=== PATIENT | male | born 1940 | race Caucasian/White ===

== ENCOUNTER 2016-08-22 14:59 | Inpatient (IN) | payer MEDICARE, OTHER ==
[~2016-08-22] VITALS: Ht 177.8 cm; Wt 83.0 kg
[~2016-08-22 14:59] MED LIST: ATOR80TA PO; CLOP75TA2 PO; DIVA250T47 PO; ESCI10TA PO; FINA5TAB11 PO; FURO20TA PO; LORA-258 PO; MEMA21CA PO; MYRBETRIQ PO; OXCA150T PO; SPIR25TA PO
[2016-08-22] MEDS ORDERED: IV SET PRIMARY 1 EA INFUS.SET MC ONE (15:54)
[2016-08-22] MEDS ORDERED: IV SET PRIMARY PUMP SET 1 EA INFUS.SET MC ONE ×2 (15:54→19:55)
[2016-08-22 15:59] LABS: BASOPHILS # (AUTO) 0.2 /CMM (0.0-0.2); BASOPHILS % (AUTO) 2.7 % (0.0-2.0); DIFF TOTAL % 100 %; EOSINOPHILS % (AUTO) 0.1 % (0.0-6.0); HEMATOCRIT 39 % (39-51); LYMPHOCYTES # (AUTO) 0.6 /CMM (0.8-4.8); MEAN CORPUSCULAR HEMOGLOBIN 30 PG (26.0-33.0); MEAN CORPUSCULAR HGB CONC 34 g/dl (31.0-36.0); MEAN CORPUSCULAR VOLUME 89 fL (80-96); MONOCYTES # (AUTO) 0.7 /CMM (0.1-1.30); MONOCYTES % (AUTO) 10.2 % (2.0-12.0); NEUTROPHILS # (AUTO) 5.2 /CMM (1.8-8.9); PLATELET COUNT (AUTO) 195 /CMM (150-450); RED BLOOD CELL COUNT(AUTO) 4.34 MIL/uL (4.5-6.0); WHITE BLOOD COUNT (AUTO) 6.7 K/uL (4.3-11.0)
[2016-08-22] MEDS ORDERED: IV NS 0.9% 1,000 ML BAG IV ONE (16:00)
[2016-08-22] MEDS ORDERED: VANCOMYCIN 1 GM in IV D5W 250 ML IV ONE (16:00)
[2016-08-22] MEDS ORDERED: PIPERACILLIN /TAZOBACTAM 3.375 G in IV D5W 50 ML IV ONE (16:00)
[2016-08-22 16:11] LABS: CALCIUM, SERUM 8.4 mg/dL (8.5-10.1); CREATININE 1.4 mg/dL (0.6-1.3); POTASSIUM 3.6 mmol/L (3.5-5.1)
[2016-08-22 16:14] LABS: INR 1.1 (0.87-1.13); PROTHROMBIN TIME 11.6 SECS (9.5-12.7)
[2016-08-22 16:16] LABS: ALBUMIN 3.2 g/dL (3.4-5.0); BILIRUBIN,DIRECT 0.1 mg/dL (0.0-0.2); BILIRUBIN,TOTAL 0.4 mg/dL (0.2-1.0); INDIRECT BILIRUBIN 0.3 mg/dL (0.0-1.1); TOTAL PROTEIN, SERUM 6.9 g/dL (6.4-8.2)
[2016-08-22 16:18] LABS: TROPONIN I 0.021 ng/mL (0.00-0.056)
[2016-08-22] MEDS ORDERED: ACETAMINOPHEN 650 MG/SUPP.RECT RC ONE ×2 (16:30→17:35)
[2016-08-22] MEDS ORDERED: TRAZ-144 PO (16:40)
[2016-08-22] MEDS ORDERED: CEFT2VIA13 IM (16:40)
[2016-08-22] MEDS ORDERED: MIDO2.5T PO (16:40)
[2016-08-22] MEDS ORDERED: LIDOCAINE 2% JEL UROJET 10 ML MM ONE ×2 (17:50→18:00)
[2016-08-22] MEDS ORDERED: ONDANSETRON HCL/PF 4 MG/2 ML VIAL IVP PRN (18:00)
[2016-08-22] MEDS ORDERED: PIPERACILLIN /TAZOBACTAM 2.25 G in IV D5W 50 ML IV SCH (18:00)
[2016-08-22] MEDS ORDERED: MAGNESIUM HYDROXIDE 30 ML UDC PO PRN (18:00)
[2016-08-22] MEDS ORDERED: ZOLPIDEM TARTRATE 5 MG TABLET PO PRN (18:00)
[2016-08-22] MEDS ORDERED: MAG HYDROX/AL HYDROX/SIMETH 30 ML UDC PO PRN (18:00)
[2016-08-22] MEDS ORDERED: IPRATROPIUM NEB FS 0.5 MG/2.5 ML AMPUL.NEB NEB PRN (18:00)
[2016-08-22] MEDS ORDERED: ALBUTEROL FS 2.5 MG/0.5 ML VIAL.NEB NEB PRN (18:00)
[2016-08-22] MEDS ORDERED: ACETAMINOPHEN 325 MG TABLET PO PRN (18:00)
[2016-08-22] MEDS ORDERED: HYDROCODONE/APAP 5/325MG 1 EACH TABLET PO PRN (18:00)
[2016-08-22] MEDS ORDERED: Z GUARD REMEDY 2 OZ OINT TP PRN (18:00)
[2016-08-22 18:18] LABS: KETONES,URINE 15 (NEGATIVE); LEUKOCYTE ESTERASE ,URINE Negative (NEGATIVE); PH,URINE 5.5 (5.0-8.0)
[2016-08-22 18:19] LABS: ADD UA MICROSCOPIC YES
[2016-08-22] MEDS ORDERED: FEE PK DOSING 1 MIN EA MC ONE (19:36)
[2016-08-22 20:00] VITALS: BP 100/58
[2016-08-22] MEDS: IV NS 0.9% 1,000 ML IV PRN (20:02)
[2016-08-22] MEDS: ENOXAPARIN SODIUM 40 MG/0.4 ML DISP.SYRIN SQ SCH (20:04)
[2016-08-22] MEDS: TRAZODONE 50 MG TABLET PO SCH (20:05)
[2016-08-22 22:21] LABS: ADD URINE CULTURE NO; WBC,URINE 0-2 /HPF (0-3)
[2016-08-22 22:52] LABS: THYROID STIMULATING HORMONE 0.288 uIU/mL (0.358-3.74)
[2016-08-22] MEDS ORDERED: SECONDARY IV SET 1 EA INFUS.SET MC ONE (23:21)
[2016-08-22] MEDS: PIPERACILLIN /TAZOBACTAM 3.375 G in IV D5W 50 ML IV SCH (23:35)
[2016-08-23] VITALS: BP 134/72
[2016-08-23 04:00] VITALS: BP 116/60
[2016-08-23] MEDS ORDERED: SECONDARY IV SET 1 EA INFUS.SET MC ONE (04:48)
[2016-08-23] MEDS: PIPERACILLIN /TAZOBACTAM 3.375 G in IV D5W 50 ML IV SCH ×4 (05:04→23:56)
[2016-08-23] MEDS: IV NS 0.9% 1,000 ML IV PRN (05:54)
[2016-08-23] MEDS: VANCOMYCIN 1 GM in IV D5W 250 ML IV SCH ×2 (05:55→18:49)
[2016-08-23 06:28] LABS: BASOPHILS % (AUTO) 0.3 % (0.0-2.0); DIFF TOTAL % 100 %; EOSINOPHILS % (AUTO) 0.1 % (0.0-6.0); HEMATOCRIT 36 % (39-51); HEMOGLOBIN 12.1 g/dL (13.5-17.5); LYMPHOCYTES # (AUTO) 0.6 /CMM (0.8-4.8); LYMPHOCYTES % (AUTO) 10.9 % (20.0-44.0); MEAN CORPUSCULAR HEMOGLOBIN 30 PG (26.0-33.0); MEAN CORPUSCULAR HGB CONC 34 g/dl (31.0-36.0); MEAN CORPUSCULAR VOLUME 90 fL (80-96); MONOCYTES # (AUTO) 0.6 /CMM (0.1-1.30); MONOCYTES % (AUTO) 12.4 % (2.0-12.0); NEUTROPHILS # (AUTO) 3.9 /CMM (1.8-8.9); NEUTROPHILS % (AUTO) 76.3 % (43.0-81.0); PLATELET COUNT (AUTO) 169 /CMM (150-450); RED BLOOD CELL COUNT(AUTO) 4.01 MIL/uL (4.5-6.0); WHITE BLOOD COUNT (AUTO) 5.2 K/uL (4.3-11.0)
[2016-08-23 07:02] LABS: THYROID STIMULATING HORMONE 0.286 uIU/mL (0.358-3.74)
[2016-08-23 07:08] LABS: CREATININE 0.9 mg/dL (0.6-1.3); PHOSPHORUS 2.6 mg/dL (2.5-4.9); POTASSIUM 3.5 mmol/L (3.5-5.1)
[2016-08-23] MEDS: PANTOPRAZOLE 40 MG TABLET.DR PO SCH (07:30)
[2016-08-23 08:00] VITALS: BP 119/68
[2016-08-23 16:00] VITALS: BP 126/73
[2016-08-23] MEDS: ALPRAZOLAM 0.25 MG TABLET PO PRN (17:44)
[2016-08-23 20:00] VITALS: BP 121/72
[2016-08-23] MEDS: TRAZODONE 50 MG TABLET PO SCH (21:29)
[2016-08-23] MEDS: ENOXAPARIN SODIUM 40 MG/0.4 ML DISP.SYRIN SQ SCH (21:30)
[2016-08-24] MEDS: IV NS 0.9% 1,000 ML IV PRN ×2 (01:12→17:26)
[2016-08-24 04:00] VITALS: BP 135/76
[2016-08-24] MEDS: PIPERACILLIN /TAZOBACTAM 3.375 G in IV D5W 50 ML IV SCH ×4 (05:57→23:13)
[2016-08-24] MEDS: VANCOMYCIN 1 GM in IV D5W 250 ML IV SCH ×2 (06:30→21:43)
[2016-08-24 07:49] LABS: BASOPHILS % (AUTO) 0.3 % (0.0-2.0); DIFF TOTAL % 100 %; EOSINOPHILS % (AUTO) 0.6 % (0.0-6.0); HEMATOCRIT 41 % (39-51); HEMOGLOBIN 13.9 g/dL (13.5-17.5); LYMPHOCYTES # (AUTO) 0.8 /CMM (0.8-4.8); MEAN CORPUSCULAR HEMOGLOBIN 30 PG (26.0-33.0); MEAN CORPUSCULAR HGB CONC 34 g/dl (31.0-36.0); MEAN CORPUSCULAR VOLUME 89 fL (80-96); MONOCYTES # (AUTO) 0.8 /CMM (0.1-1.30); MONOCYTES % (AUTO) 16.5 % (2.0-12.0); NEUTROPHILS % (AUTO) 64.6 % (43.0-81.0); PLATELET COUNT (AUTO) 197 /CMM (150-450); RED BLOOD CELL COUNT(AUTO) 4.63 MIL/uL (4.5-6.0); WHITE BLOOD COUNT (AUTO) 4.7 K/uL (4.3-11.0)
[2016-08-24 08:00] VITALS: BP 125/75
[2016-08-24 08:04] LABS: CALCIUM, SERUM 8.4 mg/dL (8.5-10.1); CREATININE 0.9 mg/dL (0.6-1.3); PHOSPHORUS 2.6 mg/dL (2.5-4.9); POTASSIUM 3.5 mmol/L (3.5-5.1)
[2016-08-24] MEDS: PANTOPRAZOLE 40 MG TABLET.DR PO SCH (08:12)
[2016-08-24 10:59] LABS: BAND % (MANUAL) 5 % (0.0-5.0); EOSINOPHILS % (MANUAL) 1 % (0-4); LYMPHOCYTES % (MANUAL) 24 % (16-48); PLATELET ESTIMATE ADEQUATE
[2016-08-24 16:00] VITALS: BP 96/51
[2016-08-24] MEDS: TRAZODONE 50 MG TABLET PO SCH (21:37)
[2016-08-24] MEDS: ENOXAPARIN SODIUM 40 MG/0.4 ML DISP.SYRIN SQ SCH (21:42)
[2016-08-25] VITALS: BP 134/78
[2016-08-25] MEDS: PIPERACILLIN /TAZOBACTAM 3.375 G in IV D5W 50 ML IV SCH ×2 (05:27→12:29)
[2016-08-25] MEDS: VANCOMYCIN 1 GM in IV D5W 250 ML IV SCH (06:12)
[2016-08-25] MEDS: ALPRAZOLAM 0.25 MG TABLET PO PRN (06:12)
[2016-08-25 08:00] VITALS: BP 109/67
[2016-08-25] MEDS: PANTOPRAZOLE 40 MG TABLET.DR PO SCH (08:12)
== END 2016-08-25 15:32 | disposition home or self-care (01) | DRG 56 ==
LOC: ER 15:00 → TELE1 17:10 → MEDSG1 08-23 09:49
DX: I69.398 Other sequelae of cerebral infarction (principal); G93.49 Other encephalopathy; D68.59 Other primary thrombophilia; E44.0 Moderate protein-calorie malnutrition; F01.51 Vascular dementia, unspecified severity, with behavioral disturbance; I13.0 Hypertensive heart and chronic kidney disease with heart failure and stage 1 through stage 4 chronic kidney disease, or unspecified chronic kidney disease; I50.32 Chronic diastolic (congestive) heart failure; R50.9 Fever, unspecified; D63.8 Anemia in other chronic diseases classified elsewhere; E78.00 Pure hypercholesterolemia, unspecified; F32.9 Major depressive disorder, single episode, unspecified; F41.9 Anxiety disorder, unspecified; G30.9 Alzheimer's disease, unspecified; I48.91 Unspecified atrial fibrillation; N40.0 Benign prostatic hyperplasia without lower urinary tract symptoms; Z95.0 Presence of cardiac pacemaker; E78.5 Hyperlipidemia, unspecified; G62.9 Polyneuropathy, unspecified; F43.10 Post-traumatic stress disorder, unspecified; K21.9 Gastro-esophageal reflux disease without esophagitis; E02 Subclinical iodine-deficiency hypothyroidism; I25.10 Atherosclerotic heart disease of native coronary artery without angina pectoris; M19.90 Unspecified osteoarthritis, unspecified site; N18.9 Chronic kidney disease, unspecified
CPT/HCPCS: 36415; 71010-TC; 80048-TC; 80061-TC; 80076-TC; 80202-TC; 81000-TC; 82306; 83605-TC; 83735-TC; 83880; 84100-TC; 84439-TC; 84443-TC; 84484-TC; 85025-TC; 85730-TC; 87040-TC; 87081-TC; 87400; 92521; 93307-TC; 94799-TC; 97001-TC; A4606; J1650; J2543; J3370; J3490; J7030; J7060; Z7610

== ENCOUNTER 2017-05-20 15:55 | Emergency (ER) | payer MEDICARE, OTHER ==
[~2017-05-20] VITALS: Ht 180.3 cm; Wt 90.7 kg
[~2017-05-20 15:55] MED LIST changes: -ATOR80TA PO; -CLOP75TA2 PO; -DIVA250T47 PO; -ESCI10TA PO; -FINA5TAB11 PO; +FURO-145 PO; -FURO20TA PO; -LORA-258 PO; -MEMA21CA PO; +MIDO2.5T PO; -MYRBETRIQ PO; -OXCA150T PO; +TRAZ-144 PO
--- NOTE | 2017-05-20 16:05 | NUR ---
BIB RA FROM HOME- SP [facility] LAST NIGHT, NO KO. LEFT FOREHEAD ABRASION. PATIENT A/OX 1 AT BASELINE. BREATHING EVEN AND UNLABORED, NO SOB. VITALS STABLE. SAFETY AND COMFORT MEASURES IN PLACE. AWAITING MD ORDERS.
--- NOTE | 2017-05-20 17:07 | NUR ---
PATIENT TAKEN TO CT VIA STRETCHER.
--- NOTE | 2017-05-20 17:20 | NUR ---
PATIENT RETURNED FROM CT SCAN.
[2017-05-20 18:22] LABS: BASOPHILS # (AUTO) 0.1 /CMM (0.0-0.2); BASOPHILS % (AUTO) 1.2 % (0.0-2.0); EOSINOPHILS # (AUTO) 0.2 /CMM (0.0-0.7); EOSINOPHILS % (AUTO) 2.7 % (0.0-6.0); HEMATOCRIT 38 % (39-51); HEMOGLOBIN 12.9 g/dL (13.5-17.5); LYMPHOCYTES # (AUTO) 1.6 /CMM (0.8-4.8); LYMPHOCYTES % (AUTO) 25.6 % (20.0-44.0); MEAN CORPUSCULAR HEMOGLOBIN 30 PG (26.0-33.0); MEAN CORPUSCULAR HGB CONC 34 g/dl (31.0-36.0); MEAN CORPUSCULAR VOLUME 89 fL (80-96); MONOCYTES # (AUTO) 0.6 /CMM (0.1-1.30); MONOCYTES % (AUTO) 9.1 % (2.0-12.0); NEUTROPHILS # (AUTO) 3.7 /CMM (1.8-8.9); NEUTROPHILS % (AUTO) 61.4 % (43.0-81.0); PLATELET COUNT (AUTO) 181 /CMM (150-450); RED BLOOD CELL COUNT(AUTO) 4.29 MIL/uL (4.5-6.0); WHITE BLOOD COUNT (AUTO) 6.2 K/uL (4.3-11.0)
[2017-05-20 18:31] LABS: CALCIUM, SERUM 8.2 mg/dL (8.5-10.1); CARBON DIOXIDE 30 mmol/L (21-32); CHLORIDE 113 mmol/L (98-107); CREATININE 1.2 mg/dL (0.6-1.3); GLUCOSE 107 mg/dL (74-106); POTASSIUM 4.1 mmol/L (3.5-5.1); SODIUM SERUM 148 mmol/L (136-145); UREA NITROGEN, BLOOD 24 mg/dL (7-18)
[2017-05-20 18:34] LABS: INR 1.1 (0.87-1.13); PROTHROMBIN TIME 11.4 SECS (9.5-12.7)
[2017-05-20 18:40] LABS: TROPONIN I < 0.017 ng/mL (0.00-0.056)
[2017-05-20] MEDS ORDERED: IV NS 0.9% 500 ML BAG IV ONE (19:00)
--- NOTE | 2017-05-20 19:07 | NUR ---
CALLED [facility] FOR [facility] TRANSPORT TRIP#[id number]
--- NOTE | 2017-05-20 19:29 | NUR ---
ETA 1950
--- NOTE | 2017-05-20 20:20 | NUR ---
IV removed. Catheter intact and site benign. Pressure and 4x4 applied to site. No bleeding noted.
--- NOTE | 2017-05-20 20:24 | NUR ---
PATIENT IS PICKED UP BY AMBULANCE STAFF. REPORT GIVEN. VSS. PATIENT REMAINED ALERT AND RESPONSIVE.
[2017-05-20 20:25] VITALS: BP 118/70
== END 2017-05-20 20:26 | disposition home or self-care (01) ==
LOC: ER 15:58
DX: S09.90XA Unspecified injury of head, initial encounter (principal); R79.1 Abnormal coagulation profile; R51 Headache; E78.00 Pure hypercholesterolemia, unspecified; F03.90 Unspecified dementia, unspecified severity, without behavioral disturbance, psychotic disturbance, mood disturbance, and anxiety; I10 Essential (primary) hypertension; F20.9 Schizophrenia, unspecified; D68.9 Coagulation defect, unspecified; I48.91 Unspecified atrial fibrillation; K21.9 Gastro-esophageal reflux disease without esophagitis; N40.0 Benign prostatic hyperplasia without lower urinary tract symptoms; Z86.73 Personal history of transient ischemic attack (TIA), and cerebral infarction without residual deficits; Z95.0 Presence of cardiac pacemaker; Z93.0 Tracheostomy status; W18.30XA Fall on same level, unspecified, initial encounter; Y93.89 Activity, other specified; Y92.89 Other specified places as the place of occurrence of the external cause; Y99.9 Unspecified external cause status
CPT/HCPCS: 36415; 70450; 71010; 72125; 80048; 84484; 85025; 85730; 99285; A4606; J7040; Z7610

== ENCOUNTER 2017-09-02 15:17 | Inpatient (IN) | payer MEDICARE, OTHER ==
[~2017-09-02] VITALS: Ht 208.3 cm; Wt 90.7 kg
[2017-09-02 16:36] LABS: BASOPHILS % (AUTO) 0.2 % (0.0-2.0); EOSINOPHILS % (AUTO) 0.2 % (0.0-6.0); HEMATOCRIT 38 % (39-51); HEMOGLOBIN 13.1 g/dL (13.5-17.5); LYMPHOCYTES # (AUTO) 1.5 /CMM (0.8-4.8); LYMPHOCYTES % (AUTO) 11.4 % (20.0-44.0); MEAN CORPUSCULAR HEMOGLOBIN 31 PG (26.0-33.0); MEAN CORPUSCULAR HGB CONC 34 g/dl (31.0-36.0); MEAN CORPUSCULAR VOLUME 91 fL (80-96); MONOCYTES # (AUTO) 1.3 /CMM (0.1-1.30); MONOCYTES % (AUTO) 9.7 % (2.0-12.0); NEUTROPHILS # (AUTO) 10.1 /CMM (1.8-8.9); NEUTROPHILS % (AUTO) 78.5 % (43.0-81.0); PLATELET COUNT (AUTO) 171 /CMM (150-450); RDW COEFFICIENT OF VARIATION 13.3 (11.5-15.0); RED BLOOD CELL COUNT(AUTO) 4.22 MIL/uL (4.5-6.0); WHITE BLOOD COUNT (AUTO) 12.9 K/uL (4.3-11.0)
[2017-09-02 16:47] LABS: CALCIUM, SERUM 8.6 mg/dL (8.5-10.1); CARBON DIOXIDE 29 mmol/L (21-32); CHLORIDE 110 mmol/L (98-107); CREATININE 1.1 mg/dL (0.6-1.3); GLUCOSE 100 mg/dL (74-106); POTASSIUM 4.1 mmol/L (3.5-5.1); SODIUM SERUM 147 mmol/L (136-145); UREA NITROGEN, BLOOD 21 mg/dL (7-18)
[2017-09-02 16:58] LABS: INR 1.1 (0.87-1.13)
[2017-09-02 18:00] LABS: APPEARANCE,URINE SL CLOUDY (CLEAR); BILIRUBIN,URINE 1+ (NEGATIVE); BLOOD, URINE 3+ Ery/uL (NEGATIVE); COLOR,URINE AMBER (YELLOW); KETONES,URINE 1+ (NEGATIVE); LEUKOCYTE ESTERASE ,URINE 1+ (NEGATIVE); NITRITE, URINE NEGATIVE (NEGATIVE); PH,URINE 7.5 (5.0-8.0); PROTEIN,URINE 3+ mg/dl (NEGATIVE); UGLUCOSE NEGATIVE (NEGATIVE)
[2017-09-02 18:14] LABS: RBC,URINE TOO NUMEROUS TO COUN /HPF (0-2)
[2017-09-02 18:15] LABS: BACTERIA,URINE Many /HPF (None Seen); SQUAMOUS EPITHELIAL CELL,UR Rare /HPF (None Seen); WBC,URINE 21-50 /HPF (0-3)
[2017-09-02] MEDS ORDERED: LEVOFLOXACIN 750 MG /D5W 150ML 150 ML IV ONE (19:00)
[2017-09-02] MEDS ORDERED: IV NS 0.9% 1,000 ML BAG IV ONE (19:00)
[2017-09-02] MEDS ORDERED: MYRBETRIQ 50 MG PO (19:39)
[2017-09-02] MEDS ORDERED: DIVA125C5 PO ×2 (19:44)
[2017-09-02] MEDS ORDERED: PYRI60TA PO (19:55)
[2017-09-02] MEDS ORDERED: BUSP10TA3 PO (19:55)
[2017-09-02] MEDS ORDERED: FINA5TAB11 PO (19:55)
[2017-09-02] MEDS ORDERED: CLOP75TA15 PO (19:55)
[2017-09-02] MEDS ORDERED: ATOR20TA PO (19:55)
[2017-09-02] MEDS ORDERED: ESCI5TAB PO (19:55)
[2017-09-02] MEDS ORDERED: CYPR4TAB34 PO (19:55)
[2017-09-02] MEDS ORDERED: LORA0.5T PO (19:55)
[2017-09-02 20:00] VITALS: BP 153/92
[2017-09-02] MEDS ORDERED: Z GUARD REMEDY 2 OZ OINT TP PRN (22:00)
[2017-09-02] MEDS ORDERED: ONDANSETRON HCL/PF 4 MG/2 ML VIAL IVP PRN (22:00)
[2017-09-02] MEDS ORDERED: ACETAMINOPHEN 325 MG TABLET PO PRN (22:00)
[2017-09-02] MEDS ORDERED: CEFTRIAXONE 1 G VIAL ONE (22:24)
[2017-09-02] MEDS ORDERED: TRAZODONE 50 MG TABLET ONE (22:25)
[2017-09-02] MEDS ORDERED: ATORVASTATIN 10 MG TABLET ONE (22:25)
[2017-09-02] MEDS: TRAZODONE 50 MG TABLET PO SCH (22:29)
[2017-09-02] MEDS: ATORVASTATIN 10 MG TABLET PO SCH (22:29)
[2017-09-02] MEDS: CEFTRIAXONE 1 G in IV D5W 50 ML IV SCH (22:30)
[2017-09-02] MEDS: IV 1/2NS 1000 ML 1,000 ML IV PRN (22:31)
[2017-09-03 07:03] LABS: BASOPHILS % (AUTO) 0.2 % (0.0-2.0); EOSINOPHILS # (AUTO) 0.1 /CMM (0.0-0.7); EOSINOPHILS % (AUTO) 1.5 % (0.0-6.0); HEMATOCRIT 35 % (39-51); LYMPHOCYTES # (AUTO) 1.9 /CMM (0.8-4.8); LYMPHOCYTES % (AUTO) 25.1 % (20.0-44.0); MEAN CORPUSCULAR HEMOGLOBIN 31 PG (26.0-33.0); MEAN CORPUSCULAR HGB CONC 34 g/dl (31.0-36.0); MEAN CORPUSCULAR VOLUME 91 fL (80-96); MONOCYTES # (AUTO) 0.8 /CMM (0.1-1.30); MONOCYTES % (AUTO) 11.1 % (2.0-12.0); NEUTROPHILS # (AUTO) 4.6 /CMM (1.8-8.9); NEUTROPHILS % (AUTO) 62.1 % (43.0-81.0); PLATELET COUNT (AUTO) 156 /CMM (150-450); RDW COEFFICIENT OF VARIATION 12.9 (11.5-15.0); RED BLOOD CELL COUNT(AUTO) 3.87 MIL/uL (4.5-6.0); WHITE BLOOD COUNT (AUTO) 7.4 K/uL (4.3-11.0)
[2017-09-03 07:17] LABS: ALANINE AMINOTRANSFERASE 10 U/L (12-78); ALBUMIN 2.8 g/dL (3.4-5.0); ALKALINE PHOSPHATASE 41 U/L (46-116); ASPARTATE AMINOTRANSFERASE 13 U/L (15-37); BILIRUBIN,TOTAL 0.7 mg/dL (0.2-1.0); CALCIUM, SERUM 8.5 mg/dL (8.5-10.1); CARBON DIOXIDE 29 mmol/L (21-32); CHLORIDE 107 mmol/L (98-107); CREATININE 0.9 mg/dL (0.6-1.3); GLUCOSE 101 mg/dL (74-106); MAGNESIUM 1.8 mg/dL (1.8-2.4); PHOSPHORUS 2.5 mg/dL (2.5-4.9); POTASSIUM 3.8 mmol/L (3.5-5.1); SODIUM SERUM 142 mmol/L (136-145); TOTAL PROTEIN, SERUM 6.3 g/dL (6.4-8.2); UREA NITROGEN, BLOOD 12 mg/dL (7-18)
[2017-09-03 07:20] LABS: CHOLESTEROL 116 mg/dL (<200); HDL CHOLESTEROL 56 mg/dL (40-60); LDL 52 mg/dL (0-99); TRIGLYCERIDES 45 mg/dL (30-150)
[2017-09-03 08:00] VITALS: BP 126/82
[2017-09-03] MEDS: CLOPIDOGREL BISULFATE 75 MG TABLET PO SCH (08:54)
[2017-09-03] MEDS: busPIRone 5 MG TABLET PO SCH ×3 (08:54→17:15)
[2017-09-03] MEDS: FINASTERIDE (5 MG) 5 MG TABLET PO SCH (08:54)
[2017-09-03] MEDS: ESCITALOPRAM OXALATE (10 MG) 10 MG TABLET PO SCH (08:55)
[2017-09-03] MEDS ORDERED: DIVALPROEX SODIUM 125 MG CAP.SPRINK PO SCH ×2 (09:00→18:00)
[2017-09-03] MEDS: IV 1/2NS 1000 ML 1,000 ML IV PRN ×2 (10:58→21:53)
[2017-09-03] MEDS: PYRIDOSTIGMINE BROMIDE 60 MG TABLET PO SCH ×2 (10:58→17:15)
[2017-09-03 16:00] VITALS: BP 139/64
[2017-09-03] MEDS: LORAZEPAM 0.5 MG TABLET PO SCH (17:15)
[2017-09-03] MEDS: CYPROHEPTADINE HCL 4 MG TABLET PO SCH (17:15)
[2017-09-03 20:00] VITALS: BP 124/72
[2017-09-03] MEDS: TRAZODONE 50 MG TABLET PO SCH (21:04)
[2017-09-03] MEDS: CEFTRIAXONE 1 G in IV D5W 50 ML IV SCH (21:04)
[2017-09-03] MEDS: DIVALPROEX SODIUM 125 MG CAP.SPRINK PO SCH (21:04)
[2017-09-03] MEDS: ATORVASTATIN 10 MG TABLET PO SCH (21:05)
[2017-09-04] MEDS: PYRIDOSTIGMINE BROMIDE 60 MG TABLET PO SCH ×2 (07:09→17:42)
[2017-09-04 08:00] VITALS: BP 107/71
[2017-09-04] MEDS ORDERED: DIVALPROEX SODIUM 125 MG CAP.SPRINK PO SCH (09:00)
[2017-09-04] MEDS: busPIRone 5 MG TABLET PO SCH ×3 (09:29→17:43)
[2017-09-04] MEDS: FINASTERIDE (5 MG) 5 MG TABLET PO SCH (09:29)
[2017-09-04] MEDS: ESCITALOPRAM OXALATE (10 MG) 10 MG TABLET PO SCH (09:29)
[2017-09-04] MEDS: CLOPIDOGREL BISULFATE 75 MG TABLET PO SCH (09:29)
[2017-09-04] MEDS: DIVALPROEX SODIUM 125 MG CAP.SPRINK PO SCH ×3 (09:30→20:41)
[2017-09-04 10:00] VITALS: BP 107/71
[2017-09-04] MEDS: HALOPERIDOL 1 MG TABLET PO SCH ×2 (13:07→17:42)
[2017-09-04 16:00] VITALS: BP 115/68
[2017-09-04] MEDS: LORAZEPAM 0.5 MG TABLET PO SCH (17:42)
[2017-09-04] MEDS: CYPROHEPTADINE HCL 4 MG TABLET PO SCH (17:42)
[2017-09-04 20:00] VITALS: BP 145/85
[2017-09-04] MEDS: IV 1/2NS 1000 ML 1,000 ML IV PRN (20:41)
[2017-09-04] MEDS: ATORVASTATIN 10 MG TABLET PO SCH (22:00)
[2017-09-04] MEDS: CEFTRIAXONE 1 G in IV D5W 50 ML IV SCH (23:14)
[2017-09-04] MEDS: TRAZODONE 50 MG TABLET PO SCH (23:22)
[2017-09-05 08:00] VITALS: BP 115/79
[2017-09-05] MEDS: DIVALPROEX SODIUM 125 MG CAP.SPRINK PO SCH ×2 (09:18→13:48)
[2017-09-05] MEDS: busPIRone 5 MG TABLET PO SCH ×3 (09:19→16:38)
[2017-09-05] MEDS: FINASTERIDE (5 MG) 5 MG TABLET PO SCH (09:20)
[2017-09-05] MEDS: HALOPERIDOL 1 MG TABLET PO SCH ×3 (09:20→16:38)
[2017-09-05] MEDS: ESCITALOPRAM OXALATE (10 MG) 10 MG TABLET PO SCH (09:20)
[2017-09-05] MEDS: CLOPIDOGREL BISULFATE 75 MG TABLET PO SCH (09:20)
[2017-09-05] MEDS: PYRIDOSTIGMINE BROMIDE 60 MG TABLET PO SCH ×2 (12:29→16:37)
[2017-09-05] MEDS: IV 1/2NS 1000 ML 1,000 ML IV PRN (12:30)
[2017-09-05 15:58] VITALS: BP 134/73
== END 2017-09-05 16:59 | disposition home or self-care (01) | DRG 689 ==
LOC: ER 15:19 → MEDSG2 20:06 → MED 09-05 06:38
PROVIDERS: ADMIT Nurse Practitioner Acute Care; ATTEND Nurse Practitioner Acute Care
DX: N30.91 Cystitis, unspecified with hematuria (principal); R53.2 Functional quadriplegia; E87.0 Hyperosmolality and hypernatremia; D68.59 Other primary thrombophilia; Z93.0 Tracheostomy status; F20.9 Schizophrenia, unspecified; I13.0 Hypertensive heart and chronic kidney disease with heart failure and stage 1 through stage 4 chronic kidney disease, or unspecified chronic kidney disease; I48.91 Unspecified atrial fibrillation; G62.9 Polyneuropathy, unspecified; I50.9 Heart failure, unspecified; E86.0 Dehydration; Z93.1 Gastrostomy status; D63.8 Anemia in other chronic diseases classified elsewhere; E78.5 Hyperlipidemia, unspecified; F03.90 Unspecified dementia, unspecified severity, without behavioral disturbance, psychotic disturbance, mood disturbance, and anxiety; N18.9 Chronic kidney disease, unspecified; Z86.73 Personal history of transient ischemic attack (TIA), and cerebral infarction without residual deficits; I25.10 Atherosclerotic heart disease of native coronary artery without angina pectoris; Z79.899 Other long term (current) drug therapy; F43.10 Post-traumatic stress disorder, unspecified; K21.9 Gastro-esophageal reflux disease without esophagitis; K40.20 Bilateral inguinal hernia, without obstruction or gangrene, not specified as recurrent; R42 Dizziness and giddiness; H26.9 Unspecified cataract; Z95.0 Presence of cardiac pacemaker; G47.00 Insomnia, unspecified
CPT/HCPCS: 36415; 80048-TC; 80053-TC; 80061-TC; 81000-TC; 83735-TC; 84100-TC; 85025-TC; 85730-TC; 87040-TC; 87081-TC; 87086-TC; A4606; J0696; J3490; J7030; J7060; Z7610

== ENCOUNTER 2017-10-28 14:47 | Inpatient (IN) | payer MEDICARE, OTHER ==
[~2017-10-28] VITALS: Ht 177.8 cm; Wt 60.8 kg
[~2017-10-28 14:47] MED LIST changes: +ATOR20TA PO; +BUSP10TA3 PO; +CLOP75TA15 PO; +CYPR4TAB34 PO; +DIVA125C5 PO; +ESCI5TAB PO; +FINA5TAB11 PO; -FURO-145 PO; +LORA0.5T PO; -MIDO2.5T PO; +MYRBETRIQ 50 MG PO; +PYRI60TA PO; -SPIR25TA PO
--- NOTE | 2017-10-28 14:58 | NUR ---
GUSTAVO 18G PLACED. BLOOD DRAWN SENT TO LAB
--- NOTE | 2017-10-28 15:20 | NUR ---
[id number] FROM HOME: MORE ALTERED, GENERALIZED WEAKNESS x 2 DAYS. FAMILY MEMBER AT BS. SEEN BY MD FOR EVAL. SAFETY AND COMFORT MEASURES PROVIDED. WILL MONITOR.
[2017-10-28] MEDS ORDERED: ACETAMINOPHEN 650 MG/SUPP.RECT RC ONE ×2 (15:37→16:00)
[2017-10-28 15:41] LABS: BASOPHILS % (AUTO) 0.4 % (0.0-2.0); EOSINOPHILS # (AUTO) 0.1 /CMM (0.0-0.7); EOSINOPHILS % (AUTO) 0.9 % (0.0-6.0); HEMATOCRIT 41 % (39-51); HEMOGLOBIN 13.9 g/dL (13.5-17.5); LYMPHOCYTES # (AUTO) 1.3 /CMM (0.8-4.8); LYMPHOCYTES % (AUTO) 12.3 % (20.0-44.0); MEAN CORPUSCULAR HEMOGLOBIN 31 PG (26.0-33.0); MEAN CORPUSCULAR HGB CONC 34 g/dl (31.0-36.0); MEAN CORPUSCULAR VOLUME 89 fL (80-96); MONOCYTES % (AUTO) 9.8 % (2.0-12.0); NEUTROPHILS # (AUTO) 7.8 /CMM (1.8-8.9); NEUTROPHILS % (AUTO) 76.6 % (43.0-81.0); PLATELET COUNT (AUTO) 271 /CMM (150-450); RDW COEFFICIENT OF VARIATION 11.9 (11.5-15.0); RED BLOOD CELL COUNT(AUTO) 4.56 MIL/uL (4.5-6.0); WHITE BLOOD COUNT (AUTO) 10.2 K/uL (4.3-11.0)
--- NOTE | 2017-10-28 15:45 | NUR ---
MEDICATED [id number]. URINE SAMPLE OBTAINED VIA IN AND OUT CATH.
[2017-10-28 15:52] LABS: CALCIUM, SERUM 8.4 mg/dL (8.5-10.1); CARBON DIOXIDE 31 mmol/L (21-32); CHLORIDE 106 mmol/L (98-107); CREATININE 1.2 mg/dL (0.6-1.3); GLUCOSE 125 mg/dL (74-106); POTASSIUM 3.8 mmol/L (3.5-5.1); SODIUM SERUM 141 mmol/L (136-145); UREA NITROGEN, BLOOD 20 mg/dL (7-18)
[2017-10-28 15:55] LABS: INR 1.03 (0.85-1.15)
[2017-10-28 15:57] LABS: ALANINE AMINOTRANSFERASE 8 U/L (12-78); ALBUMIN 2.7 g/dL (3.4-5.0); ALKALINE PHOSPHATASE 48 U/L (46-116); ASPARTATE AMINOTRANSFERASE 12 U/L (15-37); BILIRUBIN,DIRECT 0.2 mg/dL (0.0-0.2); BILIRUBIN,TOTAL 0.5 mg/dL (0.2-1.0)
[2017-10-28 15:59] LABS: TROPONIN I < 0.017 ng/mL (0.00-0.056)
[2017-10-28] MEDS ORDERED: IV NS 0.9% 1,000 ML BAG IV ONE (16:00)
[2017-10-28] MEDS ORDERED: CEFTRIAXONE 1GM BAG (ER ONLY) 50 ML IV ONE (16:00)
[2017-10-28 16:14] LABS: APPEARANCE,URINE Clear (CLEAR); BILIRUBIN,URINE SMALL (NEGATIVE); BLOOD, URINE Small Ery/uL (NEGATIVE); KETONES,URINE Trace (NEGATIVE); LEUKOCYTE ESTERASE ,URINE Negative (NEGATIVE); NITRITE, URINE Negative (NEGATIVE); PROTEIN,URINE Trace mg/dl (NEGATIVE); UGLUCOSE Negative (NEGATIVE)
[2017-10-28 16:16] LABS: COLOR,URINE Dark Yellow (YELLOW)
[2017-10-28 16:19] LABS: BACTERIA,URINE Rare /HPF (None Seen); MUCUS,URINE Few /LPF (None Seen); SQUAMOUS EPITHELIAL CELL,UR Few /HPF (None Seen)
--- NOTE | 2017-10-28 17:01 | NUR ---
called [facility] for admission
[2017-10-28] MEDS ORDERED: CHOL10002 PO (17:03)
[2017-10-28] MEDS ORDERED: HALO2TAB PO (17:03)
--- NOTE | 2017-10-28 17:07 | NUR ---
CALLED NURSING SUP FOR BED
[2017-10-28] MEDS ORDERED: AZITHROMYCIN 500 MG in IV D5W 250 ML IV SCH (17:30)
--- NOTE | 2017-10-28 18:01 | NUR ---
REPORT GIVEN TO BERYL ORTEGA FOR TELE 308.
[2017-10-28] MEDS ORDERED: IV NS 0.9% 1,000 ML IV PRN (18:20)
[2017-10-28] MEDS ORDERED: MAG HYDROX/AL HYDROX/SIMETH 30 ML UDC PO PRN (18:30)
[2017-10-28] MEDS ORDERED: Z GUARD REMEDY 2 OZ OINT TP PRN (18:30)
[2017-10-28] MEDS ORDERED: ONDANSETRON HCL/PF 4 MG/2 ML VIAL IVP PRN (18:30)
[2017-10-28] MEDS ORDERED: ACETAMINOPHEN 325 MG TABLET PO PRN (18:30)
[2017-10-28] MEDS ORDERED: MAGNESIUM HYDROXIDE 30 ML UDC PO PRN (18:30)
[2017-10-28] MEDS ORDERED: HYDROCODONE/APAP 5/325MG 1 EACH TABLET PO PRN (18:30)
[2017-10-28] MEDS ORDERED: ZOLPIDEM TARTRATE 5 MG TABLET PO PRN (18:30)
[2017-10-28] MEDS ORDERED: hydrALAZINE HCL 25 MG TABLET PO PRN (19:00)
[2017-10-28] MEDS ORDERED: ALBUTEROL FS 2.5 MG/3 ML VIAL.NEB NEB PRN (19:00)
--- NOTE | 2017-10-28 19:30 | NUR ---
RN NOTES RECEIVED PT. SLEEPING BUT AROUSABLE, FAMILY AT BEDSIDE, NEEDS TO BE ADMITTED, V-PACING ON TELE MONITOR HR82, ADMISSION PROTOCOL RENDERED, CALL LIGHT WITHIN REACH, SIDERAILSUPX2, CONTINUE TO MONITOR
[2017-10-28 20:00] VITALS: BP 114/71
[2017-10-28] MEDS ORDERED: AZITHROMYCIN 250 MG TABLET PO SCH (20:00)
[2017-10-28] MEDS: TRAZODONE 50 MG TABLET PO SCH (23:19)
[2017-10-29] VITALS: BP 126/89
[2017-10-29] MEDS ORDERED: IV NS 0.9% 1,000 ML IV PRN (00:33)
--- NOTE | 2017-10-29 06:25 | NUR ---
RN NOTES SLEEPING BUT AROUSABLE, IV LINE PATENT NO REDNESS OR SWOLLEN, MORNING CARE RENDERED, FAMILY AT BEDSIDE, CALL LIGHT WITHIN REACH, STEVANX2, PT. NEEDS ATTENDED
[2017-10-29 06:40] LABS: BASOPHILS % (AUTO) 0.7 % (0.0-2.0); EOSINOPHILS # (AUTO) 0.2 /CMM (0.0-0.7); EOSINOPHILS % (AUTO) 3.9 % (0.0-6.0); HEMATOCRIT 36 % (39-51); HEMOGLOBIN 12.1 g/dL (13.5-17.5); LYMPHOCYTES # (AUTO) 1.3 /CMM (0.8-4.8); MEAN CORPUSCULAR HEMOGLOBIN 30 PG (26.0-33.0); MEAN CORPUSCULAR HGB CONC 34 g/dl (31.0-36.0); MEAN CORPUSCULAR VOLUME 90 fL (80-96); MONOCYTES # (AUTO) 0.5 /CMM (0.1-1.30); MONOCYTES % (AUTO) 10.2 % (2.0-12.0); NEUTROPHILS # (AUTO) 3.1 /CMM (1.8-8.9); NEUTROPHILS % (AUTO) 60.2 % (43.0-81.0); PLATELET COUNT (AUTO) 193 /CMM (150-450); RED BLOOD CELL COUNT(AUTO) 3.98 MIL/uL (4.5-6.0); WHITE BLOOD COUNT (AUTO) 5.1 K/uL (4.3-11.0)
[2017-10-29 06:45] LABS: CALCIUM, SERUM 7.9 mg/dL (8.5-10.1); CARBON DIOXIDE 28 mmol/L (21-32); CHLORIDE 111 mmol/L (98-107); CREATININE 0.8 mg/dL (0.6-1.3); GLUCOSE 101 mg/dL (74-106); MAGNESIUM 1.9 mg/dL (1.8-2.4); PHOSPHORUS 3.1 mg/dL (2.5-4.9); POTASSIUM 3.7 mmol/L (3.5-5.1); SODIUM SERUM 145 mmol/L (136-145); UREA NITROGEN, BLOOD 14 mg/dL (7-18)
[2017-10-29 06:50] LABS: CHOLESTEROL 102 mg/dL (<200); HDL CHOLESTEROL 47 mg/dL (40-60); LDL 52 mg/dL (0-99); TRIGLYCERIDES 35 mg/dL (30-150)
[2017-10-29 07:16] VITALS: BP 128/80
[2017-10-29] MEDS: Z GUARD REMEDY 2 OZ OINT TP SCH (09:00)
--- NOTE | 2017-10-29 09:00 | NUR ---
RN NOTES: HALLIE UNAVAILABLE FROM PHARMACY DURING AM ADMINISTRATION
[2017-10-29] MEDS: CLOPIDOGREL BISULFATE 75 MG TABLET PO SCH (09:07)
[2017-10-29] MEDS: FINASTERIDE (5 MG) 5 MG TABLET PO SCH (09:09)
[2017-10-29] MEDS: ESCITALOPRAM OXALATE (10 MG) 10 MG TABLET PO SCH (09:10)
[2017-10-29] MEDS: busPIRone 5 MG TABLET PO SCH ×3 (10:52→18:24)
[2017-10-29] MEDS: DIVALPROEX SODIUM 125 MG CAP.SPRINK PO SCH ×3 (10:52→18:24)
[2017-10-29] MEDS ORDERED: VANCOMYCIN 1 GM in IV NS 0.9% 250 ML IV SCH (11:00)
--- NOTE | 2017-10-29 11:00 | NUR ---
RN NOTES: DR HEREDIA NOTIFIED THAT PATIENT IS POSITIVE FOR GRAM POSITIVE COCCI IN [place]ERS AT 9:40. PATIENT NOW ON VANCOMYCIN PER MD ORDERS
[2017-10-29] MEDS: IV D5/ 0.9% NACL 1,000 ML IV PRN (11:03)
[2017-10-29] MEDS ORDERED: FEE PK DOSING 1 MIN EA MC ONE (11:51)
[2017-10-29] MEDS ORDERED: VANCOMYCIN 1 GM in IV D5W 250 ML IV ONE (12:00)
--- NOTE | 2017-10-29 13:08 | NUR ---
RN NOTES: VANCOMYCIN DELIVERED FROM PHARMACY NOW
--- NOTE | 2017-10-29 14:58 | NUR ---
RN NOTES: PATIENT AGREED TO TAKE DEPAKOTE AND BUSPAR NOW. REFUSING EARLIER
[2017-10-29] MEDS: CEFTRIAXONE 1 G in IV D5W 50 ML IV SCH (16:12)
[2017-10-29 16:13] VITALS: BP 107/67
[2017-10-29] MEDS: CYPROHEPTADINE HCL 4 MG TABLET PO SCH (18:23)
[2017-10-29] MEDS: LACTOBACILLUS RHAMNOSUS GG 1 EACH CAP.SPRINK PO SCH (18:24)
[2017-10-29] MEDS: ATORVASTATIN 10 MG TABLET PO SCH (18:25)
[2017-10-29] MEDS ORDERED: AZITHROMYCIN 250 MG TABLET PO SCH ×2 (19:00)
--- NOTE | 2017-10-29 19:30 | NUR ---
MS RN OPENING NOTES RECEIVED PT IN BES, AWAKE, ON ROOM AIR, RESPIRATIONS EVEN, UNLABORED, NO APPARENT DISTRESS NOTED. NO S/SX OF PAIN OR DISCOMFORT NOTED. FAMILY AT BEDSIDE. IV SITE GUSTAVO INTACT, PATENT. CALL LIGHT WITHIN REACH, BED LOCKED IN LOWEST POSITION. KEPT CLEAN AND COMFORTABLE. ATTENDED ALL NEEDS. WILL CONTINUE TO MONITOR ACCORDINGLY.
--- NOTE | 2017-10-29 19:30 | NUR ---
RN NOTES: PATIENT RESTING IN BED. NONLABORED BREATHING NOTED ON ROOM AIR. PATIENT AOX1, CONFUSED, NORTHERN IRISH SPEAKING. FAMILY AT BEDSIDE TRANSLATING. IV LINE ON LEFT ARM GAUGE 18 PATENT AND INTACT. NO FACIAL GRIMACING NOTED. DURING SHIFT, PATIENT STABLE. NO SEIZURES NOTED. PATIENT AFEBRILE. NO NAUSEA AND NO VOMITING NOTED. NEURO CHECKS DONE Q 2 HOURS, REINFORCEMENT NEEDED WHEN INSTRUCTED TO FOLLOW DIRECTIONS WHEN ASSESSING WITH PENLIGHT. PERRLA. NO NEW ONSET OF WEAKNESS. KEPT CLEAN AND DRY. TURNED AND REPOSITIONED EVERY 2 HOURS. ENDORSED TO NEXT SHIFT
[2017-10-29 20:00] VITALS: BP 109/47
[2017-10-29] MEDS: TRAZODONE 50 MG TABLET PO SCH (21:38)
[2017-10-29 22:00] VITALS: BP 110/60
[2017-10-29] MEDS: VANCOMYCIN 0.75 GM in IV D5W 250 ML IV SCH (23:28)
--- NOTE | 2017-10-30 06:28 | NUR ---
MS RN CLOSING NOTES PT IN BED, RESTING COMFORTABLY, ON ROOM AIR, RESPIRATIONS EVEN, UNLABORED, NO APPARENT DISTRESS NOTED. IV SITE GUSTAVO INTACT, PATENT. NO S/SX OF PAIN OR DISCOMFORT NOTED. NEURO CHECKS DONE Q 2H, NO CHANGE IN LOC NOTED. CALL LIGHT WITHIN REACH. FAMILY AT BEDSIDE. BED LOCKED IN LOWEST POSITION. KEPT CLEAN AND COMFORTABLE, ATTENDED ALL NEEDS. WILL CONTINUE TO MONITOR ACCORDINGLY.
[2017-10-30 07:09] LABS: BASOPHILS % (AUTO) 0.4 % (0.0-2.0); EOSINOPHILS # (AUTO) 0.3 /CMM (0.0-0.7); EOSINOPHILS % (AUTO) 4.2 % (0.0-6.0); HEMATOCRIT 38 % (39-51); HEMOGLOBIN 12.9 g/dL (13.5-17.5); LYMPHOCYTES # (AUTO) 1.1 /CMM (0.8-4.8); LYMPHOCYTES % (AUTO) 17.5 % (20.0-44.0); MEAN CORPUSCULAR HEMOGLOBIN 31 PG (26.0-33.0); MEAN CORPUSCULAR HGB CONC 34 g/dl (31.0-36.0); MEAN CORPUSCULAR VOLUME 90 fL (80-96); MONOCYTES # (AUTO) 0.5 /CMM (0.1-1.30); MONOCYTES % (AUTO) 8.6 % (2.0-12.0); NEUTROPHILS # (AUTO) 4.3 /CMM (1.8-8.9); NEUTROPHILS % (AUTO) 69.3 % (43.0-81.0); PLATELET COUNT (AUTO) 225 /CMM (150-450); RDW COEFFICIENT OF VARIATION 12.8 (11.5-15.0); RED BLOOD CELL COUNT(AUTO) 4.23 MIL/uL (4.5-6.0); WHITE BLOOD COUNT (AUTO) 6.1 K/uL (4.3-11.0)
[2017-10-30 07:24] LABS: CALCIUM, SERUM 8.1 mg/dL (8.5-10.1); CARBON DIOXIDE 32 mmol/L (21-32); CHLORIDE 109 mmol/L (98-107); CREATININE 0.9 mg/dL (0.6-1.3); GLUCOSE 102 mg/dL (74-106); MAGNESIUM 1.9 mg/dL (1.8-2.4); POTASSIUM 3.8 mmol/L (3.5-5.1); SODIUM SERUM 146 mmol/L (136-145); UREA NITROGEN, BLOOD 9 mg/dL (7-18)
--- NOTE | 2017-10-30 07:30 | NUR ---
MS/RN OPENING NOTE PATIENT ALERT AND ORIENTED X1. HAITIAN SPEAKING. REDIRECTION AND REORIENTATION PROVIDED. DENIES SOB. RESPIRATION REGULAR AND UNLABORED. DENIES PAIN. CAREGIVER BY THE BEDSIDE. BED LOW AND LOCKED. BED ALARM ON. SIDE RAILS UP X3. CALL LIGHT WITHIN REACH. WILL CONTINUE TO MONITOR.
[2017-10-30 08:00] VITALS: BP 119/78
[2017-10-30] MEDS: ESCITALOPRAM OXALATE (10 MG) 10 MG TABLET PO SCH (08:28)
[2017-10-30] MEDS: CLOPIDOGREL BISULFATE 75 MG TABLET PO SCH (08:28)
[2017-10-30] MEDS: LACTOBACILLUS RHAMNOSUS GG 1 EACH CAP.SPRINK PO SCH ×2 (08:28→16:35)
[2017-10-30] MEDS: DIVALPROEX SODIUM 125 MG CAP.SPRINK PO SCH ×3 (08:28→16:35)
[2017-10-30] MEDS: FINASTERIDE (5 MG) 5 MG TABLET PO SCH (08:29)
[2017-10-30] MEDS: busPIRone 5 MG TABLET PO SCH ×3 (08:29→16:35)
--- NOTE | 2017-10-30 08:55 | NUR ---
MS/RN NOTE DUE Z GUARD IS AVAILABLE AT THIS TIME. FOLLOW UP CALL IS MADE TO THE PHARM TO DELIVER. WILL CONTINUE TO FOLLOW UP.
[2017-10-30] MEDS: IV D5/ 0.9% NACL 1,000 ML IV PRN (12:00)
[2017-10-30] MEDS: VANCOMYCIN 0.75 GM in IV D5W 250 ML IV SCH (12:01)
[2017-10-30] MEDS: Z GUARD REMEDY 2 OZ OINT TP SCH (13:42)
[2017-10-30] MEDS: CEFTRIAXONE 1 G in IV D5W 50 ML IV SCH (15:44)
--- NOTE | 2017-10-30 16:00 | NUR ---
MS/RN NOTE DR HEREDIA MADE AWARE OF ELEVATED BUN RESULT. NEW ORDER OBTAINED. Addendum: 10/30/17 at 1648 by CAM IRBY RN WRONG PATIENT CHARTING. PATIENT TOÑO COOPER`S BUN IS NOT ELEVATED
[2017-10-30 16:03] VITALS: BP 121/79
[2017-10-30] MEDS: ATORVASTATIN 10 MG TABLET PO SCH (17:26)
[2017-10-30] MEDS: CYPROHEPTADINE HCL 4 MG TABLET PO SCH (17:26)
--- NOTE | 2017-10-30 18:31 | NUR ---
MS/RN CLOSING NOTE PATIENT IN BED AWAKE. ALERT AND ORIENTED X1. REDIRECTION AND REORIENTATION PROVIDED NEEDED. GUSTAVO G 22 PATENT AND IV INFUSING WITH NO S/S INFILTRATION. GOOD AND GENTLE SKIN CARE RENDERED. KEPT CLEAN, DRY AND COMFORTABLE. VERBAL CUES PROVIDED TO KEEP SAFETY AWARENESS HIGH. BED LOW AND LOCKED. SIDE RAILS UP X3. CALL LIGHT WITHIN REACH. WILL ENDORSE TO STRAIGHTENER GUN PARTS.
--- NOTE | 2017-10-30 19:15 | NUR ---
MS RN NOTES: RECEIVED PT LAYING IN BED WITH FAMILY MEMBER AT BEDSIDE. PT ON ROOM AIR. PT AWAKE AND HAS EYES OPEN. PT A/OX1 AND IS IRANIAN SPEAKING ONLY. PT HAS IV GUSTAVO #22G AND IS BEING INFUSED WITH D5NS AT 75M/HR. CALL LIGHT WITHIN PT'S REACH. BED KEPT IN LOW, LOCKED POSITION, AND SIDE RAILS X 2UP. WILL CONTINUE TO MONITOR PT.
[2017-10-30 20:00] VITALS: BP 118/69
[2017-10-30] MEDS: TRAZODONE 50 MG TABLET PO SCH (21:00)
[2017-10-31] MEDS: IV D5/ 0.9% NACL 1,000 ML IV PRN ×2 (03:28→16:45)
[2017-10-31 06:27] LABS: BASOPHILS % (AUTO) 0.5 % (0.0-2.0); EOSINOPHILS # (AUTO) 0.2 /CMM (0.0-0.7); EOSINOPHILS % (AUTO) 3.1 % (0.0-6.0); HEMATOCRIT 35 % (39-51); HEMOGLOBIN 12.1 g/dL (13.5-17.5); LYMPHOCYTES # (AUTO) 1.2 /CMM (0.8-4.8); LYMPHOCYTES % (AUTO) 22.7 % (20.0-44.0); MEAN CORPUSCULAR HEMOGLOBIN 31 PG (26.0-33.0); MEAN CORPUSCULAR HGB CONC 35 g/dl (31.0-36.0); MEAN CORPUSCULAR VOLUME 89 fL (80-96); MONOCYTES # (AUTO) 0.5 /CMM (0.1-1.30); MONOCYTES % (AUTO) 9.1 % (2.0-12.0); NEUTROPHILS # (AUTO) 3.5 /CMM (1.8-8.9); NEUTROPHILS % (AUTO) 64.6 % (43.0-81.0); PLATELET COUNT (AUTO) 233 /CMM (150-450); RDW COEFFICIENT OF VARIATION 12.3 (11.5-15.0); RED BLOOD CELL COUNT(AUTO) 3.91 MIL/uL (4.5-6.0); WHITE BLOOD COUNT (AUTO) 5.4 K/uL (4.3-11.0)
[2017-10-31 06:44] LABS: CALCIUM, SERUM 8.1 mg/dL (8.5-10.1); CARBON DIOXIDE 27 mmol/L (21-32); CHLORIDE 110 mmol/L (98-107); CREATININE 0.8 mg/dL (0.6-1.3); GLUCOSE 119 mg/dL (74-106); MAGNESIUM 1.9 mg/dL (1.8-2.4); PHOSPHORUS 3.8 mg/dL (2.5-4.9); POTASSIUM 3.7 mmol/L (3.5-5.1); SODIUM SERUM 146 mmol/L (136-145); UREA NITROGEN, BLOOD 13 mg/dL (7-18)
--- NOTE | 2017-10-31 07:35 | NUR ---
MS RN CLOSING NOTES: ALL NEEDS WERE ATTENDED AND ANTICIPATED FOR. CAREGIVER/COUSIN AT BED SIDE. PT ON ROOM AIR AND TOLERATING WELL. PT RESTING COMFORTABLY. IV REMAINS IN TACT AND IS BEING INFUSED WITH D5NS 75ML/HR. CALL LIGHT WITHIN PT'S REACH. BED KEPT IN LOW, LOCKED POSITION, AND SIDE RAILS X 2UP. ENDORSED TO AM NURSE FOR DODIE.
--- NOTE | 2017-10-31 07:37 | NUR ---
MS/RN OPENING NOTE PATIENT IN BED IN STABLE CONDITION. A/O X 1, SOUTH SUDANESE SPEAKING, WITH EPISODES OF CONFUSION AND FORGETFULNESS. NO SIGNS OF ACUTE DISTRESS. NO COMPLAIN OF PAIN OR DISCOMFORT. ALL NEEDS ATTENDED TO. CALL LIGHT WITHIN REACH. WILL CONTINUE TO MONITOR TO ENSURE SAFETY.
[2017-10-31 08:00] VITALS: BP 103/55
[2017-10-31] MEDS: DIVALPROEX SODIUM 125 MG CAP.SPRINK PO SCH ×3 (08:26→16:29)
[2017-10-31] MEDS: busPIRone 5 MG TABLET PO SCH ×3 (08:26→16:29)
[2017-10-31] MEDS: FINASTERIDE (5 MG) 5 MG TABLET PO SCH (08:26)
[2017-10-31] MEDS: ESCITALOPRAM OXALATE (10 MG) 10 MG TABLET PO SCH (08:27)
[2017-10-31] MEDS: Z GUARD REMEDY 2 OZ OINT TP SCH (08:27)
[2017-10-31] MEDS: LACTOBACILLUS RHAMNOSUS GG 1 EACH CAP.SPRINK PO SCH ×2 (08:27→16:29)
[2017-10-31] MEDS: CLOPIDOGREL BISULFATE 75 MG TABLET PO SCH (08:27)
[2017-10-31] MEDS: CEFTRIAXONE 1 G in IV D5W 50 ML IV SCH (15:34)
[2017-10-31 16:00] VITALS: BP 110/65
[2017-10-31] MEDS: ATORVASTATIN 10 MG TABLET PO SCH (16:29)
[2017-10-31] MEDS: CYPROHEPTADINE HCL 4 MG TABLET PO SCH (16:30)
--- NOTE | 2017-10-31 18:05 | NUR ---
MS/RN REFUSING IV ACCESS PATIENT LEFT UPPER ARM IV SITE NOTED WITH REDNESS, SWOLLEN. ATTEMPTED TO GET NEW IV LINE, PATIENT BECAME AGGRESSIVE AND TRYING TO HIT STAFF. AT THIS TIME PATIENT LEFT ALONE WITH FAMILY CAREGIVER AT BEDSIDE. WILL TRY AGAIN. MD AWARE.
--- NOTE | 2017-10-31 18:24 | NUR ---
MS/RN CLOSING NOTE PATIENT IN BED IN STABLE CONDITION. A/O X 1, IRAQI SPEAKING, WITH EPISODES OF CONFUSION AND FORGETFULNESS. NO SIGNS OF ACUTE DISTRESS. NO COMPLAIN OF PAIN OR DISCOMFORT. ALL NEEDS ATTENDED TO. CALL LIGHT WITHIN REACH. WILL ENDORSE TO NEXT SHIFT FOR CONTINUITY OF CARE.
--- NOTE | 2017-10-31 19:23 | NUR ---
MS RN OPENING NOTES: RECEIVED PT IN BED WITH CAREGIVER AT BEDSIDE. PT ON ROOM AIR. PT AWAKE AT THIS TIME BUT IS A/OX1. PT ONLY BURUNDIAN SPEAKING AND UNDERSTANDING ONLY. ATTEMPTED TO START IV ON PT BUT PT IS AGITATED AND REFUSING IV START AT THIS MOMENT. CALL LIGHT WITHIN PT'S REACH. BED KEPT IN LOW, LOCKED POSITION, AND SIDE RAILS X 2UP. WILL CONTINUE TO MONITOR PT.
[2017-10-31 20:00] VITALS: BP 120/62
[2017-10-31] MEDS: TRAZODONE 50 MG TABLET PO SCH (21:00)
--- NOTE | 2017-10-31 21:06 | NUR ---
MS RN NOTES: PT REFUSING FOR IV START.
--- NOTE | 2017-11-01 01:00 | NUR ---
MS RN NOTES: ATTEMPTED TO START IV ON PT. PT AGITATED AND HIT CAREGIVER IN THE HEAD WITH HIS ARM. WILL TRY AGAIN AT ANOTHER TIME.
[2017-11-01 06:33] LABS: BASOPHILS % (AUTO) 0.5 % (0.0-2.0); EOSINOPHILS # (AUTO) 0.2 /CMM (0.0-0.7); EOSINOPHILS % (AUTO) 4.1 % (0.0-6.0); HEMATOCRIT 36 % (39-51); HEMOGLOBIN 12.5 g/dL (13.5-17.5); LYMPHOCYTES # (AUTO) 1.2 /CMM (0.8-4.8); LYMPHOCYTES % (AUTO) 24.6 % (20.0-44.0); MEAN CORPUSCULAR HEMOGLOBIN 31 PG (26.0-33.0); MEAN CORPUSCULAR HGB CONC 35 g/dl (31.0-36.0); MEAN CORPUSCULAR VOLUME 88 fL (80-96); MONOCYTES # (AUTO) 0.4 /CMM (0.1-1.30); MONOCYTES % (AUTO) 8.1 % (2.0-12.0); NEUTROPHILS # (AUTO) 3.1 /CMM (1.8-8.9); NEUTROPHILS % (AUTO) 62.7 % (43.0-81.0); PLATELET COUNT (AUTO) 221 /CMM (150-450); RDW COEFFICIENT OF VARIATION 12.5 (11.5-15.0); WHITE BLOOD COUNT (AUTO) 4.9 K/uL (4.3-11.0)
--- NOTE | 2017-11-01 06:42 | NUR ---
MS RN CLOSING NOTES: ALL NEEDS WERE ATTENDED AND ANTICIPATED FOR. PT ON ROOM AIR AND TOLERATING WELL. PT KEPT CLEAN, DRY, AND COMFORTABLE. CAREGIVER AT BEDSIDE. PT HAS NEW IV STARTED ON L HAND 22G AND IS BEING INFUSED WITH [id number]/HR. CALL LIGHT WITHIN PT'S REACH. BED KEPT IN LOW, LOCKED POSITION, AND SIDE RAILS X 2UP. WILL ENDORSE TO AM NURSE FOR DODIE.
[2017-11-01 07:11] LABS: CALCIUM, SERUM 8.4 mg/dL (8.5-10.1); CARBON DIOXIDE 28 mmol/L (21-32); CHLORIDE 107 mmol/L (98-107); CREATININE 0.8 mg/dL (0.6-1.3); GLUCOSE 96 mg/dL (74-106); MAGNESIUM 1.9 mg/dL (1.8-2.4); PHOSPHORUS 3.1 mg/dL (2.5-4.9); POTASSIUM 3.6 mmol/L (3.5-5.1); SODIUM SERUM 144 mmol/L (136-145); UREA NITROGEN, BLOOD 11 mg/dL (7-18)
--- NOTE | 2017-11-01 07:28 | NUR ---
MS/RN OPENING NOTE PATIENT IN BED IN STABLE CONDITION. A/O X 1, SCOTTISH SPEAKING WITH EPISODES OF CONFUSION. NO SIGNS OF ACUTE DISTRESS. NO COMPLAIN OF PAIN OR DISCOMFORT. FAMILY CAREGIVER AT BEDSIDE. ALL NEEDS ATTENDED TO. CALL LIGHT WITHIN REACH. WILL CONTINUE TO MONITOR TO ENSURE SAFETY.
[2017-11-01 08:00] VITALS: BP 150/70
[2017-11-01] MEDS: LACTOBACILLUS RHAMNOSUS GG 1 EACH CAP.SPRINK PO SCH (08:32)
[2017-11-01] MEDS: ESCITALOPRAM OXALATE (10 MG) 10 MG TABLET PO SCH (08:32)
[2017-11-01] MEDS: CLOPIDOGREL BISULFATE 75 MG TABLET PO SCH (08:32)
[2017-11-01] MEDS: DIVALPROEX SODIUM 125 MG CAP.SPRINK PO SCH ×2 (08:32→12:18)
[2017-11-01] MEDS: busPIRone 5 MG TABLET PO SCH ×2 (08:32→12:18)
[2017-11-01] MEDS: Z GUARD REMEDY 2 OZ OINT TP SCH (08:32)
[2017-11-01] MEDS: FINASTERIDE (5 MG) 5 MG TABLET PO SCH (08:32)
[2017-11-01] MEDS ORDERED: LACT1CAP72 PO (15:24)
[2017-11-01] MEDS ORDERED: LEVO500T75 PO (15:24)
--- NOTE | 2017-11-01 16:53 | NUR ---
MS/IP LITIGATION PARALEGAL PATIENT DISCHARGE HOME IN STABLE CONDITION. A/OX 1, LEBANESE SPEAKING. NO SIGNS OF ACUTE DISTRESS. NO COMPLAIN OF PAIN OR DISCOMFORT. FAMILY CAREGIVER AT BEDSIDE, DISCHARGE INSTRUCTIONS AND TEACHINGS PROVIDED TO CAREGIVER, VERBALIZED UNDERSTANDING. PATIENT REFUSED SKIN ASSESSMENT PICTURES. OFFERED X 3, WITH RISKS, BENEFITS EXPLAINED, STILL CONTINUE TO REFUSE. ALL NEEDS ATTENDED TO. NAME BAND AND IV LINE REMOVED. LEFT VIA GURNEY ACCOMPANIED BY 2 MIRROR MACHINE FEEDER. CAREGIVER/FAMILY AT HOME MADE AWARE REGARDING PATIENT'S DISCHARGE.
== END 2017-11-01 16:50 | disposition home health service (06) | DRG 177 ==
LOC: ER 14:49 → TELE 17:37 → MED 10-29 09:27
PROVIDERS: ADMIT Internal Medicine; ATTEND Internal Medicine
DX: J15.6 Pneumonia due to other Gram-negative bacteria (principal); G93.41 Metabolic encephalopathy; R78.81 Bacteremia; Z93.0 Tracheostomy status; I13.0 Hypertensive heart and chronic kidney disease with heart failure and stage 1 through stage 4 chronic kidney disease, or unspecified chronic kidney disease; I48.0 Paroxysmal atrial fibrillation; I50.9 Heart failure, unspecified; R13.10 Dysphagia, unspecified; E44.1 Mild protein-calorie malnutrition; D63.8 Anemia in other chronic diseases classified elsewhere; F03.90 Unspecified dementia, unspecified severity, without behavioral disturbance, psychotic disturbance, mood disturbance, and anxiety; F09 Unspecified mental disorder due to known physiological condition; E78.5 Hyperlipidemia, unspecified; I25.10 Atherosclerotic heart disease of native coronary artery without angina pectoris; F32.9 Major depressive disorder, single episode, unspecified; Z79.899 Other long term (current) drug therapy; N18.9 Chronic kidney disease, unspecified; Z86.73 Personal history of transient ischemic attack (TIA), and cerebral infarction without residual deficits; Z93.1 Gastrostomy status; K21.9 Gastro-esophageal reflux disease without esophagitis; K59.00 Constipation, unspecified; F20.9 Schizophrenia, unspecified; I70.0 Atherosclerosis of aorta; N40.0 Benign prostatic hyperplasia without lower urinary tract symptoms
CPT/HCPCS: 36415; 70450-TC; 71045-TC; 80048-TC; 80061-TC; 80076-TC; 80164-TC; 80202-TC; 81000-TC; 82962-TC; 83605-TC; 83735-TC; 84100-TC; 84484-TC; 85025-TC; 85730-TC; 87040-TC; 87081-TC; 87086-TC; 87400; 93307-TC; A4606; J0456; J0696; J3370; J7030; J7042; J7050; J7060; Z7610

== ENCOUNTER 2017-11-10 18:26 | Inpatient (IN) | payer MEDICARE, OTHER ==
[~2017-11-10] VITALS: Ht 180.3 cm; Wt 73.9 kg
[~2017-11-10 18:26] MED LIST changes: +CHOL10002 PO; -CYPR4TAB34 PO; +CYPR4TAB44 PO; +HALO2TAB PO; +LACT1CAP72 PO; +LEVO500T75 PO; -LORA0.5T PO; -PYRI60TA PO; -TRAZ-144 PO; +TRAZ-182 PO
--- NOTE | 2017-11-10 18:30 | NUR ---
PT JAVED FROM HOME TO ER BED 15. PER REPORT, FEVER X TODAY. HX OF DEMENTIA. GOWNED AND PLACED ON MONITOR. HYPOTENSIVE INTERNATIONAL MARKETING SPECIALIST. AFEBRILE. INTERNATIONAL MARKETING SPECIALIST. AWAITING MD CHASE.
--- NOTE | 2017-11-10 18:42 | NUR ---
DR WAGNER AT BEDSIDE FOR EVAL.
[2017-11-10 19:00] LABS: BASOPHILS % (AUTO) 0.4 % (0.0-2.0); EOSINOPHILS % (AUTO) 1.2 % (0.0-6.0); HEMATOCRIT 35 % (39-51); HEMOGLOBIN 12.4 g/dL (13.5-17.5); LYMPHOCYTES # (AUTO) 1.6 /CMM (0.8-4.8); LYMPHOCYTES % (AUTO) 18.4 % (20.0-44.0); MEAN CORPUSCULAR HGB CONC 35 g/dl (31.0-36.0); MEAN CORPUSCULAR VOLUME 88 fL (80-96); MONOCYTES # (AUTO) 0.9 /CMM (0.1-1.30); MONOCYTES % (AUTO) 10.2 % (2.0-12.0); NEUTROPHILS # (AUTO) 5.9 /CMM (1.8-8.9); NEUTROPHILS % (AUTO) 69.8 % (43.0-81.0); PLATELET COUNT (AUTO) 244 /CMM (150-450); RED BLOOD CELL COUNT(AUTO) 4.02 MIL/uL (4.5-6.0); WHITE BLOOD COUNT (AUTO) 8.5 K/uL (4.3-11.0)
--- NOTE | 2017-11-10 19:12 | NUR ---
RADIOLOGY AT BEDSIDE FOR CHEST XRAY.
[2017-11-10 19:13] LABS: CALCIUM, SERUM 8.5 mg/dL (8.5-10.1); CARBON DIOXIDE 29 mmol/L (21-32); CHLORIDE 106 mmol/L (98-107); CREATININE 1.1 mg/dL (0.6-1.3); GLUCOSE 115 mg/dL (74-106); POTASSIUM 3.6 mmol/L (3.5-5.1); SODIUM SERUM 142 mmol/L (136-145); UREA NITROGEN, BLOOD 18 mg/dL (7-18)
[2017-11-10 19:17] LABS: INR 1.03 (0.85-1.15)
[2017-11-10 19:19] LABS: ALANINE AMINOTRANSFERASE 10 U/L (12-78); ALBUMIN 2.6 g/dL (3.4-5.0); ALKALINE PHOSPHATASE 49 U/L (46-116); ASPARTATE AMINOTRANSFERASE 13 U/L (15-37); BILIRUBIN,DIRECT 0.2 mg/dL (0.0-0.2); BILIRUBIN,TOTAL 0.5 mg/dL (0.2-1.0); TOTAL PROTEIN, SERUM 6.6 g/dL (6.4-8.2)
[2017-11-10 19:22] LABS: TROPONIN I < 0.017 ng/mL (0.00-0.056)
[2017-11-10 19:46] LABS: APPEARANCE,URINE Slightly Cloudy (CLEAR); BILIRUBIN,URINE SMALL (NEGATIVE); BLOOD, URINE Negative Ery/uL (NEGATIVE); COLOR,URINE Dark (YELLOW); KETONES,URINE Negative (NEGATIVE); LEUKOCYTE ESTERASE ,URINE Negative (NEGATIVE); NITRITE, URINE Negative (NEGATIVE); PH,URINE 5.5 (5.0-8.0); PROTEIN,URINE Trace mg/dl (NEGATIVE); UGLUCOSE Negative (NEGATIVE); UROBILINOGEN,URINE 0.2 EU/dL (0.2)
[2017-11-10] MEDS ORDERED: IV NS 0.9% 1,000 ML BAG IV ONE (20:00)
[2017-11-10 20:08] LABS: BACTERIA,URINE Few /HPF (None Seen); CALCIUM OXALATE CRYSTALS,UR Few /HPF (None Seen); RBC,URINE 0-2 /HPF (0-2); SQUAMOUS EPITHELIAL CELL,UR Few /HPF (None Seen); WBC,URINE 0-2 /HPF (0-3)
--- NOTE | 2017-11-10 20:44 | NUR ---
REPORT GIVEN TO NICK. PT AWAITING TRANSFER TO FLOOR.
[2017-11-10] MEDS ORDERED: MAG HYDROX/AL HYDROX/SIMETH 30 ML UDC PO PRN (21:30)
[2017-11-10] MEDS ORDERED: ACETAMINOPHEN 325 MG TABLET PO PRN (21:30)
[2017-11-10] MEDS ORDERED: MAGNESIUM HYDROXIDE 30 ML UDC PO PRN (21:30)
[2017-11-10] MEDS ORDERED: ONDANSETRON HCL/PF 4 MG/2 ML VIAL IVP PRN (21:30)
[2017-11-10] MEDS ORDERED: Z GUARD REMEDY 2 OZ OINT TP PRN (21:30)
--- NOTE | 2017-11-10 21:45 | NUR ---
CABLE LAYER NOTES PT ARRIVED TO THE UNIT VIA GURNEY AT 2145. PT ACCOMPANIED BY FAMILY. PER PT FAMILY, PT HAD BEEN HYPOTENSIVE AND "RUNNING A FEVER" FOR X2 DAYS. PT WAS DC FROM [facility] ON THURSDAY AND HAS SINCE NOT NOT BEEN EATING WELL PER FAMILY. PT IS TELE MONITORED V PACING AT A RATE OF 70. PT HAS A LEFT CHEST WALL PACEMAKER. PT HAS A LEFT HAND #18 IV, INTACT AND PATENT. PT IS NONVERBAL. 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 ALL PT BELONGINGS ACCOUNTED FOR AND DOCUMENTED. PT HAS A RASH ON LEFT ANKLE DOCUMENTED AND PICTURE IN CHART. PT ORIENTED TO USE OF CALL LIGHT. NO COMPLAINTS OF SOB, DISTRESS OR PAIN AT THIS TIME. SAFETY PRECAUTIONS IN PLACE BED IN LOWEST LOCKED POSITION, X2 SIDERAILS UP CALL LIGHT WITHIN REACH. WILL CONTINUE TO MONITOR.
[2017-11-10] MEDS: IV NS 0.9% 1,000 ML IV PRN (21:50)
[2017-11-10] MEDS: ENOXAPARIN SODIUM 40 MG/0.4 ML DISP.SYRIN SQ SCH (22:37)
[2017-11-10] MEDS: TRAZODONE 50 MG TABLET PO SCH (22:38)
[2017-11-10] MEDS: ATORVASTATIN 10 MG TABLET PO SCH (22:38)
[2017-11-11 04:00] VITALS: BP 120/67
--- NOTE | 2017-11-11 06:34 | NUR ---
RN CLOSING NOTES PT RESTING IN BED, CAREGIVER AT BEDSIDE. PT IS NONVERBAL. NO APPARENT S/S OF PAIN, DISTRESS OR SOB OVERNIGHT. PT IS TELE MONITORED V PACING AT A RATE OF 70. PT HAS A LEFT CHEST WALL PACEMAKER. PT HAS A LEFT HAND #18 IV RUNNING NS @75ML/HR. SAFETY PRECAUTIONS IN PLACE BED IN LOWEST LOCKED POSITION, X2 SIDERAILS UP CALL LIGHT WITHIN REACH. WILL ENDORSE TO DAY SHIFT FOR CONTINUITY OF CARE.
[2017-11-11 06:57] LABS: BASOPHILS # (AUTO) 0.1 /CMM (0.0-0.2); BASOPHILS % (AUTO) 0.8 % (0.0-2.0); EOSINOPHILS % (AUTO) 3.1 % (0.0-6.0); HEMATOCRIT 35 % (39-51); HEMOGLOBIN 12.1 g/dL (13.5-17.5); LYMPHOCYTES # (AUTO) 1.7 /CMM (0.8-4.8); LYMPHOCYTES % (AUTO) 25.6 % (20.0-44.0); MEAN CORPUSCULAR HGB CONC 34 g/dl (31.0-36.0); MEAN CORPUSCULAR VOLUME 89 fL (80-96); MONOCYTES # (AUTO) 0.6 /CMM (0.1-1.30); MONOCYTES % (AUTO) 9.4 % (2.0-12.0); NEUTROPHILS % (AUTO) 61.1 % (43.0-81.0); PLATELET COUNT (AUTO) 177 /CMM (150-450); RDW COEFFICIENT OF VARIATION 12.7 (11.5-15.0); RED BLOOD CELL COUNT(AUTO) 3.93 MIL/uL (4.5-6.0); WHITE BLOOD COUNT (AUTO) 6.6 K/uL (4.3-11.0)
[2017-11-11 07:14] LABS: ALANINE AMINOTRANSFERASE 18 U/L (12-78); ALBUMIN 2.5 g/dL (3.4-5.0); ALKALINE PHOSPHATASE 43 U/L (46-116); ASPARTATE AMINOTRANSFERASE 13 U/L (15-37); BILIRUBIN,TOTAL 0.8 mg/dL (0.2-1.0); CALCIUM, SERUM 8.2 mg/dL (8.5-10.1); CARBON DIOXIDE 29 mmol/L (21-32); CHLORIDE 109 mmol/L (98-107); CREATININE 0.8 mg/dL (0.6-1.3); GLUCOSE 105 mg/dL (74-106); MAGNESIUM 1.8 mg/dL (1.8-2.4); PHOSPHORUS 3.1 mg/dL (2.5-4.9); POTASSIUM 3.6 mmol/L (3.5-5.1); SODIUM SERUM 143 mmol/L (136-145); TOTAL PROTEIN, SERUM 6.3 g/dL (6.4-8.2); UREA NITROGEN, BLOOD 12 mg/dL (7-18)
[2017-11-11 07:21] LABS: HDL CHOLESTEROL 47 mg/dL (40-60); LDL 55 mg/dL (0-99); THYROID STIMULATING HORMONE 0.802 uIU/mL (0.358-3.74); TRIGLYCERIDES 48 mg/dL (30-150)
[2017-11-11 07:32] LABS: CHOLESTEROL 107 mg/dL (<200)
--- NOTE | 2017-11-11 07:50 | NUR ---
GLUE JOINTER FEEDER INITIAL NOTES. RECEIVED PATIENT IN BED, RESPIRATIONS EVEN AND UNLABORED, ALERT X1 AND EASILY AROUSABLE, ON OUTSIDE UPHOLSTERER V PACING 73, LEFT HAND 18 GAUGE IV SITE INTACT AND PATENT,NO REDNESS, NO INFILTRATION NOTED, IVF PROPERLY, FAMILY MEMBER AT BEDSIDE, NO FACIAL GRIMACING NOTED AT THIS TIME, SAFETY MEASURES IN PLACE, CALL LIGHT KEPT WITHIN REACH.
[2017-11-11 08:00] VITALS: BP 121/78
--- NOTE | 2017-11-11 08:40 | NUR ---
RN NOTES CALLED AND SPOKE TO PHARMACY [facility], REGARDING DEPAKOTE SPRINKLES ORDER, PER FAUSTO OKAY TO ADMINISTER 0900 125MG DOSE
[2017-11-11] MEDS: busPIRone 5 MG TABLET PO SCH ×3 (08:42→16:36)
[2017-11-11] MEDS: LACTOBACILLUS RHAMNOSUS GG 1 EACH CAP.SPRINK PO SCH ×2 (08:44→16:36)
[2017-11-11] MEDS: CLOPIDOGREL BISULFATE 75 MG TABLET PO SCH (08:44)
[2017-11-11] MEDS: ESCITALOPRAM OXALATE (10 MG) 10 MG TABLET PO SCH (08:45)
[2017-11-11] MEDS: FINASTERIDE (5 MG) 5 MG TABLET PO SCH (08:45)
[2017-11-11] MEDS: LEVOFLOXACIN (500MG) 500 MG TABLET PO SCH (08:45)
[2017-11-11] MEDS: HALOPERIDOL 1 MG TABLET PO SCH ×3 (08:45→16:36)
[2017-11-11] MEDS ORDERED: DIVALPROEX SODIUM 125 MG CAP.SPRINK PO SCH ×3 (09:00→18:00)
--- NOTE | 2017-11-11 12:49 | NUR ---
RN NOTES CLARIFICATION OF ORDER FOR DEPAKOTE , SPOKE TO FAMILY REGARDS DEPAKOTE PER FAMILY PATIENT NO LONGER TAKES DEPAKOTE AT HOME, MD MADE AWARE NEW ORDER TO DISCONTINUE.
[2017-11-11] MEDS: IV NS 0.9% 1,000 ML IV PRN (13:11)
[2017-11-11 16:00] VITALS: BP 105/58
[2017-11-11] MEDS: CHOLECALCIFEROL 1,000 UNIT TABLET (VIT D3) PO SCH (17:19)
[2017-11-11] MEDS: CYPROHEPTADINE HCL 4 MG TABLET PO SCH (17:20)
--- NOTE | 2017-11-11 18:48 | NUR ---
MS ORTEGA CLOSING NOTES.. PATIENT IN BED, RESPIRATIONS EVEN AND UNLABORED, ALERT X1 AND EASILY AROUSABLE, LEFT HAND 18 GAUGE IV SITE INTACT AND PATENT,NO REDNESS, NO INFILTRATION NOTED, IVF PROPERLY RUNNING , FAMILY MEMBER AT BEDSIDE, NO FACIAL GRIMACING NOTED AT THIS TIME, REMAINS COMFORTABLE.CONTACT ISOLATION FOR MRSA NARES, ISOLATION PRECAUTIONS IN PLACE.SAFETY MEASURES IN PLACE, CALL LIGHT KEPT WITHIN REACH. Addendum: 11/11/17 at 1931 by BRITTNEY KEANE RN FAMILY MEMBER AT BEDSIDE MADE AWARE WITH CARTRIDGE ASSEMBLER OF CONTACT PRECAUTIONS AND EDUCATION PROVIDED, NOTED NON COMPLAINT AT THIS TIME WILL CONTINUE TO EDUCATE.
[2017-11-11 20:00] VITALS: BP 100/70
[2017-11-11] MEDS: MUPIROCIN OINT 2% 22 GM TUBE SCH (21:28)
[2017-11-11] MEDS: TRAZODONE 50 MG TABLET PO SCH (21:29)
[2017-11-11] MEDS: ENOXAPARIN SODIUM 40 MG/0.4 ML DISP.SYRIN SQ SCH (21:30)
[2017-11-11] MEDS: ATORVASTATIN 10 MG TABLET PO SCH (21:30)
[2017-11-12] MEDS: IV NS 0.9% 1,000 ML IV PRN (03:02)
--- NOTE | 2017-11-12 06:52 | NUR ---
MS RN NOTES AWAKE & RESPONSIVE. NOT IN ANY DISTRESS. NO SOB NOTED. DENIES ANY PAIN OR DISCOMFORT AT THIS TIME. WITH IVF INFUSING WELL. MONITORED ACCORDINGLY. AM CARE DONE. CALL LIGHT WITHIN REACH. BED IN LOWEST POSITION. SR UP X 3 FOR SAFETY WITH BED ALARM ON. WILL ENDORSE TO NEXT SHIFT.
--- NOTE | 2017-11-12 07:15 | NUR ---
REPORT RECEIVED AT THE BEDSIDE. PATIENT IS RESTING COMFORTABLY IN BED. NO SOB OR DISTRESS NOTED AT THIS TIME. PATIENT DOES NOT APPEAR TO BE IN PAIN, NO FACIAL GRIMACE NOTED. BED IN A LOW POSITION, CALL LIGHT WITHIN PATIENT REACH, FAMILY IS AT THE BEDSIDE. WILL MONITOR.
[2017-11-12 07:30] LABS: BASOPHILS % (AUTO) 0.5 % (0.0-2.0); EOSINOPHILS % (AUTO) 3.6 % (0.0-6.0); HEMATOCRIT 34 % (39-51); HEMOGLOBIN 11.8 g/dL (13.5-17.5); LYMPHOCYTES % (AUTO) 18.8 % (20.0-44.0); MEAN CORPUSCULAR HGB CONC 34 g/dl (31.0-36.0); MEAN CORPUSCULAR VOLUME 89 fL (80-96); MONOCYTES # (AUTO) 0.4 /CMM (0.1-1.30); MONOCYTES % (AUTO) 7.8 % (2.0-12.0); NEUTROPHILS # (AUTO) 3.7 /CMM (1.8-8.9); NEUTROPHILS % (AUTO) 69.3 % (43.0-81.0); PLATELET COUNT (AUTO) 205 /CMM (150-450); RDW COEFFICIENT OF VARIATION 12.5 (11.5-15.0); RED BLOOD CELL COUNT(AUTO) 3.88 MIL/uL (4.5-6.0); WHITE BLOOD COUNT (AUTO) 5.4 K/uL (4.3-11.0)
[2017-11-12 07:39] LABS: CALCIUM, SERUM 8.2 mg/dL (8.5-10.1); CARBON DIOXIDE 30 mmol/L (21-32); CHLORIDE 108 mmol/L (98-107); CREATININE 0.8 mg/dL (0.6-1.3); GLUCOSE 99 mg/dL (74-106); MAGNESIUM 1.9 mg/dL (1.8-2.4); PHOSPHORUS 2.9 mg/dL (2.5-4.9); POTASSIUM 3.8 mmol/L (3.5-5.1); SODIUM SERUM 143 mmol/L (136-145); UREA NITROGEN, BLOOD 9 mg/dL (7-18)
[2017-11-12 08:00] VITALS: BP 122/70
[2017-11-12] MEDS: ESCITALOPRAM OXALATE (10 MG) 10 MG TABLET PO SCH (08:31)
[2017-11-12] MEDS: LACTOBACILLUS RHAMNOSUS GG 1 EACH CAP.SPRINK PO SCH ×2 (08:31→17:11)
[2017-11-12] MEDS: LEVOFLOXACIN (500MG) 500 MG TABLET PO SCH (08:31)
[2017-11-12] MEDS: busPIRone 5 MG TABLET PO SCH ×3 (08:32→17:11)
[2017-11-12] MEDS: MUPIROCIN OINT 2% 22 GM TUBE SCH ×2 (08:32→21:26)
[2017-11-12] MEDS: HALOPERIDOL 1 MG TABLET PO SCH ×3 (08:32→17:11)
[2017-11-12] MEDS: FINASTERIDE (5 MG) 5 MG TABLET PO SCH (08:32)
[2017-11-12] MEDS: CLOPIDOGREL BISULFATE 75 MG TABLET PO SCH (08:32)
[2017-11-12 16:28] VITALS: BP 126/71
[2017-11-12] MEDS: CHOLECALCIFEROL 1,000 UNIT TABLET (VIT D3) PO SCH (17:11)
[2017-11-12] MEDS: CYPROHEPTADINE HCL 4 MG TABLET PO SCH (17:11)
--- NOTE | 2017-11-12 18:11 | NUR ---
NO SIGNIFICANT CHANGES IN PATIENT CONDITION THROUGHOUT THE SHIFT. NO SOB OR DISTRESS NOTED AT THIS TIME. PATIENT DENIES PAIN. BED IN A LOW POSITION, CAREGIVER IS AT THE BEDSIDE. WILL ENDORSE FOR DODIE.
[2017-11-12 20:00] VITALS: BP 111/61
[2017-11-12] MEDS: ENOXAPARIN SODIUM 40 MG/0.4 ML DISP.SYRIN SQ SCH (21:25)
[2017-11-12] MEDS: ATORVASTATIN 10 MG TABLET PO SCH (21:26)
[2017-11-12] MEDS: TRAZODONE 50 MG TABLET PO SCH (21:26)
[2017-11-13 07:08] LABS: BASOPHILS % (AUTO) 0.5 % (0.0-2.0); HEMATOCRIT 37 % (39-51); HEMOGLOBIN 12.6 g/dL (13.5-17.5); LYMPHOCYTES # (AUTO) 1.1 /CMM (0.8-4.8); LYMPHOCYTES % (AUTO) 20.9 % (20.0-44.0); MEAN CORPUSCULAR HGB CONC 35 g/dl (31.0-36.0); MEAN CORPUSCULAR VOLUME 89 fL (80-96); MONOCYTES # (AUTO) 0.3 /CMM (0.1-1.30); MONOCYTES % (AUTO) 5.5 % (2.0-12.0); NEUTROPHILS # (AUTO) 3.8 /CMM (1.8-8.9); NEUTROPHILS % (AUTO) 72.1 % (43.0-81.0); PLATELET COUNT (AUTO) 240 /CMM (150-450); RDW COEFFICIENT OF VARIATION 12.7 (11.5-15.0); RED BLOOD CELL COUNT(AUTO) 4.12 MIL/uL (4.5-6.0); WHITE BLOOD COUNT (AUTO) 5.3 K/uL (4.3-11.0)
[2017-11-13 07:27] LABS: CALCIUM, SERUM 8.4 mg/dL (8.5-10.1); CARBON DIOXIDE 29 mmol/L (21-32); CHLORIDE 107 mmol/L (98-107); CREATININE 0.9 mg/dL (0.6-1.3); GLUCOSE 104 mg/dL (74-106); PHOSPHORUS 3.6 mg/dL (2.5-4.9); POTASSIUM 3.9 mmol/L (3.5-5.1); SODIUM SERUM 143 mmol/L (136-145); UREA NITROGEN, BLOOD 13 mg/dL (7-18)
[2017-11-13 07:56] VITALS: BP 118/77
--- NOTE | 2017-11-13 08:10 | NUR ---
MS ORTEGA INITIAL NOTES. RECEIVED PATIENT IN BED, RESPIRATIONS EVEN AND UNLABORED, ALERT X1 AND EASILY AROUSABLE, LEFT HAND 18 GAUGE IV SITE INTACT AND PATENT,NO REDNESS, NO INFILTRATION NOTED, IVF PROPERLY, FAMILY MEMBER AT BEDSIDE, NO FACIAL GRIMACING NOTED AT THIS TIME, SAFETY MEASURES IN PLACE, CALL LIGHT KEPT WITHIN REACH. Addendum: 11/13/17 at 1035 by BRITTNEY KEANE RN ON CONTACT ISOLATION FOR MRSA NARES. PRECAUTIONS IN PLACE.
[2017-11-13] MEDS: MUPIROCIN OINT 2% 22 GM TUBE SCH (09:06)
[2017-11-13] MEDS: busPIRone 5 MG TABLET PO SCH (09:06)
[2017-11-13] MEDS: LACTOBACILLUS RHAMNOSUS GG 1 EACH CAP.SPRINK PO SCH (09:06)
[2017-11-13] MEDS: FINASTERIDE (5 MG) 5 MG TABLET PO SCH (09:07)
[2017-11-13] MEDS: HALOPERIDOL 1 MG TABLET PO SCH (09:07)
[2017-11-13] MEDS: ESCITALOPRAM OXALATE (10 MG) 10 MG TABLET PO SCH (09:07)
[2017-11-13] MEDS: CLOPIDOGREL BISULFATE 75 MG TABLET PO SCH (09:07)
[2017-11-13] MEDS: LEVOFLOXACIN (500MG) 500 MG TABLET PO SCH (09:07)
--- NOTE | 2017-11-13 12:30 | NUR ---
DISCHARGED PT HOME WITH [facility] FOLLOW UP .WITH STABLE V/S.WITH CG VIA AMBULANCE.IV H/L REMOVED TO LT HAND WITHOUT BLEEDING OR SWELLING NOTED ON THE SITE.PT TOLERATED WELL.DISCHARGE INSTRUCTIONS GIVEN TO THE PT.NO S/S OF PAIN OR DISTRESS.
== END 2017-11-13 12:29 | disposition home health service (06) | DRG 864 ==
LOC: ER 18:27 → TELE 20:18 → MED 11-11 09:14
PROVIDERS: ADMIT Nurse Practitioner Acute Care; ATTEND Nurse Practitioner Acute Care
DX: R50.9 Fever, unspecified (principal); G93.41 Metabolic encephalopathy; Z93.0 Tracheostomy status; I48.0 Paroxysmal atrial fibrillation; I69.351 Hemiplegia and hemiparesis following cerebral infarction affecting right dominant side; I50.32 Chronic diastolic (congestive) heart failure; E86.0 Dehydration; I11.0 Hypertensive heart disease with heart failure; F20.9 Schizophrenia, unspecified; Z93.1 Gastrostomy status; I13.0 Hypertensive heart and chronic kidney disease with heart failure and stage 1 through stage 4 chronic kidney disease, or unspecified chronic kidney disease; E78.5 Hyperlipidemia, unspecified; F03.90 Unspecified dementia, unspecified severity, without behavioral disturbance, psychotic disturbance, mood disturbance, and anxiety; F09 Unspecified mental disorder due to known physiological condition; I25.10 Atherosclerotic heart disease of native coronary artery without angina pectoris; N18.9 Chronic kidney disease, unspecified; N40.0 Benign prostatic hyperplasia without lower urinary tract symptoms; Z79.899 Other long term (current) drug therapy; K21.9 Gastro-esophageal reflux disease without esophagitis
CPT/HCPCS: 36415; 71045-TC; 80048-TC; 80053-TC; 80061-TC; 80076-TC; 81000-TC; 83605-TC; 83735-TC; 84100-TC; 84443-TC; 84484-TC; 85025-TC; 85730-TC; 87040-TC; 87081-TC; 87086-TC; A4606; J1650; J7030; Z7610

== ENCOUNTER 2018-09-24 16:31 | Inpatient (IN) | payer MEDICARE, OTHER ==
[~2018-09-24] VITALS: Ht 177.8 cm; Wt 76.2 kg
[~2018-09-24 16:31] MED LIST changes: -LEVO500T75 PO
[2018-09-24 16:57] LABS: BASOPHILS % (AUTO) 0.3 % (0.0-2.0); EOSINOPHILS % (AUTO) 0.1 % (0.0-6.0); HEMATOCRIT 42 % (39-51); HEMOGLOBIN 14.2 g/dL (13.5-17.5); LYMPHOCYTES % (AUTO) 8.7 % (20.0-44.0); MEAN CORPUSCULAR HGB CONC 34 g/dl (31.0-36.0); MEAN CORPUSCULAR VOLUME 92 fL (80-96); MONOCYTES # (AUTO) 0.9 /CMM (0.1-1.30); MONOCYTES % (AUTO) 7.8 % (2.0-12.0); NEUTROPHILS % (AUTO) 83.1 % (43.0-81.0); PLATELET COUNT (AUTO) 159 /CMM (150-450); RED BLOOD CELL COUNT(AUTO) 4.53 MIL/uL (4.5-6.0); WHITE BLOOD COUNT (AUTO) 12.1 K/uL (4.3-11.0)
[2018-09-24] MEDS ORDERED: IV NS 0.9% 500 ML BAG IV ONE (17:00)
[2018-09-24 17:11] LABS: APPEARANCE,URINE Cloudy (CLEAR); BILIRUBIN,URINE SMALL (NEGATIVE); BLOOD, URINE Moderate Ery/uL (NEGATIVE); COLOR,URINE Yellow (YELLOW); KETONES,URINE Trace (NEGATIVE); LEUKOCYTE ESTERASE ,URINE Small (NEGATIVE); NITRITE, URINE Positive (NEGATIVE); PH,URINE 5.5 (5.0-8.0); PROTEIN,URINE 30 mg/dl (NEGATIVE); UGLUCOSE Negative (NEGATIVE); UROBILINOGEN,URINE 0.2 EU/dL (0.2)
--- NOTE | 2018-09-24 17:11 | NUR ---
patient presented to the ER [id number], for gen weakness and low PO intake x 2 days. Unable to perform stroke assessment MD made aware. connected to the monitor, and pulse ox. kept comfrotable. no facial grimace noted. will continue to monitor accordingly.
--- NOTE | 2018-09-24 17:13 | NUR ---
urine collected and sent to lab.
[2018-09-24] MEDS ORDERED: ACETAMINOPHEN 160 MG/5 ML ONE ×2 (17:20→17:28)
[2018-09-24 17:22] LABS: CALCIUM, SERUM 8.6 mg/dL (8.5-10.1); CARBON DIOXIDE 31 mmol/L (21-32); CHLORIDE 110 mmol/L (98-107); CREATININE 1.3 mg/dL (0.6-1.3); GLUCOSE 135 mg/dL (74-106); POTASSIUM 3.9 mmol/L (3.5-5.1); SODIUM SERUM 146 mmol/L (136-145); UREA NITROGEN, BLOOD 28 mg/dL (7-18)
[2018-09-24] MEDS ORDERED: RAME8TAB15 PO (17:23)
[2018-09-24] MEDS ORDERED: FLUD0.1T PO (17:23)
[2018-09-24 17:27] LABS: BACTERIA,URINE 1+ /HPF (None Seen); SQUAMOUS EPITHELIAL CELL,UR Few /HPF (None Seen)
[2018-09-24] MEDS ORDERED: CEFTRIAXONE 1GM BAG (ER ONLY) 1 GM/50 ML PIGGYBACK IV ONE (17:30)
[2018-09-24] MEDS ORDERED: ACETAMINOPHEN 160 MG/5 ML PO ONE (17:30)
[2018-09-24 17:34] LABS: ALANINE AMINOTRANSFERASE 13 U/L (12-78); ALBUMIN 3.2 g/dL (3.4-5.0); ALKALINE PHOSPHATASE 70 U/L (46-116); ASPARTATE AMINOTRANSFERASE 11 U/L (15-37); BILIRUBIN,DIRECT 0.2 mg/dL (0.0-0.2); BILIRUBIN,TOTAL 0.9 mg/dL (0.2-1.0)
[2018-09-24] MEDS ORDERED: CEFTRIAXONE 1GM BAG (ER ONLY) 50 ML IV ONE (17:34)
[2018-09-24 19:05] LABS: SERUM AMMONIA 12 umol/L (11-32)
[2018-09-24 19:08] LABS: THYROID STIMULATING HORMONE 0.292 uIU/mL (0.358-3.74)
--- NOTE | 2018-09-24 19:24 | NUR ---
endorsed to Temo ORTEGA for yareli.
[2018-09-24] MEDS ORDERED: Z GUARD REMEDY 2 OZ OINT TP PRN (20:00)
[2018-09-24] MEDS ORDERED: ACETAMINOPHEN 325 MG TABLET PO PRN (20:00)
[2018-09-24] MEDS ORDERED: ONDANSETRON HCL/PF 4 MG/2 ML VIAL IVP PRN (20:00)
[2018-09-24] MEDS ORDERED: MAGNESIUM HYDROXIDE 30 ML UDC PO PRN (20:00)
[2018-09-24] MEDS ORDERED: MAG HYDROX/AL HYDROX/SIMETH 30 ML UDC PO PRN (20:00)
[2018-09-24] MEDS ORDERED: MORPHINE SULFATE INJ 2 MG/ML DISP.SYRIN IV PRN (20:00)
[2018-09-24] MEDS ORDERED: HYDROCODONE/APAP 5/325MG 1 EACH TABLET PO PRN (20:00)
--- NOTE | 2018-09-24 21:14 | NUR ---
REPORT GIVEN TO PETER ORTEGA.
[2018-09-24 21:20] VITALS: BP 132/82
--- NOTE | 2018-09-24 21:30 | NUR ---
RN ADMITTING NOTES RECEIVED REPORT FROM LEAD LOADERJORDAN WILEY. Pt ARRIVED TO THE FLOOR VIA GURNEY. Pt WAS ONLY ACCOMPANIED BY HIS COUSIN, WHO IS UNCERTAIN OF HIS FULL PAST MEDICAL HX AND CURRENT HOME MEDS. Pt IS A/OX0, UNABLE TO ANSWER QUESTIONS AND COMMUNICATE NEEDS; Pt GRUNTS AND WITHDRAWALS FROM STIMULI AND FROM REPOSITIONING, CAN FOLLOW ONLY SIMPLE COMMANDS IN MAURITIAN. NO S/S OF ACUTE DISTRESS OR SOB NOTED. ON TELE MONITOR. PER ER REPORT Pt HAS PACEMAKER. IV ACCESS ON RAC #18G. SAFETY MEASURES IN PLACE. BED LOW, LOCKED, HOB ELEVATED, SIDE RAILS UP, & CALL LIGHT WITHIN REACH. BED ALARM ON. FAMILY IS STAYING THE NIGHT AT BEDSIDE.
[2018-09-24] MEDS ORDERED: Medication Not On Formulary EA (Ramelteon (Rozerem) 8 MG) PO SCH (22:00)
[2018-09-24] MEDS: CYPROHEPTADINE HCL 4 MG TABLET PO SCH (22:00)
--- NOTE | 2018-09-24 22:00 | NUR ---
RN NOTES PERIACTIN 4MG TAB IS NOT AVAILABLE IN EITHER PYXIS ON THE FLOOR. SPOKE WITH NURSE SUP TO VERIFY IF PERIACTIN IS AVAILABLE IN THE NIGHT LOCKER, NURSE SUP SAID THEY DO NOT CARRY PERIACTIN IN THE NIGHT LOCKER. SO WAS UNABLE TO ADMINISTER THE MED.
[2018-09-24] MEDS: IV 1/2NS 1000 ML 1,000 ML IV PRN (22:44)
[2018-09-24] MEDS: TRAZODONE 50 MG TABLET PO SCH (22:58)
[2018-09-25] VITALS (7 sets, daily range): BP systolic 100–145; BP diastolic 56–80
--- NOTE | 2018-09-25 01:25 | NUR ---
RN NOTES ADMINISTERED TYLENOL 650MG DUE TO SLIGHT ELEVATED TEMP OF 100.3F WILL CONTINUE TO MONITOR Pt's TEMP.
--- NOTE | 2018-09-25 04:00 | NUR ---
RN NOTES COOLING MEASURES PROVIDED TO Pt. RECHECKED TEMP. CURRENT TEMP 98.0F
[2018-09-25 05:59] LABS: BASOPHILS % (AUTO) 0.1 % (0.0-2.0); HEMATOCRIT 43 % (39-51); HEMOGLOBIN 14.6 g/dL (13.5-17.5); LYMPHOCYTES # (AUTO) 0.8 /CMM (0.8-4.8); MEAN CORPUSCULAR HGB CONC 34 g/dl (31.0-36.0); MEAN CORPUSCULAR VOLUME 91 fL (80-96); MONOCYTES # (AUTO) 0.9 /CMM (0.1-1.30); MONOCYTES % (AUTO) 6.5 % (2.0-12.0); NEUTROPHILS # (AUTO) 12.2 /CMM (1.8-8.9); NEUTROPHILS % (AUTO) 87.4 % (43.0-81.0); PLATELET COUNT (AUTO) 150 /CMM (150-450); RED BLOOD CELL COUNT(AUTO) 4.77 MIL/uL (4.5-6.0)
[2018-09-25 06:10] LABS: ALANINE AMINOTRANSFERASE 12 U/L (12-78); ALKALINE PHOSPHATASE 59 U/L (46-116); ASPARTATE AMINOTRANSFERASE 12 U/L (15-37); BILIRUBIN,TOTAL 1.2 mg/dL (0.2-1.0); CALCIUM, SERUM 8.3 mg/dL (8.5-10.1); CARBON DIOXIDE 29 mmol/L (21-32); CHLORIDE 108 mmol/L (98-107); GLUCOSE 129 mg/dL (74-106); MAGNESIUM 1.8 mg/dL (1.8-2.4); PHOSPHORUS 3.2 mg/dL (2.5-4.9); POTASSIUM 3.1 mmol/L (3.5-5.1); SODIUM SERUM 145 mmol/L (136-145); TOTAL PROTEIN, SERUM 6.6 g/dL (6.4-8.2); UREA NITROGEN, BLOOD 20 mg/dL (7-18)
[2018-09-25 06:15] LABS: CHOLESTEROL 115 mg/dL (<200); HDL CHOLESTEROL 65 mg/dL (40-60); LDL 45 mg/dL (0-99); TRIGLYCERIDES 38 mg/dL (30-150)
--- NOTE | 2018-09-25 06:40 | NUR ---
RN CLOSING NOTES NO SIGNIFICANT CHANGES IN Pt's CONDITION. Pt's VS REMAINS STABLE PER BASELINE. Pt IS RESTING IN BED. NO S/S OF ACUTE DISTRESS OR SOB NOTED DURING THE NIGHT. ALL NEEDS MET AND ATTENDED TO. SAFETY MEASURES IN PLACE. BED LOW, LOCKED, HOB ELEVATED, SIDE RAILS UP, CALL LIGHT WITHIN REACH, AND BED ALARM ON. TELE READING V-PACING 87. WILL ENDORSE TO DAYSHIFT RN FOR Pt's DODIE.
--- NOTE | 2018-09-25 07:30 | NUR ---
BRICK CARRIER OPENING NOTES RECEIVED PATIENT IN STABLE CONDITION. IN NO APPARENT DISTRESS. BEDSIDE RAILS ARE UPX2. BED IS LOCKED AND LOWERED. CALL LIGHT IS WITHIN REACH. IV LINE IS INTACT AND PATENT. WILL CONTINUE TO MONITOR PATIENT.
[2018-09-25] MEDS: CLOPIDOGREL BISULFATE 75 MG TABLET PO SCH (08:50)
[2018-09-25] MEDS: FLUDROCORTISONE 0.1 MG TABLET PO SCH (08:51)
[2018-09-25] MEDS: PANTOPRAZOLE 40 MG VIAL IV SCH (08:51)
[2018-09-25] MEDS: CHOLECALCIFEROL 1,000 UNIT TABLET (VIT D3) PO SCH (08:51)
[2018-09-25] MEDS: FINASTERIDE (5 MG) 5 MG TABLET PO SCH (08:51)
[2018-09-25] MEDS ORDERED: POTASSIUM CHLORIDE 20 MEQ TAB.PRT.SR PO SCH (09:00)
[2018-09-25] MEDS: ATORVASTATIN 10 MG TABLET PO SCH ×2 (09:11→17:02)
[2018-09-25] MEDS: ESCITALOPRAM OXALATE (10 MG) 10 MG TABLET PO SCH (09:12)
[2018-09-25] MEDS: POTASSIUM CHLORIDE 20 MEQ POWDER PACKET PO SCH ×2 (09:36→09:39)
[2018-09-25] MEDS ORDERED: HYDROMORPHONE INJ 0.5 MG/0.5 ML SYRINGE IV PRN (12:30)
--- NOTE | 2018-09-25 18:25 | NUR ---
POWER HAMMER OPERATOR CLOSING NOTES PATIENT RESTING IN STABLE CONDITION. IN NO APPARENT DISTRESS. BEDSIDE RAILS ARE UPX2. BED IS LOCKED AND LOWERED. CALL LIGHT IS WITHIN REACH. IV LINE IS INTACT AND PATENT. WILL ENDORSE CARE TO [facility] NURSE FOR DODIE.
--- NOTE | 2018-09-25 19:10 | NUR ---
MS RN OPENING NOTES Received patient alert on bed, unable to verbalize needs. With O2 inhalation via NC, saturating well, no SOB/respiratory distress noted. Patient noted confused and restless on bed. Siderails x3 up, with family at bedside. Kept bed low and locked, bed alarm on. Call light at bedside. Will continue to monitor accordingly.
[2018-09-25] MEDS: IV 1/2NS 1000 ML 1,000 ML IV PRN (19:21)
[2018-09-25] MEDS: CEFTRIAXONE 1 G in IV D5W 50 ML IV SCH (20:04)
[2018-09-25] MEDS: TRAZODONE 50 MG TABLET PO SCH (21:21)
[2018-09-25] MEDS: CYPROHEPTADINE HCL 4 MG TABLET PO SCH (21:23)
--- NOTE | 2018-09-25 21:33 | NUR ---
MS RN NOTES Patient moved to 308-1 due to bathroom issues in the present room. Assisted with SITE ENGINEER, moved the patient to the new room comfortably. IV site noted infiltrated, swollen no redness/tenderness noted. Removed old IV site. Unable to apply warm compress, patient uneasy on bed, constantly moving his arms and legs. Due meds given, will continue to monitor accordingly.
[2018-09-26 06:15] LABS: BASOPHILS % (AUTO) 0.3 % (0.0-2.0); EOSINOPHILS % (AUTO) 0.9 % (0.0-6.0); HEMATOCRIT 42 % (39-51); HEMOGLOBIN 14.1 g/dL (13.5-17.5); LYMPHOCYTES # (AUTO) 1.1 /CMM (0.8-4.8); LYMPHOCYTES % (AUTO) 14.8 % (20.0-44.0); MEAN CORPUSCULAR HGB CONC 33 g/dl (31.0-36.0); MEAN CORPUSCULAR VOLUME 92 fL (80-96); MONOCYTES # (AUTO) 0.7 /CMM (0.1-1.30); MONOCYTES % (AUTO) 10.4 % (2.0-12.0); NEUTROPHILS # (AUTO) 5.3 /CMM (1.8-8.9); NEUTROPHILS % (AUTO) 73.6 % (43.0-81.0); PLATELET COUNT (AUTO) 160 /CMM (150-450); RED BLOOD CELL COUNT(AUTO) 4.58 MIL/uL (4.5-6.0); WHITE BLOOD COUNT (AUTO) 7.2 K/uL (4.3-11.0)
--- NOTE | 2018-09-26 06:32 | NUR ---
MS RN CLOSING NOTES Patient intermittently asleep on bed with patent peripheral IV line with NS infusing well as ordered. On O2 inhalation via NC @ 2LPM, saturating well. No SOB/respiratory distress noted. With patent FC indwelling well with 500ml tea colored urine output noted. All nursing needs attended. Kept clean, dry and comfortable. Cousin Binh remained at bedside throughout the shift. Kept bed low, locked, alarm on, siderails up. Call light at bedside. Endorsed to the next shift.
[2018-09-26 06:40] LABS: CALCIUM, SERUM 8.6 mg/dL (8.5-10.1); CARBON DIOXIDE 31 mmol/L (21-32); CHLORIDE 110 mmol/L (98-107); CREATININE 1.1 mg/dL (0.6-1.3); GLUCOSE 109 mg/dL (74-106); PHOSPHORUS 3.1 mg/dL (2.5-4.9); POTASSIUM 4.1 mmol/L (3.5-5.1); SODIUM SERUM 147 mmol/L (136-145); UREA NITROGEN, BLOOD 14 mg/dL (7-18)
--- NOTE | 2018-09-26 07:40 | NUR ---
MS RN OPENING NOTES RECEIVED PATIENT IN STABLE CONDITION. IN NO APPARENT DISTRESS. BEDSIDE RAILS ARE UPX2. BED IS LOCKED AND LOWERED. CALL LIGHT IS WITHIN REACH. IV LINE IS INTACT AND PATENT. WILL CONTINUE TO MONITOR PATIENT.
[2018-09-26 08:00] VITALS: BP 140/76
[2018-09-26] MEDS: PANTOPRAZOLE 40 MG VIAL IV SCH (09:04)
[2018-09-26] MEDS: ESCITALOPRAM OXALATE (10 MG) 10 MG TABLET PO SCH (09:04)
[2018-09-26] MEDS: CHOLECALCIFEROL 1,000 UNIT TABLET (VIT D3) PO SCH (09:04)
[2018-09-26] MEDS: CLOPIDOGREL BISULFATE 75 MG TABLET PO SCH (09:04)
[2018-09-26] MEDS: FINASTERIDE (5 MG) 5 MG TABLET PO SCH (09:04)
[2018-09-26] MEDS: FLUDROCORTISONE 0.1 MG TABLET PO SCH (09:07)
[2018-09-26] MEDS: IV 1/2NS 1000 ML 1,000 ML IV PRN (11:12)
[2018-09-26 16:00] VITALS: BP 130/68
[2018-09-26] MEDS: ATORVASTATIN 10 MG TABLET PO SCH (17:16)
--- NOTE | 2018-09-26 18:17 | NUR ---
MS RN CLOSING NOTES PATIENT IS IN STABLE CONDITION. IN NO APPARENT DISTRESS. BEDSIDE RAILS ARE UPX2. BED IS LOCKED AND LOWERED. CALL LIGHT IS WITHIN REACH. IV LINE IS INTACT AND PATENT. ALL NEEDS WERE MET. WILL ENDORSE CARE TO TRAFFIC SIGNAL MECHANIC NURSE FOR DODIE.
[2018-09-26 20:00] VITALS: BP 124/70
--- NOTE | 2018-09-26 20:00 | NUR ---
MS/RN OPENING NOTES RECEIVED PATIENT IN BED, RESPIRATIONS EVEN AND UNLABORED, ON OXYGEN VIA NC AT 2L, CAN OPEN EYES AND MOVE BODY, SKIN WARM TO TOUCH. HOB ELEVATED, ABLE TO SWALLOW PILL WITH APPLE SAUCE, MONITORING FOR ANY CHANGES.RECEIVED ENDORSEMENT FROM AM RN FOR DODIE WILL MONITOR.
[2018-09-26 20:05] VITALS: BP 124/70
[2018-09-26] MEDS: CEFTRIAXONE 1 G in IV D5W 50 ML IV SCH (21:19)
[2018-09-26] MEDS: TRAZODONE 50 MG TABLET PO SCH (22:37)
[2018-09-26] MEDS: CYPROHEPTADINE HCL 4 MG TABLET PO SCH (22:37)
--- NOTE | 2018-09-27 06:25 | NUR ---
308-2 MS/RN NOTES PATIENT ABLE TO SLEEP INTERMITENTLY, RESPIRATIONS EVEN AND UNLABORED, SKIN WARM TO TOUCH, IV ANTIBIOTIC ADMIONISTERED, MONITORED FOR ANY CHANGES, REOSITIONED AND TURNED, TO MONITOR FOR ANY CHNAGES, CALL LIGHTS WITHIN REACH, BED LOCKED.
[2018-09-27 08:00] VITALS: BP 108/47
--- NOTE | 2018-09-27 08:00 | NUR ---
m/s maintenance specialist: initial assessment received pt in bed awake, alert to self only with confusion and disorientation. unable to comprehend. private caregiver at bedside. reality orientation provided prn. instructed to call for assistance. will monitor.
[2018-09-27 08:27] LABS: BASOPHILS % (AUTO) 0.3 % (0.0-2.0); EOSINOPHILS % (AUTO) 1.8 % (0.0-6.0); HEMATOCRIT 44 % (39-51); HEMOGLOBIN 14.9 g/dL (13.5-17.5); LYMPHOCYTES # (AUTO) 1.3 /CMM (0.8-4.8); LYMPHOCYTES % (AUTO) 18.4 % (20.0-44.0); MEAN CORPUSCULAR HGB CONC 34 g/dl (31.0-36.0); MEAN CORPUSCULAR VOLUME 91 fL (80-96); MONOCYTES # (AUTO) 0.9 /CMM (0.1-1.30); MONOCYTES % (AUTO) 12.2 % (2.0-12.0); NEUTROPHILS # (AUTO) 4.7 /CMM (1.8-8.9); NEUTROPHILS % (AUTO) 67.3 % (43.0-81.0); PLATELET COUNT (AUTO) 172 /CMM (150-450); RED BLOOD CELL COUNT(AUTO) 4.86 MIL/uL (4.5-6.0)
[2018-09-27 08:33] LABS: CALCIUM, SERUM 8.7 mg/dL (8.5-10.1); CARBON DIOXIDE 30 mmol/L (21-32); CHLORIDE 105 mmol/L (98-107); CREATININE 0.9 mg/dL (0.6-1.3); GLUCOSE 96 mg/dL (74-106); POTASSIUM 3.7 mmol/L (3.5-5.1); SODIUM SERUM 143 mmol/L (136-145); UREA NITROGEN, BLOOD 10 mg/dL (7-18)
[2018-09-27] MEDS: CLOPIDOGREL BISULFATE 75 MG TABLET PO SCH (08:43)
[2018-09-27] MEDS: ESCITALOPRAM OXALATE (10 MG) 10 MG TABLET PO SCH (08:43)
[2018-09-27] MEDS: FINASTERIDE (5 MG) 5 MG TABLET PO SCH (08:43)
[2018-09-27] MEDS: CHOLECALCIFEROL 1,000 UNIT TABLET (VIT D3) PO SCH (08:43)
[2018-09-27] MEDS: FLUDROCORTISONE 0.1 MG TABLET PO SCH (08:44)
[2018-09-27] MEDS: PANTOPRAZOLE 40 MG VIAL IV SCH (09:14)
[2018-09-27] MEDS ORDERED: SULF1TAB48 PO (14:13)
--- NOTE | 2018-09-27 14:20 | NUR ---
m/s linux developer: md visit seen and examined by dr. pereyra with order to d'c home. order acknowledged. pt has home health. pt to f/u with home health. friend at bedside and made aware and called pt's daughter. spoke to her over the phone with belarusian staff translating. pt will continue po antibiotic for 4 more days.
--- NOTE | 2018-09-27 14:35 | NUR ---
m/s cooker mechanic: notes prescription called in to [facility] [phone], spoke to herminia. daughter made aware and wants pt to go at 6pm. private caregiver will be at home then as stated. carrillo (case management) made aware.
--- NOTE | 2018-09-27 15:00 | NUR ---
m/s coffee grower: notes all d'c papers given to friend to take home. pt unable to sign all discharged papers due to cognitive impairment. all discharged instructions given to friend/caregiver with burkinan staff translating and verbalized understanding.
--- NOTE | 2018-09-27 15:20 | NUR ---
m/s wood heel flap rubber: notes dupont removed rohit. well with 600ml of clear yellow urine. pt for pharmacy picking tech before 6pm.
[2018-09-27 16:00] VITALS: BP 108/70
[2018-09-27] MEDS: ATORVASTATIN 10 MG TABLET PO SCH (17:26)
--- NOTE | 2018-09-27 17:45 | NUR ---
m/s supervisor stave cutting: notes pt voided at this time. incontinent care rendered. kept clean and dry. good pericare rendered. h/l removed with tip intact. awaiting for ambulance.
--- NOTE | 2018-09-27 18:15 | NUR ---
m/s soil technician: notes f/u made to [facility], spoke to lisa and informed that they are 15 more minutes delayed. friend/caregiver made aware.
--- NOTE | 2018-09-27 18:45 | NUR ---
m/s hyperbaric technician: notes f/u made to nanda (dispatcher) and informed me that the crew are stuck in traffic, but should be there soon. pt up in chair at this time. caregiver made aware.
--- NOTE | 2018-09-27 19:05 | NUR ---
m/s commercial retoucher: notes ambulance here and report given to one of the crew. pt stable for discharged.
--- NOTE | 2018-09-27 19:19 | NUR ---
m/s channeler insole: discharged discharged home in stable condition via ambulance accompanied by 2 crew.
== END 2018-09-27 19:20 | disposition home health service (06) | DRG 872 ==
LOC: ER 16:32 → TELE 21:07 → MED 09-25 08:47
PROVIDERS: ADMIT Nurse Practitioner Acute Care
DX: A41.9 Sepsis, unspecified organism (principal); E44.1 Mild protein-calorie malnutrition; N39.0 Urinary tract infection, site not specified; I69.351 Hemiplegia and hemiparesis following cerebral infarction affecting right dominant side; E86.0 Dehydration; F09 Unspecified mental disorder due to known physiological condition; Z79.899 Other long term (current) drug therapy; Z79.02 Long term (current) use of antithrombotics/antiplatelets; K21.9 Gastro-esophageal reflux disease without esophagitis; I25.10 Atherosclerotic heart disease of native coronary artery without angina pectoris; R42 Dizziness and giddiness; Z93.0 Tracheostomy status; Z93.1 Gastrostomy status; R13.10 Dysphagia, unspecified; E78.5 Hyperlipidemia, unspecified; I48.91 Unspecified atrial fibrillation; N40.0 Benign prostatic hyperplasia without lower urinary tract symptoms; F02.80 Dementia in other diseases classified elsewhere, unspecified severity, without behavioral disturbance, psychotic disturbance, mood disturbance, and anxiety; G30.9 Alzheimer's disease, unspecified; F20.9 Schizophrenia, unspecified; B96.1 Klebsiella pneumoniae [K. pneumoniae] as the cause of diseases classified elsewhere; I50.9 Heart failure, unspecified; F43.10 Post-traumatic stress disorder, unspecified; J32.9 Chronic sinusitis, unspecified
CPT/HCPCS: 36415; 70450-TC; 71045-TC; 80048-TC; 80053-TC; 80061-TC; 80076-TC; 81000-TC; 82140-TC; 83605-TC; 83735-TC; 84100-TC; 84443-TC; 84484-TC; 85025-TC; 85730-TC; 87040-TC; 87081-TC; 87086-TC; 87186-TC; 92611-TC; 97110-TC; 97116-TC; 97530-TC; C9113; G0378; J0696; J3490; J7030; J7040; J7060

== ENCOUNTER 2019-04-03 20:55 | Inpatient (IN) | payer MEDICARE, OTHER ==
[~2019-04-03] VITALS: Ht 177.8 cm; Wt 70.8 kg
[~2019-04-03 20:55] MED LIST changes: -BUSP10TA3 PO; -DIVA125C5 PO; +FLUD0.1T PO; -HALO2TAB PO; -LACT1CAP72 PO; +RAME8TAB15 PO; +SULF1TAB48 PO
--- NOTE | 2019-04-03 21:10 | NUR ---
BIB EMS FROM HOME C/O FEVER X1 WEEK. ON ATB ROCEPHIN 1G IVPB X3 DAYS, DOXYCYCLINE 100MG PO X1 TODAY FOR CHRONIC UTI. PT HAS HX OF DEMENTIA, DOES NOT UNDERSTAND NORWEGIAN. NO ACUTE DISTRESS NOTED. SKIN INTACT. PT HAS ENLARGED TESTICLES. PER [id number], HAS HX OF BPH. MARTINIQUAIS-SPEAKING CAREGIVER ALSO AT BEDSIDE. ON MONITOR AND READY FOR EVAL.
[2019-04-03] MEDS ORDERED: IV NS 0.9% 1,000 ML BAG IV ONE (21:30)
[2019-04-03] MEDS ORDERED: ACETAMINOPHEN 650 MG/SUPP.RECT RC ONE ×2 (21:30→21:36)
--- NOTE | 2019-04-03 21:34 | NUR ---
[facility]: [phone]
--- NOTE | 2019-04-03 21:34 | NUR ---
[id number], ARIELA, GOING HOME. STATES CAN CALL HER ANY TIME. PHONE NUMBER IN PT DATA.
[2019-04-03 21:38] LABS: BASOPHILS % (AUTO) 0.3 % (0.0-2.0); EOSINOPHILS % (AUTO) 1.2 % (0.0-6.0); HEMATOCRIT 37 % (39-51); HEMOGLOBIN 12.2 g/dL (13.5-17.5); LYMPHOCYTES # (AUTO) 1.2 /CMM (0.8-4.8); LYMPHOCYTES % (AUTO) 10.4 % (20.0-44.0); MEAN CORPUSCULAR HGB CONC 33 g/dl (31.0-36.0); MEAN CORPUSCULAR VOLUME 91 fL (80-96); MONOCYTES # (AUTO) 0.8 /CMM (0.1-1.30); MONOCYTES % (AUTO) 6.9 % (2.0-12.0); NEUTROPHILS # (AUTO) 9.1 /CMM (1.8-8.9); NEUTROPHILS % (AUTO) 81.2 % (43.0-81.0); PLATELET COUNT (AUTO) 199 /CMM (150-450); RED BLOOD CELL COUNT(AUTO) 4.01 MIL/uL (4.5-6.0); WHITE BLOOD COUNT (AUTO) 11.2 K/uL (4.3-11.0)
[2019-04-03 21:45] LABS: CALCIUM, SERUM 8.5 mg/dL (8.5-10.1); CARBON DIOXIDE 29 mmol/L (21-32); CHLORIDE 110 mmol/L (98-107); CREATININE 1.3 mg/dL (0.6-1.3); GLUCOSE 130 mg/dL (74-106); POTASSIUM 4.2 mmol/L (3.5-5.1); SODIUM SERUM 144 mmol/L (136-145); UREA NITROGEN, BLOOD 27 mg/dL (7-18)
[2019-04-03 21:51] LABS: ALANINE AMINOTRANSFERASE 15 U/L (12-78); ALBUMIN 2.9 g/dL (3.4-5.0); ALKALINE PHOSPHATASE 95 U/L (46-116); ASPARTATE AMINOTRANSFERASE 19 U/L (15-37); BILIRUBIN,DIRECT 0.1 mg/dL (0.0-0.2); BILIRUBIN,TOTAL 0.3 mg/dL (0.2-1.0); TOTAL PROTEIN, SERUM 6.3 g/dL (6.4-8.2)
--- NOTE | 2019-04-03 22:25 | NUR ---
[facility] PAGED
[2019-04-03] MEDS ORDERED: CEFEPIME 2 GM in IV NS 0.9% 50 ML IV SCH (22:30)
[2019-04-03] MEDS ORDERED: CEFEPIME 1 GM VIAL ONE (22:36)
--- NOTE | 2019-04-03 22:56 | NUR ---
URINE COLLECTED AND SENT TO LAB
[2019-04-03] MEDS ORDERED: MAG HYDROX/AL HYDROX/SIMETH 30 ML UDC PO PRN (23:00)
[2019-04-03] MEDS ORDERED: MORPHINE SULFATE INJ 2 MG/ML DISP.SYRIN IV PRN (23:00)
[2019-04-03] MEDS ORDERED: HYDROCODONE/APAP 5/325MG 1 EACH TABLET PO PRN (23:00)
[2019-04-03] MEDS ORDERED: ONDANSETRON HCL/PF 4 MG/2 ML VIAL IVP PRN (23:00)
[2019-04-03] MEDS ORDERED: MAGNESIUM HYDROXIDE 30 ML UDC PO PRN (23:00)
[2019-04-03] MEDS ORDERED: ACETAMINOPHEN 325 MG TABLET PO PRN (23:00)
[2019-04-03 23:01] LABS: APPEARANCE,URINE Clear (CLEAR); BILIRUBIN,URINE Negative (NEGATIVE); BLOOD, URINE Small Ery/uL (NEGATIVE); COLOR,URINE Yellow (YELLOW); KETONES,URINE Trace (NEGATIVE); LEUKOCYTE ESTERASE ,URINE Negative (NEGATIVE); NITRITE, URINE Negative (NEGATIVE); PROTEIN,URINE Negative (NEGATIVE); UGLUCOSE Negative (NEGATIVE); UROBILINOGEN,URINE 0.2 EU/dL (0.2)
--- NOTE | 2019-04-03 23:19 | NUR ---
BED ASSIGNMENT TELE 114-2
--- NOTE | 2019-04-03 23:25 | NUR ---
REPORT GIVEN TO JORDAN COBURN FOR 114-2 TELE.
--- NOTE | 2019-04-03 23:52 | NUR ---
PT TRANSFERRED PER [facility]
[2019-04-04] VITALS: BP 118/68
--- NOTE | 2019-04-04 | NUR ---
MS RN NOTE ADMITTED 78 YEARS OLD MALE PT FROM ER WITH THE DX OF SEPSIS SECONDARY TO UTI/FEVER. PT IS NON VERBAL CONFUSED. SITTER AT BED SIDE. NO DISTRESS OR DISCOMFORT NOTED. NO S/S OF PAIN NOTED. PRIVATE ADVERTISING ACCOUNT MANAGER GAVE SOME HX ON THE PT. SKIN INTACT, ONLY SCROTUM IS ENLARGED. LFA #20 G SL INTACT AND PATENT. SIDE RAILS UP X 2 AND CALL LIGHT WITHIN REACH. VSS CONTINUE TO MONITOR HIM.
[2019-04-04 00:10] LABS: BACTERIA,URINE Few /HPF (None Seen); RBC,URINE 0-2 /HPF (0-2); SQUAMOUS EPITHELIAL CELL,UR Few /HPF (None Seen); WBC,URINE 0-2 /HPF (0-3)
[2019-04-04 00:11] LABS: URIC ACID CRYSTALS,URINE Moderate /HPF (None Seen)
[2019-04-04] MEDS: IV NS 0.9% 1,000 ML IV PRN ×2 (00:54→14:57)
[2019-04-04 04:00] VITALS: BP 107/57
--- NOTE | 2019-04-04 06:25 | NUR ---
MS RN NOTE PT IN BED ASLEEP, AROSUABLE. NO DISTRESS OR DISCOMFORT NOTED.
--- NOTE | 2019-04-04 06:27 | NUR ---
MS RN NOTE PT IN BED ASLEEP, AROUSABLE. PRIVATE HADOOP ENGINEER AT BED SIDE. IVF NS INFUSING AT 75 ML/HR, NO S/S OF INFILTRATION NOTED. INCONTINENCE CARE GIVEN. SIDE RAILS UP X 2 AND CALL LIGHT WITHIN REACH. WILL ENDORSE TO DAY SHIFT NURSE FOR CONTINUE TO CARE.
[2019-04-04 08:00] VITALS: BP 117/72
[2019-04-04 09:36] LABS: BASOPHILS % (AUTO) 0.4 % (0.0-2.0); EOSINOPHILS % (AUTO) 2.6 % (0.0-6.0); HEMATOCRIT 36 % (39-51); HEMOGLOBIN 12.4 g/dL (13.5-17.5); LYMPHOCYTES # (AUTO) 1.1 /CMM (0.8-4.8); MEAN CORPUSCULAR HGB CONC 34 g/dl (31.0-36.0); MEAN CORPUSCULAR VOLUME 90 fL (80-96); MONOCYTES # (AUTO) 0.4 /CMM (0.1-1.30); MONOCYTES % (AUTO) 6.4 % (2.0-12.0); NEUTROPHILS # (AUTO) 4.8 /CMM (1.8-8.9); NEUTROPHILS % (AUTO) 73.6 % (43.0-81.0); PLATELET COUNT (AUTO) 178 /CMM (150-450); RED BLOOD CELL COUNT(AUTO) 4.05 MIL/uL (4.5-6.0); WHITE BLOOD COUNT (AUTO) 6.5 K/uL (4.3-11.0)
[2019-04-04 09:46] LABS: CALCIUM, SERUM 7.8 mg/dL (8.5-10.1); CARBON DIOXIDE 25 mmol/L (21-32); CHLORIDE 108 mmol/L (98-107); CREATININE 0.9 mg/dL (0.6-1.3); GLUCOSE 151 mg/dL (74-106); MAGNESIUM 1.8 mg/dL (1.8-2.4); PHOSPHORUS 1.9 mg/dL (2.5-4.9); POTASSIUM 3.4 mmol/L (3.5-5.1); SODIUM SERUM 143 mmol/L (136-145); UREA NITROGEN, BLOOD 19 mg/dL (7-18)
--- NOTE | 2019-04-04 09:48 | NUR ---
RN note Spoke with family over phone regarding medication Periactin/cyprohepdine 4 mg. pt does not currently take this med. will d/c and notify .
[2019-04-04 09:49] LABS: CHOLESTEROL 98 mg/dL (<200); HDL CHOLESTEROL 46 mg/dL (40-60); LDL 46 mg/dL (0-99); TRIGLYCERIDES 31 mg/dL (30-150)
[2019-04-04] MEDS: LACTOBACILLUS RHAMNOSUS GG 1 EACH CAP.SPRINK PO SCH ×2 (09:50→17:00)
[2019-04-04] MEDS: FINASTERIDE (5 MG) 5 MG TABLET PO SCH (09:52)
[2019-04-04] MEDS: FLUDROCORTISONE 0.1 MG TABLET PO SCH (09:52)
[2019-04-04] MEDS: FAMOTIDINE (20 MG) 20 MG TABLET PO SCH (09:52)
[2019-04-04] MEDS: CLOPIDOGREL BISULFATE 75 MG TABLET PO SCH (09:52)
[2019-04-04] MEDS: ESCITALOPRAM OXALATE (10 MG) 10 MG TABLET PO SCH (09:52)
[2019-04-04] MEDS: CHOLECALCIFEROL 1,000 UNIT TABLET (VIT D3) PO SCH (09:52)
[2019-04-04] MEDS: CEFEPIME 2 GM in IV D5W 100 ML IV SCH ×2 (10:08→23:43)
[2019-04-04] MEDS ORDERED: K PHOS NEUTRAL 250 MG TABLET PO ONE (12:00)
--- NOTE | 2019-04-04 13:30 | NUR ---
rn note lab workup for UA urine culture from 03/17/13 report from [facility] requested and received, placed in the chart. STEFANIA mandle.
[2019-04-04] MEDS ORDERED: LORAZEPAM INJ 2 MG/ML VIAL IVP PRN (14:00)
[2019-04-04] MEDS ORDERED: LUBI8CAP PO (14:05)
[2019-04-04] MEDS ORDERED: SERT25TA PO (14:07)
[2019-04-04] MEDS ORDERED: MIRT15TA PO (14:10)
[2019-04-04] MEDS ORDERED: BISA10SU11 RC (14:13)
--- NOTE | 2019-04-04 14:15 | NUR ---
rn note pt really agitated, attempts to remove lines and climb out of bed, caregiver at bedside. christie paged and got orders for ativan, which was given with no effect. per Caregiver, pt is agitated when constipated, so got an order from chase gore for fleet enema. and dwain soft wrist restraints. will carry out orders and monitor pt. closely.
[2019-04-04] MEDS ORDERED: NA PHOS,M-B/NA PHOS,DI-BA 1 EA ENEMA RC PRN (14:30)
[2019-04-04 14:45] LABS: APPEARANCE,URINE CLEAR (CLEAR); BILIRUBIN,URINE NEGATIVE (NEGATIVE); BLOOD, URINE TRACE-INTA Ery/uL (NEGATIVE); COLOR,URINE YELLOW (YELLOW); KETONES,URINE NEGATIVE (NEGATIVE); LEUKOCYTE ESTERASE ,URINE NEGATIVE (NEGATIVE); NITRITE, URINE NEGATIVE (NEGATIVE); PROTEIN,URINE NEGATIVE (NEGATIVE); UGLUCOSE NEGATIVE (NEGATIVE); UROBILINOGEN,URINE 0.2 EU/dL (0.2)
[2019-04-04 14:58] LABS: RBC,URINE 0-2 /HPF (0-2); WBC,URINE 0-2 /HPF (0-3)
[2019-04-04 15:00] LABS: CREATININE, URINE 23.7 MG/DL (30.0-125.0)
[2019-04-04 15:01] LABS: BACTERIA,URINE Rare /HPF (None Seen); SQUAMOUS EPITHELIAL CELL,UR Few /HPF (None Seen)
[2019-04-04 15:12] LABS: EOSINOPHIL,URINE None Seen
--- NOTE | 2019-04-04 15:30 | NUR ---
rn note home Meds updated in medication reconciliation and ANALYST PROGRAMMER Gordo reminded to review them.
[2019-04-04 16:00] VITALS: BP 144/84
[2019-04-04 20:00] VITALS: BP 102/68
[2019-04-04] MEDS: TRAZODONE 50 MG TABLET PO SCH (21:17)
[2019-04-04] MEDS: TEMAZEPAM 7.5 MG CAPSULE PO PRN (21:18)
[2019-04-04] MEDS: ATORVASTATIN 10 MG TABLET PO SCH (21:18)
[2019-04-04] MEDS ORDERED: CYPROHEPTADINE HCL 4 MG TABLET PO SCH (22:00)
[2019-04-05 04:00] VITALS: BP 121/74
[2019-04-05] MEDS: IV NS 0.9% 1,000 ML IV PRN (05:46)
--- NOTE | 2019-04-05 06:48 | NUR ---
RN NOTES, PATIENT IN BED, SLEEPING AT THIS TIME, BUT EASILY AROUSES TO VERBAL AND TACTILE STIMULI, BREATHING EVEN AND UNLABORED ON ROOM AIR , NO SOB/ACUTE DISTRESS NOTED AT THIS TIME, NO SIGNIFICANT CHANCE IN CONDITION DURING THE NIGHT, WITH BILATERAL SOFT RESTRAINS, OFTEN CIRCULATION CHEKS DONE, NO ABNORMALITY OR CIRCULATION COMPROMISED NOTED, FAMILY MEMBER AT BEDSIDE, IV FLUIDS INFUSING WELL AND PATIENT TOLERATED WELL, CALL LIGHT W/I REACH, BED LOCKED AND IN LOW POSITION, WILL ENDORSE CONTINUITY OF CARE TO ONCOMING NURSE.
--- NOTE | 2019-04-05 07:30 | NUR ---
MS RN AM NOTES: PATIENT IN BED, SLEEPING AT THIS TIME, BUT EASILY AROUSES TO VERBAL AND TACTILE STIMULI, CAREGIVER AT BEDSIDE, BREATHING EVEN AND UNLABORED ON ROOM AIR , NO SOB/ACUTE DISTRESS NOTED AT THIS TIME, NO SIGNS OF PAIN, WITH BILATERAL SOFT WRIST RESTRAINTS, RELEASED AND CHECKED CIRCULATION, THEN EVERY 2 HOURS. LEFT AC G 18 FLUSHES WELL, SITE CLEAR. CALL LIGHT W/I REACH, BED LOCKED AND IN LOW POSITION, POC DISCUSSED WITH CAREGIVER, VERBALIZED UNDERSTANDING. WILL CONTINUE TO MONITOR
[2019-04-05 07:43] LABS: CREATINE KINASE, TOTAL 173 U/L (39-308)
[2019-04-05 07:47] LABS: BASOPHILS % (AUTO) 0.6 % (0.0-2.0); EOSINOPHILS % (AUTO) 2.2 % (0.0-6.0); HEMATOCRIT 39 % (39-51); HEMOGLOBIN 13.5 g/dL (13.5-17.5); LYMPHOCYTES % (AUTO) 14.9 % (20.0-44.0); MEAN CORPUSCULAR HGB CONC 35 g/dl (31.0-36.0); MEAN CORPUSCULAR VOLUME 89 fL (80-96); MONOCYTES # (AUTO) 0.5 /CMM (0.1-1.30); MONOCYTES % (AUTO) 7.4 % (2.0-12.0); NEUTROPHILS # (AUTO) 4.9 /CMM (1.8-8.9); NEUTROPHILS % (AUTO) 74.9 % (43.0-81.0); PLATELET COUNT (AUTO) 209 /CMM (150-450); WHITE BLOOD COUNT (AUTO) 6.6 K/uL (4.3-11.0)
[2019-04-05 07:57] LABS: ALANINE AMINOTRANSFERASE 16 U/L (12-78); ALBUMIN 2.9 g/dL (3.4-5.0); ALKALINE PHOSPHATASE 50 U/L (46-116); ASPARTATE AMINOTRANSFERASE 18 U/L (15-37); BILIRUBIN,TOTAL 0.8 mg/dL (0.2-1.0); CALCIUM, SERUM 8.1 mg/dL (8.5-10.1); CARBON DIOXIDE 29 mmol/L (21-32); CHLORIDE 107 mmol/L (98-107); CREATININE 0.8 mg/dL (0.6-1.3); GLUCOSE 96 mg/dL (74-106); POTASSIUM 3.8 mmol/L (3.5-5.1); SODIUM SERUM 144 mmol/L (136-145); TOTAL PROTEIN, SERUM 6.4 g/dL (6.4-8.2); UREA NITROGEN, BLOOD 12 mg/dL (7-18)
[2019-04-05 08:00] VITALS: BP 130/71
[2019-04-05] MEDS: FLUDROCORTISONE 0.1 MG TABLET PO SCH (09:09)
[2019-04-05] MEDS: ESCITALOPRAM OXALATE (10 MG) 10 MG TABLET PO SCH (09:09)
[2019-04-05] MEDS: CLOPIDOGREL BISULFATE 75 MG TABLET PO SCH (09:09)
[2019-04-05] MEDS: LACTOBACILLUS RHAMNOSUS GG 1 EACH CAP.SPRINK PO SCH ×2 (09:10→17:01)
[2019-04-05] MEDS: FAMOTIDINE (20 MG) 20 MG TABLET PO SCH (09:10)
[2019-04-05] MEDS: FINASTERIDE (5 MG) 5 MG TABLET PO SCH (09:10)
[2019-04-05] MEDS: CHOLECALCIFEROL 1,000 UNIT TABLET (VIT D3) PO SCH (09:10)
[2019-04-05] MEDS: CEFEPIME 2 GM in IV D5W 100 ML IV SCH ×2 (12:48→22:02)
[2019-04-05 16:00] VITALS: BP 130/84
--- NOTE | 2019-04-05 19:30 | NUR ---
MS RN CLOSING NOTES: PATIENT IN BED, SLEEPING AT THIS TIME, BUT EASILY AROUSES TO VERBAL AND TACTILE STIMULI, CAREGIVER AT BEDSIDE, BREATHING EVEN AND UNLABORED ON ROOM AIR , NO SOB/ACUTE DISTRESS NOTED AT THIS TIME, NO SIGNS OF PAIN, WITH BILATERAL SOFT WRIST RESTRAINTS, RELEASED AND CHECKED CIRCULATION, THEN EVERY 2 HOURS. LEFT AC G 18 FLUSHES WELL, SITE CLEAR. CALL LIGHT W/I REACH, BED LOCKED AND IN LOW POSITION, ALL NEEDS ATTENDED AND MET. ENDORSED TO NEXT SHIFT FOR DODIE.
--- NOTE | 2019-04-05 19:40 | NUR ---
RN NOTES, PATIENT IN BED, ASLEEP AT THIS TIME, BREATHING EVEN AND UNLABORED ON ROOM AIR, NO SOB/ACUTE DISTRESS NOTED AT THIS TIME, NO EPISODES OF AGITATION NOTED AT THIS TIME, IV ACCESS IN RIGHT HAND AND RIGHT FORE ARM PATENT AND INTACT, NO S/S OF INFILTRATION OR ABNORMALITY NOTED, IV FLUIDS INFUSING WELL AND PATIENT TOLERATED WELL, WITH BILATERAL SOFT RESTRAINS, OFTEN CIRCULATION CHEKS DONE, NO ABNORMALITY OR CIRCULATION COMPROMISED NOTED, FAMILY MEMBER AT BEDSIDE, CALL LIGHT W/I REACH, BED LOCKED AND IN LOW POSITION, WILL CONTINUE TO MONITOR CLOSELY.
[2019-04-05 20:00] VITALS: BP 116/77
[2019-04-05] MEDS: TRAZODONE 50 MG TABLET PO SCH (21:31)
[2019-04-05] MEDS: TEMAZEPAM 7.5 MG CAPSULE PO PRN (21:31)
[2019-04-05] MEDS: ATORVASTATIN 10 MG TABLET PO SCH (21:32)
[2019-04-06] MEDS: IV NS 0.9% 1,000 ML IV PRN (00:59)
[2019-04-06 04:00] VITALS: BP 124/82
--- NOTE | 2019-04-06 06:34 | NUR ---
RN NOTES, PATIENT IN BED, SLEEPING AT THIS TIME, BUT EASILY AROUSES TO VERBAL AND TACTILE STIMULI, BREATHING EVEN AND UNLABORED ON ROOM AIR, NO SOB/ACUTE DISTRESS NOTED AT THIS TIME, PATIENT REMAINS STABLE DURING THE NIGHT, WITH STABLE VITAL SIGNS, IV ACCESS IN RIGHT HAND AND RIGHT FORE ARM PATENT AND INTACT, IV FLUIDS INFUSING WELL AND PATIENT TOLERATED WELL, NO S/S OF INFILTRATION OR ABNORMALITY NOTED, WITH BILATERAL SOFT RESTRAINS, OFTEN CIRCULATION CHECKS DONE, NO ABNORMALITY OR CIRCULATION COMPROMISED NOTED, FAMILY MEMBER AT BEDSIDE, CALL LIGHT W/I REACH, BED LOCKED AND IN LOW POSITION, WILL ENDORSE CONTINUITY OF CARE TO ONCOMING NURSE.
--- NOTE | 2019-04-06 07:42 | NUR ---
MS RN OPENING NOTES, PATIENT RECEIVED IN BED, SLEEPING. NO SOB OR ACUTE DISTRESS NOTED. BREATHING EVEN AND UNLABORED ON ROOM AIR, NO CHANGES IN PATIENT CONDITION REPORTED OVERNIGHT. R HAND IV ACCESS PATENT AND INTACT, IV FLUIDS INFUSING WELL. NO S/S OF INFILTRATION OR ABNORMALITY NOTED, PATIENT HAS BILATERAL SOFT RESTRAINS, CIRCULATION CHECKS ORDERED. SAFETY MEASURES IN PLACE, CALL LIGHT WITHIN REACH, BED LOCKED AND IN LOW POSITION, WILL CONTINUE TO MONITOR.
[2019-04-06 08:00] VITALS: BP 132/79
[2019-04-06] MEDS: CLOPIDOGREL BISULFATE 75 MG TABLET PO SCH (09:02)
[2019-04-06] MEDS: FAMOTIDINE (20 MG) 20 MG TABLET PO SCH (09:02)
[2019-04-06] MEDS: FLUDROCORTISONE 0.1 MG TABLET PO SCH (09:02)
[2019-04-06] MEDS: CHOLECALCIFEROL 1,000 UNIT TABLET (VIT D3) PO SCH (09:03)
[2019-04-06] MEDS: LACTOBACILLUS RHAMNOSUS GG 1 EACH CAP.SPRINK PO SCH ×2 (09:03→18:25)
[2019-04-06] MEDS: FINASTERIDE (5 MG) 5 MG TABLET PO SCH (09:03)
[2019-04-06] MEDS: ESCITALOPRAM OXALATE (10 MG) 10 MG TABLET PO SCH (09:03)
[2019-04-06] MEDS: CEFEPIME 2 GM in IV D5W 100 ML IV SCH (11:11)
[2019-04-06 13:07] LABS: PTH, INTACT 36 pg/mL (15-65)
[2019-04-06 16:00] VITALS: BP 135/69
--- NOTE | 2019-04-06 18:28 | NUR ---
MS BUSINESS DEVELOPMENT ANALYST NOTE PATIENT DISCHARGED AT 1740 PER MD VIA EMT GURNEY TRANSPORT. PATIENT A/O X 1, NON-VERBAL. NO SOB OR ACUTE DISTRESS NOTED. V/S WNL. CAREGIVER AT SIDE DURING DISCHARGE. ALL DISCHARGE PAPAERWORK GIVEN TO EMT'S AND CAREGIVER. [facility] FAX'D D/C PAPERWORK ALSO. ALL IV LINES REMOVED. NO MONITOR ON PATIENT. PATIENT CLEAN AND DRY UPON D/C. FAMILY NOTIFIED. DISCHARGE COMPLETED W/O INCIDENT.
[2019-04-07 06:07] LABS: *SPE A/G RATIO 1.1 (0.7-1.7); *SPE ALBUMIN 3.1 g/dL (2.9-4.4); *SPE ALPHA-1-GLOBULIN 0.3 g/dL (0.0-0.4); *SPE ALPHA-2-GLOBULIN 0.6 g/dL (0.4-1.0); *SPE BETA GLOBULIN 0.9 g/dL (0.7-1.3); *SPE GLOBULIN, TOTAL 2.8 g/dL (2.2-3.9); *SPE M-SPIKE Not Observed g/dL (Not Observed); *SPEGAMMA GLOBULIN 1.1 g/dL (0.4-1.8)
== END 2019-04-06 18:39 | disposition home health service (06) | DRG 871 ==
LOC: ER 20:59 → TELE1 23:20 → MEDSG1 23:49
PROVIDERS: ADMIT Nurse Practitioner Acute Care; ATTEND Internal Medicine
DX: A41.9 Sepsis, unspecified organism (principal); G93.41 Metabolic encephalopathy; R53.2 Functional quadriplegia; N17.0 Acute kidney failure with tubular necrosis; I13.0 Hypertensive heart and chronic kidney disease with heart failure and stage 1 through stage 4 chronic kidney disease, or unspecified chronic kidney disease; N39.0 Urinary tract infection, site not specified; I69.351 Hemiplegia and hemiparesis following cerebral infarction affecting right dominant side; E44.0 Moderate protein-calorie malnutrition; E27.40 Unspecified adrenocortical insufficiency; E86.0 Dehydration; E88.09 Other disorders of plasma-protein metabolism, not elsewhere classified; K21.9 Gastro-esophageal reflux disease without esophagitis; I50.9 Heart failure, unspecified; D63.8 Anemia in other chronic diseases classified elsewhere; Z87.440 Personal history of urinary (tract) infections; N18.2 Chronic kidney disease, stage 2 (mild); I25.10 Atherosclerotic heart disease of native coronary artery without angina pectoris; G47.00 Insomnia, unspecified; M62.50 Muscle wasting and atrophy, not elsewhere classified, unspecified site; Z95.0 Presence of cardiac pacemaker; I48.91 Unspecified atrial fibrillation; F01.50 Vascular dementia, unspecified severity, without behavioral disturbance, psychotic disturbance, mood disturbance, and anxiety; F20.9 Schizophrenia, unspecified; G62.9 Polyneuropathy, unspecified; N40.1 Benign prostatic hyperplasia with lower urinary tract symptoms; Z79.02 Long term (current) use of antithrombotics/antiplatelets
CPT/HCPCS: 36415; 71045-TC; 80048-TC; 80053-TC; 80061-TC; 80076-TC; 81000-TC; 82550-TC; 82570-TC; 83605-TC; 83735-TC; 83970; 84100-TC; 84155; 84155-TC; 84165; 84300-TC; 84484-TC; 85025-TC; 85730-TC; 87040-TC; 87081-TC; 87086-TC; 92526; 92611-TC; A4216; A4349; G0378; J0692; J2060; J7030; J7060

== ENCOUNTER 2019-08-12 08:49 | Inpatient (IN) | payer MEDICARE, OTHER ==
[2019-08-12] VITALS (42 sets, daily range): BP systolic 65–139; BP diastolic 46–94
[~2019-08-12] VITALS: Ht 177.8 cm; Wt 75.3 kg
[~2019-08-12 08:49] MED LIST changes: +BISA10SU11 RC; -CYPR4TAB44 PO; +LUBI8CAP PO; +MIRT15TA PO; +SERT25TA PO
--- NOTE | 2019-08-12 08:49 | NUR ---
JAVED FROM [facility] FOR SOB AND LOW O2 SAT OF 805. EMS PLACED PATIENT ON CPAP WITH 93% O2 SAT AFTERWARDS PER EMS REPORT. TO ER BED 8, HOOKED TO LEAD SECURITY OFFICER, PATIENT NOTED TACHYCARDIC, ON HOSP GOWN, RT AT BEDSIDE AND CONNECTED PATIENT TO CPAP W SETTINGS: IPAP 20, EPAP 8, RATE 16, O2 100%. PATIENT SATURATING AT 94%. DR PETTY AT BEDSIDE.
[2019-08-12] MEDS ORDERED: LORAZEPAM INJ 2 MG/ML VIAL ONE (08:59)
--- NOTE | 2019-08-12 09:10 | NUR ---
RT NOTE PT PLACED ON BIPAP PER MD ORDER. SETTINGS FOLLOW ST 05/04 RATE 16 100%. ALARMS SET PER PROTOCOL AND AUDIBLE. VENT PLUGGED IN TO RED OUTLET. AMBU BAG AT BED SIDE. BIPAP PLUGGED IN TO RED OUTLET. Addendum: 08/12/19 at 0912 by DEV PETTY RT Amended: Links added.
[2019-08-12 09:18] LABS: BASOPHILS # (AUTO) 0.2 /CMM (0.0-0.2); BASOPHILS % (AUTO) 1.7 % (0.0-2.0); EOSINOPHILS % (AUTO) 3.7 % (0.0-6.0); HEMATOCRIT 54 % (39-51); HEMOGLOBIN 17.5 g/dL (13.5-17.5); LYMPHOCYTES # (AUTO) 0.8 /CMM (0.8-4.8); MEAN CORPUSCULAR HGB CONC 33 g/dl (31.0-36.0); MEAN CORPUSCULAR VOLUME 94 fL (80-96); MONOCYTES # (AUTO) 0.1 /CMM (0.1-1.30); MONOCYTES % (AUTO) 0.7 % (2.0-12.0); NEUTROPHILS % (AUTO) 86.9 % (43.0-81.0); PLATELET COUNT (AUTO) 266 /CMM (150-450); RED BLOOD CELL COUNT(AUTO) 5.73 MIL/uL (4.5-6.0); WHITE BLOOD COUNT (AUTO) 11.5 K/uL (4.3-11.0)
--- NOTE | 2019-08-12 09:20 | NUR ---
URINE SAMPLE COLLECTED VUIA STRAIGHT CATHETER, SAMPLE SENT TO LAB
[2019-08-12] MEDS ORDERED: ACETAMINOPHEN 650 MG/SUPP.RECT RC ONE ×2 (09:23→09:30)
[2019-08-12 09:28] LABS: CALCIUM, SERUM 7.9 mg/dL (8.5-10.1); CARBON DIOXIDE 25 mmol/L (21-32); CHLORIDE 108 mmol/L (98-107); CREATININE 1.4 mg/dL (0.6-1.3); GLUCOSE 214 mg/dL (74-106); POTASSIUM 4.3 mmol/L (3.5-5.1); SODIUM SERUM 144 mmol/L (136-145); UREA NITROGEN, BLOOD 32 mg/dL (7-18)
[2019-08-12] MEDS ORDERED: VANCOMYCIN 1 GM in IV D5W 250 ML IV ONE (09:30)
[2019-08-12] MEDS ORDERED: PIPERACILLIN /TAZOBACTAM 3.375 G in IV D5W 50 ML IV ONE (09:30)
[2019-08-12 09:38] LABS: APPEARANCE,URINE Cloudy (CLEAR); BILIRUBIN,URINE SMALL (NEGATIVE); BLOOD, URINE Moderate Ery/uL (NEGATIVE); COLOR,URINE Yellow (YELLOW); KETONES,URINE Negative (NEGATIVE); LEUKOCYTE ESTERASE ,URINE Negative (NEGATIVE); NITRITE, URINE Negative (NEGATIVE); PH,URINE 5.5 (5.0-8.0); PROTEIN,URINE 100 mg/dl (NEGATIVE); UGLUCOSE Negative (NEGATIVE); UROBILINOGEN,URINE 0.2 EU/dL (0.2)
--- NOTE | 2019-08-12 09:38 | NUR ---
GOT ICU BED 257
[2019-08-12 09:40] LABS: ALANINE AMINOTRANSFERASE 19 U/L (12-78); ALBUMIN 3.3 g/dL (3.4-5.0); ALKALINE PHOSPHATASE 63 U/L (46-116); ASPARTATE AMINOTRANSFERASE 20 U/L (15-37); B-TYPE NATRIURETIC PEPTIDE 277 PG/ML (0-125); BILIRUBIN,DIRECT 0.2 mg/dL (0.0-0.2); BILIRUBIN,TOTAL 1.1 mg/dL (0.2-1.0); TOTAL PROTEIN, SERUM 6.9 g/dL (6.4-8.2)
--- NOTE | 2019-08-12 09:48 | NUR ---
CALLED [facility] ITS Ciara MINA
[2019-08-12 09:50] LABS: BACTERIA,URINE Few /HPF (None Seen); RBC,URINE 21-50 /HPF (0-2); WBC,URINE 0-2 /HPF (0-3)
[2019-08-12 09:57] LABS: BAND % (MANUAL) 5 % (0.0-5.0); LYMPHOCYTES % (MANUAL) 20 % (16-48); MONOCYTES % (MANUAL) 1 % (0-11.0); NEUTROPHILS % (MANUAL) 74 (42-76)
[2019-08-12] MEDS ORDERED: LORAZEPAM INJ 2 MG/ML VIAL IV ONE (10:00)
[2019-08-12] MEDS ORDERED: IV NS 0.9% 1,000 ML BAG IV ONE (10:00)
[2019-08-12 10:12] LABS: ABG BASE EXCESS -4.3 mmol/L; ABG OXYGEN SATURATION 98.8 % (92.0-98.5); ABG PCO2 43.6 mmHg (35.0-45.0); ABG PH 7.317 (7.350-7.450); ABG PO2 318.6 mmHg (75.0-100.0); AaDO2 350.8 mmHg; COHb 0.6 % (0.5-1.5); MetHb 0.6 % (0.0-1.5); O2Hb 97.6 % (94.0-97.0); SITE, ABG Right Radial; VENT MODE, BG ST 20/8 100%
--- NOTE | 2019-08-12 10:26 | NUR ---
REPORT GIVEN TO DESIREE OF ICU
[2019-08-12] MEDS ORDERED: MAGN400O6 PO (10:57)
[2019-08-12] MEDS ORDERED: BISA10SU61 RC (10:57)
[2019-08-12] MEDS ORDERED: DONE5TAB7 PO (10:57)
[2019-08-12] MEDS ORDERED: CRAN425C6 PO (10:57)
[2019-08-12] MEDS ORDERED: D-MA1POW MC (10:57)
[2019-08-12] MEDS ORDERED: ACET325T53 PO (10:57)
[2019-08-12] MEDS ORDERED: TRAZ-182 PO ×2 (10:57)
[2019-08-12] MEDS ORDERED: POLY17PO4 PO (10:57)
[2019-08-12] MEDS ORDERED: CYAN-51 PO (10:57)
[2019-08-12] MEDS ORDERED: CRAN3875 PO (10:57)
[2019-08-12] MEDS ORDERED: NA P133E RC (10:57)
[2019-08-12] MEDS ORDERED: MAGNESIUM HYDROXIDE 30 ML UDC PO PRN ×2 (11:00→13:30)
[2019-08-12] MEDS ORDERED: ACETAMINOPHEN 325 MG TABLET PO PRN ×2 (11:00→13:30)
[2019-08-12] MEDS ORDERED: DEXTROSE 50%-WATER 50 ML DISP.SYRIN IV PRN (11:00)
[2019-08-12] MEDS ORDERED: Z GUARD REMEDY 2 OZ OINT TP PRN (11:00)
[2019-08-12] MEDS ORDERED: NOREPINEPHRINE 8 MG in IV D5W 500 ML IV PRN (11:00)
[2019-08-12] MEDS ORDERED: MAG HYDROX/AL HYDROX/SIMETH 30 ML UDC PO PRN (11:00)
[2019-08-12] MEDS ORDERED: ONDANSETRON HCL/PF 4 MG/2 ML VIAL IVP PRN ×2 (11:00)
[2019-08-12] MEDS ORDERED: FEE PK DOSING 1 MIN EA MC ONE (11:17)
[2019-08-12] MEDS: IPRATROPIUM NEB FS 0.5 MG/2.5 ML AMPUL.NEB NEB SCH ×3 (11:30→19:19)
[2019-08-12] MEDS: ALBUTEROL FS 2.5 MG/0.5 ML VIAL.NEB NEB SCH ×3 (11:30→19:19)
[2019-08-12] MEDS: IV NS 0.9% 1,000 ML IV PRN (11:52)
[2019-08-12] MEDS: ENOXAPARIN SODIUM 40 MG/0.4 ML DISP.SYRIN SQ SCH (11:53)
[2019-08-12] MEDS ORDERED: PIPERACILLIN /TAZOBACTAM 3.375 G in IV D5W 50 ML IV SCH (12:00)
[2019-08-12] MEDS: BLOOD SUGAR DIAGNOSTIC 1 EACH STRIP IN SCH ×2 (12:03→17:36)
[2019-08-12] MEDS: INSULIN REGULAR, HUMAN 100 UNIT/ML 3 ML VIAL SQ PRN ×2 (12:05→17:38)
--- NOTE | 2019-08-12 12:35 | NUR ---
RN INITIAL NOTES 1100 RECEIVED PT FROM ER, GCS 3. ON NON-REBREATHER AT 15LPM. HOB ELEVATED. NO SIGNS OF PAIN NOTED. PLACED COMFORTABLY IN BED. CONNECTED TO MONITOR. BODY ASSESSMENT DONE. PICTURE TAKEN AND PLACED IN THE CHART. PATEL CATH INSERTED. LULY MINA NP AWARE OF ADMISSION. AWAITING FOR ADMISSION ORDERS. WILL MONITOR 1230 SEEN AND EXAMINED BY DR JAY. PT STILL ON NON-REBREATHER. GCS REMAINS 3. PT GIVEN ATIVAN IMG IVP IN ER. ORDERED ABG. RESULT RELAYED TO MD AND ORDERED INTUBATION. CALLED KIM (SON) AND UPDATED ON PT'S CONDITION.
[2019-08-12 12:40] LABS: ABG BASE EXCESS -5.4 mmol/L; ABG OXYGEN SATURATION 95.3 % (92.0-98.5); ABG PCO2 67.3 mmHg (35.0-45.0); ABG PO2 96.5 mmHg (75.0-100.0); AaDO2 439.7 mmHg; COHb 0.4 % (0.5-1.5); MetHb 0.7 % (0.0-1.5); O2Hb 94.3 % (94.0-97.0); SITE, ABG Right Radial
[2019-08-12] MEDS ORDERED: BISACODYL SUPP (10 MG) 10 MG/SUPP.RECT SUPP.RECT RC PRN (13:30)
[2019-08-12] MEDS ORDERED: TRAZODONE 50 MG TABLET PO PRN (13:30)
[2019-08-12] MEDS: CYANOCOBALAMIN 500 MCG TABLET PO SCH (13:39)
[2019-08-12 14:04] LABS: ABG BASE EXCESS -4.7 mmol/L; ABG OXYGEN SATURATION 97.7 % (92.0-98.5); ABG PCO2 44.1 mmHg (35.0-45.0); ABG PH 7.307 (7.350-7.450); ABG PO2 135.8 mmHg (75.0-100.0); AaDO2 243.5 mmHg; COHb 0.6 % (0.5-1.5); MetHb 0.5 % (0.0-1.5); O2Hb 96.6 % (94.0-97.0); SITE, ABG Right Radial
[2019-08-12] MEDS: NOREPINEPHRINE 8 MG in IV D5W 500 ML IV PRN (14:24)
[2019-08-12] MEDS: PROPOFOL 100 ML IV PRN (16:19)
[2019-08-12] MEDS: PIPERACILLIN /TAZOBACTAM 3.375 G in IV D5W 100 ML IV SCH (16:22)
[2019-08-12] MEDS: methylPREDNISolone SOD SUCC 125 MG/2ML VIAL IV SCH (16:22)
[2019-08-12] MEDS ORDERED: D MANNOSE 1 GM MC SCH (17:00)
[2019-08-12] MEDS: ATORVASTATIN 10 MG TABLET PO SCH (17:08)
--- NOTE | 2019-08-12 18:37 | NUR ---
RN CLOSING NOTES PT REMAINS INTUBATED, ON VENT. NO RESPIRATORY DISTRESS. NO SIGNS OF PAIN NOTED. HOB ELEVATED. RIJ TLC IN PLACE. PT SEDATED, DIPRIVAN AT 10MCG/KG/MIN. ON LEVO AT 6MCG/MIN. IVF INFUSING. FC IN PLACE. KEPT CLEAN AND DRY. REPOSITIONED Q2. BLE ELEVATED. WILL ENDORSE FOR CONTINUITY OF CARE
--- NOTE | 2019-08-12 19:30 | NUR ---
CASE MANAGERS NOTE PT SEDATED AND INTUBATED. ON MECH VENT AND TOLERATING SETTINGS WELL. HOB ELEVATED AND ON ASPIRATION PRECAUTIONS. TELE- V-PACING 100%. RIJ TLC CLEAN, DRY WITH DIPRIVAN @10MCG/MIN, LEVO @ 6MCG, AND NS @ 50 ML/HR INFUSING. BILATERAL SOFT WRIST RESTRAINTS IN PLACE WITH PALPABLE PULSES, NO DISCOLORATION AND GOOD CIRCULATION NOTED. WILL CONTINUE TO MONITOR.
--- NOTE | 2019-08-12 20:24 | NUR ---
PT RECEIVED INTUBATED 7.5 ETT SECURED AT 24CM AT THE LIP. NO RESP DISTRESS. PT TOLERATING VENT SETTINGS. BS CL/BILAT. SX'D FOR SML AMT OF THIN WHITE SECRETIONS. VENT ALARMS SET AND AUDIBLE. AMBU BAG AT BEDSIDE. CONTINUE [facility] VENT SUPPORT. Addendum: 08/12/19 at 2025 by ALBERTO CHUNG RT Amended: Links added.
[2019-08-12] MEDS ORDERED: TRAZODONE 50 MG TABLET PO SCH (22:00)
[2019-08-13] VITALS (90 sets, daily range): BP systolic 77–143; BP diastolic 48–99
[2019-08-13] MEDS: IPRATROPIUM NEB FS 0.5 MG/2.5 ML AMPUL.NEB NEB SCH ×7 (00:02→23:25)
[2019-08-13] MEDS: ALBUTEROL FS 2.5 MG/0.5 ML VIAL.NEB NEB SCH ×7 (00:02→23:25)
[2019-08-13] MEDS: BLOOD SUGAR DIAGNOSTIC 1 EACH STRIP IN SCH ×5 (00:18→23:33)
[2019-08-13] MEDS: PIPERACILLIN /TAZOBACTAM 3.375 G in IV D5W 100 ML IV SCH ×3 (00:18→16:39)
[2019-08-13] MEDS ORDERED: VANCOMYCIN 1 GM in IV D5W 250 ML IV SCH (04:00)
[2019-08-13] MEDS: PROPOFOL 100 ML IV PRN ×4 (04:11→19:05)
[2019-08-13 04:26] LABS: BASOPHILS % (AUTO) 0.1 % (0.0-2.0); HEMATOCRIT 43 % (39-51); HEMOGLOBIN 14.4 g/dL (13.5-17.5); LYMPHOCYTES # (AUTO) 0.9 /CMM (0.8-4.8); LYMPHOCYTES % (AUTO) 4.7 % (20.0-44.0); MEAN CORPUSCULAR HGB CONC 33 g/dl (31.0-36.0); MEAN CORPUSCULAR VOLUME 91 fL (80-96); MONOCYTES % (AUTO) 5.2 % (2.0-12.0); NEUTROPHILS # (AUTO) 17.5 /CMM (1.8-8.9); PLATELET COUNT (AUTO) 210 /CMM (150-450); RED BLOOD CELL COUNT(AUTO) 4.76 MIL/uL (4.5-6.0); WHITE BLOOD COUNT (AUTO) 19.5 K/uL (4.3-11.0)
[2019-08-13 04:32] LABS: CALCIUM, SERUM 8.1 mg/dL (8.5-10.1); CARBON DIOXIDE 25 mmol/L (21-32); CHLORIDE 110 mmol/L (98-107); CREATININE 1.4 mg/dL (0.6-1.3); GLUCOSE 174 mg/dL (74-106); MAGNESIUM 1.7 mg/dL (1.8-2.4); PHOSPHORUS 2.9 mg/dL (2.5-4.9); POTASSIUM 3.8 mmol/L (3.5-5.1); SODIUM SERUM 144 mmol/L (136-145); UREA NITROGEN, BLOOD 35 mg/dL (7-18)
[2019-08-13 04:51] LABS: CHOLESTEROL 105 mg/dL (<200); HDL CHOLESTEROL 67 mg/dL (40-60); LDL 34 mg/dL (0-99); THYROID STIMULATING HORMONE 0.723 uIU/mL (0.358-3.74); TRIGLYCERIDES 29 mg/dL (30-150)
--- NOTE | 2019-08-13 06:53 | NUR ---
HOSPITAL DIRECTOR NOTE PT REMAINED STABLE DURING SHIFT. NO ACUTE DISTRESS NOTED. REMAINS INTUBATED AND SEDATED WITH SETTINGS WELL TOLERATED. SUCTIONED NEEDED. REPOSITIONED Q2H. RIGHT IJ CLEAN AND PATENT WITH LEVO, DIPRIVAN AND IV FLUIDS INFUSING. BILATERAL SOFT WRIST RESTRAINTS IN PLACE. ALL NEEDS ATTENDED TO PROMPTLY. WILL ENDORSE TO NEXT SHIFT FOR CONTINUITY OF CARE.
[2019-08-13] MEDS: POLYETHYLENE GLYCOL 3350 17 GM POWD.PACK PO SCH (08:06)
[2019-08-13] MEDS: ENOXAPARIN SODIUM 40 MG/0.4 ML DISP.SYRIN SQ SCH (08:07)
[2019-08-13] MEDS: PANTOPRAZOLE 40 MG VIAL IV SCH (08:09)
[2019-08-13] MEDS: DONEPEZIL 5 MG TABLET PO SCH (08:10)
[2019-08-13] MEDS: CHOLECALCIFEROL 1,000 UNIT TABLET (VIT D3) PO SCH (08:10)
[2019-08-13] MEDS: FINASTERIDE (5 MG) 5 MG TABLET PO SCH (08:10)
[2019-08-13] MEDS: methylPREDNISolone SOD SUCC 125 MG/2ML VIAL IV SCH ×2 (08:10→17:17)
[2019-08-13] MEDS: CLOPIDOGREL BISULFATE 75 MG TABLET PO SCH (08:10)
[2019-08-13] MEDS: SERTRALINE HCL 25 MG TABLET PO SCH (08:10)
[2019-08-13] MEDS: CYANOCOBALAMIN 500 MCG TABLET PO SCH (08:10)
[2019-08-13 08:22] LABS: ABG BASE EXCESS -0.4 mmol/L; ABG OXYGEN SATURATION 96.4 % (92.0-98.5); ABG PCO2 40.3 mmHg (35.0-45.0); ABG PH 7.399 (7.350-7.450); AaDO2 148.9 mmHg; COHb 0.6 % (0.5-1.5); MetHb 0.4 % (0.0-1.5); O2Hb 95.4 % (94.0-97.0); SITE, ABG Left Radial; VT, ABG 500 mL
[2019-08-13] MEDS ORDERED: Medication Not On Formulary EA (Cranberry Extract (Cranberry) 425 MG) PO SCH (09:00)
[2019-08-13] MEDS: NOREPINEPHRINE 8 MG in IV D5W 500 ML IV PRN (09:34)
[2019-08-13] MEDS: Magnesium 1GM/D5W 100ML PREMIX 100 ML IV SCH ×2 (11:15→12:37)
[2019-08-13] MEDS: IV NS 0.9% 1,000 ML IV PRN ×2 (11:28→20:50)
--- NOTE | 2019-08-13 14:47 | NUR ---
RN NOTE 0715: Received patient sedated. With ETT to vent, tolerated settings well. No respiraotry distress noted at this time. With Hutchinson cath intac,t noted with isaiah colored urine with sediments. With RIJ TLC intact, on Levo @ 2, will titrate as ordered, on Diprivan @ 30, IVF infusing as ordered. INTERVENTIONIST restraints on for safety. Per previous shift still noted with hand movements at times. 0800: Turned down Diprivan (see IV spreadsheet) noted with agitation as evidenced by trying to reach ETT and frequent movements of legs, does not follow commands. Titrated to be calm or sedated. 0830: S/E by Dr. Smith, off Levo at this time, will monitor BP. 0900: Placed OGT as ordered for meds, noted with gurgling sound upon auscultation. 1100: S/E by Dr. Damon, aware for the ABG, no new order at this time. Will evaluate again in am. 1400: No any significant changes noted at this time. On 4mcg of Levo and 3mcg of Diprivan. Kept clean, warm and dry. Needs attended.
[2019-08-13] MEDS: VANCOMYCIN 0.75 GM in IV D5W 250 ML IV SCH (16:39)
--- NOTE | 2019-08-13 16:50 | NUR ---
RT NOTES; Pt. 78 Y old male rec. @ 0700 am orally intubated ETT # 7.5 @ 24 cm lip line secured, on ventilator with noted settings, alarms are set and functional, equal chest rise noted. bilaterally rales b/s and sux'd for moderate amount of thick yellow secretions. no distress t/o day shift. no vent changes post abg results per Dr. Damon. tolerated well with current vent settings, HHN TX's given inline Q4 and no adverse reaction noted. Ambu bag remain at the bedside. HME changed. continue to monitor and report will pass to pm shift. Addendum: 08/13/19 at 1655 by NHI PADILLA RT Amended: Links added.
[2019-08-13] MEDS: ATORVASTATIN 10 MG TABLET PO SCH (17:17)
--- NOTE | 2019-08-13 18:18 | NUR ---
RN NOTE No any significant changes. On Dip 35, Levo 4. SBP >100. Kept clean, warm and dry. Needs attended. TEAM LEAD restraints on. Remained sedated.
--- NOTE | 2019-08-13 19:36 | NUR ---
ENVIRONMENTAL RESEARCH SCIENTIST. INITIAL ASSESSMENT. RECEIVED THE PT REST ON THE BED. ORALLY INTUBATED. SEDATED WITH DIPRIVAN. ETT 7.5,LIP 24CM,AC 14,TV 500,FIO2 40%. SAT 98%. NO ACUTE DISTRESS NOTED. CELL CLEANER SHOWING V PACING. HOB ELEVATED. OGT INTACT. PT IS NPO. ADITYA; SOFT WRIST RESTRAINT CHECKED AND RELEASED. NO INJURY OR REDNESS NOTED. IV RT IJ TRIPLE LUMEN. . IVF NS 125 ML/H,LEVOPHED 4MCG/MIN,DIPRIVAN 35MCG/KG/MIN, HOB ELEVATED. FC PATENT URINE DRAINING. WILL CONTINUE TO MONITOR VITALS.
[2019-08-13] MEDS ORDERED: Potassium Phosphate meq 11 MEQ in IV D5W 100 ML IV SCH ×4 (22:30)
[2019-08-13] MEDS ORDERED: POTASSIUM PHOSPHATE MM 7.5 MMOL in IV D5W 100 ML IV SCH (23:00)
--- NOTE | 2019-08-13 23:54 | NUR ---
PT RECEIVED INTUBATED 7.5 ETT SECURED AT 24CM AT THE LIP. NO RESP DISTRESS. PT TOLERATING VENT SETTINGS. BS CL/BILAT. SX'D FOR SML AMT OF THIN WHITE SECRETIONS. VENT ALARMS SET AND AUDIBLE. AMBU BAG AT BEDSIDE. CONTINUE [facility] VENT SUPPORT. Addendum: 08/13/19 at 3444 by ALBERTO CHUNG RT Amended: Links added.
[2019-08-14] VITALS (80 sets, daily range): BP systolic 83–144; BP diastolic 46–80
[2019-08-14] MEDS: PIPERACILLIN /TAZOBACTAM 3.375 G in IV D5W 100 ML IV SCH ×4 (00:10→23:52)
[2019-08-14] MEDS: IV NS 0.9% 1,000 ML IV PRN ×3 (00:42→18:10)
[2019-08-14] MEDS: PROPOFOL 100 ML IV PRN ×4 (01:33→18:10)
[2019-08-14 03:11] LABS: CALCIUM, SERUM 7.9 mg/dL (8.5-10.1); MAGNESIUM 2.3 mg/dL (1.8-2.4); POTASSIUM 3.8 mmol/L (3.5-5.1)
--- NOTE | 2019-08-14 03:33 | NUR ---
PRODUCT MARKETING CONSULTANT, AM CARE, ORAL CARE, BED BATH GIVEN. LINEN CHANGED. REMAINING SANE VENT SETTING TOLERATED WELL.SAT 98%. NO ACUTE DISTRESS NOTED. MUSIC RESEARCHER SHOWING NSR. IB RT IJ TLC. DIPRIVAN 30MCG/KG/MIN,LEVOPHED 3MCG/MIN.IVF NS 125ML/H. FC PATENT URINE DRAINING. ADITYA SOFT WRIST RESTRAINT CHECKED AND RELEASED. NO INJURY OR REDNESS NOTED.HOB ELEVATED. WILL CONTINUE TO MONITOR VITALS
[2019-08-14] MEDS: IPRATROPIUM NEB FS 0.5 MG/2.5 ML AMPUL.NEB NEB SCH ×6 (03:42→23:25)
[2019-08-14] MEDS: ALBUTEROL FS 2.5 MG/0.5 ML VIAL.NEB NEB SCH ×6 (03:42→23:25)
[2019-08-14] MEDS: VANCOMYCIN 0.75 GM in IV D5W 250 ML IV SCH (04:25)
[2019-08-14] MEDS: BLOOD SUGAR DIAGNOSTIC 1 EACH STRIP IN SCH ×4 (06:28→23:57)
[2019-08-14] MEDS: FINASTERIDE (5 MG) 5 MG TABLET PO SCH (08:19)
[2019-08-14] MEDS: ENOXAPARIN SODIUM 40 MG/0.4 ML DISP.SYRIN SQ SCH (08:19)
[2019-08-14] MEDS: CLOPIDOGREL BISULFATE 75 MG TABLET PO SCH (08:19)
[2019-08-14] MEDS: CHOLECALCIFEROL 1,000 UNIT TABLET (VIT D3) PO SCH (08:19)
[2019-08-14] MEDS: DONEPEZIL 5 MG TABLET PO SCH (08:19)
[2019-08-14] MEDS: SERTRALINE HCL 25 MG TABLET PO SCH (08:19)
[2019-08-14] MEDS: CYANOCOBALAMIN 500 MCG TABLET PO SCH (08:20)
[2019-08-14] MEDS: POLYETHYLENE GLYCOL 3350 17 GM POWD.PACK PO SCH (08:20)
[2019-08-14] MEDS: PANTOPRAZOLE 40 MG VIAL IV SCH (08:20)
[2019-08-14] MEDS: methylPREDNISolone SOD SUCC 125 MG/2ML VIAL IV SCH (08:20)
[2019-08-14 08:56] LABS: BASOPHILS % (AUTO) 0.1 % (0.0-2.0); HEMATOCRIT 37 % (39-51); HEMOGLOBIN 12.4 g/dL (13.5-17.5); LYMPHOCYTES # (AUTO) 0.4 /CMM (0.8-4.8); LYMPHOCYTES % (AUTO) 2.3 % (20.0-44.0); MEAN CORPUSCULAR HGB CONC 33 g/dl (31.0-36.0); MEAN CORPUSCULAR VOLUME 91 fL (80-96); MONOCYTES # (AUTO) 0.6 /CMM (0.1-1.30); MONOCYTES % (AUTO) 3.9 % (2.0-12.0); NEUTROPHILS % (AUTO) 93.7 % (43.0-81.0); PLATELET COUNT (AUTO) 201 /CMM (150-450); RED BLOOD CELL COUNT(AUTO) 4.09 MIL/uL (4.5-6.0)
[2019-08-14 09:37] LABS: ABG BASE EXCESS -1.9 mmol/L; ABG OXYGEN SATURATION 96.1 % (92.0-98.5); ABG PCO2 37.9 mmHg (35.0-45.0); ABG PH 7.394 (7.350-7.450); ABG PO2 85.9 mmHg (75.0-100.0); AaDO2 155.7 mmHg; COHb 0.8 % (0.5-1.5); MetHb 0.1 % (0.0-1.5); O2Hb 95.2 % (94.0-97.0); SITE, ABG Right Radial
[2019-08-14] MEDS: HYDROCORTISONE SOD SUCCINATE 100 MG/2 ML VIAL IV SCH ×3 (09:51→17:08)
--- NOTE | 2019-08-14 10:19 | NUR ---
RN NOTE 0715: Received patient sedated. With ETT to vent, tolerated well. No respiratory distress noted at this time. With OGT intact, clamped. With RIJ TLC intact. ON Diprivan @ 30, NS 125 and Levo 3, will titrate as ordered. With RESEARCH AND DEVELOPMENT SCIENTIST restraints for safety. With Hutchinson cath intact, noted with pale yellow urine drained to BSD. 0830: S/E by Dr. Smith, with new order for Hydrocortisone, patient still on and off pressors. 0845: S/E by Dr. Priest, with good UOP, no new orders at this time. 0940: S/E by Dr. Damon, on minimal dose of Diprivan at 10, patient is awake, agitated as evidenced by moving all extremities but does not follow commands. Per MD, will continue vent for now and back on sedation, he will evaluate again tomorrow. 1010: No any significant changes noted at this time. Will continue to monitor.
[2019-08-14] MEDS: INSULIN REGULAR, HUMAN 100 UNIT/ML 3 ML VIAL SQ PRN ×3 (12:30→23:59)
[2019-08-14] MEDS: GLUCERNA 1.2 1,000 ML BOTTLE NG PRN (12:31)
[2019-08-14] MEDS: VANCOMYCIN 1 GM in IV D5W 250 ML IV SCH (14:05)
[2019-08-14] MEDS: NOREPINEPHRINE 8 MG in IV D5W 500 ML IV PRN (14:41)
[2019-08-14] MEDS: ATORVASTATIN 10 MG TABLET PO SCH (17:08)
--- NOTE | 2019-08-14 17:17 | NUR ---
RN NOTE 1545: Made MD aware for the latest BMP, Phos 1.1, obtained order for KPhos 2 tabs x1. Also ordered to DC insulin drip, changed to moderate accucheck q4, given 20u Lantus x1 and 5u aspart ac.PAtient aware for the POC. 1714: No any significant changes noted. Eating dinner, tolerated diet. Addendum: 08/14/19 at 1719 by YOLANDA SILVA RN note for different patient --------- disregard. AG
--- NOTE | 2019-08-14 17:19 | NUR ---
RN NOTE Visited by son Mahin, updated re: patient's condition and plan of care, to do SIMV trial tomorrow, verbalized understanding. All questions and concerns were answered. No any significant changes noted at this time. On Dip 35, Levo 2, NS 125. Started on GT feeding, Glucerna 40. S/E by cosmetic surgeon, will continue 40ml/hr for now, noted with 10 mL residuals. Kept HOB elevated. No any significant changes noted at this time.
--- NOTE | 2019-08-14 19:25 | NUR ---
RN NOTES RECEIVED PT ORALLY INTUBATED WITH ETT 7.5 AND 24 CM AT LIPLINE W/ AC MODE TV 500 FIO2 40% NO PEEP ON VENT. SEDATED WITH DIPRIVAN. COMPLETE V- PACING ON TELE MONITOR. TOLERATED WELL NO ACUTE RESPIRATORY DISTRESS. IV SITE ON RIJ TLC WITH DIPRIVAN @ 35 MCG/KG/MIN AND LEVO @ 2 MCG/MIN AND NS @ 125 ML/HR INTACT AND PATENT. DRIP WILL TITRATE PROTOCOL ORDER. PATIENT HAS OGT CLAMPED ONLY FOR MEDS. PATENCY CHECKED WITH 10 CC RESIDUAL . BILATERAL WRIST RESTRAINT KEPT IN PLACED FOR SAFETY, CIRCULATION CHECKED AND NO DISCOLORATION NOTED. KEPT PT CLEAN AND DRY. OFFLOADED EXT WITH PILLOWS. TURNED AND REPOSITIONED FOR SKIN MNGT. WILL CONTINUE TO MONITOR.
[2019-08-15] VITALS (50 sets, daily range): BP systolic 84–158; BP diastolic 51–99
[2019-08-15] MEDS: PROPOFOL 100 ML IV PRN ×2 (00:26→06:41)
[2019-08-15] MEDS: VANCOMYCIN 1 GM in IV D5W 250 ML IV SCH ×2 (01:53→14:11)
[2019-08-15] MEDS: IV NS 0.9% 1,000 ML IV PRN (03:00)
[2019-08-15] MEDS: IPRATROPIUM NEB FS 0.5 MG/2.5 ML AMPUL.NEB NEB SCH ×6 (03:12→23:33)
[2019-08-15] MEDS: ALBUTEROL FS 2.5 MG/0.5 ML VIAL.NEB NEB SCH ×6 (03:13→23:33)
[2019-08-15 05:11] LABS: BASOPHILS % (AUTO) 0.1 % (0.0-2.0); HEMATOCRIT 34 % (39-51); HEMOGLOBIN 11.4 g/dL (13.5-17.5); LYMPHOCYTES # (AUTO) 0.4 /CMM (0.8-4.8); LYMPHOCYTES % (AUTO) 3.6 % (20.0-44.0); MEAN CORPUSCULAR HGB CONC 34 g/dl (31.0-36.0); MEAN CORPUSCULAR VOLUME 92 fL (80-96); MONOCYTES # (AUTO) 0.8 /CMM (0.1-1.30); MONOCYTES % (AUTO) 6.5 % (2.0-12.0); NEUTROPHILS # (AUTO) 10.7 /CMM (1.8-8.9); NEUTROPHILS % (AUTO) 89.8 % (43.0-81.0); PLATELET COUNT (AUTO) 159 /CMM (150-450); RED BLOOD CELL COUNT(AUTO) 3.72 MIL/uL (4.5-6.0); WHITE BLOOD COUNT (AUTO) 11.9 K/uL (4.3-11.0)
[2019-08-15 05:17] LABS: CALCIUM, SERUM 8.1 mg/dL (8.5-10.1); CREATININE 0.9 mg/dL (0.6-1.3); POTASSIUM 3.7 mmol/L (3.5-5.1)
[2019-08-15] MEDS: BLOOD SUGAR DIAGNOSTIC 1 EACH STRIP IN SCH ×4 (06:55→23:37)
--- NOTE | 2019-08-15 07:00 | NUR ---
RN NOTES RECEIVED PT ORALLY INTUBATED WITH ETT 7.5 AND 24 CM AT LIP LINE W/ AC MODE TV 500 FIO2 40% NO PEEP ON VENT. SEDATED WITH DIPRIVAN AT 25 MCG/KG/MIN, V- PACING ON TELE MONITOR HR IN 80'S , O2 SAT WNL, IV SITE ON RIJ TLC CLEAN, DRY AND INTACT WITH LEVO @ 2 MCG/MIN AND NS @ 125 ML/HR RUNNING , DRIP WILL TITRATE PROTOCOL ORDER. GLUCERNA AT 40CC /HR RUNNING VIA OG TUBE, NO RESIDUAL NOTED, BILATERAL WRIST RESTRAINT KEPT IN PLACED FOR SAFETY, CIRCULATION CHECKED AND NO DISCOLORATION NOTED. KEPT PT CLEAN AND DRY. OFFLOADED EXT WITH PILLOWS. SR UP x3, BED LOCKED AND IN LOWEST POSITION, TURNED AND REPOSITIONED FOR SKIN MANAGEMENT, WILL CONTINUE TO MONITOR.
--- NOTE | 2019-08-15 07:00 | NUR ---
RN NOTES NO CHANGE OF CONDITION THROUGHOUT THE SHIFT CONTINUE WITH SEDATION ON PROPOFOL @ 25 MCG/KG.MIN, NO MORE PRESSORS SINCE 9:45 PM. ETT AND VENT SETTING TOLERATED WELL. IV SITE INTACT AND PATENT. OGTF TOLERATED WELL WITHOUT RESIDUAL. PATIETN WILL BE WEAN OFF TODAY TO SIMV MODE. KEPT PT CLEAN AND DRY. ALL DUE MEDICINE GIVEN ORDERED. ENDORSED CONTINUITY OF CARE TO AM NURSE.
[2019-08-15] MEDS: CHOLECALCIFEROL 1,000 UNIT TABLET (VIT D3) PO SCH (08:22)
[2019-08-15] MEDS: CYANOCOBALAMIN 500 MCG TABLET PO SCH (08:22)
[2019-08-15] MEDS: SERTRALINE HCL 25 MG TABLET PO SCH (08:22)
[2019-08-15] MEDS: HYDROCORTISONE SOD SUCCINATE 100 MG/2 ML VIAL IV SCH ×3 (08:22→16:34)
[2019-08-15] MEDS: PIPERACILLIN /TAZOBACTAM 3.375 G in IV D5W 100 ML IV SCH ×3 (08:22→23:37)
[2019-08-15] MEDS: FINASTERIDE (5 MG) 5 MG TABLET PO SCH (08:23)
[2019-08-15] MEDS: CLOPIDOGREL BISULFATE 75 MG TABLET PO SCH (08:23)
[2019-08-15] MEDS: DONEPEZIL 5 MG TABLET PO SCH (08:23)
[2019-08-15] MEDS: POLYETHYLENE GLYCOL 3350 17 GM POWD.PACK PO SCH (08:23)
[2019-08-15] MEDS: ENOXAPARIN SODIUM 40 MG/0.4 ML DISP.SYRIN SQ SCH (08:24)
[2019-08-15] MEDS: PANTOPRAZOLE 40 MG/PACK PACK NG SCH (09:04)
[2019-08-15 09:06] LABS: ABG BASE EXCESS 1.6 mmol/L; ABG PCO2 39.9 mmHg (35.0-45.0); ABG PH 7.431 (7.350-7.450); ABG PO2 84.8 mmHg (75.0-100.0); AaDO2 154.5 mmHg; COHb 0.5 % (0.5-1.5); MetHb 0.3 % (0.0-1.5); O2Hb 95.2 % (94.0-97.0); SITE, ABG Right Radial
--- NOTE | 2019-08-15 10:00 | NUR ---
RN NOTES DR TURCIOS NOTIFED REGARDING ABG RESULTS . PT STILL INTUBATED, VSS STABLE, CONTINUE TO MONITOR.
[2019-08-15] MEDS: INSULIN REGULAR, HUMAN 100 UNIT/ML 3 ML VIAL SQ PRN (12:39)
--- NOTE | 2019-08-15 14:00 | NUR ---
RN NOTES DR TURCIOS NOTIFED REGARDING ABG RESULTS, PT ON CPAP MODE, VSS STABLE, PT STILL INTUBATED AND OFF SEDATION .CONTINUE TO MONITOR .
[2019-08-15 14:12] LABS: ABG BASE EXCESS 2.5 mmol/L; ABG OXYGEN SATURATION 96.5 % (92.0-98.5); ABG PCO2 40.6 mmHg (35.0-45.0); ABG PH 7.438 (7.350-7.450); ABG PO2 91.3 mmHg (75.0-100.0); AaDO2 147.2 mmHg; COHb 0.7 % (0.5-1.5); MetHb 0.7 % (0.0-1.5); O2Hb 95.1 % (94.0-97.0); PEEP,BG 5 cm H2O; SITE, ABG Left Radial; VENT MODE, BG CPAP PS 15
[2019-08-15] MEDS ORDERED: DC PROPOFOL WHEN EXTUBATED XX PRN (14:30)
--- NOTE | 2019-08-15 14:30 | NUR ---
RN NOTES PT EXTUBATED PER DR TURCIOS ORDER , VSS STABLE, CONTINUE TO MONITOR.
--- NOTE | 2019-08-15 14:32 | NUR ---
RT PER DR ALEKSANDRA AGUILA PATIENT WAS EXTUBATED AND PLACED ON SUPPLEMENTAL O2. PATIENT TOLERATING FOR NOW. WILL CONT TO MONITOR. PATIENT REQUIRING FREQUENT ORAL SUCTION. Addendum: 08/15/19 at 1450 by ANEL CROOKS RT Amended: Links added.
--- NOTE | 2019-08-15 15:43 | NUR ---
RN NOTES NGT INSERTED PER MD ORDER . NGT PLACEMENT VERIFIED BY TWO RNS.
--- NOTE | 2019-08-15 16:00 | NUR ---
RN NOTES T=100 AXILLARY , DR HORNER NOTIFED, CONTINUE TO MONITOR .
--- NOTE | 2019-08-15 16:20 | NUR ---
RN NOTES PT IS CONGESTED, NT AND ORAL SUCTIONING DONE FREQUENTLY . O2 SAT DROPS TO 80'S , DR LAKE AND DR HORNER NOTIFED, PT PLACED ON BIPAP PER MD ORDER . CONTINUE TO MONITOR.
--- NOTE | 2019-08-15 18:25 | NUR ---
RN NOTES PT REMANS ON BIPAP, TOLERATING THE SETTING WELL, STILL RESTLESS AND MOVING AROUND IN BED, VSS STABLE, SR UPx3, CALL LIGHT WITHIN EASY REACH, BED LOCKED AND IN LOWEST POSITION, WILL ENDORSE TO GREY STOCK RECORDER NURSE FOR CONTINUITY OF CARE.
--- NOTE | 2019-08-15 19:35 | NUR ---
RN NOTES RECEIVED PATIENT WITH BIPAP MASK . SATURATION 98%. PATIENT IS AWAKE BUT NOT RESPONDING TO QUESTION. NO PRESSORS NO SEDATION NOTED. COMPLETE V-PACING ON TELE MONITOR. NO ACUTE RESPIRATORY DISTRESS. IV SITE ON RIJ TLC WITH TKO. FLUSHED WELL. OGTF WITH GLUCERNA 1.2 @ 40 ML/HR INTACT AND PATENT. WITH PATEL CATH DRAINED WITH YELLOW COLOR URINE. KEPT PATIENT CLEAN AND DRY. WILL MONITOREDL CLOSELY.
--- NOTE | 2019-08-15 19:56 | NUR ---
RECEIVED PT ON BIPAP ON MEDIUM MASK, WITH NO MEPELIX. MASK CHANGED TO LARGE DO TO LEAK. NOTICED REDNESS AROUND THE NOSE. NOTIFIED JAMES ORTEGA. PLACED MEPILEX AROUND THE NOSE. RN AWARE. CONTINUE BIPAP AND MONITOR PT. Addendum: 08/15/19 at 195 by ALBERTO CHUNG RT Amended: Links added.
[2019-08-16] VITALS (43 sets, daily range): BP systolic 90–153; BP diastolic 54–88
[2019-08-16] MEDS: VANCOMYCIN 1 GM in IV D5W 250 ML IV SCH ×2 (01:48→13:05)
[2019-08-16] MEDS: IPRATROPIUM NEB FS 0.5 MG/2.5 ML AMPUL.NEB NEB SCH ×6 (03:30→23:29)
[2019-08-16] MEDS: ALBUTEROL FS 2.5 MG/0.5 ML VIAL.NEB NEB SCH ×6 (03:30→23:29)
[2019-08-16 04:11] LABS: BASOPHILS % (AUTO) 0.1 % (0.0-2.0); HEMATOCRIT 37 % (39-51); HEMOGLOBIN 12.2 g/dL (13.5-17.5); LYMPHOCYTES # (AUTO) 0.6 /CMM (0.8-4.8); MEAN CORPUSCULAR HGB CONC 33 g/dl (31.0-36.0); MEAN CORPUSCULAR VOLUME 91 fL (80-96); MONOCYTES # (AUTO) 0.9 /CMM (0.1-1.30); MONOCYTES % (AUTO) 7.5 % (2.0-12.0); NEUTROPHILS # (AUTO) 10.5 /CMM (1.8-8.9); NEUTROPHILS % (AUTO) 87.4 % (43.0-81.0); PLATELET COUNT (AUTO) 162 /CMM (150-450); RED BLOOD CELL COUNT(AUTO) 4.04 MIL/uL (4.5-6.0)
[2019-08-16 04:26] LABS: CALCIUM, SERUM 8.3 mg/dL (8.5-10.1); CREATININE 0.8 mg/dL (0.6-1.3); POTASSIUM 2.9 mmol/L (3.5-5.1)
[2019-08-16] MEDS: GLUCERNA 1.2 1,000 ML BOTTLE NG PRN (06:18)
[2019-08-16] MEDS: BLOOD SUGAR DIAGNOSTIC 1 EACH STRIP IN SCH ×3 (06:19→17:20)
--- NOTE | 2019-08-16 07:00 | NUR ---
RN NOTES RECEIVED PATIENT ON BED ,ON BIPAP , O2 SAT WNL, PATIENT IS AWAKE BUT NOT RESPONDING TO QUESTIONS , V-PACING ON TELE MONITOR HR IN 70'S , NO ACUTE RESPIRATORY DISTRESS. IV SITE ON RIJ TLC WITH TKO. FLUSHED WELL. NG TF RUNNING WITH GLUCERNA 1.2 @ 40 ML/HR INTACT AND PATENT. WITH PATEL CATH DRAINED WITH YELLOW COLOR URINE. KEPT PATIENT CLEAN AND DRY. SR UP x3, CALL LIGHT WITHIN EASY REACH, CONTINUE TO MONITOR CLOSELY.
--- NOTE | 2019-08-16 07:12 | NUR ---
RN NOTES PATIENT REMAINED STABLE TOLERATED BIPAP THROUGHOUT THE SHIFT. RESTLESSNESS NOTED OGTF TOLERATED WELL. ASPIRATION PRECAUTION OBSERVED. AFEBRILE. VSS. INCONTINENT CARE RENDERED BMX4 WITH SOFT SMALL AND MEDIUM AMT. NO SIGNIFICANT CHANGES. KEPT PT CLEAN AND DRY. ENDORSED CONTINUITY OF CARE TOO AM NURSE.
[2019-08-16] MEDS ORDERED: POTASSIUM CHLORIDE 20 MEQ TAB.PRT.SR PO ONE (08:00)
[2019-08-16] MEDS: POTASSIUM CL. PREMIX PERIPHER. 50 ML IV SCH ×4 (08:12→11:37)
[2019-08-16] MEDS: PIPERACILLIN /TAZOBACTAM 3.375 G in IV D5W 100 ML IV SCH ×2 (08:14→16:00)
[2019-08-16] MEDS: PANTOPRAZOLE 40 MG/PACK PACK NG SCH (08:15)
[2019-08-16] MEDS: DONEPEZIL 5 MG TABLET PO SCH (08:15)
[2019-08-16] MEDS: CLOPIDOGREL BISULFATE 75 MG TABLET PO SCH (08:15)
[2019-08-16] MEDS: CHOLECALCIFEROL 1,000 UNIT TABLET (VIT D3) PO SCH (08:16)
[2019-08-16] MEDS: FINASTERIDE (5 MG) 5 MG TABLET PO SCH (08:16)
[2019-08-16] MEDS: SERTRALINE HCL 25 MG TABLET PO SCH (08:16)
[2019-08-16] MEDS: CYANOCOBALAMIN 500 MCG TABLET PO SCH (08:16)
[2019-08-16] MEDS: HYDROCORTISONE SOD SUCCINATE 100 MG/2 ML VIAL IV SCH ×3 (08:16→16:05)
[2019-08-16] MEDS: ENOXAPARIN SODIUM 40 MG/0.4 ML DISP.SYRIN SQ SCH (08:17)
[2019-08-16] MEDS: POLYETHYLENE GLYCOL 3350 17 GM POWD.PACK PO SCH (08:19)
[2019-08-16] MEDS ORDERED: POTASSIUM CHLORIDE 20 MEQ POWDER PACKET GT ONE (08:30)
[2019-08-16 08:33] LABS: ABG BASE EXCESS 6.3 mmol/L; ABG OXYGEN SATURATION 95.1 % (92.0-98.5); ABG PCO2 44.8 mmHg (35.0-45.0); ABG PH 7.458 (7.350-7.450); ABG PO2 77.7 mmHg (75.0-100.0); COHb 0.5 % (0.5-1.5); MetHb 0.3 % (0.0-1.5); O2Hb 94.3 % (94.0-97.0); SITE, ABG Left Radial; VENT MODE, BG NASAL CANNULA
--- NOTE | 2019-08-16 11:00 | NUR ---
RN NOTES DR LAKE NOTIFIED REGARDING ABG RESULTS , ORDER RECEIVED TO PLACE PT ON 60% VENTI MASK, O2 SAT WNL, CONTINUE TO MONITOR
[2019-08-16 11:05] LABS: ABG BASE EXCESS 3.2 mmol/L; ABG OXYGEN SATURATION 96.4 % (92.0-98.5); ABG PCO2 47.5 mmHg (35.0-45.0); ABG PH 7.399 (7.350-7.450); AaDO2 460.8 mmHg; COHb 0.4 % (0.5-1.5); MetHb 0.2 % (0.0-1.5); O2Hb 95.8 % (94.0-97.0); SITE, ABG Right Radial; VENT MODE, BG NRB MASK 15L
[2019-08-16] MEDS: INSULIN REGULAR, HUMAN 100 UNIT/ML 3 ML VIAL SQ PRN ×2 (11:56→17:20)
--- NOTE | 2019-08-16 18:25 | NUR ---
RN NOTES PT REMAINS ON 50% VENTI MASK , VSS STABLE, TF AT 40CC/HR RUNNING VIA NGT TUBE, SR UP x3, CALL LIGHT WITHIN EASY REACH, NO DISTRESS NOTED, WILL ENDORSE TO PROGRAM ADMIN NURSE FOR CONTINUITY OF CARE
--- NOTE | 2019-08-16 19:30 | NUR ---
GRAIN TRIMMER NOTE RECEIVED WITH OPEN EYES BUT NO TRACKING NOTED. NOTED RESTLESSNESS AND NONVERBAL. ON VENTURI MASK 50% AND SATURATING MID 90'S. TELE- V-PACING. HOB ELEVATED. NGT IN PLACE AND NO RESIDUALS NOTED. BILATERAL SOFT WRISTS RESTRAINTS IN PLACE WITH PALPABLE RADIAL PULSES AND NO DISCOLORATION NOTED. PATEL CATHETER IN PLACE AND DRAINING BY GRAVITY. BED ALARM ENABLED. WILL MONITOR.
[2019-08-17] VITALS (36 sets, daily range): BP systolic 114–153; BP diastolic 55–111
[2019-08-17] MEDS: PIPERACILLIN /TAZOBACTAM 3.375 G in IV D5W 100 ML IV SCH ×4 (00:33→23:32)
[2019-08-17] MEDS: BLOOD SUGAR DIAGNOSTIC 1 EACH STRIP IN SCH ×5 (00:33→23:26)
[2019-08-17] MEDS: VANCOMYCIN 1 GM in IV D5W 250 ML IV SCH ×2 (02:21→13:49)
[2019-08-17] MEDS: IPRATROPIUM NEB FS 0.5 MG/2.5 ML AMPUL.NEB NEB SCH ×6 (03:45→23:18)
[2019-08-17] MEDS: ALBUTEROL FS 2.5 MG/0.5 ML VIAL.NEB NEB SCH ×6 (03:45→23:18)
[2019-08-17 03:54] LABS: BASOPHILS % (AUTO) 0.1 % (0.0-2.0); HEMATOCRIT 38 % (39-51); HEMOGLOBIN 12.8 g/dL (13.5-17.5); LYMPHOCYTES # (AUTO) 0.7 /CMM (0.8-4.8); LYMPHOCYTES % (AUTO) 6.3 % (20.0-44.0); MEAN CORPUSCULAR HGB CONC 34 g/dl (31.0-36.0); MEAN CORPUSCULAR VOLUME 91 fL (80-96); MONOCYTES % (AUTO) 8.9 % (2.0-12.0); NEUTROPHILS # (AUTO) 9.5 /CMM (1.8-8.9); NEUTROPHILS % (AUTO) 84.7 % (43.0-81.0); PLATELET COUNT (AUTO) 172 /CMM (150-450); RED BLOOD CELL COUNT(AUTO) 4.19 MIL/uL (4.5-6.0); WHITE BLOOD COUNT (AUTO) 11.2 K/uL (4.3-11.0)
[2019-08-17 03:58] LABS: CALCIUM, SERUM 8.6 mg/dL (8.5-10.1); CREATININE 0.8 mg/dL (0.6-1.3); POTASSIUM 3.4 mmol/L (3.5-5.1)
[2019-08-17] MEDS: GLUCERNA 1.2 1,000 ML BOTTLE NG PRN (05:28)
--- NOTE | 2019-08-17 06:52 | NUR ---
EDUCATIONAL THERAPIST NOTE PT REMAINED STABLE DURING SHIFT. NO DISTRESS NOTED. ON VENTURI MASK 50% AND TOLERATING WELL. SUCTIONED NEEDED. ON ASPIRATION PRECAUTIONS. REPOSITIONED Q2H. GT FEEDING WELL TOLERATED AND NO RESIDUALS NOTED. BILATERAL SOFT WRIST RESTRAINTS IN PLACE AND NO INJURY NOTED. WILL ENDORSE TO NEXT SHIFT FOR CONTINUITY OF CARE.
--- NOTE | 2019-08-17 07:00 | NUR ---
RN NOTE RECEIVED PT ON BED WITH OPEN EYES BUT NO TRACKING NOTED. RESTLESSNESS AND NONVERBAL. ON VENTURI MASK 50%, O2 SAT WNL, ON TELE- V-PACING. HOB ELEVATED. NGT IN PLACE WITH GLUCERNA AT 40CC/HR RUNNING, NO RESIDUALS NOTED. BILATERAL SOFT WRISTS RESTRAINTS IN PLACE FOR PT SAFETY, WITH PALPABLE RADIAL PULSES AND NO DISCOLORATION NOTED. PATEL CATHETER IN PLACE AND DRAINING BY GRAVITY. R IJ TLC SITE CLEAN, DRY AND INTACT, BED ALARM ON , SR UP x3, CALL LIGHT WITHIN EASY REACH, WILL CONTINUE TO MONITOR.
[2019-08-17] MEDS: CYANOCOBALAMIN 500 MCG TABLET PO SCH (08:13)
[2019-08-17] MEDS: HYDROCORTISONE SOD SUCCINATE 100 MG/2 ML VIAL IV SCH ×3 (08:13→16:10)
[2019-08-17] MEDS: SERTRALINE HCL 25 MG TABLET PO SCH (08:13)
[2019-08-17] MEDS: CLOPIDOGREL BISULFATE 75 MG TABLET PO SCH (08:13)
[2019-08-17] MEDS: PANTOPRAZOLE 40 MG/PACK PACK NG SCH (08:13)
[2019-08-17] MEDS: CHOLECALCIFEROL 1,000 UNIT TABLET (VIT D3) PO SCH (08:13)
[2019-08-17] MEDS: DONEPEZIL 5 MG TABLET PO SCH (08:14)
[2019-08-17] MEDS: FINASTERIDE (5 MG) 5 MG TABLET PO SCH (08:14)
[2019-08-17] MEDS: POTASSIUM CL. PREMIX PERIPHER. 50 ML IV SCH ×4 (08:15→11:39)
[2019-08-17] MEDS: ENOXAPARIN SODIUM 40 MG/0.4 ML DISP.SYRIN SQ SCH (08:15)
[2019-08-17 09:12] LABS: ABG BASE EXCESS 10.8 mmol/L; ABG OXYGEN SATURATION 95.1 % (92.0-98.5); ABG PCO2 46.8 mmHg (35.0-45.0); ABG PH 7.498 (7.350-7.450); ABG PO2 75.2 mmHg (75.0-100.0); AaDO2 228.7 mmHg; COHb 0.4 % (0.5-1.5); MetHb 0.6 % (0.0-1.5); O2Hb 94.1 % (94.0-97.0); SITE, ABG Right Radial; VENT MODE, BG 15L 50% VENTI MASK
[2019-08-17] MEDS: INSULIN REGULAR, HUMAN 100 UNIT/ML 3 ML VIAL SQ PRN ×2 (11:45→17:14)
--- NOTE | 2019-08-17 12:00 | NUR ---
RN NOTES ORAL CARE DONE, VSS STABLE, CONTINUE TO MONITOR .
--- NOTE | 2019-08-17 18:00 | NUR ---
RN NOTES PT REMAINS ON VENT MASK AT 50%, O2 SAT WNL, VSS STABLE, TOLERATING TF WELL, NO RESIDUAL NOTED, PT HAD ON JORGE FORM STOOL ON THIS SHIFT, SR UP X3, CALL LIGHT WITHIN EASY REACH, BED LOCKED AND IN LOWEST POSITION, WILL ENDORSE TO DISABILITY LIAISON OFFICER NURSE FOR CONTINUITY OF CARE .
--- NOTE | 2019-08-17 19:30 | NUR ---
PRINCIPAL CLOUD ARCHITECT: RECEIVED PT ALERT TO SELF, ON VENTURI MASK AT 15L(50% FI02) 2T 02 SAT 92% AND ABOVE. V-PACED ON RESTAURANT MANAGER. AFEBRILE. BP WNL. RT. NGT IN PLACE AND RUNNING GLUCERNA 1.2 AT 40ML/HR WT NO RESIDUAL. RT. IJ TLC IN PLACE WT GOOD BLOOD RETURN TKO WT NO S/S OF COMPLICATIONS. BILAT. SOFT WRIST RESTRAINTS IN PLACE FOR RESTLESSNESS M/B KICKING AND TRYING TO REMOVE LINES/TUBINGS. SKIN AND CIRCULATION WNL DURING RELEASE OF RESTRAINTS AND PASSIVE ROM EXERCISES. F/C PATENT AND INTACT DRAINING SANTO COLORED URINE VIA GRAVITY. DVT PUMPS IN PLACE. HOB AT 45 DEGREES. BED IN LOWEST POSITION AND LOCKED. SIDE RAILS UP X3. WILL CONTINUE TO MONITOR.
[2019-08-18] VITALS (28 sets, daily range): BP systolic 96–159; BP diastolic 52–97
[2019-08-18] MEDS: GLUCERNA 1.2 1,000 ML BOTTLE NG PRN (02:26)
[2019-08-18] MEDS: IPRATROPIUM NEB FS 0.5 MG/2.5 ML AMPUL.NEB NEB SCH ×6 (03:00→23:48)
[2019-08-18] MEDS: ALBUTEROL FS 2.5 MG/0.5 ML VIAL.NEB NEB SCH ×6 (03:00→23:48)
[2019-08-18 04:38] LABS: BASOPHILS % (AUTO) 0.1 % (0.0-2.0); HEMATOCRIT 42 % (39-51); HEMOGLOBIN 14.1 g/dL (13.5-17.5); LYMPHOCYTES % (AUTO) 8.9 % (20.0-44.0); MEAN CORPUSCULAR HGB CONC 33 g/dl (31.0-36.0); MEAN CORPUSCULAR VOLUME 91 fL (80-96); MONOCYTES # (AUTO) 1.2 /CMM (0.1-1.30); MONOCYTES % (AUTO) 11.3 % (2.0-12.0); NEUTROPHILS # (AUTO) 8.8 /CMM (1.8-8.9); NEUTROPHILS % (AUTO) 79.7 % (43.0-81.0); PLATELET COUNT (AUTO) 193 /CMM (150-450); RED BLOOD CELL COUNT(AUTO) 4.63 MIL/uL (4.5-6.0)
[2019-08-18 04:53] LABS: CALCIUM, SERUM 8.7 mg/dL (8.5-10.1); CREATININE 0.9 mg/dL (0.6-1.3)
[2019-08-18] MEDS: BLOOD SUGAR DIAGNOSTIC 1 EACH STRIP IN SCH ×4 (05:17→23:52)
--- NOTE | 2019-08-18 06:25 | NUR ---
DENTURE CONTOUR WIRE SPECIALIST: NO SIGNIFICANT DODIE DURING THE SHIFT. REMAINED ON 50% VENTURI MASK; NOTED WT MODERATE AMT. OF ORAL SANTILLAN THICK SECRETIONS AND NEEDED FREQUENT SUCTIONING TO KEEP 02 SAT. ABOVE 90%. ALSO NOTED WT DESATURATION WHEN PT IS IN DEEP SLEEP. HOB AT 45 DEGREES. TURNED AND REPOSITIONED Q2H. ALL NEEDS MET. SAFETY PRECAUTION NOTED AT ALL TIMES.
--- NOTE | 2019-08-18 07:30 | NUR ---
CUPOLA OPERATOR INSULATION INITIAL NOTE RECEIVED PATIENT ASLEEP, AROUSABLE. NO S/S OF PAIN OR DISCOMFORT. NO RESPIRATORY DISTRESS NOTED AT THIS TIME. ON VENTURI MASK FIO2 50%, 15LPM O2. SKIN WARM AND DRY TO TOUCH . ON TELE MONITOR VPACING. RIGHT NARE NGT PATENT, INTACT, IN PLACE, NO RESIDUAL NOTED. F/C PATENT, DRAINING BY GRAVITY. WITH BILATERAL WRIST RESTRAINTS IN PLACE, CIRCULATION CHECKED. HOB ELEVATED. SIDE RAILS UP AND LOCKED. BED KEPT AT LOWEST POSITION. WILL CONTINUE TO MONITOR.
--- NOTE | 2019-08-18 08:12 | NUR ---
RT Pt tried on 6L nasal cannula and was unable to tolerate, pt desaturated to 89%. Pt placed back on venturi mask 50%. Addendum: 08/18/19 at 0930 by ARMAND ELENA RT Amended: Links added.
--- NOTE | 2019-08-18 08:39 | NUR ---
HOPS FARMWORKER NOTE SEEN AND EXAMINED BY DR. HORNER WITH VERBAL ORDERS TO CHANGE HYDROCORTISONE SUCCINATE TO 50MG BID. NOTED. WILL CONTINUE TO MONITOR.
[2019-08-18] MEDS: CYANOCOBALAMIN 500 MCG TABLET PO SCH (08:50)
[2019-08-18] MEDS: SERTRALINE HCL 25 MG TABLET PO SCH (08:50)
[2019-08-18] MEDS: PIPERACILLIN /TAZOBACTAM 3.375 G in IV D5W 100 ML IV SCH ×2 (08:50→16:12)
[2019-08-18] MEDS: FINASTERIDE (5 MG) 5 MG TABLET PO SCH (08:50)
[2019-08-18] MEDS: PANTOPRAZOLE 40 MG/PACK PACK NG SCH (08:50)
[2019-08-18] MEDS: DONEPEZIL 5 MG TABLET PO SCH (08:50)
[2019-08-18] MEDS: CLOPIDOGREL BISULFATE 75 MG TABLET PO SCH (08:50)
[2019-08-18] MEDS: POTASSIUM CL. PREMIX PERIPHER. 50 ML IV SCH ×5 (08:51→14:34)
[2019-08-18] MEDS: ENOXAPARIN SODIUM 40 MG/0.4 ML DISP.SYRIN SQ SCH (08:51)
[2019-08-18] MEDS: CHOLECALCIFEROL 1,000 UNIT TABLET (VIT D3) PO SCH (09:17)
[2019-08-18] MEDS: HYDROCORTISONE SOD SUCCINATE 100 MG/2 ML VIAL IV SCH ×2 (09:51→16:12)
[2019-08-18] MEDS ORDERED: FUROSEMIDE 20 MG/2 ML VIAL IV ONE (11:00)
[2019-08-18 11:05] LABS: ABG BASE EXCESS 10.9 mmol/L; ABG OXYGEN SATURATION 94.6 % (92.0-98.5); ABG PCO2 44.6 mmHg (35.0-45.0); ABG PH 7.515 (7.350-7.450); ABG PO2 72.2 mmHg (75.0-100.0); AaDO2 161.7 mmHg; COHb 0.5 % (0.5-1.5); MetHb 0.3 % (0.0-1.5); O2Hb 93.8 % (94.0-97.0); SITE, ABG Right Radial; VENT MODE, BG VENTURI MASK 40%
[2019-08-18] MEDS: INSULIN REGULAR, HUMAN 100 UNIT/ML 3 ML VIAL SQ PRN ×2 (18:53→23:53)
--- NOTE | 2019-08-18 19:33 | NUR ---
BICYCLE REPAIR TECHNICIAN CLOSING NOTE NO DISTRESS NOTED, TOLERATING VENTURI MASK AT 40%, 12LPMO. KEPT CLEAN AND DRY. TURNED AND REPOSITIONED Q2 AND PRN. TOLERATING GTF. RNGT PATENT AND INTACT. HOB ELEVATED. BILATERAL WRIST RESTRAINTS IN PLACE, CIRCULATION CHECKED. SIDE RAILS UP AND LOCKED. BED KEPT AT LOWEST POSITION. CONTINUITY OF CARE ENDORSED TO PM NURSE.
--- NOTE | 2019-08-18 20:00 | NUR ---
Received open eyes spontaneously non verbal non interactive in no acute distress.With O2 venturi mask at 40%.SPO2 95%.V-paced per monitor.VSS.With ongoing NGT feeding.NGT placement verified and patent.No residual noted.Maintained HOB Elevated.FC to gravity. Turned and repositioned to comfort offloading pressure points.Continue monitoring.
[2019-08-19] VITALS (37 sets, daily range): BP systolic 88–156; BP diastolic 44–95
--- NOTE | 2019-08-19 | NUR ---
Patient restless.VS remain stable.No respiratory distress noted.Bed bath rendered for comfort. Turned and repositioned.Continue monitoring.
[2019-08-19] MEDS: ALBUTEROL FS 2.5 MG/0.5 ML VIAL.NEB NEB SCH ×6 (03:37→23:45)
[2019-08-19] MEDS: IPRATROPIUM NEB FS 0.5 MG/2.5 ML AMPUL.NEB NEB SCH ×6 (03:37→23:45)
[2019-08-19 04:25] LABS: BASOPHILS % (AUTO) 0.2 % (0.0-2.0); EOSINOPHILS % (AUTO) 0.1 % (0.0-6.0); HEMATOCRIT 43 % (39-51); HEMOGLOBIN 14.3 g/dL (13.5-17.5); LYMPHOCYTES # (AUTO) 1.3 /CMM (0.8-4.8); LYMPHOCYTES % (AUTO) 12.6 % (20.0-44.0); MEAN CORPUSCULAR HGB CONC 33 g/dl (31.0-36.0); MEAN CORPUSCULAR VOLUME 91 fL (80-96); MONOCYTES # (AUTO) 1.4 /CMM (0.1-1.30); MONOCYTES % (AUTO) 13.8 % (2.0-12.0); NEUTROPHILS # (AUTO) 7.3 /CMM (1.8-8.9); NEUTROPHILS % (AUTO) 73.3 % (43.0-81.0); PLATELET COUNT (AUTO) 234 /CMM (150-450); RED BLOOD CELL COUNT(AUTO) 4.73 MIL/uL (4.5-6.0)
[2019-08-19 04:38] LABS: MAGNESIUM 2.1 mg/dL (1.8-2.4); PHOSPHORUS 3.4 mg/dL (2.5-4.9)
[2019-08-19 05:00] LABS: POTASSIUM 2.8 mmol/L (3.5-5.1)
[2019-08-19] MEDS: BLOOD SUGAR DIAGNOSTIC 1 EACH STRIP IN SCH ×4 (05:11→23:33)
[2019-08-19] MEDS ORDERED: POTASSIUM CHLORIDE 20 MEQ POWDER PACKET GT ONE (05:30)
[2019-08-19] MEDS: GLUCERNA 1.2 1,000 ML BOTTLE NG PRN (07:12)
[2019-08-19] MEDS ORDERED: POTASSIUM CHLORIDE 20 MEQ POWDER PACKET NG SCH (07:30)
[2019-08-19] MEDS ORDERED: POTASSIUM CHLORIDE 20 MEQ TAB.PRT.SR PO ONE (07:30)
[2019-08-19] MEDS ORDERED: POTASSIUM CL. PREMIX PERIPHER. 50 ML IV SCH ×2 (08:00→13:00)
[2019-08-19] MEDS: POTASSIUM CL. PREMIX PERIPHER. 50 ML IV SCH ×8 (08:09→17:55)
[2019-08-19] MEDS: CHOLECALCIFEROL 1,000 UNIT TABLET (VIT D3) PO SCH (08:22)
[2019-08-19] MEDS: PANTOPRAZOLE 40 MG/PACK PACK NG SCH (08:22)
[2019-08-19] MEDS: FINASTERIDE (5 MG) 5 MG TABLET PO SCH (08:22)
[2019-08-19] MEDS: CYANOCOBALAMIN 500 MCG TABLET PO SCH (08:22)
[2019-08-19] MEDS: DONEPEZIL 5 MG TABLET PO SCH (08:22)
[2019-08-19] MEDS: CLOPIDOGREL BISULFATE 75 MG TABLET PO SCH (08:22)
[2019-08-19] MEDS: SERTRALINE HCL 25 MG TABLET PO SCH (08:22)
[2019-08-19] MEDS: HYDROCORTISONE SOD SUCCINATE 100 MG/2 ML VIAL IV SCH ×2 (08:22→17:03)
[2019-08-19] MEDS: ENOXAPARIN SODIUM 40 MG/0.4 ML DISP.SYRIN SQ SCH (08:23)
[2019-08-19] MEDS: PIPERACILLIN /TAZOBACTAM 3.375 G in IV D5W 100 ML IV SCH ×5 (08:28→23:30)
[2019-08-19 08:29] LABS: ABG BASE EXCESS 14.4 mmol/L; ABG OXYGEN SATURATION 93.8 % (92.0-98.5); ABG PCO2 50.3 mmHg (35.0-45.0); ABG PH 7.514 (7.350-7.450); ABG PO2 68.8 mmHg (75.0-100.0); AaDO2 158.6 mmHg; COHb 0.6 % (0.5-1.5); MetHb 0.3 % (0.0-1.5); SITE, ABG Right Radial
--- NOTE | 2019-08-19 10:13 | NUR ---
RN NOTE 0715: Received patient awake, opens eyes but does not follow commands. On Venturi mask at 40%. Right NGT intact, feeding tolerated. Kept HOB elevated. Noted with restlessness as evidenced by frequent movements. PENS AND PENCILS DIPPER restraints on for safety. Hutchinson cath intact, noted with clear yellow urine drained to BSD. 0830: S/E by Dr. Amaya, clarified KCl order, given 60mEq /NGT, with other orders to give 60mEq via NGT per Dr. Dominique and Dr. Amaya placed 50mEq KCl IVPB plus 40mEq /NGT. Per MD, just give 3more bags of KCl (30 mEq) then repeat K level after giving. 0900: S/E by Dr. Priest, with order to give 250mL water flush q4 from 300 q6. 0940: S/E by Dr. Humphrey, aware for the ABG and correcting K. Cleaned patient, noted with x1 loose BM, will monitor. 1010: No any significant changes noted at this time. Will continue to monitor.
[2019-08-19] MEDS: INSULIN REGULAR, HUMAN 100 UNIT/ML 3 ML VIAL SQ PRN ×2 (13:10→23:31)
--- NOTE | 2019-08-19 13:34 | NUR ---
RN NOTE Made MD aware for the repeat K level 2.9m with order to give 50 more mEq KCl IVPB.
--- NOTE | 2019-08-19 18:13 | NUR ---
RN NOTE No any significant changes noted. Still on Venturi mask @ 40%, sat 91-94. Kept HOB elevated. GT feeding tolerated. Hutchinson cath noted with isaiah colored urine, 600mL. BSR restraints on for restless and and for safety. KCl 5 bags given for repeat K level of 2.9. Noted with 2 large amount of BM.
--- NOTE | 2019-08-19 20:00 | NUR ---
Received patient awake non verbal non interactive.Bilateral soft wrist restraints in place for safety. Afebrile.V-paced per monitor.Normotensive.Still on same venturi mask at 40%.No respiratory distress noted.With ongoing NGT feeding.Placement verified.No residual noted.Maintained HOB elevated. Patient turned and repositioned to comfort.Continue monitoring.
[2019-08-20] VITALS (30 sets, daily range): BP systolic 99–174; BP diastolic 62–99
--- NOTE | 2019-08-20 00:57 | NUR ---
Patient resting in no acute distress.Desat to 85%-88% RT Jimbo notified.Secretions suctioned but still sat on 88%. RT increased O2 to 50%.SPO2 up to 92%.-95%.
--- NOTE | 2019-08-20 04:00 | NUR ---
Patient awake bed bath rendered.Complete linens changed.VS remains stable.Tolerating tube feeding. Free water flush given Q 4 hrs.Turned and repositioned.Continue monitoring.
[2019-08-20] MEDS: ALBUTEROL FS 2.5 MG/0.5 ML VIAL.NEB NEB SCH ×6 (04:19→22:37)
[2019-08-20] MEDS: IPRATROPIUM NEB FS 0.5 MG/2.5 ML AMPUL.NEB NEB SCH ×6 (04:19→22:37)
[2019-08-20 04:51] LABS: BASOPHILS % (AUTO) 0.1 % (0.0-2.0); EOSINOPHILS % (AUTO) 0.2 % (0.0-6.0); HEMATOCRIT 42 % (39-51); HEMOGLOBIN 13.8 g/dL (13.5-17.5); LYMPHOCYTES # (AUTO) 1.1 /CMM (0.8-4.8); LYMPHOCYTES % (AUTO) 8.4 % (20.0-44.0); MEAN CORPUSCULAR HGB CONC 33 g/dl (31.0-36.0); MEAN CORPUSCULAR VOLUME 91 fL (80-96); MONOCYTES # (AUTO) 1.3 /CMM (0.1-1.30); MONOCYTES % (AUTO) 10.3 % (2.0-12.0); NEUTROPHILS # (AUTO) 10.3 /CMM (1.8-8.9); PLATELET COUNT (AUTO) 232 /CMM (150-450); RED BLOOD CELL COUNT(AUTO) 4.59 MIL/uL (4.5-6.0); WHITE BLOOD COUNT (AUTO) 12.8 K/uL (4.3-11.0)
--- NOTE | 2019-08-20 05:00 | NUR ---
Patient congested.Suctioned moderate amount thick yellow secretions.FIO2 down to 40% venturi mask by RTJimbo.Patient saturation goes up and down 87%-92% Continue monitoring.
[2019-08-20 05:30] LABS: CALCIUM, SERUM 8.8 mg/dL (8.5-10.1); CREATININE 0.9 mg/dL (0.6-1.3); MAGNESIUM 2.2 mg/dL (1.8-2.4); PHOSPHORUS 2.9 mg/dL (2.5-4.9); POTASSIUM 3.4 mmol/L (3.5-5.1)
[2019-08-20] MEDS: BLOOD SUGAR DIAGNOSTIC 1 EACH STRIP IN SCH ×4 (05:36→23:32)
[2019-08-20] MEDS ORDERED: POTASSIUM CHLORIDE 20 MEQ POWDER PACKET NG SCH (07:00)
--- NOTE | 2019-08-20 07:30 | NUR ---
ICU/RN PT IS ON VENTURI MASK AT 40% FIO2,SAT O2-85-88%.SOB.PLACED ON 50%,SAT O2 INCREASED TO 92-93%.V/S STABLE,AFEBRILE.NO PAIN REPORTED AT THIS TIME.PT IS OPEN EYES NOT FOLLOW COMMANDS.HAS DEMENTIA.BILATERAL WRIST RESTRAINS ON.RIGHT NG TUBE INFUSING WITH GLUCERNA AT 40 ML/HR.RIGHT IJ TLC.F/C IN PLACED DRAINING WITH YELLOW URINE. REDNESS ON CORINA AREA AND LOWER BACK NOTED. AM CARE PROVIDED. REPOSITION FOR COMFORT.
[2019-08-20] MEDS: PIPERACILLIN /TAZOBACTAM 3.375 G in IV D5W 100 ML IV SCH ×3 (07:56→23:32)
--- NOTE | 2019-08-20 08:20 | NUR ---
ICU/RN DR HORNER SEEN THE PT .ABG DONE ,LABS REVIEW.NEW ORDERS RECEIVED.PT IS NOT STABLE TO BE TRANSFER TO [facility] ORDERED BY DR TOURE. CONTINUE MONITORING.
[2019-08-20] MEDS: POTASSIUM CL. PREMIX PERIPHER. 50 ML IV SCH ×5 (08:25→14:01)
[2019-08-20] MEDS: HYDROCORTISONE SOD SUCCINATE 100 MG/2 ML VIAL IV SCH ×2 (08:25→17:23)
[2019-08-20] MEDS: CLOPIDOGREL BISULFATE 75 MG TABLET PO SCH (08:26)
[2019-08-20] MEDS: ENOXAPARIN SODIUM 40 MG/0.4 ML DISP.SYRIN SQ SCH (08:26)
[2019-08-20] MEDS: SERTRALINE HCL 25 MG TABLET PO SCH (08:26)
[2019-08-20] MEDS: PANTOPRAZOLE 40 MG/PACK PACK NG SCH (08:26)
[2019-08-20] MEDS: CYANOCOBALAMIN 500 MCG TABLET PO SCH (08:26)
[2019-08-20] MEDS: DONEPEZIL 5 MG TABLET PO SCH (08:26)
[2019-08-20] MEDS: CHOLECALCIFEROL 1,000 UNIT TABLET (VIT D3) PO SCH (08:26)
[2019-08-20] MEDS: GLUCERNA 1.2 1,000 ML BOTTLE NG PRN (08:59)
[2019-08-20 09:17] LABS: ABG BASE EXCESS 10.1 mmol/L; ABG OXYGEN SATURATION 90.1 % (92.0-98.5); ABG PCO2 41.3 mmHg (35.0-45.0); ABG PH 7.531 (7.350-7.450); ABG PO2 54.9 mmHg (75.0-100.0); AaDO2 255.1 mmHg; MetHb 0.4 % (0.0-1.5); O2Hb 88.8 % (94.0-97.0); SITE, ABG Left Radial
[2019-08-20] MEDS: FINASTERIDE (5 MG) 5 MG TABLET PO SCH (09:29)
[2019-08-20] MEDS: INSULIN REGULAR, HUMAN 100 UNIT/ML 3 ML VIAL SQ PRN ×2 (14:09→23:36)
--- NOTE | 2019-08-20 17:45 | NUR ---
ICU/RN PM CARE PROVIDED.DUE MEDS ARE GIVEN ORDERED.V/S STABLE,AFEBRILE.SUCTION PROVIDED.REPOSITION FOR COMFORT.CONTINUE MONITORING.
--- NOTE | 2019-08-20 20:00 | NUR ---
Received patient awake but non verbal and non interactive.Patient on venturi mask 50%.Patient desat to 74%.RT,Movie at bedside suctioning secretions and Respiratory treatment given.VSS. Tele 100% V-paced HR 96-105.Normotensive.NGT feeding in progress.Placement verified and patent.No residual noted.FC to gravity.Turned and repositioned.Continue monitoring.Safety measures maintained.
[2019-08-21] VITALS (23 sets, daily range): BP systolic 103–144; BP diastolic 47–93
[2019-08-21] MEDS: ALBUTEROL FS 2.5 MG/0.5 ML VIAL.NEB NEB SCH ×6 (03:46→23:49)
[2019-08-21] MEDS: IPRATROPIUM NEB FS 0.5 MG/2.5 ML AMPUL.NEB NEB SCH ×6 (03:46→23:49)
[2019-08-21 04:57] LABS: BASOPHILS % (AUTO) 0.1 % (0.0-2.0); EOSINOPHILS % (AUTO) 0.1 % (0.0-6.0); HEMATOCRIT 41 % (39-51); HEMOGLOBIN 13.6 g/dL (13.5-17.5); LYMPHOCYTES # (AUTO) 1.2 /CMM (0.8-4.8); LYMPHOCYTES % (AUTO) 9.4 % (20.0-44.0); MEAN CORPUSCULAR HGB CONC 33 g/dl (31.0-36.0); MEAN CORPUSCULAR VOLUME 91 fL (80-96); MONOCYTES # (AUTO) 0.9 /CMM (0.1-1.30); MONOCYTES % (AUTO) 6.9 % (2.0-12.0); NEUTROPHILS % (AUTO) 83.5 % (43.0-81.0); PLATELET COUNT (AUTO) 228 /CMM (150-450); RED BLOOD CELL COUNT(AUTO) 4.48 MIL/uL (4.5-6.0); WHITE BLOOD COUNT (AUTO) 13.2 K/uL (4.3-11.0)
[2019-08-21 05:06] LABS: CALCIUM, SERUM 8.9 mg/dL (8.5-10.1); MAGNESIUM 2.3 mg/dL (1.8-2.4); PHOSPHORUS 3.3 mg/dL (2.5-4.9); POTASSIUM 3.6 mmol/L (3.5-5.1)
[2019-08-21] MEDS: BLOOD SUGAR DIAGNOSTIC 1 EACH STRIP IN SCH ×3 (05:40→17:05)
--- NOTE | 2019-08-21 06:00 | NUR ---
Patient resting.AM care done.V-paced.VS remains stable.Venturi mask maintained at 50%, Still desat to 88% on and off.NGT feeding well tolerated.BM x 1.Kept clean and dry.Turned and repositioned Q 2 hrs offloading pressure points.No acute distress noted.All needs anticipated and met.
--- NOTE | 2019-08-21 07:30 | NUR ---
ICU/RN AM SHIFT INITIAL NOTES RECEIVED PT ASLEEP IN BED, PT OPEN EYES SPONTANEOUSLY, APHASIC, NO ACUTE CHANGE OF CONDITION OR RESPIRATORY DISTRESS NOTED. PT RESTLESS MOVES AROUND THE BED FREQUENTLY, NEEDS FREQUENT REPOSITIONING. ON VENTURI MASK WITH 15L O2, 50%. LUNG SOUNDS DIMINISHED, RESPIRATIONS EVEN & UNLABORED. SATURATING @ 97%, ON TELE WITH V-PACING, HR 98. CENTRAL LINE (IJ) ON TKO, PATENT WITH NO S/S OF INFECTION. NGT (RIGHT NARE) INTACT, INTACT AND PATENT, POSITIONING POSITIVE (VERIFIED BY BOWEL SOUNDS) FEEDING ON GOING @ 40CC/HR, NO GASTRIC RESIDUAL NOTED. PATEL CATHETER INTACT WITH YELLOW URINE OUTPUT. BILATERAL SOFT WRIST RESTRAINTS IN PLACED, RELEASED TO CHECK FOR CIRCULATION AND COMFORT THE PLACE BACK. PT IS COMFORTABLE, SCHEDULED AM MEDS TO BE GIVEN. CL WITHIN REACHED AND SAFETY MAINTAINED. ON GOING MONITORING.
[2019-08-21] MEDS: PIPERACILLIN /TAZOBACTAM 3.375 G in IV D5W 100 ML IV SCH ×2 (08:36→16:37)
[2019-08-21] MEDS: SERTRALINE HCL 25 MG TABLET PO SCH (08:38)
[2019-08-21] MEDS: ENOXAPARIN SODIUM 40 MG/0.4 ML DISP.SYRIN SQ SCH (08:38)
[2019-08-21] MEDS: HYDROCORTISONE SOD SUCCINATE 100 MG/2 ML VIAL IV SCH ×2 (08:38→17:05)
[2019-08-21] MEDS: CHOLECALCIFEROL 1,000 UNIT TABLET (VIT D3) PO SCH (08:38)
[2019-08-21] MEDS: FINASTERIDE (5 MG) 5 MG TABLET PO SCH (08:38)
[2019-08-21] MEDS: DONEPEZIL 5 MG TABLET PO SCH (08:38)
[2019-08-21] MEDS: CLOPIDOGREL BISULFATE 75 MG TABLET PO SCH (08:38)
[2019-08-21] MEDS: PANTOPRAZOLE 40 MG/PACK PACK NG SCH (08:38)
[2019-08-21] MEDS: CYANOCOBALAMIN 500 MCG TABLET PO SCH (08:41)
--- NOTE | 2019-08-21 08:45 | NUR ---
ICU/RN ROUNDS - DR. HORNER UPDATED PT'S CONDITION. PT SEEN & EXAMINED BY DR. HORNER, NO NEW ORDER RECEIVED. MONITORING CONTINUED.
--- NOTE | 2019-08-21 09:30 | NUR ---
ICU/RN ROUNDS - DR. LAKE UPDATED PT'S CONDITION. PT SEEN & EXAMINED BY DR. LAKE, NO NEW ORDER RECEIVED. MONITORING CONTINUED.
[2019-08-21] MEDS: INSULIN REGULAR, HUMAN 100 UNIT/ML 3 ML VIAL SQ PRN (12:32)
[2019-08-21] MEDS: GLUCERNA 1.2 1,000 ML BOTTLE NG PRN (17:09)
--- NOTE | 2019-08-21 17:30 | NUR ---
ICU/RN AFTERNOON ROUNDS PM CARE PROVIDED. NO ACUTE CHANGE OF CONDITION. MONITORING CONTINUED.
--- NOTE | 2019-08-21 19:20 | NUR ---
ICU/RN AM SHIFT END NOTES ALL NEEDS MET, NO ACUTE CHANGE OF CONDITION NOTED DURING THE SHIFT. PT ENDORSED TO PM NURSE TO CONTINUE CARE. CL WITHIN REACHED AND SAFETY MAINTAINED.
--- NOTE | 2019-08-21 19:37 | NUR ---
GROUP FITNESS INSTRUCTOR NOTE RECEIVED PT IN BED AWAKE, NON VERBAL, MOVING HIM LEGS IN BED. ON O2 6L VIA N/C O 2 SAT 97%. KEPT HOB ELEVATED. ON TELE MONITOR V PACING HR 81, RT NARE NGT INTACT AND PATENT INFUSING GLUCERNA @ 40 ML/HR, 0 ML RESIDUAL NOTED. NO DISTRESS OR DISCOMFORT NOTED. NO S/S OF PAIN NOTED. BILATERAL SOFT WRIST RESTRAINTS ON. SKIN AROUND RESTRAINTS WNL. F/C INTACT AND PATENT DRAINING YELLOWISH COLOR URINE. RT I JUGULAR TRIPLE LUMEN CATH INTACT AND PATENT INFUSING ZOSYN AT 25 ML/HR, NO S/S OF INFILTRATION NOTED. REPOSITION HIM FOR SKIN MANAGEMENT, SIDE RAILS UP X 2 AND CALL LIGHT WITHIN REACH. VSS. CONTINUE TO MONITOR HIM.
[2019-08-22] VITALS (14 sets, daily range): BP systolic 105–134; BP diastolic 62–80
[2019-08-22] MEDS: BLOOD SUGAR DIAGNOSTIC 1 EACH STRIP IN SCH ×5 (00:15→23:57)
[2019-08-22] MEDS: PIPERACILLIN /TAZOBACTAM 3.375 G in IV D5W 100 ML IV SCH ×3 (00:16→16:16)
[2019-08-22] MEDS: INSULIN REGULAR, HUMAN 100 UNIT/ML 3 ML VIAL SQ PRN (00:17)
[2019-08-22] MEDS: ALBUTEROL FS 2.5 MG/0.5 ML VIAL.NEB NEB SCH ×5 (04:04→20:05)
[2019-08-22] MEDS: IPRATROPIUM NEB FS 0.5 MG/2.5 ML AMPUL.NEB NEB SCH ×5 (04:04→20:05)
[2019-08-22 04:24] LABS: EOSINOPHILS % (AUTO) 0.2 % (0.0-6.0); HEMATOCRIT 39 % (39-51); HEMOGLOBIN 12.9 g/dL (13.5-17.5); LYMPHOCYTES # (AUTO) 1.1 /CMM (0.8-4.8); LYMPHOCYTES % (AUTO) 8.3 % (20.0-44.0); MEAN CORPUSCULAR HGB CONC 33 g/dl (31.0-36.0); MEAN CORPUSCULAR VOLUME 91 fL (80-96); MONOCYTES # (AUTO) 0.9 /CMM (0.1-1.30); NEUTROPHILS # (AUTO) 11.2 /CMM (1.8-8.9); NEUTROPHILS % (AUTO) 84.5 % (43.0-81.0); PLATELET COUNT (AUTO) 257 /CMM (150-450); RED BLOOD CELL COUNT(AUTO) 4.32 MIL/uL (4.5-6.0); WHITE BLOOD COUNT (AUTO) 13.3 K/uL (4.3-11.0)
[2019-08-22 04:32] LABS: CALCIUM, SERUM 8.7 mg/dL (8.5-10.1); MAGNESIUM 2.3 mg/dL (1.8-2.4); PHOSPHORUS 3.2 mg/dL (2.5-4.9); POTASSIUM 3.3 mmol/L (3.5-5.1)
--- NOTE | 2019-08-22 06:58 | NUR ---
AIRCRAFT LOAD CONTROLLER NOTE NO CHANGE IN CONDITION. SUCTIONED HIM FREQUENTLY, THICK YELLOW SECRETIONS NOTED, SMALL AMOUNT. KEPT HIM DRY AND CLEAN. ON TELE MONITOR V PACING HR 87. F/C INTACT AND PATENT DRAINING YELLOWISH COLOR URINE. NGT TUBE INTACT AND PATENT INFUSING GLUCERNA AT 40 ML/HR, 0 ML RESIDUAL NOTED. KEPT HIM DRY AND CLEAN. ALL NEEDS ATTENDED. ENDORSE TO DAY SHIFT NURSE FOR CONTINUE TO CARE.
[2019-08-22] MEDS: FINASTERIDE (5 MG) 5 MG TABLET PO SCH (08:09)
[2019-08-22] MEDS: DONEPEZIL 5 MG TABLET PO SCH (08:09)
[2019-08-22] MEDS: CYANOCOBALAMIN 500 MCG TABLET PO SCH (08:09)
[2019-08-22] MEDS: SERTRALINE HCL 25 MG TABLET PO SCH (08:10)
[2019-08-22] MEDS: CHOLECALCIFEROL 1,000 UNIT TABLET (VIT D3) PO SCH (08:10)
[2019-08-22] MEDS: CLOPIDOGREL BISULFATE 75 MG TABLET PO SCH (08:10)
[2019-08-22] MEDS: PANTOPRAZOLE 40 MG/PACK PACK NG SCH (08:10)
[2019-08-22] MEDS: HYDROCORTISONE SOD SUCCINATE 100 MG/2 ML VIAL IV SCH (08:10)
[2019-08-22] MEDS: ENOXAPARIN SODIUM 40 MG/0.4 ML DISP.SYRIN SQ SCH (08:11)
[2019-08-22] MEDS: POTASSIUM CL. PREMIX PERIPHER. 50 ML IV SCH ×4 (08:19→13:14)
[2019-08-22 08:26] LABS: ABG BASE EXCESS 7.8 mmol/L; ABG OXYGEN SATURATION 95.1 % (92.0-98.5); ABG PCO2 50.5 mmHg (35.0-45.0); ABG PH 7.438 (7.350-7.450); ABG PO2 85.1 mmHg (75.0-100.0); COHb 0.5 % (0.5-1.5); MetHb 0.9 % (0.0-1.5); O2Hb 93.8 % (94.0-97.0); SITE, ABG Right Radial; VENT MODE, BG NASAL CANNULA
[2019-08-22] MEDS ORDERED: POTASSIUM CHLORIDE 20 MEQ POWDER PACKET GT SCH (09:00)
--- NOTE | 2019-08-22 09:15 | NUR ---
ICU/RN: S/B Dr Prieto. New orders noted and carried out.
--- NOTE | 2019-08-22 09:30 | NUR ---
ICU/RN: S/B Dr Damon; ABG reviewed with .
--- NOTE | 2019-08-22 10:20 | NUR ---
ICU/RN: Pt transferred to [facility] as ordered by Dr Prieto. Pt in no distress, breathing even and unlabored. IV meds infusing thorugh R IJ well. FC to gravity. AM care rendered, BM x1 noted. Tolerated well. Bedside report given to Genie RN for DODIE. Pt's daughter, Oly notified of pt transfer. Room number and contact information provided.
--- NOTE | 2019-08-22 11:45 | NUR ---
RN [facility] NOTES Received bedside report from MARKET SURVEY REPRESENTATIVE . Pt in bed , awake and resting comfortably in bed. In no acute distress noted. With on going K replacement on R IJ. No signs of infiltration noted. Nasogastric tube intact and patent. Hutchinson catheter intact, patent and draining yellow color urine via gravity. Will continue to monitor .
[2019-08-22] MEDS ORDERED: GLUCERNA 1.2 1,000 ML BOTTLE NG PRN (14:00)
--- NOTE | 2019-08-22 19:00 | NUR ---
RN OPENING NOTES: PATIENT IN BED, ASLEEP, BUT EASILY AROUSABLE WITH EYES OPEN. NO RESPIRATORY DISTRESS. ON O2 AT 5LPM VIA NC, TOLERATING WELL. NO S/S OF PAIN. NO FACIAL GRIMACING. (R) IJ INTACT, PATENT, AND FLUSHING WELL. ON NGT FEEDING AT 50 MLS/HR, GOAL 65 ML. PATEL INTACT, PATENT, AND DRAINING CLEAR YELLOW URINE. ON BILATERAL SOFT WRIST RESTRAINTS. SAFETY PRECAUTIONS IMPLEMENTED. BED LOCKED, ALARM ON, AND IN LOWEST POSITION. HOB ELEVATED. CALL LIGHT PLACED WITHIN REACH. WILL CONT. TO MONITOR.
--- NOTE | 2019-08-22 19:28 | NUR ---
RN [facility] CLOSING NOTES Pt in bed asleep. No acute distress noted during the am shift. Hutchinson intact, patent and draining well. RIJ intact. No sign of infiltration. Kept patient clean and dry. Bed in lowest position, locked. Call light within reach. All needs met. Endorsed to PM shift.
[2019-08-23] VITALS: BP 134/69
[2019-08-23] MEDS: PIPERACILLIN /TAZOBACTAM 3.375 G in IV D5W 100 ML IV SCH (00:04)
[2019-08-23] MEDS: ALBUTEROL FS 2.5 MG/0.5 ML VIAL.NEB NEB SCH ×7 (00:10→22:39)
[2019-08-23] MEDS: IPRATROPIUM NEB FS 0.5 MG/2.5 ML AMPUL.NEB NEB SCH ×7 (00:10→22:39)
[2019-08-23 06:00] VITALS: BP 122/74
[2019-08-23 06:20] LABS: BASOPHILS % (AUTO) 0.1 % (0.0-2.0); EOSINOPHILS % (AUTO) 1.1 % (0.0-6.0); HEMATOCRIT 40 % (39-51); HEMOGLOBIN 13.4 g/dL (13.5-17.5); LYMPHOCYTES # (AUTO) 1.1 /CMM (0.8-4.8); LYMPHOCYTES % (AUTO) 8.4 % (20.0-44.0); MEAN CORPUSCULAR HGB CONC 33 g/dl (31.0-36.0); MEAN CORPUSCULAR VOLUME 91 fL (80-96); MONOCYTES # (AUTO) 0.9 /CMM (0.1-1.30); MONOCYTES % (AUTO) 6.7 % (2.0-12.0); NEUTROPHILS # (AUTO) 10.9 /CMM (1.8-8.9); NEUTROPHILS % (AUTO) 83.7 % (43.0-81.0); PLATELET COUNT (AUTO) 253 /CMM (150-450); RED BLOOD CELL COUNT(AUTO) 4.45 MIL/uL (4.5-6.0); WHITE BLOOD COUNT (AUTO) 13.1 K/uL (4.3-11.0)
[2019-08-23 06:28] LABS: CALCIUM, SERUM 9.1 mg/dL (8.5-10.1); MAGNESIUM 2.3 mg/dL (1.8-2.4); PHOSPHORUS 3.1 mg/dL (2.5-4.9); POTASSIUM 3.8 mmol/L (3.5-5.1)
--- NOTE | 2019-08-23 07:00 | NUR ---
RN OPENING NOTES: PATIENT IN BED, ASLEEP, BUT EASILY AROUSABLE WITH EYES OPEN. NO RESPIRATORY DISTRESS. NO S/S OF PAIN. NO FACIAL GRIMACING. (R) IJ INTACT, PATENT, AND FLUSHING WELL. ON NGT FEEDING, GOAL OF 65 ML/HR MET, TOLERATING WELL WITH NO RESIDUAL. PATEL INTACT, PATENT, AND DRAINING CLEAR YELLOW URINE. ON BILATERAL SOFT WRIST RESTRAINTS. SAFETY PRECAUTIONS IMPLEMENTED. BED LOCKED, ALARM ON, AND IN LOWEST POSITION. HOB ELEVATED. CALL LIGHT PLACED WITHIN REACH. ENDORSED TO AM SHIFT NURSE FOR CONTINUITY OF CARE. Addendum: 08/23/19 at 0749 by RICH HARRIS RN ERROR
[2019-08-23] MEDS: BLOOD SUGAR DIAGNOSTIC 1 EACH STRIP IN SCH ×4 (07:14→23:44)
[2019-08-23 08:00] VITALS: BP_SYST 132; BP_SYST 163; BP_DIAS 107; BP_DIAS 66
--- NOTE | 2019-08-23 08:00 | NUR ---
RN NOTE: Received patient in bed, confused, and garbled at the bedside. HOB elevated. (R) nare NGT noted intact and patent and placement was verified and was receiving tube feeding of Glucerna 1.2 @65ml/hr with no gastric residual noted. (R) IJ with triple lumen noted intact and patent with saline TKO infusing. Hutchinson catheter in placed with yellow urine draining to gravity. Patient was noted with liquid brown stool. Patient kept kicking and trying to remove the SCD on his (B) LE. (B) soft wrist restraints in placed to prevent the patient from removing the NGT on his (R) nare. Bed alarmed and locked at all times. Needs anticipated. Bedbath was provided to the patient and he kept releasing loose liquid brown stool. Flexiseal was initiated. Dr. Prieto made aware and will start monitoring for the C. Diff protocol. agreed.
[2019-08-23] MEDS ORDERED: HYDROCORTISONE SOD SUCCINATE 100 MG/2 ML VIAL IV SCH (09:00)
[2019-08-23] MEDS: DONEPEZIL 5 MG TABLET PO SCH (09:59)
[2019-08-23] MEDS: CHOLECALCIFEROL 1,000 UNIT TABLET (VIT D3) PO SCH (09:59)
[2019-08-23] MEDS: PANTOPRAZOLE 40 MG/PACK PACK NG SCH (09:59)
[2019-08-23] MEDS: CLOPIDOGREL BISULFATE 75 MG TABLET PO SCH (09:59)
[2019-08-23] MEDS: SERTRALINE HCL 25 MG TABLET PO SCH (09:59)
[2019-08-23] MEDS: CYANOCOBALAMIN 500 MCG TABLET PO SCH (09:59)
[2019-08-23] MEDS: ENOXAPARIN SODIUM 40 MG/0.4 ML DISP.SYRIN SQ SCH (10:01)
[2019-08-23] MEDS: FINASTERIDE (5 MG) 5 MG TABLET PO SCH (10:01)
[2019-08-23 10:12] LABS: ABG BASE EXCESS 7.2 mmol/L; ABG OXYGEN SATURATION 95.6 % (92.0-98.5); ABG PCO2 42.1 mmHg (35.0-45.0); ABG PH 7.489 (7.350-7.450); ABG PO2 82.1 mmHg (75.0-100.0); AaDO2 154.7 mmHg; COHb 0.9 % (0.5-1.5); MetHb 0.6 % (0.0-1.5); O2Hb 94.2 % (94.0-97.0); SITE, ABG Left Radial; VENT MODE, BG Nasal Cannula
[2019-08-23 12:00] VITALS: BP 161/87
[2019-08-23] MEDS: INSULIN REGULAR, HUMAN 100 UNIT/ML 3 ML VIAL SQ PRN (12:40)
[2019-08-23] MEDS ORDERED: CLONIDINE HCL 0.1 MG TABLET PO PRN (13:30)
--- NOTE | 2019-08-23 13:50 | NUR ---
RN NOTE: Patient was evaluated by the speech therapist for safe swallow evaluation and per [facility] the patient passed the swallow eval. She recommended to start Pureed cardiac diet with thickened liquid. Dr. Prieto aware and he agreed with the recommendation.
[2019-08-23 16:00] VITALS: BP 120/67
--- NOTE | 2019-08-23 16:00 | NUR ---
RN NOTE: Patient's (R) nare was removed per Dr. Prieto's order. Patient tolerated it well. Intact catheter tip of the NGT was noted upon removal.
--- NOTE | 2019-08-23 19:45 | NUR ---
RN NOTE: Bedside report was given to JORDAN Shankar for continuity of care. Patient remained on dupont catheter and flexiseal with loose brown stool. Emphasized to JORDAN Shankar that he needed to send the stool for C. Diff to laboratory with the filled up form. On contact isolation for C. Diff.
[2019-08-23 20:00] VITALS: BP 131/85
[2019-08-24] VITALS: BP 115/73
[2019-08-24] MEDS: IPRATROPIUM NEB FS 0.5 MG/2.5 ML AMPUL.NEB NEB SCH ×6 (00:30→19:51)
[2019-08-24] MEDS: ALBUTEROL FS 2.5 MG/0.5 ML VIAL.NEB NEB SCH ×6 (00:30→19:51)
[2019-08-24 04:00] VITALS: BP 112/74
[2019-08-24] MEDS: BLOOD SUGAR DIAGNOSTIC 1 EACH STRIP IN SCH ×3 (05:51→18:26)
[2019-08-24 05:52] LABS: CALCIUM, SERUM 8.9 mg/dL (8.5-10.1); MAGNESIUM 2.3 mg/dL (1.8-2.4); PHOSPHORUS 2.7 mg/dL (2.5-4.9); POTASSIUM 3.7 mmol/L (3.5-5.1)
[2019-08-24 06:15] LABS: BASOPHILS % (AUTO) 0.2 % (0.0-2.0); EOSINOPHILS % (AUTO) 0.2 % (0.0-6.0); HEMATOCRIT 43 % (39-51); HEMOGLOBIN 13.9 g/dL (13.5-17.5); LYMPHOCYTES # (AUTO) 1.1 /CMM (0.8-4.8); LYMPHOCYTES % (AUTO) 7.9 % (20.0-44.0); MEAN CORPUSCULAR HGB CONC 33 g/dl (31.0-36.0); MEAN CORPUSCULAR VOLUME 91 fL (80-96); MONOCYTES # (AUTO) 1.1 /CMM (0.1-1.30); MONOCYTES % (AUTO) 8.2 % (2.0-12.0); NEUTROPHILS # (AUTO) 11.7 /CMM (1.8-8.9); NEUTROPHILS % (AUTO) 83.5 % (43.0-81.0); PLATELET COUNT (AUTO) 298 /CMM (150-450); RED BLOOD CELL COUNT(AUTO) 4.68 MIL/uL (4.5-6.0)
--- NOTE | 2019-08-24 07:22 | NUR ---
RN CLOSING NOTE PT IN BED. NON VERBAL. RESPIRATIONS UNLABORED. ON 5L OF HUMIDIFIED O2 VIA NC AND TOLERATING WELL. NO INDICATIONS OF PAIN OR DISCOMFORT. PT CURRENTLY ON RESTRAINTS DUE TO ATTEMPTS AT PULLING TUBES AND LINES. NO COMPLICATIONS NOTED. PATEL CATHETER PATENT AND IN PLACE DRAINING CLEAR YELLOW URINE. WITH FLEXISEAL DRAINING WATERY LIGHT BROWN STOOL. BED ALARM ON. SAFETY MEASURES IN PLACE. CALL LIGHT WITHIN REACH. ENDORSED TO JORDAN CORDOVA FOR CONTINUATION OF CARE.
[2019-08-24 08:00] VITALS: BP_SYST 125; BP_SYST 126; BP_DIAS 64; BP_DIAS 69
--- NOTE | 2019-08-24 08:18 | NUR ---
METAL GRINDER NOTES RECEIVED PATIENT IN BED AWAKE, A/OX1 ON RETRAINS DUE TO REMOVING THE IV AND TUBES. PATIENT ON PUREED DIET. PATEL PATENT AND ON FELXISEAL.. PATIENT ON 5L NASAL CANNULA /HUMIDIFIER. CALL LIGHT WITHIN REACH. BED LOCKED AT THE LOWEST POSITION.
[2019-08-24] MEDS: CLOPIDOGREL BISULFATE 75 MG TABLET PO SCH (08:50)
[2019-08-24] MEDS: DONEPEZIL 5 MG TABLET PO SCH (08:50)
[2019-08-24] MEDS: PANTOPRAZOLE 40 MG/PACK PACK NG SCH (08:50)
[2019-08-24] MEDS: FINASTERIDE (5 MG) 5 MG TABLET PO SCH (08:51)
[2019-08-24] MEDS: CYANOCOBALAMIN 500 MCG TABLET PO SCH (08:53)
[2019-08-24] MEDS: SERTRALINE HCL 25 MG TABLET PO SCH (08:53)
[2019-08-24] MEDS: CHOLECALCIFEROL 1,000 UNIT TABLET (VIT D3) PO SCH (08:53)
[2019-08-24] MEDS: ENOXAPARIN SODIUM 40 MG/0.4 ML DISP.SYRIN SQ SCH (09:05)
[2019-08-24 12:00] VITALS: BP_SYST 109; BP_SYST 129; BP_DIAS 62
--- NOTE | 2019-08-24 12:32 | NUR ---
BLOOD GLUCOSE LEVEL 114MG/DL NO INSULIN GIVEN
[2019-08-24 16:00] VITALS: BP 138/85
--- NOTE | 2019-08-24 18:13 | NUR ---
BLOOD GLUCOSE LEVEL 118 MG/DL NO INSULIN GIVEN.
--- NOTE | 2019-08-24 19:10 | NUR ---
CHANGED OF SHIFT REPORT Patient in bed, non verbal, eyes open. Appears restless, sliding himself to the foot of the bed. Bilateral soft wrist restraint in place, safety precaution maintained. V-pacing in the Tele monitor. Oxygen 5LPM via NC, tolerating well. Fall precaution maintained.
--- NOTE | 2019-08-24 19:15 | NUR ---
ARTIFICIAL FLOWERS DYER NOTES PATIENT A/OX1, MULTIPLE TIME ATTEMPT TO REPOSITION HIM. ON 6 L O2 NASAL CANNULA. ALL NEEDS ATTENDED, MEDS GIVEN. RN ATTEMPTED TO FEED THE PATIENT, BUT PATIENT WAS SLEEPY AND NOT ABLE TO SWALLOW FOOD. ABLE TO GIVE HIM SOME ORAL LIQUIDS WITH THICKENER. CALORIC LOG WAS ORDERED FOR PATIENT FOR LUNCH AND DINNER AND PATIENT WAS NOT ABLE TO CONSUME FOOD. CALL LIGHT WITHIN REACH BED AT THE LOWEST POSITION LOCKED. ENDORSED TO REGISTERED NURSE PRACTITIONER NURSE FOR DODIE.
[2019-08-24 20:39] VITALS: BP 122/85
[2019-08-25] MEDS: BLOOD SUGAR DIAGNOSTIC 1 EACH STRIP IN SCH ×4 (00:06→17:47)
[2019-08-25] MEDS: INSULIN REGULAR, HUMAN 100 UNIT/ML 3 ML VIAL SQ PRN ×4 (00:07→17:48)
[2019-08-25 00:09] VITALS: BP 122/74
[2019-08-25] MEDS: ALBUTEROL FS 2.5 MG/0.5 ML VIAL.NEB NEB SCH ×6 (03:27→23:42)
[2019-08-25] MEDS: IPRATROPIUM NEB FS 0.5 MG/2.5 ML AMPUL.NEB NEB SCH ×6 (03:27→23:42)
[2019-08-25 04:42] VITALS: BP 120/80
[2019-08-25 06:20] LABS: BASOPHILS # (AUTO) 0.1 /CMM (0.0-0.2); BASOPHILS % (AUTO) 0.6 % (0.0-2.0); EOSINOPHILS % (AUTO) 0.2 % (0.0-6.0); HEMATOCRIT 45 % (39-51); HEMOGLOBIN 14.8 g/dL (13.5-17.5); LYMPHOCYTES # (AUTO) 1.2 /CMM (0.8-4.8); LYMPHOCYTES % (AUTO) 8.1 % (20.0-44.0); MEAN CORPUSCULAR HGB CONC 33 g/dl (31.0-36.0); MEAN CORPUSCULAR VOLUME 92 fL (80-96); MONOCYTES % (AUTO) 6.9 % (2.0-12.0); NEUTROPHILS # (AUTO) 12.2 /CMM (1.8-8.9); NEUTROPHILS % (AUTO) 84.2 % (43.0-81.0); PLATELET COUNT (AUTO) 308 /CMM (150-450); RED BLOOD CELL COUNT(AUTO) 4.92 MIL/uL (4.5-6.0); WHITE BLOOD COUNT (AUTO) 14.5 K/uL (4.3-11.0)
--- NOTE | 2019-08-25 06:20 | NUR ---
END OF SHIFT REPORT Patient in bed, non verbal, eyes open. V-Pacing in the Tele monitor. No acute events overnight, afebrile. Remains on supplemental Oxygen 5LPM via NC, tolerating well. Bilateral soft wrist restraint in place, releases and reapplied every 2 hours, circulation intact, no skin injury. Fall/skin precaution maintained.
[2019-08-25 06:57] LABS: CALCIUM, SERUM 9.1 mg/dL (8.5-10.1); MAGNESIUM 2.4 mg/dL (1.8-2.4); PHOSPHORUS 2.7 mg/dL (2.5-4.9); POTASSIUM 4.1 mmol/L (3.5-5.1)
--- NOTE | 2019-08-25 07:10 | NUR ---
THERAPY COORDINATOR NOTES PATIENT IN BED EYES OPEN. NO ACUTE DISTRESS NOTED. ON O2 @ 5LPM VIA NASAL CANNULA. BILATERAL SOFT RESTRAINT IN PLACE CHECKED WITH GOOD CIRCULATION. SAFETY MEASURE IN PLACE. CALL LIGHT WITHIN REACH. WILL CONTINUE TO MONITOR ACCORDINGLY.
[2019-08-25 08:00] VITALS: BP 115/64
[2019-08-25] MEDS: CHOLECALCIFEROL 1,000 UNIT TABLET (VIT D3) PO SCH (08:23)
[2019-08-25] MEDS: DONEPEZIL 5 MG TABLET PO SCH (08:23)
[2019-08-25] MEDS: PANTOPRAZOLE 40 MG/PACK PACK NG SCH (08:23)
[2019-08-25] MEDS: SERTRALINE HCL 25 MG TABLET PO SCH (08:23)
[2019-08-25] MEDS: CYANOCOBALAMIN 500 MCG TABLET PO SCH (08:23)
[2019-08-25] MEDS: FINASTERIDE (5 MG) 5 MG TABLET PO SCH (08:23)
[2019-08-25] MEDS: CLOPIDOGREL BISULFATE 75 MG TABLET PO SCH (08:24)
[2019-08-25] MEDS: ENOXAPARIN SODIUM 40 MG/0.4 ML DISP.SYRIN SQ SCH (08:25)
--- NOTE | 2019-08-25 11:03 | NUR ---
DIRECTOR OF BILLING NOTES SEEN AND EVALUATED BY DR KEDAR HORNER WITH NEW ORDERS MADE, NOTED AND CARRIED OUT.
[2019-08-25] MEDS: IV D5W 1,000 ML IV PRN ×2 (11:43→22:23)
[2019-08-25 12:00] VITALS: BP 105/80
[2019-08-25 16:00] VITALS: BP 128/73
--- NOTE | 2019-08-25 18:43 | NUR ---
IMPORT AND EXPORT CLERK NOTES PATIENT IN BED EYES CLOSED, EASY TO AROUSE. NO ACUTE DISTRESS NOTED. ON O2 @ 5LPM VIA NASAL CANNULA. BILATERAL SOFT RESTRAINT IN PLACE CHECKED WITH GOOD CIRCULATION. NEEDS ATTENDED AND ANTICIPATED. SAFETY MEASURE IN PLACE. CALL LIGHT WITHIN REACH. WILL ENDORSE TO NIGHT NURSE FOR CONTINUITY OF CARE.
--- NOTE | 2019-08-25 19:05 | NUR ---
MS RN NOTES RECEIVED PT IN BED WITH EYES CLOSED AND EASY TO AROUSE. RESPIRATIONS EVEN AND UNLABORED WITH NO S/S OF ACUTE DISTRESS OR SOB NOTED. PT ON O2 @ 5LPM VIA NASAL CANNULA TOLERATING WELL. PT WITH BILATERAL SOFT RESTRAINT IN PLACE CHECKED WITH GOOD CIRCULATION. PT WITH RIJ PICC LINE INFUSING D5 @100CC/HR. SAFETY MEASURE IN PLACE WITH BE DIN LOWEST LOCKED POSITION WITH SIDE RAILS UP X2. CALL LIGHT WITHIN REACH. WILL CONTINUE TO MONITOR.
[2019-08-25 20:00] VITALS: BP 118/71
[2019-08-26] MEDS: BLOOD SUGAR DIAGNOSTIC 1 EACH STRIP IN SCH ×5 (01:01→23:56)
[2019-08-26] MEDS: INSULIN REGULAR, HUMAN 100 UNIT/ML 3 ML VIAL SQ PRN ×5 (01:02→23:57)
[2019-08-26] MEDS: IPRATROPIUM NEB FS 0.5 MG/2.5 ML AMPUL.NEB NEB SCH ×6 (03:48→22:56)
[2019-08-26] MEDS: ALBUTEROL FS 2.5 MG/0.5 ML VIAL.NEB NEB SCH ×6 (03:48→22:56)
[2019-08-26 04:00] VITALS: BP 118/65
[2019-08-26 06:20] LABS: BASOPHILS % (AUTO) 0.1 % (0.0-2.0); EOSINOPHILS % (AUTO) 0.2 % (0.0-6.0); HEMATOCRIT 40 % (39-51); HEMOGLOBIN 13.2 g/dL (13.5-17.5); LYMPHOCYTES % (AUTO) 5.2 % (20.0-44.0); MEAN CORPUSCULAR HGB CONC 33 g/dl (31.0-36.0); MEAN CORPUSCULAR VOLUME 91 fL (80-96); MONOCYTES # (AUTO) 1.3 /CMM (0.1-1.30); NEUTROPHILS % (AUTO) 87.5 % (43.0-81.0); PLATELET COUNT (AUTO) 294 /CMM (150-450); RED BLOOD CELL COUNT(AUTO) 4.38 MIL/uL (4.5-6.0); WHITE BLOOD COUNT (AUTO) 18.2 K/uL (4.3-11.0)
[2019-08-26 06:32] LABS: CALCIUM, SERUM 8.4 mg/dL (8.5-10.1); PHOSPHORUS 2.1 mg/dL (2.5-4.9); POTASSIUM 3.2 mmol/L (3.5-5.1)
--- NOTE | 2019-08-26 07:02 | NUR ---
MS RN NOTES PT IN BED WITH EYES CLOSED AND EASY TO AROUSE. RESPIRATIONS EVEN AND UNLABORED WITH NO S/S OF ACUTE DISTRESS OR SOB NOTED THROUGHOUT SHIFT. PT ON O2 @ 5LPM VIA NASAL CANNULA TOLERATING WELL. PT WITH BILATERAL SOFT RESTRAINT IN PLACE CHECKED WITH GOOD CIRCULATION. PT WITH RIJ PICC LINE INFUSING D5 @100CC/HR. PT KEPT CLEAN, DRY AND COMFORTABLE. PT TURNED Q2 HOURS THROUGHOUT SHIFT. SAFETY MEASURE IN PLACE WITH BE DIN LOWEST LOCKED POSITION WITH SIDE RAILS UP X2. CALL LIGHT WITHIN REACH. WILL ENDORSE TO ONCOMING NURSE FOR DODIE.
[2019-08-26] MEDS: ENOXAPARIN SODIUM 40 MG/0.4 ML DISP.SYRIN SQ SCH (08:49)
[2019-08-26] MEDS: DONEPEZIL 5 MG TABLET PO SCH (08:49)
[2019-08-26] MEDS: CHOLECALCIFEROL 1,000 UNIT TABLET (VIT D3) PO SCH (08:49)
[2019-08-26] MEDS: PANTOPRAZOLE 40 MG/PACK PACK NG SCH (08:49)
[2019-08-26] MEDS: SERTRALINE HCL 25 MG TABLET PO SCH (08:50)
[2019-08-26] MEDS: FINASTERIDE (5 MG) 5 MG TABLET PO SCH (08:50)
[2019-08-26] MEDS: CYANOCOBALAMIN 500 MCG TABLET PO SCH (08:50)
[2019-08-26] MEDS: CLOPIDOGREL BISULFATE 75 MG TABLET PO SCH (08:50)
[2019-08-26] MEDS ORDERED: POTASSIUM PHOSPHATE MM 15 MMOL in IV D5W 250 ML IV SCH (11:00)
[2019-08-26] MEDS ORDERED: POTASSIUM CHLORIDE 20 MEQ POWDER PACKET PO SCH (11:15)
[2019-08-26] MEDS: GLUCERNA SHAKE 237 ML CAN PO SCH ×2 (12:00→16:48)
--- NOTE | 2019-08-26 13:06 | NUR ---
asleep since the begiining of shift, arousable, opened eyes, unable to utter one word. Unable to feed breakfast nor lunch. IVF still running at 100cc/hr. awaiting KPO4, and KLor powder to replace, pharmacy already made aware. Mouth care done secondary.
--- NOTE | 2019-08-26 14:34 | NUR ---
1400. wide awake, opened eyes, when heard the voices , opened mouth, when asked whether he wants some nutrient. About 100cc of GlUCERNA given, and KLOR powdered given ( K+ 3.2,/p04 8.4, getting replaced with KPO4 now. Plan to have PEG inserted, family agreed, per 's notes
--- NOTE | 2019-08-26 17:43 | NUR ---
secondary to being asleep all shift long, woke up very briefly, then back to sleep. NO significant amount of intake noted. Patient is not combative, did not even attempt to pull out any medical center manager. Restraints off during this shift.
--- NOTE | 2019-08-26 18:33 | NUR ---
SOME MUCOUS , YELLOW COLORED BM ON THE DIAPER, NOT SIGNIFICANT. SEEN BY MANAGER CAR, NETTE, RECTAL TUBE DISCONTINUED RIGHT NOW.
--- NOTE | 2019-08-26 19:10 | NUR ---
MS RN NOTES RECEIVED PT LYING IN BED RESTING. PT. IS EASILY AROUSABLE TO NAME AND TOUCH. BREATHING EVEN AND UNLABORED ON 5LPM O2 VIA NC TOLERATING WELL. NO SOB, RESPIRATORY DISTRESS OR COMPLAINTS OF PAIN NOTED AT THIS TIME. PT WITH BILATERAL SOFT WRIST RESTRAINTS IN PLACE, PRESENT AND INTACT. CIRCULATION CHECK DONE. PT WITH RIGHT IJ PICC LINE PRESENT, PATENT AND INTACT ADMINISTERING TO PT. D5W @100ML/HR. PT. WITH PATEL CATHETER PRESENT, PATENT AND INTACT. ASPIRATION AND SAFETY PRECAUTIONS IMPLEMENTED AND IN PLACE. BED LOCKED AND IN LOWEST POSITION, SIDE RAILS UP X3, BED ALARM ON, CALL LIGHT WITHIN REACH, WILL CONTINUE TO MONITOR.
[2019-08-26 20:00] VITALS: BP 143/84
[2019-08-27] MEDS: ALBUTEROL FS 2.5 MG/0.5 ML VIAL.NEB NEB SCH ×6 (03:34→23:06)
[2019-08-27] MEDS: IPRATROPIUM NEB FS 0.5 MG/2.5 ML AMPUL.NEB NEB SCH ×6 (03:34→23:06)
[2019-08-27 04:00] VITALS: BP 97/42
[2019-08-27] MEDS: IV D5W 1,000 ML IV PRN (05:47)
[2019-08-27] MEDS: BLOOD SUGAR DIAGNOSTIC 1 EACH STRIP IN SCH ×3 (06:04→17:39)
--- NOTE | 2019-08-27 06:09 | NUR ---
MS RN NOTES PT IS LYING IN BED RESTING. BREATHING EVEN AND UNLABORED ON 5LPM O2 VIA NC TOLERATING WELL. NO SOB, RESPIRATORY DISTRESS OR COMPLAINTS OF PAIN NOTED AT THIS TIME AND THROUGHOUT SHIFT. PT WITH BILATERAL SOFT WRIST RESTRAINTS IN PLACE, PRESENT AND INTACT. CIRCULATION CHECK DONE. PT WITH RIGHT IJ PICC LINE PRESENT, PATENT AND INTACT ADMINISTERING TO PT. D5W @100ML/HR. PT. WITH PATEL CATHETER PRESENT, PATENT AND INTACT DRAINING SANTO COLORED URINE WITH SEDIMENT. ALL PT. NEEDS MET. PT. OFFLOADED, TURNED AND REPOSITIONED Q2H AND NEEDED. ASPIRATION AND SAFETY PRECAUTIONS IMPLEMENTED AND IN PLACE. BED LOCKED AND IN LOWEST POSITION, SIDE RAILS UP X3, BED ALARM ON, CALL LIGHT WITHIN REACH, WILL ENDORSE TO DAYSHIFT NURSE FOR CONTINUITY OF CARE.
[2019-08-27 07:00] LABS: CALCIUM, SERUM 8.5 mg/dL (8.5-10.1); CREATININE 0.9 mg/dL (0.6-1.3); POTASSIUM 3.5 mmol/L (3.5-5.1)
[2019-08-27 07:09] LABS: BASOPHILS % (AUTO) 0.2 % (0.0-2.0); EOSINOPHILS % (AUTO) 0.3 % (0.0-6.0); HEMATOCRIT 39 % (39-51); LYMPHOCYTES # (AUTO) 0.9 /CMM (0.8-4.8); LYMPHOCYTES % (AUTO) 6.5 % (20.0-44.0); MEAN CORPUSCULAR HGB CONC 33 g/dl (31.0-36.0); MEAN CORPUSCULAR VOLUME 91 fL (80-96); MONOCYTES % (AUTO) 7.2 % (2.0-12.0); NEUTROPHILS # (AUTO) 11.8 /CMM (1.8-8.9); NEUTROPHILS % (AUTO) 85.8 % (43.0-81.0); PLATELET COUNT (AUTO) 266 /CMM (150-450); RED BLOOD CELL COUNT(AUTO) 4.31 MIL/uL (4.5-6.0); WHITE BLOOD COUNT (AUTO) 13.7 K/uL (4.3-11.0)
--- NOTE | 2019-08-27 07:38 | NUR ---
RN OPENING NOTES RECEIVED PATIENT SLEEPING IN BED COMFORTABLY, SHOWS NO S/SX OF RESP DISTRESS OR SOB AT THIS TIME. HE IS AOX1, NON-VERBAL, AND ON BEDREST. HE IS ON 5L OF OXYGEN VIA NC, TOLERATING WELL. HE HAS BILATERAL SOFT WRIST RESTRAINTS, WILL REMOVE AND ASSESS PER PROTOCOL. PATEL CATH IS PATENT AND INTACT, DRAINING URINE BY GRAVITY. HE IS ON CARDIAC PUREED DIET. IV SITE ON TNJ PICC IS PATENT AND INTACT, INFUSING D5W AT 100 ML/HR. CHEST RISES AND FALLS EVENLY. SAFETY MEASURES HAVE BEEN IMPLEMENTED, CALL LIGHT IS WITHIN REACH, BED IS IN LOWEST AND LOCKED POSITION, SIDE RAILS UP X2, WILL CONTINUE TO MONITOR FOR ANY CHANGES.
[2019-08-27 08:00] VITALS: BP 98/45
[2019-08-27] MEDS: GLUCERNA SHAKE 237 ML CAN PO SCH ×3 (08:00→17:00)
[2019-08-27] MEDS: CHOLECALCIFEROL 1,000 UNIT TABLET (VIT D3) PO SCH (09:00)
[2019-08-27] MEDS: PANTOPRAZOLE 40 MG/PACK PACK NG SCH (09:00)
[2019-08-27] MEDS: FINASTERIDE (5 MG) 5 MG TABLET PO SCH (09:00)
[2019-08-27] MEDS: SERTRALINE HCL 25 MG TABLET PO SCH (09:00)
[2019-08-27] MEDS: CYANOCOBALAMIN 500 MCG TABLET PO SCH (09:00)
[2019-08-27] MEDS: CLOPIDOGREL BISULFATE 75 MG TABLET PO SCH (09:00)
[2019-08-27] MEDS: DONEPEZIL 5 MG TABLET PO SCH (09:00)
[2019-08-27] MEDS: POTASSIUM CHLORIDE 20 MEQ TAB.PRT.SR PO SCH ×3 (09:00→10:00)
[2019-08-27] MEDS: ENOXAPARIN SODIUM 40 MG/0.4 ML DISP.SYRIN SQ SCH (09:05)
--- NOTE | 2019-08-27 09:58 | NUR ---
RN NOTES UNABLE TO ADMIN 0900 MEDICATIONS BECAUSE PT IS ALTERED AND IS ON ASPIRATION PRECAUTIONS. TRIED MULTIPLE ATTEMPTS TO BUT PT IS NOT ALERT, MD MADE AWARE. WILL CONTINUE TO MONITOR FOR ANY CHANGES.
[2019-08-27] MEDS: POTASSIUM CL. PREMIX PERIPHER. 50 ML IV SCH ×2 (10:54→12:22)
[2019-08-27 12:00] VITALS: BP 110/85
[2019-08-27 16:00] VITALS: BP 112/87
--- NOTE | 2019-08-27 18:15 | NUR ---
RN NOTES PEG PLACEMENT OPERATION HAS BEEN CANCELLED. PT O2 SATURATION DROPPED TO THE 70'S PRIOR TO OP. PT HAD AUDIBLE SECRETIONS WHEN BREATHNG. RT WAS CALLED AND PT HAD A DEEP SUCTION AND WAS PLACED ON FACE MASK. DR. HORNER WAS NOTIFIED, RECEIVED ORDERS FOR ABG AND CHEST XRAY. OXYGEN SAT IS NOW FLUCTUATING BETWEEN THE HIGH 80'S LOW 90'S. PT FAMILY MADE AWARE OF THE CURRENT EVENTS. WILL CONTINUE TO MONITOR FOR ANY CHANGES.
[2019-08-27 18:33] LABS: ABG BASE EXCESS 5.5 mmol/L; ABG OXYGEN SATURATION 92.8 % (92.0-98.5); ABG PCO2 35.4 mmHg (35.0-45.0); ABG PH 7.521 (7.350-7.450); ABG PO2 59.8 mmHg (75.0-100.0); AaDO2 184.7 mmHg; COHb 0.6 % (0.5-1.5); MetHb 0.4 % (0.0-1.5); O2Hb 91.9 % (94.0-97.0); SITE, ABG Right Radial; VENT MODE, BG NC 5L
--- NOTE | 2019-08-27 19:40 | NUR ---
RN CLOSING NOTES PATIENT IS RESTING IN BED COMFORTABLY. PT PEG PLACEMENT OP WAS CANCELED BECAUSE OXYGEN SAT WAS DROPPING. FAMILY HAS BEEN MADE AWARE. PT NEEDS HAVE BEEN MET. SAFETY MEASURES HAVE BEEN IMPLEMENTED, CALL LIGHT IS WITHIN REACH, BED IS IN LOWEST AND LOCKED POSITION, SIDE RIALS UP X2, PT HAS BEEN ENDORSED TO NIGHTSHIFT RN FOR CONTINUITY OF CARE.
[2019-08-27 20:00] VITALS: BP 111/54
--- NOTE | 2019-08-27 20:22 | NUR ---
MS RN OPENING NOTE RECEIVED PATIENT NON-VERBAL SHOWING NO SIGNS OF ANY DISTRESS. PATIENT IS ON 5L OF O2 SATURATING AT 92% WITH CONTINUOS MONITORING. PATIENT HAS A LCW PACEMAKER. HAS A RIGHT IJ PICC LINE PATENT. FC CATHETER ATTACHED WITH NO SIGN OF OBSTRUCTION. PATIENT HAS ON RESTRAINTS, PULSE PALPABLE. ALL SAFETY PRECAUTIONS APPLIED WILL CONTINUE TO MONITOR PATIENT FOR DODIE.
[2019-08-27] MEDS: ACETAMINOPHEN 650 MG/SUPP.RECT RC PRN (21:07)
[2019-08-28] MEDS: BLOOD SUGAR DIAGNOSTIC 1 EACH STRIP IN SCH ×5 (00:48→23:29)
[2019-08-28] MEDS: ALBUTEROL FS 2.5 MG/0.5 ML VIAL.NEB NEB SCH ×6 (03:21→23:14)
[2019-08-28] MEDS: IPRATROPIUM NEB FS 0.5 MG/2.5 ML AMPUL.NEB NEB SCH ×6 (03:21→23:14)
[2019-08-28 04:00] VITALS: BP 90/57
--- NOTE | 2019-08-28 07:30 | NUR ---
MS RN NOTE PATIENT IN BED WITH 6L OF O2 SATURATING AT 96%. NO SIGN OF ANY DISTRESS. ALL SAFETY PRECAUTIONS APPLIED. ENDORSED PATIENT TO MORNING SHIFT NURSE FOR DODIE.
[2019-08-28 08:00] VITALS: BP 109/62
--- NOTE | 2019-08-28 08:00 | NUR ---
RN NOTES RECEIVED PATIENT IN THE BED CONFUSED, GARBLED WHEN TAKING, UNABLE TO VERBALIZE. PATIENT ON O2-5.0 L NC NOT ACUTE RESPIRATORY DISTRESS, V/S STABLE. SEEN PATIENT BY SMOKING TOBACCO PACKER HAND Dr ARCEO. ADMINISTERED SCHEDULED MEDICATION BY CRUSHED, AND MIXED WITH APPLE SAUCE. KEEP HOB ELEVATED FOR ASPIRATION PRECAUTION. PATIENT ON ARM RESTRAIN BECAUSE REMOVING PATEL, AND IV, CHECKED CIRCULATION. F/C DRAINING LIGHT YELLOW OUTPUT. PATIENT CONGESTED UPPER CHEST, GET DEEP SUCTIONING BY RT, AND ALSO GETTING BREATHING TREATMENT. CALL LIGHT WITHIN TO REACH. PATIENT ON DVT PUMP. PICC LINE INTACT ON RIGHT EJ VEIN INTACT.ASSIST TURN AND REPOSTION Q 2 HR. SAFETY PRECAUTION MAINTAINED ALL THE TIME. BED ALARM ON, ALSO SIDE RAILS X3. CONTINUED MONITORING.
[2019-08-28] MEDS: GLUCERNA SHAKE 237 ML CAN PO SCH ×3 (08:26→16:46)
[2019-08-28] MEDS: CLOPIDOGREL BISULFATE 75 MG TABLET PO SCH (08:30)
[2019-08-28] MEDS: CHOLECALCIFEROL 1,000 UNIT TABLET (VIT D3) PO SCH (08:30)
[2019-08-28] MEDS: FINASTERIDE (5 MG) 5 MG TABLET PO SCH (08:30)
[2019-08-28] MEDS: CYANOCOBALAMIN 500 MCG TABLET PO SCH (08:31)
[2019-08-28] MEDS: SERTRALINE HCL 25 MG TABLET PO SCH (08:31)
[2019-08-28] MEDS: DONEPEZIL 5 MG TABLET PO SCH (08:31)
[2019-08-28] MEDS: PANTOPRAZOLE 40 MG/PACK PACK NG SCH (08:31)
[2019-08-28] MEDS: ENOXAPARIN SODIUM 40 MG/0.4 ML DISP.SYRIN SQ SCH (08:32)
[2019-08-28 09:11] LABS: BASOPHILS # (AUTO) 0.1 /CMM (0.0-0.2); BASOPHILS % (AUTO) 0.5 % (0.0-2.0); EOSINOPHILS % (AUTO) 0.1 % (0.0-6.0); HEMATOCRIT 42 % (39-51); HEMOGLOBIN 13.9 g/dL (13.5-17.5); LYMPHOCYTES # (AUTO) 0.7 /CMM (0.8-4.8); LYMPHOCYTES % (AUTO) 5.1 % (20.0-44.0); MEAN CORPUSCULAR HGB CONC 33 g/dl (31.0-36.0); MEAN CORPUSCULAR VOLUME 91 fL (80-96); MONOCYTES # (AUTO) 0.9 /CMM (0.1-1.30); MONOCYTES % (AUTO) 6.6 % (2.0-12.0); NEUTROPHILS # (AUTO) 12.1 /CMM (1.8-8.9); NEUTROPHILS % (AUTO) 87.7 % (43.0-81.0); PLATELET COUNT (AUTO) 287 /CMM (150-450); RED BLOOD CELL COUNT(AUTO) 4.59 MIL/uL (4.5-6.0); WHITE BLOOD COUNT (AUTO) 13.7 K/uL (4.3-11.0)
[2019-08-28 09:25] LABS: CALCIUM, SERUM 9.4 mg/dL (8.5-10.1); CREATININE 1.1 mg/dL (0.6-1.3); POTASSIUM 4.1 mmol/L (3.5-5.1)
[2019-08-28 09:30] LABS: ALBUMIN 2.5 g/dL (3.4-5.0); BILIRUBIN,TOTAL 1.2 mg/dL (0.2-1.0); MAGNESIUM 2.2 mg/dL (1.8-2.4); PHOSPHORUS 2.4 mg/dL (2.5-4.9); TOTAL PROTEIN, SERUM 7.6 g/dL (6.4-8.2)
--- NOTE | 2019-08-28 11:00 | NUR ---
rn notes seen patient via hospitalist Dr Prieto, and cable placer Dr Damon. Per Dr. Damon get verbal order put NG tube, and start feeding 2 days, and administered medication via NG tube. order taken and carried out..
[2019-08-28] MEDS ORDERED: K PHOS NEUTRAL 250 MG TABLET PO ONE (11:30)
--- NOTE | 2019-08-28 11:58 | NUR ---
RN NOTES NG INSERTED #18, AND ORDERED CHEST X-RAY FOR PLACEMENT. HOB ELEVATED FOR ASPIRATION PRECAUTION. CHECKED CIRCULATION BOTH ARMS, ASSIST TURN AND REPOSTION Q 2 HR. F/C DARNING LIGHT YELLOW OUTPUT.
[2019-08-28 12:00] VITALS: BP 115/67
--- NOTE | 2019-08-28 13:00 | NUR ---
RN NOTES PER HOSPITALIST Dr HORNER KEEP PATIENT NPO FOR GT PLACEMENT. OR AND GI MD HUANG AWARE OF GT PLACEMENT.
[2019-08-28] MEDS: ACETYLCYSTEINE 10% SOLN 400 MG/4 ML VIAL NEB SCH ×2 (15:18→23:14)
[2019-08-28] MEDS: DIGOXIN INJ 0.5 MG/2 ML AMPUL IV SCH ×3 (15:22→23:19)
[2019-08-28 16:00] VITALS: BP 118/73
--- NOTE | 2019-08-28 17:00 | NUR ---
RN NOTES BS-103 MG/DL, PATENT NPO, NG TUBE INTACT. KEEP HOB ELEVATED FOR ASPIRATION PRECAUTION. PATIENT MAY GO GT PLACEMENT. ASSIST TURN AND REPOSTION Q 2 HR. CALL LIGHT WITHIN TO REACH.
--- NOTE | 2019-08-28 18:24 | NUR ---
RN NOTES PATIENT STABLE NO ACUTE RESPIRATORY DISTRESS, F/C DRAINING LIGHT YELLOW OUTPUT, V/S STABLE, NG TUBE INTACT. SIDE RAILS X3 UP, ALSO BED ALARM ON. ENDORSED ONCOMING NURSE FOLLOW PLAN OF CARE.
[2019-08-28 20:00] VITALS: BP 112/68
[2019-08-28 21:31] VITALS: BP 112/68
[2019-08-29] MEDS: IPRATROPIUM NEB FS 0.5 MG/2.5 ML AMPUL.NEB NEB SCH ×5 (03:47→20:13)
[2019-08-29] MEDS: ALBUTEROL FS 2.5 MG/0.5 ML VIAL.NEB NEB SCH ×5 (03:47→20:13)
[2019-08-29 04:00] VITALS: BP 139/68
[2019-08-29 06:18] LABS: BASOPHILS % (AUTO) 0.3 % (0.0-2.0); HEMATOCRIT 44 % (39-51); HEMOGLOBIN 14.5 g/dL (13.5-17.5); LYMPHOCYTES # (AUTO) 0.5 /CMM (0.8-4.8); LYMPHOCYTES % (AUTO) 3.4 % (20.0-44.0); MEAN CORPUSCULAR HGB CONC 33 g/dl (31.0-36.0); MEAN CORPUSCULAR VOLUME 91 fL (80-96); MONOCYTES # (AUTO) 0.9 /CMM (0.1-1.30); MONOCYTES % (AUTO) 6.8 % (2.0-12.0); NEUTROPHILS # (AUTO) 12.4 /CMM (1.8-8.9); NEUTROPHILS % (AUTO) 89.5 % (43.0-81.0); PLATELET COUNT (AUTO) 305 /CMM (150-450); RED BLOOD CELL COUNT(AUTO) 4.76 MIL/uL (4.5-6.0); WHITE BLOOD COUNT (AUTO) 13.8 K/uL (4.3-11.0)
[2019-08-29 06:25] VITALS: BP_SYST 124; BP_SYST 139; BP_DIAS 62; BP_DIAS 68
[2019-08-29 06:41] LABS: CALCIUM, SERUM 8.9 mg/dL (8.5-10.1); CREATININE 1.3 mg/dL (0.6-1.3); PHOSPHORUS 3.2 mg/dL (2.5-4.9); POTASSIUM 4.1 mmol/L (3.5-5.1)
[2019-08-29] MEDS: BLOOD SUGAR DIAGNOSTIC 1 EACH STRIP IN SCH ×4 (06:43→23:24)
[2019-08-29] MEDS: ACETYLCYSTEINE 10% SOLN 400 MG/4 ML VIAL NEB SCH ×2 (07:00→15:34)
[2019-08-29 08:00] VITALS: BP 127/58
--- NOTE | 2019-08-29 08:00 | NUR ---
m/s postdoctoral research fellow: notes noted with temp of 101.2 (a). pt still with congestion, suctioned prn. ask gem setter to check temp rectally.
--- NOTE | 2019-08-29 08:30 | NUR ---
m/s director plans: notes re check temp 103.3 (r). dr. mcgee notified and made aware. tylenol supp given at 0838. cooling measures provided. will continue to monitor.
[2019-08-29] MEDS: ACETAMINOPHEN 650 MG/SUPP.RECT RC PRN (08:38)
[2019-08-29] MEDS: ENOXAPARIN SODIUM 40 MG/0.4 ML DISP.SYRIN SQ SCH (08:39)
[2019-08-29] MEDS ORDERED: GLUCERNA SHAKE 237 ML CAN NG SCH (08:47)
[2019-08-29] MEDS ORDERED: PHARMACY TO CHANGE PO MEDS TO GT/NG XX PRN (09:00)
[2019-08-29] MEDS ORDERED: MAG HYDROX/AL HYDROX/SIMETH 30 ML UDC NG PRN (09:00)
[2019-08-29] MEDS ORDERED: CLONIDINE HCL 0.1 MG TABLET NG PRN (09:00)
[2019-08-29] MEDS ORDERED: MAGNESIUM HYDROXIDE 30 ML UDC NG PRN (09:00)
[2019-08-29] MEDS: FINASTERIDE (5 MG) 5 MG TABLET NG SCH (09:22)
[2019-08-29] MEDS: PANTOPRAZOLE 40 MG/PACK PACK NG SCH (09:22)
[2019-08-29] MEDS: SERTRALINE HCL 25 MG TABLET NG SCH (09:23)
[2019-08-29] MEDS: DONEPEZIL 5 MG TABLET NG SCH (09:23)
[2019-08-29] MEDS: CLOPIDOGREL BISULFATE 75 MG TABLET NG SCH (09:23)
[2019-08-29] MEDS: CYANOCOBALAMIN 500 MCG TABLET NG SCH (09:23)
[2019-08-29] MEDS: CHOLECALCIFEROL 1,000 UNIT TABLET (VIT D3) NG SCH (09:23)
--- NOTE | 2019-08-29 10:00 | NUR ---
m/s mushroom spawn maker: md visit seen and examined by dr. mcgee with verbal order, pt may start ngt feeding per dietitian recommendation. order read back and carried out. kept pt npo. all po meds change to ngt per pharmacy. hob elevated. suctioned prn due to congestion. will continue to monitor.
--- NOTE | 2019-08-29 10:45 | NUR ---
m/s high school english teacher: cardio f/u seen by dr. shipman.
--- NOTE | 2019-08-29 10:46 | NUR ---
m/s barber or beauty shop manager: notes dietitian here and recommended jevity 1.2 at 20ml/hr and the goal at 70ml/hr. order carried out and acknowledged.
[2019-08-29] MEDS ORDERED: JEVITY 1.2 CAL 1,000 ML BOTTLE GT PRN (11:00)
[2019-08-29 12:00] VITALS: BP 136/57
[2019-08-29] MEDS: INSULIN REGULAR, HUMAN 100 UNIT/ML 3 ML VIAL SQ PRN ×2 (12:14→23:26)
--- NOTE | 2019-08-29 12:15 | NUR ---
m/s combination man: nephro f/u seen by dr. arrington.
--- NOTE | 2019-08-29 13:43 | NUR ---
m/s boat builder and repairer: notes jevity 1.2 ngt feeding started at 20ml/hr. hob elevated. will continue to monitor.
--- NOTE | 2019-08-29 15:25 | NUR ---
m/s cage clerk: notes noted pt desating, repositioned and suctioned prn. cn ordered cxr. ngt feeding held. will continue to monitor.
[2019-08-29 16:00] VITALS: BP 114/56
--- NOTE | 2019-08-29 16:25 | NUR ---
m/s roller die cutting machine operator: notes chest x-ray resulted. advance ngt by 3cm per radiologist. cn aware.
--- NOTE | 2019-08-29 16:30 | NUR ---
m/s hydrologic modeler: pulmo f/u seen and examined by dr. damico. suctioned q 2 hrs and prn due to congestion. continue pulmonary toilet per dispatch clerk.
--- NOTE | 2019-08-29 17:30 | NUR ---
m/s network desktop support specialist: notes pt resting comfortable, satting at 94% on 5l/min via n/c. hob elevated. ngt feeding re started. will continue to monitor.
[2019-08-29] MEDS: SCOPOLAMINE HBR 1 EA PATCH.TD72 TD SCH (18:03)
--- NOTE | 2019-08-29 19:29 | NUR ---
m/s delivery tech: notes report given to paloma (rn) for continuity of care.
--- NOTE | 2019-08-29 19:30 | NUR ---
RN OPENING NOTES RECEIVED PATIENT IN BED ASLEEP. BREATHING EVEN AND UNLABORED. ON 5LPM MASK. NOTED PATIENT VERY CONGESTED. NO S/S OF PAIN OR DISCOMFORT. ON TUBE FEEDING VIA NGT- INFUSING AND TOLERATING WELL WITH VERY LITTLE TO NO RESIDUAL NOTED. PATIENT WITH PATEL CATHETER- INTACT AND DRAINING. ALL OTHER NEEDS ATTENDED TO. SAFETY MEASURES IN PLACE. CALL LIGHT WITHIN REACH. WILL CONTINUE TO MONITOR. Addendum: 08/30/19 at 0659 by GIOVANNA SALINAS RN PATIENT WITH BILATERAL WRIST RESTRAINTS FOR PREVENTION OF PULLING LINES. NO SKIN ISSUES NOTED.
[2019-08-29 20:00] VITALS: BP 102/53
[2019-08-30] MEDS: IPRATROPIUM NEB FS 0.5 MG/2.5 ML AMPUL.NEB NEB SCH ×7 (00:10→23:59)
[2019-08-30] MEDS: ALBUTEROL FS 2.5 MG/0.5 ML VIAL.NEB NEB SCH ×6 (00:11→20:16)
[2019-08-30] MEDS: ACETYLCYSTEINE 10% SOLN 400 MG/4 ML VIAL NEB SCH ×3 (00:11→15:40)
[2019-08-30 04:00] VITALS: BP_SYST 59; BP_SYST 96; BP_DIAS 59; BP_DIAS 93
[2019-08-30] MEDS: BLOOD SUGAR DIAGNOSTIC 1 EACH STRIP IN SCH ×4 (06:12→23:52)
[2019-08-30] MEDS: INSULIN REGULAR, HUMAN 100 UNIT/ML 3 ML VIAL SQ PRN ×2 (06:16→13:39)
--- NOTE | 2019-08-30 06:55 | NUR ---
RN CLOSING NOTES NO ACUTE CHANGES THROUGHOUT SHIFT. BREATHING EVEN AND UNLABORED. ON 5LPM MASK. SUCTIONED MULTIPLE TIMES DUE TO CONGESTION. NO S/S OF PAIN OR DISCOMFORT. ON TUBE FEEDING VIA NGT- INFUSING AND TOLERATING WELL WITH VERY LITTLE TO NO RESIDUAL NOTED. INCREASED TUBE FEEDING TO 30ML/HR. PATEL CATHETER- INTACT AND DRAINING. REPOSITIONED Q2H. PATIENT REMAINS ON RESTRAINTS TO PREVENT PULLING LINES - NO SKIN ISSUES/BREAKDOWN NOTED. HOB ELEVATED THROUGHOUT SHIFT. REMAINS ON ASPIRATION PRECAUTIONS. ALL OTHER NEEDS ATTENDED TO. SAFETY MEASURES IN PLACE. CALL LIGHT WITHIN REACH. WILL ENDORSE TO ONCOMING NURSE FOR DODIE.
[2019-08-30 07:52] LABS: BASOPHILS % (AUTO) 0.2 % (0.0-2.0); HEMATOCRIT 41 % (39-51); HEMOGLOBIN 13.4 g/dL (13.5-17.5); LYMPHOCYTES # (AUTO) 0.4 /CMM (0.8-4.8); LYMPHOCYTES % (AUTO) 2.4 % (20.0-44.0); MEAN CORPUSCULAR HGB CONC 33 g/dl (31.0-36.0); MEAN CORPUSCULAR VOLUME 92 fL (80-96); MONOCYTES # (AUTO) 0.8 /CMM (0.1-1.30); MONOCYTES % (AUTO) 4.4 % (2.0-12.0); PLATELET COUNT (AUTO) 212 /CMM (150-450); RED BLOOD CELL COUNT(AUTO) 4.41 MIL/uL (4.5-6.0); WHITE BLOOD COUNT (AUTO) 18.2 K/uL (4.3-11.0)
[2019-08-30 08:00] VITALS: BP 88/54
[2019-08-30 08:04] LABS: ALANINE AMINOTRANSFERASE 19 U/L (12-78); ALBUMIN 2.2 g/dL (3.4-5.0); ALKALINE PHOSPHATASE 68 U/L (46-116); ASPARTATE AMINOTRANSFERASE 16 U/L (15-37); BILIRUBIN,TOTAL 0.7 mg/dL (0.2-1.0); CALCIUM, SERUM 9.2 mg/dL (8.5-10.1); CARBON DIOXIDE 35 mmol/L (21-32); CHLORIDE 112 mmol/L (98-107); CREATININE 1.5 mg/dL (0.6-1.3); GLUCOSE 141 mg/dL (74-106); MAGNESIUM 2.3 mg/dL (1.8-2.4); POTASSIUM 4.1 mmol/L (3.5-5.1); SODIUM SERUM 150 mmol/L (136-145); TOTAL PROTEIN, SERUM 7.5 g/dL (6.4-8.2); UREA NITROGEN, BLOOD 28 mg/dL (7-18)
[2019-08-30] MEDS: SERTRALINE HCL 25 MG TABLET NG SCH (10:01)
[2019-08-30] MEDS: PANTOPRAZOLE 40 MG/PACK PACK NG SCH (10:01)
[2019-08-30] MEDS: CLOPIDOGREL BISULFATE 75 MG TABLET NG SCH (10:01)
[2019-08-30] MEDS: DONEPEZIL 5 MG TABLET NG SCH (10:01)
[2019-08-30] MEDS: CHOLECALCIFEROL 1,000 UNIT TABLET (VIT D3) NG SCH (10:01)
[2019-08-30] MEDS: FINASTERIDE (5 MG) 5 MG TABLET NG SCH (10:01)
[2019-08-30] MEDS: CYANOCOBALAMIN 500 MCG TABLET NG SCH (10:01)
[2019-08-30] MEDS: ENOXAPARIN SODIUM 40 MG/0.4 ML DISP.SYRIN SQ SCH (10:03)
[2019-08-30 12:00] VITALS: BP 90/62
[2019-08-30 20:00] VITALS: BP 106/49
[2019-08-30] MEDS ORDERED: PIPERACILLIN /TAZOBACTAM 3.375 G in IV D5W 50 ML IV SCH (21:00)
[2019-08-30] MEDS: PIPERACILLIN /TAZOBACTAM 3.375 G in IV D5W 100 ML IV SCH (22:03)
--- NOTE | 2019-08-30 22:10 | NUR ---
2210 RESTRAINTS RENEWAL ORDER OBTAINED FROM STEFANIA CHOWDHURY.
--- NOTE | 2019-08-31 00:01 | NUR ---
Pt tolerating TF well, residual less than 10cc, TF increased to 70cc/hr, to meet feeding goal. Will continue to monitor.
[2019-08-31] MEDS: INSULIN REGULAR, HUMAN 100 UNIT/ML 3 ML VIAL SQ PRN ×3 (01:06→11:30)
[2019-08-31] MEDS: ACETAMINOPHEN 650 MG/20.3 ML UDC NG PRN (01:10)
--- NOTE | 2019-08-31 01:10 | NUR ---
Tylenol 650mg, given vis NGT, for Temp of 100.2. Will continue to monitor.
--- NOTE | 2019-08-31 02:15 | NUR ---
Temp rechecked, down 98.6 Pt. is stbal, repositioned in bed, for comfort. No distress noted.
[2019-08-31] MEDS: ALBUTEROL FS 2.5 MG/0.5 ML VIAL.NEB NEB SCH ×7 (03:50→23:26)
[2019-08-31] MEDS: IPRATROPIUM NEB FS 0.5 MG/2.5 ML AMPUL.NEB NEB SCH ×6 (03:50→23:26)
[2019-08-31 04:00] VITALS: BP 94/63
[2019-08-31] MEDS: PIPERACILLIN /TAZOBACTAM 3.375 G in IV D5W 100 ML IV SCH ×3 (05:13→21:11)
[2019-08-31] MEDS: BLOOD SUGAR DIAGNOSTIC 1 EACH STRIP IN SCH ×3 (05:56→17:15)
[2019-08-31 06:46] LABS: ALANINE AMINOTRANSFERASE 21 U/L (12-78); ALBUMIN 1.9 g/dL (3.4-5.0); ALKALINE PHOSPHATASE 78 U/L (46-116); ASPARTATE AMINOTRANSFERASE 20 U/L (15-37); BILIRUBIN,TOTAL 0.6 mg/dL (0.2-1.0); CALCIUM, SERUM 8.8 mg/dL (8.5-10.1); CARBON DIOXIDE 32 mmol/L (21-32); CHLORIDE 111 mmol/L (98-107); CREATININE 2.3 mg/dL (0.6-1.3); GLUCOSE 245 mg/dL (74-106); MAGNESIUM 2.6 mg/dL (1.8-2.4); PHOSPHORUS 4.6 mg/dL (2.5-4.9); POTASSIUM 4.1 mmol/L (3.5-5.1); SODIUM SERUM 151 mmol/L (136-145); TOTAL PROTEIN, SERUM 7.2 g/dL (6.4-8.2); UREA NITROGEN, BLOOD 57 mg/dL (7-18)
[2019-08-31 06:54] LABS: BASOPHILS % (AUTO) 0.2 % (0.0-2.0); HEMATOCRIT 40 % (39-51); HEMOGLOBIN 13.4 g/dL (13.5-17.5); LYMPHOCYTES # (AUTO) 0.4 /CMM (0.8-4.8); LYMPHOCYTES % (AUTO) 2.4 % (20.0-44.0); MEAN CORPUSCULAR HGB CONC 33 g/dl (31.0-36.0); MEAN CORPUSCULAR VOLUME 93 fL (80-96); MONOCYTES # (AUTO) 0.8 /CMM (0.1-1.30); MONOCYTES % (AUTO) 5.5 % (2.0-12.0); NEUTROPHILS # (AUTO) 13.7 /CMM (1.8-8.9); NEUTROPHILS % (AUTO) 91.9 % (43.0-81.0); PLATELET COUNT (AUTO) 139 /CMM (150-450); RED BLOOD CELL COUNT(AUTO) 4.33 MIL/uL (4.5-6.0)
[2019-08-31] MEDS: ACETYLCYSTEINE 10% SOLN 400 MG/4 ML VIAL NEB SCH ×4 (07:27→23:26)
[2019-08-31 08:00] VITALS: BP 87/53
[2019-08-31] MEDS: FINASTERIDE (5 MG) 5 MG TABLET NG SCH (09:15)
[2019-08-31] MEDS: SERTRALINE HCL 25 MG TABLET NG SCH (09:15)
[2019-08-31] MEDS: DONEPEZIL 5 MG TABLET NG SCH (09:15)
[2019-08-31] MEDS: PANTOPRAZOLE 40 MG/PACK PACK NG SCH (09:16)
[2019-08-31] MEDS: CLOPIDOGREL BISULFATE 75 MG TABLET NG SCH (09:16)
[2019-08-31] MEDS: CYANOCOBALAMIN 500 MCG TABLET NG SCH (09:16)
[2019-08-31] MEDS: CHOLECALCIFEROL 1,000 UNIT TABLET (VIT D3) NG SCH (09:16)
[2019-08-31] MEDS: ENOXAPARIN SODIUM 40 MG/0.4 ML DISP.SYRIN SQ SCH (09:17)
--- NOTE | 2019-08-31 12:41 | NUR ---
patient has power of real estate attorney the person is Rangel Ramesh , contacted by phone and he will bring a copy of the POA .
[2019-08-31] MEDS ORDERED: IV NS 0.9% 500 ML IV ONE (13:00)
[2019-08-31 16:00] VITALS: BP 71/43
[2019-08-31 17:00] VITALS: BP 90/48
[2019-08-31] MEDS ORDERED: FEE PK DOSING 1 MIN EA MC ONE (18:37)
--- NOTE | 2019-08-31 20:30 | NUR ---
MS RN NOTES PT DESATS @ 89% @ 6LPM VIA NC. TITRATED O2 WITH 15LPM NRB. O2 SAT 92-94% VIA NRB. NOTIFIED BRAEDEN CHOWDHURY LOGISTICS TECHNICIAN FOR [facility]. MADE AWARE RE PT'S CONDITION. WITH NEW ORDERS TO DO STAT ABG. ORDERS NOTED AND CARRIED OUT. WILL CONTINUE TO MONITOR.
[2019-08-31] MEDS: VANCOMYCIN 0.75 GM in IV D5W 250 ML IV SCH (20:46)
[2019-08-31 20:57] LABS: ABG BASE EXCESS 4.9 mmol/L; ABG OXYGEN SATURATION 94.1 % (92.0-98.5); ABG PCO2 42.9 mmHg (35.0-45.0); ABG PH 7.453 (7.350-7.450); ABG PO2 67.9 mmHg (75.0-100.0); AaDO2 602.2 mmHg; COHb 0.1 % (0.5-1.5); MetHb 0.4 % (0.0-1.5); O2Hb 93.6 % (94.0-97.0); SITE, ABG Right Radial
[2019-09-01] VITALS (104 sets, daily range): BP systolic 60–114; BP diastolic 30–78
[2019-09-01] MEDS ORDERED: IV NS 0.9% 500 ML BAG IV ONE (00:40)
--- NOTE | 2019-09-01 00:40 | NUR ---
MS RN NOTES PT DESATURATING @ 70% 15LPM NRB. BP 89/48, HR 42, T97, RR24. NOTIFIED BRAEDEN [place]ENTON NATURAL GAS SHOTHOLE DRILLER MONITOR WORKER FOR [facility]. WITH NEW ORDERS TO TRANSFER TO ICU, STAT ABG, STAT CXR, 500 ML NS BOLUS. ORDERS NOTED AND CARRIED OUT. WILL CONTINUE TO MONITOR.
--- NOTE | 2019-09-01 00:50 | NUR ---
MS RN NOTES NOTIFIED BRAEDEN CHOWDHURY OUT AND OUT CIGAR MAKER HAND RE ABG RESULT WITH NEW ORDERS TO INTUBATE PT. ORDERS NOTED AND CARRIED OUT.
--- NOTE | 2019-09-01 01:00 | NUR ---
MS RN NOTES PT TRANSFERRED TO ICU ROOM 257. REPORT GIVEN TO PIA ORTEGA FOR CONTINUITY OF CARE. WILL CONTINUE TO MONITOR.
--- NOTE | 2019-09-01 01:00 | NUR ---
0100 TRANSFERRED PATIENT TO ICU ON ACLS PROTOCOL ACCOMPANIED BY SCENERY BUILDERFPGA ENGINEER NURSE AND RTS.
[2019-09-01 01:10] LABS: ABG BASE EXCESS -1.1 mmol/L; ABG OXYGEN SATURATION 94.5 % (92.0-98.5); ABG PCO2 74.5 mmHg (35.0-45.0); ABG PH 7.206 (7.350-7.450); ABG PO2 86.3 mmHg (75.0-100.0); AaDO2 552.2 mmHg; COHb 0.4 % (0.5-1.5); MetHb 0.7 % (0.0-1.5); O2Hb 93.5 % (94.0-97.0); SITE, ABG Right Radial
--- NOTE | 2019-09-01 01:10 | NUR ---
RT NOTE: PT WAS SUCCESSFULLY INTUBATED WITH ETT 7.5 SECURED @ 23 CM LIPLINE. EQUAL BILATERAL BS NOTED. CO2 DETECTOR COLOR CHANGED CONFIRMED. SUCTIONED YELLOW THICK SECRETIONS. AMBU BAG @ BEDSIDE. VENT PLUGGED INTO RED OUTLET, VENT ALARMS ON AND AUDIBLE. WILL CONTINUE TO MONITOR CLOSELY. Addendum: 09/01/19 at 0219 by KEATON SANTOS RT Amended: Links added.
[2019-09-01] MEDS: BLOOD SUGAR DIAGNOSTIC 1 EACH STRIP IN SCH ×4 (01:11→17:49)
--- NOTE | 2019-09-01 01:15 | NUR ---
MS RN NOTES MIRIEM DAUGHTER NOTIFIED RE PT'S TRANSFER TO ICU ROOM 257
--- NOTE | 2019-09-01 01:15 | NUR ---
ELEVATOR TENDER RCD PT FROM MED SURG 1 FOR RESP DIST; PT INTUBATED BY DR LEDEZMA; 7.5 @ 23 AC 16 450 100%; NO SEDATION NEEDED AT THIS TIME; BL SOFT WRIST RESTRAINTS IN PLACE. SBP 80s. CALL PLACED TO Sherrie CHOWDHURY IT SECURITY PROJECT MANAGER FOR FURTHER ORDERS.
--- NOTE | 2019-09-01 01:30 | NUR ---
VACUUM CLEANER REPAIRER REPEAT CALL PLACED TO Sherrie CHOWDHURY PT BP REMAINS LOW.
[2019-09-01] MEDS ORDERED: IV NS 0.9% 1,000 ML IV PRN (02:00)
[2019-09-01] MEDS ORDERED: NOREPINEPHRINE 8 MG in IV D5W 500 ML IV PRN (02:00)
--- NOTE | 2019-09-01 02:00 | NUR ---
MACHINE SPECIALIST RCD ORDERS FOR 1 L NS BOLUS FOR LOW BP AND START PRESSOR IF BOLUS NOT EFFECTIVE. CONTINUE TO MONITOR.
[2019-09-01] MEDS ORDERED: NOREPINEPHRINE 4 MG/4 ML AMPUL IV ONE (02:01)
--- NOTE | 2019-09-01 02:06 | NUR ---
INFORMATION SYSTEMS SECURITY MANAGER LEVOPHED STARTED PER PROTOCOL. CONTINUE TO TITRATE NEEDED.
[2019-09-01 02:09] LABS: ABG BASE EXCESS 2.5 mmol/L; ABG OXYGEN SATURATION 97.4 % (92.0-98.5); ABG PCO2 57.1 mmHg (35.0-45.0); ABG PH 7.333 (7.350-7.450); ABG PO2 115.7 mmHg (75.0-100.0); AaDO2 540.2 mmHg; COHb 0.1 % (0.5-1.5); MetHb 0.7 % (0.0-1.5); O2Hb 96.6 % (94.0-97.0); SITE, ABG Left Radial; VT, ABG 450 mL
[2019-09-01] MEDS: ALBUTEROL FS 2.5 MG/0.5 ML VIAL.NEB NEB SCH ×6 (03:45→23:23)
[2019-09-01] MEDS: IPRATROPIUM NEB FS 0.5 MG/2.5 ML AMPUL.NEB NEB SCH ×6 (03:46→23:23)
[2019-09-01] MEDS: PIPERACILLIN /TAZOBACTAM 3.375 G in IV D5W 100 ML IV SCH ×3 (04:15→21:35)
[2019-09-01] MEDS: IV NS 0.9% 250 ML IV PRN (04:15)
[2019-09-01] MEDS: IV NS 0.9% 1,000 ML IV PRN ×3 (04:46→18:06)
[2019-09-01 05:10] LABS: BASOPHILS # (AUTO) 0.1 /CMM (0.0-0.2); BASOPHILS % (AUTO) 0.3 % (0.0-2.0); EOSINOPHILS % (AUTO) 0.1 % (0.0-6.0); HEMATOCRIT 38 % (39-51); HEMOGLOBIN 12.3 g/dL (13.5-17.5); LYMPHOCYTES # (AUTO) 0.3 /CMM (0.8-4.8); LYMPHOCYTES % (AUTO) 1.6 % (20.0-44.0); MEAN CORPUSCULAR HGB CONC 32 g/dl (31.0-36.0); MEAN CORPUSCULAR VOLUME 94 fL (80-96); MONOCYTES # (AUTO) 1.1 /CMM (0.1-1.30); MONOCYTES % (AUTO) 5.6 % (2.0-12.0); NEUTROPHILS # (AUTO) 18.5 /CMM (1.8-8.9); NEUTROPHILS % (AUTO) 92.4 % (43.0-81.0); PLATELET COUNT (AUTO) 115 /CMM (150-450); RED BLOOD CELL COUNT(AUTO) 4.07 MIL/uL (4.5-6.0)
[2019-09-01 05:23] LABS: ALANINE AMINOTRANSFERASE 18 U/L (12-78); ALKALINE PHOSPHATASE 68 U/L (46-116); ASPARTATE AMINOTRANSFERASE 25 U/L (15-37); BILIRUBIN,TOTAL 0.4 mg/dL (0.2-1.0); CALCIUM, SERUM 7.8 mg/dL (8.5-10.1); CARBON DIOXIDE 31 mmol/L (21-32); CHLORIDE 115 mmol/L (98-107); CREATININE 2.8 mg/dL (0.6-1.3); GLUCOSE 244 mg/dL (74-106); MAGNESIUM 2.5 mg/dL (1.8-2.4); POTASSIUM 4.6 mmol/L (3.5-5.1); SODIUM SERUM 153 mmol/L (136-145); TOTAL PROTEIN, SERUM 6.3 g/dL (6.4-8.2); UREA NITROGEN, BLOOD 77 mg/dL (7-18)
[2019-09-01 05:54] LABS: ALBUMIN 1.4 g/dL (3.4-5.0)
[2019-09-01] MEDS: INSULIN REGULAR, HUMAN 100 UNIT/ML 3 ML VIAL SQ PRN ×3 (06:46→17:50)
--- NOTE | 2019-09-01 07:10 | NUR ---
WOOL PULLER NOTES RECEIVED PATIENT OPENS EYES , NOT IN ACUTE DISTRESS , ETT 7.01/[address] , VENT SETTINGS ORDERED WITH SPO2 OF 100% , V PACING 70 ON BEDSIDE MONITOR , R NARE NGT IN PLACE CLAMPED , FC DRAINING VIA GRAVITY , R IJ TLC WITH LEVOPHED @ 16MCG/MIN , NS @ 70ML/HR INFUSING WELL , BILATERAL SOFT WRIST RESTRAINS IN PLACE ,ALL NEEDS ATTENDED , BED ON LOW AND LOCKED POSITION , SIDE RAILS X2 CALL LIGHT WITHIN REACH , WILL CONTINUE TO MONITOR
[2019-09-01] MEDS: ACETYLCYSTEINE 10% SOLN 400 MG/4 ML VIAL NEB SCH ×3 (07:35→23:23)
--- NOTE | 2019-09-01 07:50 | NUR ---
RT PATIENT REC'D ORALLY INTUBATED ON MECH VENT. ALARMS CHECKED + AUDIBLE. CARMELLAU BAG AT HOB Addendum: 09/01/19 at 1316 by ANEL CROOKS RT Amended: Links added.
[2019-09-01] MEDS: CLOPIDOGREL BISULFATE 75 MG TABLET NG SCH (08:36)
[2019-09-01] MEDS: PANTOPRAZOLE 40 MG/PACK PACK NG SCH (08:36)
[2019-09-01] MEDS: FINASTERIDE (5 MG) 5 MG TABLET NG SCH (08:36)
[2019-09-01] MEDS: SERTRALINE HCL 25 MG TABLET NG SCH (08:36)
[2019-09-01] MEDS: CHOLECALCIFEROL 1,000 UNIT TABLET (VIT D3) NG SCH (08:37)
[2019-09-01] MEDS: ENOXAPARIN SODIUM 40 MG/0.4 ML DISP.SYRIN SQ SCH (08:37)
[2019-09-01] MEDS: CYANOCOBALAMIN 500 MCG TABLET NG SCH (08:37)
[2019-09-01] MEDS: DONEPEZIL 5 MG TABLET NG SCH (08:37)
--- NOTE | 2019-09-01 08:48 | NUR ---
SPANISH INSTRUCTOR NOTES GT PLACEMENT CHECKED VERIFIED WITH ANOTHER NURSE , GURGLING SOUND HEARD AT STOMACH REGION , GT FEEDING RESTARTED , Addendum: 09/01/19 at 1848 by TOÑO TORRES RN ADVANCE GT 1CM PER XRAY RECOMMENDATION ,
[2019-09-01] MEDS ORDERED: SUCCINYLCHOLINE CHLORIDE 20 MG/ML VIAL IV ONE (09:02)
[2019-09-01] MEDS: PROPOFOL 100 ML IV PRN ×2 (10:11→18:07)
--- NOTE | 2019-09-01 10:11 | NUR ---
CAPSULE MAKER NOTES DIPRIVAN STARTED @ 5MCG/KG/MIN , PT NOTED WITH MILD AGITATION , OPENS EYES , DOESNT FOLLOW COMMANDS , RR OF 30-35CPM , WILL CONTINUE TO MONITOR
[2019-09-01] MEDS: NOREPINEPHRINE 16 MG in IV D5W 500 ML IV PRN ×2 (10:32→21:55)
--- NOTE | 2019-09-01 13:27 | NUR ---
PSYCH SPECIALIST NOTES PICC LINE NURSE AT BEDSIDE, PT STABLE ,ON DPRIVAN @ 20MCG/KG/MIN , ON LEVOPHED @ 20MCG/MIN , WILL CONTINUE TO MONITOR
--- NOTE | 2019-09-01 14:10 | NUR ---
MILLWRIGHT INSTRUCTOR NOTES TRIPLE LUMEN PICC LINE PLACED AT RIGHT BRACHIAL 5 CROATIAN , 39CM LENGTH , PER PICC LINE NURSE , LINE OK TO USE .INFUSION OF LEVOPHED @ 22MCG/MIN , DIPRIVAN @ 20MCG/MIN , NS @ 125ML/HR INFUSING WELL @ RIGHT BRACHIAL PICC LINE TLC .
[2019-09-01] MEDS: SCOPOLAMINE HBR 1 EA PATCH.TD72 TD SCH (17:04)
--- NOTE | 2019-09-01 17:53 | NUR ---
WEB CONTENT COORDINATOR NOTES CATHETER TIP CULTURE LABELED AND SENT TO LAB , LEFT NECK NO SIGNS OF BLEEDING NOTED , PRESSURE APPLIED , WILL CONTINUE TO MONITOR
[2019-09-01] MEDS: JEVITY 1.2 CAL 1,000 ML BOTTLE GT PRN (18:06)
--- NOTE | 2019-09-01 19:06 | NUR ---
GIRLS SWIMMING COACH NOTES PATIENT STABLE SEDATED , NOT IN ACUTE DISTRESS , ETT 7.01/[address] , VENT SETTINGS ORDERED WITH SPO2 OF 100% , V PACING 70 ON BEDSIDE MONITOR , R NARE NGT IN PLACE WITH JEVITY @ 70ML/HR INFUSING WELL , FC DRAINING VIA GRAVITY , R BRACHIAL PICC LINE WITH LEVOPHED @ 22MCG/MIN , NS @ 125ML/HR , DIPRIVAN @ 20MCG/KG/MIN INFUSING WELL , BILATERAL SOFT WRIST RESTRAINS IN PLACE ,ALL NEEDS ATTENDED , BED ON LOW AND LOCKED POSITION , SIDE RAILS X2 CALL LIGHT WITHIN REACH , REPORT GIVEN TO PIA FOR CONTINUITY OF CARE
[2019-09-01] MEDS: VANCOMYCIN 0.75 GM in IV D5W 250 ML IV SCH (20:00)
[2019-09-02] VITALS (90 sets, daily range): BP systolic 63–125; BP diastolic 37–73
--- NOTE | 2019-09-02 | NUR ---
SOFTWARE ENGINEER BACKEND PT PLACED ON KCI MATTRESS; COMPLETE BED BATH AND ORAL CARE RENDERED. PT TOLERATED WELL. CONTINUE TO MONITOR.
[2019-09-02] MEDS: BLOOD SUGAR DIAGNOSTIC 1 EACH STRIP IN SCH ×4 (00:26→17:38)
[2019-09-02] MEDS: INSULIN REGULAR, HUMAN 100 UNIT/ML 3 ML VIAL SQ PRN ×4 (00:28→17:39)
[2019-09-02] MEDS: PROPOFOL 100 ML IV PRN ×3 (00:35→16:20)
[2019-09-02] MEDS: IPRATROPIUM NEB FS 0.5 MG/2.5 ML AMPUL.NEB NEB SCH ×5 (03:12→19:47)
[2019-09-02] MEDS: ALBUTEROL FS 2.5 MG/0.5 ML VIAL.NEB NEB SCH ×5 (03:12→19:47)
[2019-09-02] MEDS: IV NS 0.9% 1,000 ML IV PRN (03:59)
[2019-09-02] MEDS: PIPERACILLIN /TAZOBACTAM 3.375 G in IV D5W 100 ML IV SCH ×3 (04:00→21:00)
[2019-09-02 05:00] LABS: BASOPHILS # (AUTO) 0.1 /CMM (0.0-0.2); BASOPHILS % (AUTO) 0.4 % (0.0-2.0); EOSINOPHILS % (AUTO) 0.1 % (0.0-6.0); HEMATOCRIT 34 % (39-51); HEMOGLOBIN 11.3 g/dL (13.5-17.5); LYMPHOCYTES # (AUTO) 0.8 /CMM (0.8-4.8); LYMPHOCYTES % (AUTO) 4.5 % (20.0-44.0); MEAN CORPUSCULAR HGB CONC 33 g/dl (31.0-36.0); MEAN CORPUSCULAR VOLUME 93 fL (80-96); MONOCYTES # (AUTO) 1.1 /CMM (0.1-1.30); MONOCYTES % (AUTO) 6.4 % (2.0-12.0); NEUTROPHILS # (AUTO) 15.8 /CMM (1.8-8.9); NEUTROPHILS % (AUTO) 88.6 % (43.0-81.0); PLATELET COUNT (AUTO) 95 /CMM (150-450); RED BLOOD CELL COUNT(AUTO) 3.69 MIL/uL (4.5-6.0); WHITE BLOOD COUNT (AUTO) 17.8 K/uL (4.3-11.0)
[2019-09-02 05:15] LABS: ALANINE AMINOTRANSFERASE 22 U/L (12-78); ALKALINE PHOSPHATASE 93 U/L (46-116); ASPARTATE AMINOTRANSFERASE 32 U/L (15-37); BILIRUBIN,TOTAL 0.3 mg/dL (0.2-1.0); CALCIUM, SERUM 7.6 mg/dL (8.5-10.1); CARBON DIOXIDE 30 mmol/L (21-32); CHLORIDE 117 mmol/L (98-107); CREATININE 2.5 mg/dL (0.6-1.3); GLUCOSE 222 mg/dL (74-106); MAGNESIUM 2.4 mg/dL (1.8-2.4); PHOSPHORUS 2.9 mg/dL (2.5-4.9); POTASSIUM 3.8 mmol/L (3.5-5.1); SODIUM SERUM 152 mmol/L (136-145); TOTAL PROTEIN, SERUM 5.7 g/dL (6.4-8.2); UREA NITROGEN, BLOOD 72 mg/dL (7-18)
[2019-09-02 05:28] LABS: ALBUMIN 1.2 g/dL (3.4-5.0)
--- NOTE | 2019-09-02 05:57 | NUR ---
HOSPITAL COORDINATOR ALBUMIN 1.2 RELAYED TO Sherrie CHOWDHURY NO NEW ORDERS RECEIVED.
[2019-09-02] MEDS: ACETYLCYSTEINE 10% SOLN 400 MG/4 ML VIAL NEB SCH ×2 (07:53→15:20)
[2019-09-02] MEDS: NOREPINEPHRINE 16 MG in IV D5W 500 ML IV PRN ×2 (08:31→19:59)
[2019-09-02 08:56] LABS: ABG BASE EXCESS 1.6 mmol/L; ABG PCO2 44.6 mmHg (35.0-45.0); ABG PH 7.397 (7.350-7.450); ABG PO2 128.4 mmHg (75.0-100.0); AaDO2 177.9 mmHg; COHb 0.4 % (0.5-1.5); MetHb 0.4 % (0.0-1.5); O2Hb 97.2 % (94.0-97.0); SITE, ABG Right Radial; VT, ABG 450 mL
[2019-09-02] MEDS: DONEPEZIL 5 MG TABLET NG SCH (09:10)
[2019-09-02] MEDS: CYANOCOBALAMIN 500 MCG TABLET NG SCH (09:10)
[2019-09-02] MEDS: CLOPIDOGREL BISULFATE 75 MG TABLET NG SCH (09:10)
[2019-09-02] MEDS: PANTOPRAZOLE 40 MG/PACK PACK NG SCH (09:10)
[2019-09-02] MEDS: CHOLECALCIFEROL 1,000 UNIT TABLET (VIT D3) NG SCH (09:10)
[2019-09-02] MEDS: FINASTERIDE (5 MG) 5 MG TABLET NG SCH (09:10)
[2019-09-02] MEDS: SERTRALINE HCL 25 MG TABLET NG SCH (09:10)
[2019-09-02] MEDS: ENOXAPARIN SODIUM 40 MG/0.4 ML DISP.SYRIN SQ SCH (09:15)
[2019-09-02] MEDS: JEVITY 1.2 CAL 1,000 ML BOTTLE GT PRN (13:20)
--- NOTE | 2019-09-02 18:50 | NUR ---
RN NOTE: PATIENT REMAINS ON VENT TRAC, ETT INTACT. NO BREATHING DISTRESS NOTED. NO S/S OF PAIN & DISCOMFORT NOTED. CONTINUE WITH DIPRIVAN GTT & LEVO GTT ORDERED. MAINTAINED MAP >65 DURING SHIFT. REMAINS AFEBRILE. CONTINUE WITH RESTRAINTS. SAFETY MEASURES OBSERVED. ABDOMEN SOFT TO TOUCH. NGT TUBE FEEDINGS TOLERATING WELL. ASPIRATION PRECAUTIONS OBSERVED. NO RESIDUAL NOTED. H2O FLUSH Q6H. BM X 1 DURING SHIFT. F/C INTACT, DRAINING WELL WITH GRAVITY. CONTINUE WITH PLAN OF CARE.
[2019-09-02] MEDS: VANCOMYCIN 0.75 GM in IV D5W 250 ML IV SCH (19:59)
[2019-09-03] VITALS (96 sets, daily range): BP systolic 66–121; BP diastolic 41–83
[2019-09-03] MEDS: IPRATROPIUM NEB FS 0.5 MG/2.5 ML AMPUL.NEB NEB SCH ×7 (00:26→23:38)
[2019-09-03] MEDS: ALBUTEROL FS 2.5 MG/0.5 ML VIAL.NEB NEB SCH ×7 (00:26→23:38)
[2019-09-03] MEDS: ACETYLCYSTEINE 10% SOLN 400 MG/4 ML VIAL NEB SCH ×4 (00:26→23:38)
[2019-09-03] MEDS: BLOOD SUGAR DIAGNOSTIC 1 EACH STRIP IN SCH ×4 (00:43→17:48)
[2019-09-03] MEDS: INSULIN REGULAR, HUMAN 100 UNIT/ML 3 ML VIAL SQ PRN ×4 (00:45→18:00)
[2019-09-03] MEDS: PROPOFOL 100 ML IV PRN ×4 (01:59→21:55)
[2019-09-03] MEDS: IV NS 0.9% 250 ML IV PRN (01:59)
[2019-09-03] MEDS: PIPERACILLIN /TAZOBACTAM 3.375 G in IV D5W 100 ML IV SCH ×3 (05:01→20:00)
[2019-09-03 05:17] LABS: CALCIUM, SERUM 8.4 mg/dL (8.5-10.1); CREATININE 1.1 mg/dL (0.6-1.3)
[2019-09-03 05:33] LABS: POTASSIUM 2.8 mmol/L (3.5-5.1)
--- NOTE | 2019-09-03 05:45 | NUR ---
HADOOP ANALYST POTASSIUM 2.8 RELAYED TO Sherrie CHOWDHURY W/ORDERS RECEIVED. CONTINUE TO MONITOR.
[2019-09-03] MEDS ORDERED: POTASSIUM CHLORIDE 20 MEQ POWDER PACKET GT ONE (06:00)
--- NOTE | 2019-09-03 07:15 | NUR ---
GREASER OPERATOR NOTES RECEIVED PATIENT SEDATED RESPONSIVE TO PAIN STIMULI , NOT IN ACUTE DISTRESS , ETT 7.01/[address] , VENT SETTINGS ORDERED WITH SPO2 OF 100% , V PACING 73 ON BEDSIDE MONITOR , R NARE NGT IN PLACE WITH JEVITY @ 70ML/HR INFUSING WELL WITH NO RESIDUALS NOTED , FC DRAINING VIA GRAVITY , RIGHT BRACHIAL TLC PICC LINE WITH LEVOPHED @ 18MCG/MIN , DIPRIVAN @30MCG/KG/MIN , NS @ TKO INFUSING WELL , ,ALL NEEDS ATTENDED , BED ON LOW AND LOCKED POSITION , SIDE RAILS X2 CALL LIGHT WITHIN REACH , WILL CONTINUE TO MONITOR
[2019-09-03] MEDS: POTASSIUM CHLORIDE 20 MEQ POWDER PACKET PO SCH ×4 (07:56→11:42)
--- NOTE | 2019-09-03 08:25 | NUR ---
GOLF CART REPAIRER NOTES SEDATION HELD , PT ON SEDATION VACATION , VENT SETTINGS ORDERED , BILATERAL SOFT WRIST RESTRAINS IN PLACE , WILL CONTINUE TO MONITOR .
[2019-09-03] MEDS: CYANOCOBALAMIN 500 MCG TABLET NG SCH (08:39)
[2019-09-03] MEDS: SERTRALINE HCL 25 MG TABLET NG SCH (08:39)
[2019-09-03] MEDS: CHOLECALCIFEROL 1,000 UNIT TABLET (VIT D3) NG SCH (08:39)
[2019-09-03] MEDS: PANTOPRAZOLE 40 MG/PACK PACK NG SCH (08:39)
[2019-09-03] MEDS: FINASTERIDE (5 MG) 5 MG TABLET NG SCH (08:39)
[2019-09-03] MEDS: CLOPIDOGREL BISULFATE 75 MG TABLET NG SCH (08:39)
[2019-09-03] MEDS: DONEPEZIL 5 MG TABLET NG SCH (08:39)
[2019-09-03] MEDS: ENOXAPARIN SODIUM 40 MG/0.4 ML DISP.SYRIN SQ SCH (08:40)
[2019-09-03] MEDS: NOREPINEPHRINE 16 MG in IV D5W 500 ML IV PRN ×2 (09:01→18:01)
--- NOTE | 2019-09-03 09:18 | NUR ---
EARTH SCIENCE TEACHER NOTES SEEN AND EVALUATED BY DR JAY , DISCUSSED LABS , CURRENT VENT SETTINGS, VSS AFEBRILE , ON LEVOPHED @ 18MCG/MIN , OPENS EYES , DOESN'T FOLLOW COMMANDS , AGITATED OFF SEDATION , PER MD CONTINUE LEVOPHED DRIP TO KEEP MAP ABOVE 55MMHG
--- NOTE | 2019-09-03 10:00 | NUR ---
RED CROSS EXECUTIVE DIRECTOR NOTES SEDATION RESUMED , PT NOTED WITH MODERATE AGITATION , TACHYPNEIC RR OF 30-35 , HR 110BPM , OPENS EYES , NON VERBAL , DOESN'T FOLLOW COMMANDS , TRACTS WILL CONTINUE TO MONITOR
[2019-09-03] MEDS: JEVITY 1.2 CAL 1,000 ML BOTTLE GT PRN ×2 (10:24→21:55)
--- NOTE | 2019-09-03 16:19 | NUR ---
RT NOTE PT RECEIVED INTUBATED WITH 7.5 ET TUBE @ 23 CM. AMBU BAG @ BEDSIDE. TX GIVEN, NO ADVERSE REACTIONS NOTED. SX DONE, ET TUBE SECURED AND PATENT ON MID LIP LINE. MINIMAL SECRETIONS NOTED. NO RESP DISTRESS NOTED AT THIS TIME. WILL MONITOR. Addendum: 09/03/19 at 1621 by TONY WORLEY RT Amended: Links added.
[2019-09-03] MEDS: VANCOMYCIN 1 GM in IV D5W 250ml IV SCH (17:47)
--- NOTE | 2019-09-03 18:50 | NUR ---
BEEF CATTLE FARM MANAGER NOTES PATIENT STABLE AT THIS TIME , SEDATED RESPONSIVE TO PAIN STIMULI , NOT IN ACUTE DISTRESS , ETT 7.01/[address] , VENT SETTINGS ORDERED WITH SPO2 OF 100% , V PACING 80 ON BEDSIDE MONITOR , R NARE NGT IN PLACE WITH JEVITY @ 60ML/HR INFUSING WELL WITH NO RESIDUALS NOTED , FC DRAINING VIA GRAVITY , RIGHT BRACHIAL TLC PICC LINE WITH LEVOPHED @ 8MCG/MIN , DIPRIVAN @30MCG/KG/MIN , NS @ TKO INFUSING WELL , ,ALL NEEDS ATTENDED , BED ON LOW AND LOCKED POSITION , SIDE RAILS X2 CALL LIGHT WITHIN REACH , REPORT GIVEN TO PIA FOR CONTINUITY OF CARE
[2019-09-03] MEDS ORDERED: VANCOMYCIN 1 GM in IV D5W 250ml IV SCH (20:00)
--- NOTE | 2019-09-03 22:30 | NUR ---
MONUMENT STONECUTTER NOTED PT W/INCREASED HEART RATE AND DIAPHORETIC; TEMP 100.7. INITIATED COOLING MEASURES. ADMINISTERED TYLENOL. CONTINUE TO MONITOR.
[2019-09-03] MEDS: ACETAMINOPHEN 650 MG/20.3 ML UDC NG PRN (22:41)
[2019-09-04] VITALS (83 sets, daily range): BP systolic 69–120; BP diastolic 41–66
[2019-09-04] MEDS: BLOOD SUGAR DIAGNOSTIC 1 EACH STRIP IN SCH ×4 (00:29→18:46)
[2019-09-04] MEDS: INSULIN REGULAR, HUMAN 100 UNIT/ML 3 ML VIAL SQ PRN ×2 (00:30→13:09)
[2019-09-04] MEDS: ALBUTEROL FS 2.5 MG/0.5 ML VIAL.NEB NEB SCH ×6 (03:27→23:47)
[2019-09-04] MEDS: IPRATROPIUM NEB FS 0.5 MG/2.5 ML AMPUL.NEB NEB SCH ×6 (03:27→23:47)
[2019-09-04] MEDS: PIPERACILLIN /TAZOBACTAM 3.375 G in IV D5W 100 ML IV SCH ×3 (05:00→20:04)
[2019-09-04 05:46] LABS: CALCIUM, SERUM 8.1 mg/dL (8.5-10.1); CARBON DIOXIDE 33 mmol/L (21-32); CHLORIDE 120 mmol/L (98-107); CREATININE 1.8 mg/dL (0.6-1.3); GLUCOSE 95 mg/dL (74-106); POTASSIUM 4.8 mmol/L (3.5-5.1); UREA NITROGEN, BLOOD 40 mg/dL (7-18)
[2019-09-04] MEDS: PROPOFOL 100 ML IV PRN ×2 (05:57→18:31)
[2019-09-04 06:00] LABS: SODIUM SERUM 159 mmol/L (136-145)
--- NOTE | 2019-09-04 06:54 | NUR ---
PROGRAM PRODUCTION SPECIALIST TITRATED LEVOPHED ABLE TO MAINTAIN MAP >55; LEVOPHED AT 8 MCG/MIN.
--- NOTE | 2019-09-04 07:30 | NUR ---
Received patient intubated and sedated, tolerating ventilator well calm relaxed responsive to tactile stimuli. oral care given with turning and positioning done. Levophed 18mcg/hrgoal to keep MAP >55.
[2019-09-04] MEDS: ACETYLCYSTEINE 10% SOLN 400 MG/4 ML VIAL NEB SCH ×3 (08:04→23:47)
[2019-09-04] MEDS: FINASTERIDE (5 MG) 5 MG TABLET NG SCH (10:03)
[2019-09-04] MEDS: CHOLECALCIFEROL 1,000 UNIT TABLET (VIT D3) NG SCH (10:03)
[2019-09-04] MEDS: SERTRALINE HCL 25 MG TABLET NG SCH (10:03)
[2019-09-04] MEDS: CLOPIDOGREL BISULFATE 75 MG TABLET NG SCH (10:03)
[2019-09-04] MEDS: DONEPEZIL 5 MG TABLET NG SCH (10:03)
[2019-09-04] MEDS: PANTOPRAZOLE 40 MG/PACK PACK NG SCH (10:03)
[2019-09-04 10:05] LABS: MAGNESIUM 2.3 mg/dL (1.8-2.4); PHOSPHORUS 3.4 mg/dL (2.5-4.9)
[2019-09-04 10:06] LABS: BASOPHILS % (AUTO) 0.2 % (0.0-2.0); EOSINOPHILS % (AUTO) 2.1 % (0.0-6.0); HEMATOCRIT 34 % (39-51); HEMOGLOBIN 10.9 g/dL (13.5-17.5); LYMPHOCYTES # (AUTO) 0.6 /CMM (0.8-4.8); MEAN CORPUSCULAR HGB CONC 32 g/dl (31.0-36.0); MEAN CORPUSCULAR VOLUME 93 fL (80-96); MONOCYTES # (AUTO) 0.7 /CMM (0.1-1.30); MONOCYTES % (AUTO) 5.2 % (2.0-12.0); NEUTROPHILS % (AUTO) 87.5 % (43.0-81.0); PLATELET COUNT (AUTO) 88 /CMM (150-450); RED BLOOD CELL COUNT(AUTO) 3.65 MIL/uL (4.5-6.0); WHITE BLOOD COUNT (AUTO) 12.5 K/uL (4.3-11.0)
[2019-09-04] MEDS: CYANOCOBALAMIN 500 MCG TABLET NG SCH (10:12)
[2019-09-04 10:17] LABS: ABG BASE EXCESS 4.9 mmol/L; ABG OXYGEN SATURATION 98.4 % (92.0-98.5); ABG PCO2 45.9 mmHg (35.0-45.0); ABG PH 7.431 (7.350-7.450); ABG PO2 167.7 mmHg (75.0-100.0); AaDO2 64.7 mmHg; COHb 0.3 % (0.5-1.5); MetHb 0.3 % (0.0-1.5); O2Hb 97.8 % (94.0-97.0); PEEP,BG 5 cm H2O; SITE, ABG Right Radial; VT, ABG 450 mL
[2019-09-04 10:59] LABS: BAND % (MANUAL) 13 % (0.0-5.0); EOSINOPHILS % (MANUAL) 2 % (0-4); LYMPHOCYTES % (MANUAL) 10 % (16-48); MONOCYTES % (MANUAL) 7 % (0-11.0); NEUTROPHILS % (MANUAL) 68 (42-76)
[2019-09-04] MEDS: VANCOMYCIN 1 GM in IV D5W 250ml IV SCH (12:30)
[2019-09-04] MEDS: ENOXAPARIN SODIUM 40 MG/0.4 ML DISP.SYRIN SQ SCH (12:32)
[2019-09-04] MEDS: SCOPOLAMINE HBR 1 EA PATCH.TD72 TD SCH (18:50)
[2019-09-04] MEDS: IV D5W 1,000 ML IV PRN (20:07)
[2019-09-04] MEDS: NOREPINEPHRINE 16 MG in IV D5W 500 ML IV PRN (21:28)
[2019-09-05] VITALS (98 sets, daily range): BP systolic 66–132; BP diastolic 40–95
[2019-09-05] MEDS: BLOOD SUGAR DIAGNOSTIC 1 EACH STRIP IN SCH ×5 (00:53→23:24)
[2019-09-05] MEDS: INSULIN REGULAR, HUMAN 100 UNIT/ML 3 ML VIAL SQ PRN ×5 (01:42→23:25)
[2019-09-05] MEDS: JEVITY 1.2 CAL 1,000 ML BOTTLE GT PRN ×2 (02:18→12:05)
[2019-09-05] MEDS: ALBUTEROL FS 2.5 MG/0.5 ML VIAL.NEB NEB SCH ×6 (03:50→23:27)
[2019-09-05] MEDS: IPRATROPIUM NEB FS 0.5 MG/2.5 ML AMPUL.NEB NEB SCH ×6 (03:50→23:27)
[2019-09-05] MEDS: PIPERACILLIN /TAZOBACTAM 3.375 G in IV D5W 100 ML IV SCH ×3 (04:51→20:53)
[2019-09-05 04:59] LABS: BASOPHILS # (AUTO) 0.1 /CMM (0.0-0.2); BASOPHILS % (AUTO) 0.4 % (0.0-2.0); EOSINOPHILS % (AUTO) 2.4 % (0.0-6.0); HEMATOCRIT 29 % (39-51); HEMOGLOBIN 9.6 g/dL (13.5-17.5); LYMPHOCYTES # (AUTO) 1.1 /CMM (0.8-4.8); LYMPHOCYTES % (AUTO) 7.7 % (20.0-44.0); MEAN CORPUSCULAR HGB CONC 33 g/dl (31.0-36.0); MEAN CORPUSCULAR VOLUME 93 fL (80-96); MONOCYTES # (AUTO) 0.9 /CMM (0.1-1.30); MONOCYTES % (AUTO) 6.1 % (2.0-12.0); NEUTROPHILS # (AUTO) 12.4 /CMM (1.8-8.9); NEUTROPHILS % (AUTO) 83.4 % (43.0-81.0); PLATELET COUNT (AUTO) 116 /CMM (150-450); RED BLOOD CELL COUNT(AUTO) 3.16 MIL/uL (4.5-6.0); WHITE BLOOD COUNT (AUTO) 14.9 K/uL (4.3-11.0)
[2019-09-05] MEDS: VANCOMYCIN 1 GM in IV D5W 250ml IV SCH (05:01)
[2019-09-05 05:10] LABS: CALCIUM, SERUM 7.8 mg/dL (8.5-10.1); CARBON DIOXIDE 32 mmol/L (21-32); CHLORIDE 111 mmol/L (98-107); CREATININE 1.5 mg/dL (0.6-1.3); GLUCOSE 195 mg/dL (74-106); MAGNESIUM 2.1 mg/dL (1.8-2.4); PHOSPHORUS 3.7 mg/dL (2.5-4.9); POTASSIUM 4.3 mmol/L (3.5-5.1); SODIUM SERUM 146 mmol/L (136-145); UREA NITROGEN, BLOOD 34 mg/dL (7-18)
--- NOTE | 2019-09-05 05:31 | NUR ---
RT RECEIVED PATIENT ORALLY INTUBATED ON MECHANICAL VENT. ALARMS ARE SET AND AUDIBLE.WILL CONTINUE TO MONITOR. Addendum: 09/05/19 at 0533 by JAI PETTY RT Amended: Links added.
--- NOTE | 2019-09-05 07:15 | NUR ---
ICU/RN PT IS INTUBATED AC MODE,FIO2-40%,SAT O2-97%.AFEBRILE.NO PAIN REPORTED AT THIS TIME.PT IS SEDATE ON DIPRIVAN ,REACTIVE ON PAIN STIMULATION.RIGHT UPPER ARM PICC LINE.PT IS ON LEVOPHED AND IV FLUIDS.F/C DRAINING WITH CLOUDY YELLOW URINE. RIGHT NG TUBE INFUSING WITH JEVITY AT 60 ML/HR NO RESIDUAL NOTED.BILATERAL SOFT RESTRAINS ON .PT IS POST CVA.RESTRAINS REMOVED. HAS REDNESS ON CORINA AREA AND LOWER BACK,SCROTUM SWOLLEN.LABS REVIEW .MD NOTIFIED.SUCTION PROVIDED.AM CARE DONE REPOSITION FOR COMFORT.
[2019-09-05] MEDS: ACETYLCYSTEINE 10% SOLN 400 MG/4 ML VIAL NEB SCH ×3 (07:47→23:27)
[2019-09-05] MEDS: CLOPIDOGREL BISULFATE 75 MG TABLET NG SCH (08:08)
[2019-09-05] MEDS: DONEPEZIL 5 MG TABLET NG SCH (08:09)
[2019-09-05] MEDS: PANTOPRAZOLE 40 MG/PACK PACK NG SCH (08:09)
[2019-09-05] MEDS: CYANOCOBALAMIN 500 MCG TABLET NG SCH (08:09)
[2019-09-05] MEDS: SERTRALINE HCL 25 MG TABLET NG SCH (08:09)
[2019-09-05] MEDS: FINASTERIDE (5 MG) 5 MG TABLET NG SCH (08:09)
[2019-09-05] MEDS: CHOLECALCIFEROL 1,000 UNIT TABLET (VIT D3) NG SCH (08:09)
[2019-09-05] MEDS: PROPOFOL 100 ML IV PRN ×2 (08:10→14:29)
[2019-09-05] MEDS: ENOXAPARIN SODIUM 40 MG/0.4 ML DISP.SYRIN SQ SCH (08:11)
[2019-09-05 08:59] LABS: ABG BASE EXCESS 4.7 mmol/L; ABG OXYGEN SATURATION 94.6 % (92.0-98.5); ABG PCO2 43.4 mmHg (35.0-45.0); ABG PH 7.447 (7.350-7.450); ABG PO2 79.5 mmHg (75.0-100.0); AaDO2 155.8 mmHg; COHb 0.3 % (0.5-1.5); MetHb 0.3 % (0.0-1.5); SITE, ABG Right Radial; VENT MODE, BG AC 16 450 40% +0
[2019-09-05] MEDS ORDERED: IV NS 0.9% 500 ML IV ONE (09:00)
--- NOTE | 2019-09-05 09:00 | NUR ---
ICU/RN DUE MEDS ARE GIVEN ORDERED.SEDATION VACATION PROVIDED.PT IS AWAKE NOT FOLLOW COMMANDS DUE TO HIS DEMENTIA AND HISTORY OF STROKE,BITING THE TUBE .DR JAY SEEN THE PT 500 ML BOLUS OF NS GIVEN ORDERED.CONTINUE MONITORING.
[2019-09-05] MEDS: IV D5W 1,000 ML IV PRN (11:32)
[2019-09-05] MEDS: IV NS 0.9% 250 ML IV PRN (11:58)
--- NOTE | 2019-09-05 12:30 | NUR ---
ICU/RN BS-[id number].DUE MEDS ARE GIVEN ORDERED.SUCTION PROVIDED.REPOSITION FOR COMFORT.
[2019-09-05] MEDS: NOREPINEPHRINE 16 MG in IV D5W 500 ML IV PRN (18:14)
--- NOTE | 2019-09-05 19:39 | NUR ---
PRINCIPAL CONSULTANT - NOTES - PATIENT STABLE AT THIS TIME, SEDATED RESPONSIVE TO PAINFUL STIMULI, NOT IN ACUTE DISTRESS, ETT 7.01/[address] , VENT SETTINGS ORDERED WITH SPO2 OF 100% , V PACING 80S ON BEDSIDE MONITOR, R NARE NGT IN PLACE WITH JEVITY @ 60ML/HR INFUSING WELL WITH NO RESIDUALS NOTED , FC DRAINING VIA GRAVITY, RIGHT BRACHIAL PICC LINE WITH LEVOPHED @ 15 MCG/MIN , DIPRIVAN @ 25 MCG/KG/MIN , NS @ TKO INFUSING WELL, ALL NEEDS ATTENDED, BED IN LOW AND LOCKED POSITION, SIDE RAILS X2, REPORT GIVEN TO PIA FOR CONTINUITY OF CARE
--- NOTE | 2019-09-05 21:03 | NUR ---
RECEIVED PT INTUBATED 7.5 ETT SECURED AT 23CM AT THE LIP. PT TOLERATING VENT SETTINGS. SX'D FOR SML MOD AMT OF THICK YELLOW SECRETIONS. VENT ALARMS SET AND AUDIBLE. AMBU BAG AT BEDSIDE. VENT PLUGGED INTO RED OUTLET. CONTINUE [facility] VENT SUPPORT. Addendum: 09/05/19 at 2104 by ALBERTO CHUNG RT Amended: Links added.
[2019-09-06] VITALS (96 sets, daily range): BP systolic 72–147; BP diastolic 33–76
--- NOTE | 2019-09-06 00:05 | NUR ---
LAB NOTIFIED ME THAT THE VANCOMYCIN TROUGH TESTING MACHINE IS NOT WORKING SO THE VANCO TR HAS TO BE SENT OUT, RESULTS WILL BE DELAYED, WILL NOT GIVE VANCO UNTIL LAB RESULTED
[2019-09-06] MEDS: IV D5W 1,000 ML IV PRN (01:43)
[2019-09-06] MEDS: PROPOFOL 100 ML IV PRN ×3 (01:43→16:51)
[2019-09-06] MEDS: VANCOMYCIN 1 GM in IV D5W 250ml IV SCH ×2 (03:31→18:12)
[2019-09-06] MEDS: ALBUTEROL FS 2.5 MG/0.5 ML VIAL.NEB NEB SCH ×6 (03:39→23:48)
[2019-09-06] MEDS: IPRATROPIUM NEB FS 0.5 MG/2.5 ML AMPUL.NEB NEB SCH ×6 (03:39→23:48)
[2019-09-06] MEDS: PIPERACILLIN /TAZOBACTAM 3.375 G in IV D5W 100 ML IV SCH ×3 (04:21→20:21)
[2019-09-06 04:52] LABS: BASOPHILS % (AUTO) 0.4 % (0.0-2.0); EOSINOPHILS % (AUTO) 1.9 % (0.0-6.0); HEMATOCRIT 28 % (39-51); HEMOGLOBIN 9.1 g/dL (13.5-17.5); LYMPHOCYTES % (AUTO) 7.5 % (20.0-44.0); MEAN CORPUSCULAR HGB CONC 33 g/dl (31.0-36.0); MEAN CORPUSCULAR VOLUME 92 fL (80-96); MONOCYTES # (AUTO) 0.7 /CMM (0.1-1.30); MONOCYTES % (AUTO) 5.1 % (2.0-12.0); NEUTROPHILS # (AUTO) 11.5 /CMM (1.8-8.9); NEUTROPHILS % (AUTO) 85.1 % (43.0-81.0); PLATELET COUNT (AUTO) 170 /CMM (150-450); RED BLOOD CELL COUNT(AUTO) 3.01 MIL/uL (4.5-6.0); WHITE BLOOD COUNT (AUTO) 13.5 K/uL (4.3-11.0)
[2019-09-06 05:01] LABS: CALCIUM, SERUM 7.3 mg/dL (8.5-10.1); CARBON DIOXIDE 31 mmol/L (21-32); CHLORIDE 106 mmol/L (98-107); CREATININE 1.4 mg/dL (0.6-1.3); GLUCOSE 204 mg/dL (74-106); POTASSIUM 3.6 mmol/L (3.5-5.1); SODIUM SERUM 141 mmol/L (136-145); UREA NITROGEN, BLOOD 25 mg/dL (7-18)
[2019-09-06] MEDS: BLOOD SUGAR DIAGNOSTIC 1 EACH STRIP IN SCH ×3 (05:09→18:12)
[2019-09-06] MEDS: INSULIN REGULAR, HUMAN 100 UNIT/ML 3 ML VIAL SQ PRN (05:10)
[2019-09-06] MEDS: ACETYLCYSTEINE 10% SOLN 400 MG/4 ML VIAL NEB SCH ×3 (07:20→23:48)
--- NOTE | 2019-09-06 07:20 | NUR ---
RT RECEIVED PT ORALLY INTUBATED WITH 7.5 ETT MARKED @ 23 CM LIP, WITH NOTED SETTINGS. LEAD JAVASCRIPT DEVELOPER DONE AND ETT IS SECURE. VENT ALARMS CHECKED AND AUDIBLE. ADITYA B/S WITH RHONCHI, SX WITH MOD THK YELLOW TO SANTILLAN SECRETIONS. VENT PLUGGED IN RED OUTLET. AMBU BAG NOTED HOB. BREATHING TX GIVEN AND NO ADV REACTION. PT TOLERATING SETTINGS WELL. NO SOB OR RESP DISTRESS NOTED. WILL CONTINUE TO MONITOR T/O SHIFT.
--- NOTE | 2019-09-06 07:30 | NUR ---
SOFTWARE SUPPORT ENGINEER INITIAL NOTE RECEIVED PATIENT SEDATED. NO DISTRESS NOTED. WITH ETT 7.5CM/25CM AT THE LIP. WITH VENT SETTING AC 16, TV 450, FIO2 40%, PEEP 0. ON TELE MONITOR VPACING. RIGHT NARE NGT PATENT, INTACT, IN PLACE, CLAMPED. SKIN WARM AND DRY TO TOUCH. F/C PATENT, DRAINING BY GRAVITY. FOR PLANNED TRACHEOSTOMY TODAY. PER NURSE KAMARI, RECEIVED VERBAL ORDER FROM DR JOSHI FOR PEG PLACEMENT WELL. CHI PICC LINE PATENT AND INTACT, WITH DIP AT 25MCG/KG/MIN AND LEVO AT 12MCG/MIN, IVF AT 70ML/HR. ISOLATION PRECAUTIONS OBSERVED. HOB ELEVATED. SIDE RAILS UP AND LOCKED. BED KEPT AT LOWEST POSITION. WILL CONTINUE TO MONITOR.
--- NOTE | 2019-09-06 07:37 | NUR ---
MUSHROOM FARMER NOTE RECEIVED TELEPHONE CONSENT FOR PEG PLACEMENT FROM DAUGHTER JUAN.
[2019-09-06] MEDS: CHOLECALCIFEROL 1,000 UNIT TABLET (VIT D3) NG SCH (08:05)
[2019-09-06] MEDS: CLOPIDOGREL BISULFATE 75 MG TABLET NG SCH (08:05)
[2019-09-06] MEDS: FINASTERIDE (5 MG) 5 MG TABLET NG SCH (08:05)
[2019-09-06] MEDS: CYANOCOBALAMIN 500 MCG TABLET NG SCH (08:05)
[2019-09-06] MEDS: PANTOPRAZOLE 40 MG/PACK PACK NG SCH (08:05)
[2019-09-06] MEDS: SERTRALINE HCL 25 MG TABLET NG SCH (08:05)
[2019-09-06] MEDS: ENOXAPARIN SODIUM 40 MG/0.4 ML DISP.SYRIN SQ SCH (08:05)
[2019-09-06] MEDS: DONEPEZIL 5 MG TABLET NG SCH (08:05)
--- NOTE | 2019-09-06 09:56 | NUR ---
INVAS TECH NOTE CLARIFIED NOREPINEPHRINE PARAMETER WITH DR JAY WITH ORDERS TO CHANGE TO KEEP SBP >80
[2019-09-06] MEDS ORDERED: IV NS 0.9% 500 ML IV ONE (10:40)
--- NOTE | 2019-09-06 12:35 | NUR ---
DIRECTOR OF SALES AND MARKETING NOTE SPOKE WITH DR VENTURA, PER MD THEY WILL NOT PERFORM TRACHEOSTOMY TODAY UNTIL PATIENT IS HEMODYNAMICALLY STABLE. DR. JAY INFORMED. FAMILY AT BEDSIDE. PATIENTS SON SLAVAS (ARIELA) AT BEDSIDE AND INFORMED.
--- NOTE | 2019-09-06 13:00 | NUR ---
LEAD NET SOFTWARE DEVELOPER NOTE INFORMED DR. HORNER PATIENT IS NOT HAVING TRACH/PEG DONE TODAY. PER MD OK TO START PATIENT BACK ON GTF.
[2019-09-06] MEDS: JEVITY 1.2 CAL 1,000 ML BOTTLE GT PRN (15:37)
[2019-09-06] MEDS: NOREPINEPHRINE 16 MG in IV D5W 500 ML IV PRN (16:52)
--- NOTE | 2019-09-06 20:00 | NUR ---
WIND ENERGY SYSTEMS INSTALLER - NOTES - PATIENT STABLE AT THIS TIME, SEDATED RESPONSIVE TO PAINFUL STIMULI, NOT IN ACUTE DISTRESS, ETT 7.01/[address] , VENT SETTINGS ORDERED WITH SPO2 OF 100% , V PACING 80S ON BEDSIDE MONITOR, R NARE NGT IN PLACE WITH JEVITY @ 60 ML/HR INFUSING WELL WITH NO RESIDUALS NOTED , FC DRAINING VIA GRAVITY, RIGHT BRACHIAL PICC LINE WITH LEVOPHED @ 7 MCG/MIN, DIPRIVAN @ 20 MCG/KG/MIN , NS @ TKO INFUSING WELL, ALL NEEDS ATTENDED, BED IN LOW AND LOCKED POSITION, SIDE RAILS X2, REPORT GIVEN TO PIA FOR CONTINUITY OF CARE
[2019-09-07] VITALS (80 sets, daily range): BP systolic 67–156; BP diastolic 36–98
[2019-09-07] MEDS: BLOOD SUGAR DIAGNOSTIC 1 EACH STRIP IN SCH ×4 (00:13→18:04)
[2019-09-07] MEDS: IPRATROPIUM NEB FS 0.5 MG/2.5 ML AMPUL.NEB NEB SCH ×6 (04:07→23:55)
[2019-09-07] MEDS: ALBUTEROL FS 2.5 MG/0.5 ML VIAL.NEB NEB SCH ×6 (04:07→23:55)
[2019-09-07] MEDS: PIPERACILLIN /TAZOBACTAM 3.375 G in IV D5W 100 ML IV SCH ×3 (04:28→20:06)
[2019-09-07 04:49] LABS: BASOPHILS % (AUTO) 0.2 % (0.0-2.0); HEMATOCRIT 26 % (39-51); HEMOGLOBIN 8.5 g/dL (13.5-17.5); LYMPHOCYTES # (AUTO) 0.8 /CMM (0.8-4.8); LYMPHOCYTES % (AUTO) 5.1 % (20.0-44.0); MEAN CORPUSCULAR HGB CONC 33 g/dl (31.0-36.0); MEAN CORPUSCULAR VOLUME 92 fL (80-96); MONOCYTES # (AUTO) 0.8 /CMM (0.1-1.30); MONOCYTES % (AUTO) 5.3 % (2.0-12.0); NEUTROPHILS # (AUTO) 12.9 /CMM (1.8-8.9); NEUTROPHILS % (AUTO) 88.4 % (43.0-81.0); PLATELET COUNT (AUTO) 191 /CMM (150-450); WHITE BLOOD COUNT (AUTO) 14.6 K/uL (4.3-11.0)
[2019-09-07 05:09] LABS: CALCIUM, SERUM 7.4 mg/dL (8.5-10.1); CARBON DIOXIDE 31 mmol/L (21-32); CHLORIDE 106 mmol/L (98-107); CREATININE 1.4 mg/dL (0.6-1.3); GLUCOSE 202 mg/dL (74-106); POTASSIUM 3.7 mmol/L (3.5-5.1); SODIUM SERUM 141 mmol/L (136-145); UREA NITROGEN, BLOOD 23 mg/dL (7-18)
[2019-09-07] MEDS: PROPOFOL 100 ML IV PRN (06:29)
[2019-09-07] MEDS: INSULIN REGULAR, HUMAN 100 UNIT/ML 3 ML VIAL SQ PRN (06:30)
[2019-09-07] MEDS: IV 1/2NS 1000 ML 1,000 ML IV PRN (06:56)
[2019-09-07] MEDS: ACETYLCYSTEINE 10% SOLN 400 MG/4 ML VIAL NEB SCH ×3 (07:48→23:55)
--- NOTE | 2019-09-07 08:00 | NUR ---
PRINTING MANAGER RECEIVED SEDATED ON DIPRIVAN. ABLE TO ASSIST VENT. LEVOPHED DRIP INFUSING
--- NOTE | 2019-09-07 08:02 | NUR ---
RT PATIENT REC'D ORALLY INTUBATED ON [facility] VENT WITH ORDERED SETTINGS KRYSTAL WELL. VENT ALARMS CHECKED + AUDIBLE. CUFF PRESSURE CHECKED FUNERAL WORKERS. ETT SECURE AND IN PROPER POSITION. PATIENT APPEARS COMFORTABLE AND IN NO DISTRESS AT THIS TIME. MOHINI GOMEZ AT HOB. CONT CURRENT PLAN OF RESP CARE. Addendum: 09/07/19 at 1258 by ANEL CROOKS RT Amended: Links added.
[2019-09-07] MEDS: FINASTERIDE (5 MG) 5 MG TABLET NG SCH (08:55)
[2019-09-07] MEDS: DONEPEZIL 5 MG TABLET NG SCH (08:55)
[2019-09-07] MEDS: CHOLECALCIFEROL 1,000 UNIT TABLET (VIT D3) NG SCH (08:55)
[2019-09-07] MEDS: CYANOCOBALAMIN 500 MCG TABLET NG SCH (08:56)
[2019-09-07] MEDS: PANTOPRAZOLE 40 MG/PACK PACK NG SCH (08:56)
[2019-09-07] MEDS: SERTRALINE HCL 25 MG TABLET NG SCH (08:56)
[2019-09-07] MEDS: ENOXAPARIN SODIUM 40 MG/0.4 ML DISP.SYRIN SQ SCH (08:57)
--- NOTE | 2019-09-07 10:00 | NUR ---
ASSISTANT PRODUCER PT REMAINS NPO FOR PROJECTED TRACH PLACEMENT. DIPRIVAN DRIP NOW TURNED OFF FOR SEDATION VACATION.
--- NOTE | 2019-09-07 12:00 | NUR ---
DOPE MAINTENANCE WORKER TITRATED LEVO. WILL ATTEMPT TO D/C LEVO IF PT'S BP STABILIZES TO FACILITATE TRACH PLACEMENT.
[2019-09-07] MEDS: VANCOMYCIN 1 GM in IV D5W 250ml IV SCH (12:08)
--- NOTE | 2019-09-07 16:00 | NUR ---
AWNING MAKER PT REMAINS OFF DIPRIVAN. OPENS EYES BUT NOT INTERACTIVE. ABLE TO ASSIST VENT. DOES NOT BECOME AGITATED.
[2019-09-07] MEDS: SCOPOLAMINE HBR 1 EA PATCH.TD72 TD SCH (17:07)
[2019-09-07] MEDS: NOREPINEPHRINE 16 MG in IV D5W 500 ML IV PRN (17:15)
--- NOTE | 2019-09-07 18:00 | NUR ---
TIRE MOUNTER PT REMAINS OFF DIPRIVAN. COMFORTABLE AT THIS TIME. SPO2 STABLE. TRACH WAS NOT DONE DUE TO PT'S INSTABILITY. UNABLE TO TAKE LEVOPHED OFF. DR GUO IN TO SEE PT. NO SCHEDULE FOR TRACH PLACEMENT RECEIVED. WILL RESTART TUBE FEEDING.
[2019-09-07] MEDS: JEVITY 1.2 CAL 1,000 ML BOTTLE GT PRN (19:45)
--- NOTE | 2019-09-07 20:00 | NUR ---
icu rtn notes Received pts in bed remain on mechanical ventilator on ac settings well tolerated, on monitor v pacing on the monitor ,sating 97-100 %no sob no distress noted hob elevated at all times suction secretion q 2hrs and prn , v/s stable afebrile , due meds given as ordered ,pt on ngt in place patent and intact at 60cm,depth.ett 7.5 at lip at 25cm .iv júnior picc line intact and patent with levophed of 2mcg/min with ivf 1/2 saline running at 50cc/hr tolerating well.,f/c intact noted with cloudy yellowish urine .all needs attended too.Bp of 79/48 Hr 75 RR19 LEVO drip increase to 4mcg ,all due meds given as order will continue to monitor pt
[2019-09-08] VITALS (72 sets, daily range): BP systolic 83–118; BP diastolic 48–74
[2019-09-08] MEDS: INSULIN REGULAR, HUMAN 100 UNIT/ML 3 ML VIAL SQ PRN ×4 (00:49→17:24)
[2019-09-08] MEDS: BLOOD SUGAR DIAGNOSTIC 1 EACH STRIP IN SCH ×4 (00:50→17:23)
[2019-09-08] MEDS: IV 1/2NS 1000 ML 1,000 ML IV PRN (01:21)
[2019-09-08] MEDS: IPRATROPIUM NEB FS 0.5 MG/2.5 ML AMPUL.NEB NEB SCH ×6 (03:41→23:38)
[2019-09-08] MEDS: ALBUTEROL FS 2.5 MG/0.5 ML VIAL.NEB NEB SCH ×6 (03:41→23:38)
[2019-09-08] MEDS: PIPERACILLIN /TAZOBACTAM 3.375 G in IV D5W 100 ML IV SCH ×2 (04:32→12:40)
[2019-09-08 04:35] LABS: BASOPHILS % (AUTO) 0.2 % (0.0-2.0); EOSINOPHILS % (AUTO) 0.9 % (0.0-6.0); HEMATOCRIT 26 % (39-51); HEMOGLOBIN 8.4 g/dL (13.5-17.5); LYMPHOCYTES # (AUTO) 0.9 /CMM (0.8-4.8); LYMPHOCYTES % (AUTO) 7.3 % (20.0-44.0); MEAN CORPUSCULAR HGB CONC 33 g/dl (31.0-36.0); MEAN CORPUSCULAR VOLUME 92 fL (80-96); MONOCYTES # (AUTO) 0.7 /CMM (0.1-1.30); MONOCYTES % (AUTO) 5.4 % (2.0-12.0); NEUTROPHILS % (AUTO) 86.2 % (43.0-81.0); PLATELET COUNT (AUTO) 246 /CMM (150-450); RED BLOOD CELL COUNT(AUTO) 2.81 MIL/uL (4.5-6.0); WHITE BLOOD COUNT (AUTO) 12.8 K/uL (4.3-11.0)
[2019-09-08 05:17] LABS: ALANINE AMINOTRANSFERASE 24 U/L (12-78); ALKALINE PHOSPHATASE 61 U/L (46-116); ASPARTATE AMINOTRANSFERASE 24 U/L (15-37); BILIRUBIN,TOTAL 0.3 mg/dL (0.2-1.0); CALCIUM, SERUM 7.3 mg/dL (8.5-10.1); CARBON DIOXIDE 33 mmol/L (21-32); CHLORIDE 105 mmol/L (98-107); CREATININE 1.4 mg/dL (0.6-1.3); GLUCOSE 180 mg/dL (74-106); MAGNESIUM 1.8 mg/dL (1.8-2.4); PHOSPHORUS 3.4 mg/dL (2.5-4.9); POTASSIUM 3.5 mmol/L (3.5-5.1); SODIUM SERUM 139 mmol/L (136-145); TOTAL PROTEIN, SERUM 6.4 g/dL (6.4-8.2); UREA NITROGEN, BLOOD 22 mg/dL (7-18)
[2019-09-08 05:27] LABS: ALBUMIN 0.9 g/dL (3.4-5.0)
[2019-09-08] MEDS: VANCOMYCIN 1 GM in IV D5W 250ml IV SCH (06:00)
--- NOTE | 2019-09-08 06:22 | NUR ---
multicultural internship notes . vanco trough at 5am is 22, vanco dose for 6am is not given .md made aware ,will endorsed to rn day shift for continuity of care.
--- NOTE | 2019-09-08 07:15 | NUR ---
BENEFITS ANALYST NOTES RECEIVED PATIENT OPENS EYES RESPONSIVE TO VERBAL STIMULI , NOT IN ACUTE DISTRESS , ETT 7.01/[address] , VENT SETTINGS ORDERED WITH SPO2 OF 100% , V PACING 70 ON BEDSIDE MONITOR , R NARE NGT IN PLACE WITH JEVITY @ 60ML/HR INFUSING WELL WITH NO RESIDUALS NOTED , FC DRAINING VIA GRAVITY , RIGHT BRACHIAL TLC PICC LINE WITH LEVOPHED @ 8MCG/MIN , 1/2NS @ 50ML/HR INFUSING WELL , ,ALL NEEDS ATTENDED , BED ON LOW AND LOCKED POSITION , SIDE RAILS X2 CALL LIGHT WITHIN REACH , WILL CONTINUE TO MONITOR
[2019-09-08] MEDS: IV NS 0.9% 1,000 ML IV PRN ×4 (07:52→22:55)
[2019-09-08] MEDS: ACETYLCYSTEINE 10% SOLN 400 MG/4 ML VIAL NEB SCH ×3 (08:20→23:38)
--- NOTE | 2019-09-08 08:30 | NUR ---
MED SURG RN NOTES SEEN AND EVALUATED BY DR JAY , DISCUSSED CURRENT VENT SETTINGS , NO DISTRESS NOTED , LEVOPHED @ 8MCG/MIN , PT OFF SEDATION , OPENS EYES TRACKS DOESNT FOLLOW COMMANDS , AFEBRILE , NOTIFIED ALBUMIN OF 0.9 , PER MD GIVE ALBUMIN 12.5 25% Q6 X 4 DOSES , ORDER CARRIED OUT
[2019-09-08] MEDS ORDERED: ALBUMIN 25% 12.5 GM/50 ML BOTTLE IV SCH (09:00)
[2019-09-08] MEDS: ALBUMIN 25% 12.5 GM in PREMIX 1 EA IV SCH ×3 (09:46→20:52)
[2019-09-08] MEDS: DONEPEZIL 5 MG TABLET NG SCH (09:46)
[2019-09-08] MEDS: CYANOCOBALAMIN 500 MCG TABLET NG SCH (09:46)
[2019-09-08] MEDS: SERTRALINE HCL 25 MG TABLET NG SCH (09:46)
[2019-09-08] MEDS: CHOLECALCIFEROL 1,000 UNIT TABLET (VIT D3) NG SCH (09:46)
[2019-09-08] MEDS: PANTOPRAZOLE 40 MG/PACK PACK NG SCH (09:46)
[2019-09-08] MEDS: HYDROCORTISONE SOD SUCCINATE 100 MG/2 ML VIAL IV SCH ×3 (09:46→17:19)
[2019-09-08] MEDS: FINASTERIDE (5 MG) 5 MG TABLET NG SCH (09:46)
[2019-09-08] MEDS: ENOXAPARIN SODIUM 40 MG/0.4 ML DISP.SYRIN SQ SCH (09:47)
[2019-09-08] MEDS: JEVITY 1.2 CAL 1,000 ML BOTTLE GT PRN (12:42)
--- NOTE | 2019-09-08 14:44 | NUR ---
RT NOTE: PATIENT RECEIVED ORALLY INTUBATED WITH 7.5 ETT SECURED AT 23 CM MID LIP LINE ON PB 840 VENT. SUCTIONED AND LAVAGED MODERATE-LARGE AMOUNT OF THICK SANTILLAN SECRETIONS. VENT PLUGGED INTO RED OUTLET. AMBU BAG AT [facility].
--- NOTE | 2019-09-08 17:13 | NUR ---
PHARMACY OPERATIONS MANAGER NOTES NOTIFIED DR JOSHI THAT PT IS OFF LEVOPHED @ 1600 , FOR PENDING TRACH PLACEMENT , AWARE
--- NOTE | 2019-09-08 19:04 | NUR ---
TEACHING YOUNG NOTES PATIENT STABLE , NOT IN ACUTE DISTRESS , ETT 7.01/[address] , VENT SETTINGS ORDERED WITH SPO2 OF 100% , V PACING 72 ON BEDSIDE MONITOR , R NARE NGT IN PLACE WITH JEVITY @ 60ML/HR INFUSING WELL WITH NO RESIDUALS NOTED , FC DRAINING VIA GRAVITY , RIGHT BRACHIAL TLC PICC LINE WITH ,NS @ 200ML/HR INFUSING WELL , ,ALL NEEDS ATTENDED , BED ON LOW AND LOCKED POSITION , SIDE RAILS X2 CALL LIGHT WITHIN REACH , REPORT GIVEN TO PM NURSE FOR CONTINUITY OF CARE
--- NOTE | 2019-09-08 20:02 | NUR ---
PATIENT RCVD ORALLY INTUBATED WITH 7.5 ETT SECURED @ 23 CM [facility] WITH ORDERED SETTINGS KRYSTAL WELL. BREATHING TX GIVEN, NO ADVERSE REACTION NOTED. VENT ALARMS ON AND AUDIBLE. CUFF PRESSURE CHECKED CHIEF CLINICAL OFFICER. ETT SECURE AND IN PROPER POSITION. AMBU BAG AT [facility]. NO RESPIRATORY DISTRESS NOTED AT THIS TIME. WILL CONTINUE TO MONITOR THE PT T/O SHIFT.
[2019-09-08] MEDS: CEFEPIME 1 GM in IV D5W 50 ML IV SCH (21:15)
[2019-09-09] VITALS (43 sets, daily range): BP systolic 87–121; BP diastolic 49–87
[2019-09-09] MEDS: BLOOD SUGAR DIAGNOSTIC 1 EACH STRIP IN SCH ×4 (00:09→17:16)
[2019-09-09] MEDS: VANCOMYCIN 1 GM in IV D5W 250ml IV SCH ×2 (00:09→18:03)
[2019-09-09] MEDS: INSULIN REGULAR, HUMAN 100 UNIT/ML 3 ML VIAL SQ PRN ×4 (00:33→17:18)
[2019-09-09] MEDS: ALBUMIN 25% 12.5 GM in PREMIX 1 EA IV SCH (02:21)
[2019-09-09] MEDS: IPRATROPIUM NEB FS 0.5 MG/2.5 ML AMPUL.NEB NEB SCH ×5 (03:11→20:18)
[2019-09-09] MEDS: ALBUTEROL FS 2.5 MG/0.5 ML VIAL.NEB NEB SCH ×5 (03:11→20:18)
[2019-09-09] MEDS: IV NS 0.9% 1,000 ML IV PRN (04:07)
[2019-09-09 04:58] LABS: HEMATOCRIT 23 % (39-51); HEMOGLOBIN 7.6 g/dL (13.5-17.5); LYMPHOCYTES # (AUTO) 0.6 /CMM (0.8-4.8); LYMPHOCYTES % (AUTO) 6.1 % (20.0-44.0); MEAN CORPUSCULAR HGB CONC 34 g/dl (31.0-36.0); MEAN CORPUSCULAR VOLUME 92 fL (80-96); MONOCYTES # (AUTO) 0.4 /CMM (0.1-1.30); MONOCYTES % (AUTO) 4.2 % (2.0-12.0); NEUTROPHILS # (AUTO) 8.5 /CMM (1.8-8.9); NEUTROPHILS % (AUTO) 89.7 % (43.0-81.0); PLATELET COUNT (AUTO) 250 /CMM (150-450); RED BLOOD CELL COUNT(AUTO) 2.48 MIL/uL (4.5-6.0); WHITE BLOOD COUNT (AUTO) 9.5 K/uL (4.3-11.0)
[2019-09-09 05:07] LABS: CALCIUM, SERUM 7.4 mg/dL (8.5-10.1); CREATININE 1.2 mg/dL (0.6-1.3); POTASSIUM 3.5 mmol/L (3.5-5.1)
[2019-09-09] MEDS: JEVITY 1.2 CAL 1,000 ML BOTTLE GT PRN (05:39)
--- NOTE | 2019-09-09 07:15 | NUR ---
FROZEN FOODS MANAGER NOTES PATIENT STABLE , OPENS EYES , TRACKS DOESN'T FOLLOW COMMANDS , NOT IN ACUTE DISTRESS , ETT 7.01/[address] , VENT SETTINGS ORDERED WITH SPO2 OF 100% , V PACING 70 ON BEDSIDE MONITOR , R NARE NGT IN PLACE WITH JEVITY @ 60ML/HR INFUSING WELL WITH NO RESIDUALS NOTED , FC DRAINING VIA GRAVITY , RIGHT BRACHIAL TLC PICC LINE WITH ,NS @ 200ML/HR INFUSING WELL , ,ALL NEEDS ATTENDED , BED ON LOW AND LOCKED POSITION , SIDE RAILS X2 CALL LIGHT WITHIN REACH , WILL CONTINUE TO MONITOR
[2019-09-09] MEDS: ACETYLCYSTEINE 10% SOLN 400 MG/4 ML VIAL NEB SCH ×2 (07:17→15:20)
[2019-09-09 08:07] LABS: ABG BASE EXCESS 2.7 mmol/L; ABG PCO2 41.7 mmHg (35.0-45.0); ABG PH 7.433 (7.350-7.450); AaDO2 245.9 mmHg; COHb 0.2 % (0.5-1.5); MetHb 0.7 % (0.0-1.5); O2Hb 97.1 % (94.0-97.0); PEEP,BG 0 cm H2O; SITE, ABG Right Radial; VT, ABG 450 mL
--- NOTE | 2019-09-09 08:25 | NUR ---
WOUND CARE CONSULT: PT SEEN FOR LEFT EAR STAGE 2 ULCER AND SACRAL INTACT DEEP TISSUE INJURY. PT NOTED TO HAVE MULTIPLE CO-MORBIDITIES INCLUDING PNEUMONIA, GENERALIZED EDEMA INCLUDING SCROTAL EDEMA,CHF, ACUTE RENAL FAILURE, ON VENTILATOR AT THIS TIME. RECOMMENDATIONS MADE FOR SKIN PROTECTION AND WOUND CARE. DISCUSSED WITH NURSING STAFF. LEFT EAR WOUND NOTED TO BE HEALING, NO DRAINAGE NOTED AT THIS TIME. PT ON FIRST STEP [facility]. IN AGREEMENT WITH PLAN OF CARE. Addendum: 09/09/19 at 0829 by HARDEEP OROZCO WNDNU Amended: Links added.
[2019-09-09] MEDS: CYANOCOBALAMIN 500 MCG TABLET NG SCH (08:26)
[2019-09-09] MEDS: SERTRALINE HCL 25 MG TABLET NG SCH (08:26)
[2019-09-09] MEDS: PANTOPRAZOLE 40 MG/PACK PACK NG SCH (08:26)
[2019-09-09] MEDS: CHOLECALCIFEROL 1,000 UNIT TABLET (VIT D3) NG SCH (08:26)
[2019-09-09] MEDS: DONEPEZIL 5 MG TABLET NG SCH (08:26)
[2019-09-09] MEDS: FINASTERIDE (5 MG) 5 MG TABLET NG SCH (08:26)
[2019-09-09] MEDS: ENOXAPARIN SODIUM 40 MG/0.4 ML DISP.SYRIN SQ SCH (08:27)
[2019-09-09] MEDS: IV 1/2NS 1000 ML 1,000 ML IV PRN ×2 (08:27→18:06)
[2019-09-09] MEDS: HYDROCORTISONE SOD SUCCINATE 100 MG/2 ML VIAL IV SCH ×3 (08:27→17:16)
[2019-09-09] MEDS: CEFEPIME 1 GM in IV D5W 50 ML IV SCH ×2 (10:43→22:02)
--- NOTE | 2019-09-09 13:16 | NUR ---
HAND UMBRELLA TIPPER NOTES RECEIVED A CALL FROM DIETITIAN , RECOMMENDING TO INCREASE JEVITY @ 70ML/HR AND ADD PROSTAT DAILY ,
--- NOTE | 2019-09-09 14:00 | NUR ---
REGULATORY LAW SPECIALIST NOTES NOTIFIED DR JOSHI THAT PT IS OFF LEVOPHED FOR 24 HOURS , PT STABLE ,AFEBRILE , FOLLOWED UP IF THE PT IS SCHEDULED FOR TRACHEOSTOMY , . AWAITING FOR RESPONSE
[2019-09-09] MEDS: PROSOURCE / PROSTAT (PYXIS) 30 ML UDC GT SCH (14:58)
--- NOTE | 2019-09-09 17:11 | NUR ---
STEAMBOAT PILOT NOTES PT TRANSFERRED TO RADIOLOGY DEPT VIA ACLS PROTOCOL , FOR CT SCAN ORDERED , PT STABLE
--- NOTE | 2019-09-09 17:17 | NUR ---
RT NOTE: PATIENT RECEIVED ORALLY INTUBATED WITH 7.5 ETT SECURED AT 23 CM MID LIP LINE ON PB 840 VENT. SUCTIONED AND LAVAGED MODERATE-LARGE AMOUNT OF THICK [place] SECRETIONS. ALARMS VERIFIED AND AUDIBLE. VENT PLUGGED INTO RED OUTLET. AMBU BAG AT [facility].
--- NOTE | 2019-09-09 17:29 | NUR ---
POWERHOUSE MECHANIC HELPER NOTES CALLED JUAN LEFT A MESSAGE , WILL NOTIFY REGARDING TRACH PLACEMENT THIS COMING Thursday PER DR GEORGES , WILL GATHER CONSENT
--- NOTE | 2019-09-09 19:24 | NUR ---
ROAD COMMISSIONER NOTES PATIENT STABLE , OPENS EYES , TRACKS DOESN'T FOLLOW COMMANDS , NOT IN ACUTE DISTRESS , ETT 7.01/[address] , VENT SETTINGS ORDERED WITH SPO2 OF 100% , V PACING 70 ON BEDSIDE MONITOR , R NARE NGT IN PLACE WITH JEVITY @ 70ML/HR INFUSING WELL WITH NO RESIDUALS NOTED , FC DRAINING VIA GRAVITY , RIGHT BRACHIAL TLC PICC LINE WITH ,1/2 NS @ 100ML/HR INFUSING WELL , ,ALL NEEDS ATTENDED , BED ON LOW AND LOCKED POSITION , SIDE RAILS X2 CALL LIGHT WITHIN REACH , REPORT GIVEN TO ARIANNE ORTEGA
--- NOTE | 2019-09-09 19:45 | NUR ---
INFORMED BY RADIOLOGIST THAT F/C BALLOON WAS IN THE PROSTATE AND THAT THE F/C HAD TO BE ADVANCED BY 4CM.
--- NOTE | 2019-09-09 20:19 | NUR ---
PATIENT RCVD ORALLY INTUBATED WITH 7.5 ETT SECURED @ 23 CM [facility] WITH ORDERED SETTINGS KRYSTAL WELL. BREATHING TX GIVEN, NO ADVERSE REACTION NOTED. VENT ALARMS ON AND AUDIBLE. CUFF PRESSURE CHECKED SOYBEAN GROWER. ETT SECURE AND IN PROPER POSITION. AMBU BAG AT [facility]. NO RESPIRATORY DISTRESS NOTED AT THIS TIME. WILL CONTINUE TO MONITOR THE PT T/O SHIFT.
--- NOTE | 2019-09-09 21:00 | NUR ---
F/C ADVANCED 4CM INSTRUCTED BY RADIOLOGIST, WITH [employer] ED @ [facility]
--- NOTE | 2019-09-09 23:00 | NUR ---
RUE SOFT RESTRAINT REMOVED. DUE TO PT BRING QUIET AND BARELY MOVING
[2019-09-10] VITALS (24 sets, daily range): BP systolic 100–118; BP diastolic 53–72
[2019-09-10] MEDS: ACETYLCYSTEINE 10% SOLN 400 MG/4 ML VIAL NEB SCH ×4 (00:13→23:33)
[2019-09-10] MEDS: IPRATROPIUM NEB FS 0.5 MG/2.5 ML AMPUL.NEB NEB SCH ×7 (00:13→23:33)
[2019-09-10] MEDS: ALBUTEROL FS 2.5 MG/0.5 ML VIAL.NEB NEB SCH ×7 (00:13→23:33)
[2019-09-10] MEDS: IV NS 0.9% 250 ML IV PRN ×2 (01:48→19:04)
[2019-09-10] MEDS: INSULIN REGULAR, HUMAN 100 UNIT/ML 3 ML VIAL SQ PRN ×4 (01:51→17:26)
[2019-09-10] MEDS: JEVITY 1.2 CAL 1,000 ML BOTTLE GT PRN ×2 (03:18→17:30)
[2019-09-10] MEDS: IV 1/2NS 1000 ML 1,000 ML IV PRN (05:16)
[2019-09-10 05:17] LABS: HEMATOCRIT 25 % (39-51); LYMPHOCYTES % (AUTO) 8.7 % (20.0-44.0); MEAN CORPUSCULAR HGB CONC 32 g/dl (31.0-36.0); MEAN CORPUSCULAR VOLUME 91 fL (80-96); MONOCYTES # (AUTO) 0.6 /CMM (0.1-1.30); NEUTROPHILS # (AUTO) 9.6 /CMM (1.8-8.9); NEUTROPHILS % (AUTO) 86.3 % (43.0-81.0); PLATELET COUNT (AUTO) 298 /CMM (150-450); WHITE BLOOD COUNT (AUTO) 11.1 K/uL (4.3-11.0)
[2019-09-10 05:29] LABS: CALCIUM, SERUM 7.4 mg/dL (8.5-10.1); CREATININE 1.1 mg/dL (0.6-1.3); POTASSIUM 3.5 mmol/L (3.5-5.1)
[2019-09-10] MEDS: BLOOD SUGAR DIAGNOSTIC 1 EACH STRIP IN SCH ×4 (06:05→17:25)
--- NOTE | 2019-09-10 08:00 | NUR ---
RN NOTE: PATIENT RECEIVED ALERT AWAKE, NON VERBAL, OPEN EYES. INTUBATED, VENT SETTINGS TOLERATING WELL, NO BREATHING DISTRESS NOTED. NO S/S OF DISTRESS NOTED. TUBE FEEDING RUNNING ORDERED, TOLERATING WELL. NO RESIDUAL NOTED. ASPIRATION PRECAUTIONS OBSERVED. SAFETY MEASURES OBSERVED. CONTINUE WITH IV FLUIDS ORDERED. CONTINUE TO TURN & REPOSITION Q2H. CONTINUE WITH PLAN OF CARE.
[2019-09-10] MEDS: PROSOURCE / PROSTAT (PYXIS) 30 ML UDC GT SCH (08:31)
[2019-09-10] MEDS: DONEPEZIL 5 MG TABLET NG SCH (08:31)
[2019-09-10] MEDS: CYANOCOBALAMIN 500 MCG TABLET NG SCH (08:31)
[2019-09-10] MEDS: CHOLECALCIFEROL 1,000 UNIT TABLET (VIT D3) NG SCH (08:31)
[2019-09-10] MEDS: HYDROCORTISONE SOD SUCCINATE 100 MG/2 ML VIAL IV SCH ×3 (08:31→17:25)
[2019-09-10] MEDS: PANTOPRAZOLE 40 MG/PACK PACK NG SCH (08:31)
[2019-09-10] MEDS: FINASTERIDE (5 MG) 5 MG TABLET NG SCH (08:31)
[2019-09-10] MEDS: SERTRALINE HCL 25 MG TABLET NG SCH (08:31)
[2019-09-10] MEDS: ENOXAPARIN SODIUM 40 MG/0.4 ML DISP.SYRIN SQ SCH (08:32)
[2019-09-10 08:50] LABS: ABG BASE EXCESS 2.3 mmol/L; ABG OXYGEN SATURATION 95.8 % (92.0-98.5); ABG PH 7.432 (7.350-7.450); ABG PO2 93.5 mmHg (75.0-100.0); AaDO2 144.6 mmHg; COHb 0.3 % (0.5-1.5); MetHb 0.3 % (0.0-1.5); O2Hb 95.2 % (94.0-97.0); PEEP,BG 0 cm H2O; SITE, ABG Right Radial; VT, ABG 450 mL
[2019-09-10] MEDS: CEFEPIME 1 GM in IV D5W 50 ML IV SCH ×2 (09:03→21:20)
[2019-09-10] MEDS: VANCOMYCIN 1 GM in IV D5W 250ml IV SCH (12:25)
[2019-09-10] MEDS: SCOPOLAMINE HBR 1 EA PATCH.TD72 TD SCH (17:25)
--- NOTE | 2019-09-10 18:40 | NUR ---
RN NOTE: NO S/S OF DISTRESS NOTED. NO FALL/INJURY NOTED. ET INTACT, VENT SETTINGS TOLERATING WELL. OPEN EYES, NON VERBAL. TUBE FEEDING TOLERATING WELL. NO RESIDUAL NOTED. ASPIRATION PRECAUTIONS OBSERVED. SAFETY MEASURES OBSERVED. TURN & REPOSITION Q2H. CONTINUE WITH PLAN OF CARE.
--- NOTE | 2019-09-10 19:30 | NUR ---
ICU/RN PT IS INTUBATED ON THE VENT AC MODE. FIO2-50%.SAT O2-100%.V/S STABLE.AFEBRILE.WAITING FOR THE TRACHEOSTOMY.AWAKE.RESPONSIVE ON PAIN STIMULATION, DEMENTIA.PICC LINE ON THE RIGHT UPPER ARM.NG TUBE INFUSING WITH JEVITY AT 70 ML/HR.NO RESIDUAL NOTED.F/C DRAINING WITH CLOUDY YELLOW URINE.REDNESS ON CORINA AREA NOTED.SCROTUM SWOLLEN AND RED.SUCTION PROVIDED.REPOSITION FOR COMFORT RIGHT WRIST RESTRAIN ON.
--- NOTE | 2019-09-10 20:07 | NUR ---
RT RECEIVED PT ORALLY INTUBATED W/ 7.5 ETT @ 23CM LIP, WITH NOTED SETTINGS. BUDDER DONE AND TUBE IS SECURE. VENT ALARMS CHECKED AND AUDIBLE. VENT PLUGGED IN RED OUTLET. AMBU BAG NOTED HOB. B/S ADITYA WITH EQUAL CHEST RISE. SX W/ MOD THK YELLOW SECRETIONS. NO SOB OR RESP DISTRESS NOTED, WILL CONTINUE TO MONITOR T/O SHIFT.
[2019-09-11] VITALS (24 sets, daily range): BP systolic 106–147; BP diastolic 54–76
[2019-09-11] MEDS: BLOOD SUGAR DIAGNOSTIC 1 EACH STRIP IN SCH ×4 (00:15→18:05)
[2019-09-11] MEDS: INSULIN REGULAR, HUMAN 100 UNIT/ML 3 ML VIAL SQ PRN ×2 (00:17→06:06)
[2019-09-11] MEDS: IPRATROPIUM NEB FS 0.5 MG/2.5 ML AMPUL.NEB NEB SCH ×6 (03:20→23:07)
[2019-09-11] MEDS: ALBUTEROL FS 2.5 MG/0.5 ML VIAL.NEB NEB SCH ×6 (03:20→23:07)
[2019-09-11 05:11] LABS: HEMATOCRIT 23 % (39-51); HEMOGLOBIN 7.9 g/dL (13.5-17.5); LYMPHOCYTES # (AUTO) 0.9 /CMM (0.8-4.8); LYMPHOCYTES % (AUTO) 8.8 % (20.0-44.0); MEAN CORPUSCULAR HGB CONC 34 g/dl (31.0-36.0); MEAN CORPUSCULAR VOLUME 90 fL (80-96); MONOCYTES # (AUTO) 0.7 /CMM (0.1-1.30); MONOCYTES % (AUTO) 6.6 % (2.0-12.0); NEUTROPHILS # (AUTO) 9.1 /CMM (1.8-8.9); NEUTROPHILS % (AUTO) 84.6 % (43.0-81.0); PLATELET COUNT (AUTO) 326 /CMM (150-450); RED BLOOD CELL COUNT(AUTO) 2.57 MIL/uL (4.5-6.0); WHITE BLOOD COUNT (AUTO) 10.7 K/uL (4.3-11.0)
[2019-09-11 05:22] LABS: BILIRUBIN,TOTAL 0.1 mg/dL (0.2-1.0); CALCIUM, SERUM 7.8 mg/dL (8.5-10.1); MAGNESIUM 2.1 mg/dL (1.8-2.4); PHOSPHORUS 2.3 mg/dL (2.5-4.9); POTASSIUM 3.5 mmol/L (3.5-5.1); TOTAL PROTEIN, SERUM 5.7 g/dL (6.4-8.2)
[2019-09-11 05:24] LABS: ALBUMIN 1.1 g/dL (3.4-5.0)
[2019-09-11] MEDS: VANCOMYCIN 1 GM in IV D5W 250ml IV SCH (05:59)
[2019-09-11] MEDS ORDERED: POTASSIUM PHOSPHATE MM 15 MMOL in IV NS 0.9% 250 ML IV SCH (07:00)
[2019-09-11] MEDS: ACETYLCYSTEINE 10% SOLN 400 MG/4 ML VIAL NEB SCH ×3 (07:42→23:07)
--- NOTE | 2019-09-11 07:47 | NUR ---
RN NOTES RECEIVED PT ORALLY INTUBATED, OPENS EYES , UNABLE TO FOLLOW COMMANDS. ETT SECURED WITH VENT SETTINGS TOLERATED WELL. PATEL IN PLACE AND DRAINING TO CLEAR YELLOW URINE, BAG OFF THE FLOOR. RT NARE NGT IN PLACE WITH FEEDING WELL TOLERATED; HOB KEPT ELEVATED. RT WRIST RESTRAINTS IN PLACE , ROM DONE, SKIN AND CIRCULATION WNL. SAFETY ENSURED
[2019-09-11 08:57] LABS: ABG BASE EXCESS 0.6 mmol/L; ABG OXYGEN SATURATION 94.9 % (92.0-98.5); ABG PCO2 38.3 mmHg (35.0-45.0); ABG PO2 82.7 mmHg (75.0-100.0); AaDO2 158.5 mmHg; COHb 0.1 % (0.5-1.5); MetHb 0.5 % (0.0-1.5); O2Hb 94.3 % (94.0-97.0); SITE, ABG Right Radial; VT, ABG 450 mL
[2019-09-11] MEDS: PROSOURCE / PROSTAT (PYXIS) 30 ML UDC GT SCH (09:05)
[2019-09-11] MEDS: JEVITY 1.2 CAL 1,000 ML BOTTLE GT PRN (09:05)
[2019-09-11] MEDS: ENOXAPARIN SODIUM 40 MG/0.4 ML DISP.SYRIN SQ SCH (09:06)
[2019-09-11] MEDS: HYDROCORTISONE SOD SUCCINATE 100 MG/2 ML VIAL IV SCH ×3 (09:09→16:26)
[2019-09-11] MEDS: DONEPEZIL 5 MG TABLET NG SCH (09:09)
[2019-09-11] MEDS: FINASTERIDE (5 MG) 5 MG TABLET NG SCH (09:09)
[2019-09-11] MEDS: CHOLECALCIFEROL 1,000 UNIT TABLET (VIT D3) NG SCH (09:09)
[2019-09-11] MEDS: SERTRALINE HCL 25 MG TABLET NG SCH (09:09)
[2019-09-11] MEDS: PANTOPRAZOLE 40 MG/PACK PACK NG SCH (09:12)
[2019-09-11] MEDS: CYANOCOBALAMIN 500 MCG TABLET NG SCH (09:12)
[2019-09-11] MEDS: CEFEPIME 1 GM in IV D5W 50 ML IV SCH ×2 (10:26→22:18)
--- NOTE | 2019-09-11 18:34 | NUR ---
rn closing notes pt slept intermittently, turned and repositioned. vent settings well tolerated with audible alarms. all meds given thru patent ngt; hob kept elevated with aspiration precaution observed. gt feeding toleAted well. all needs attended. will endorse to next shift rn in stable condition.
--- NOTE | 2019-09-11 19:35 | NUR ---
RN NOTES RECEIVED PATIENT AWAKE ON BED. RALLY INTUBATED WITHOUT SEDATION. WITH ETT 7.5 AND 25 LIP LINE WITH VENT SETTING OF AC 16 TV 450 FIO2 0% PEEP 10 TOLERATED WELL. NO RESPIRATORY DISTRESS. V PACING COMPLETELY SENSING ON TELE MONITOR. WITH NGTF JEVITY 1.2 @ 70 ML/HR INTACT AND PATENT AND TOLERATED WELL W/ZERO RESIDUAL. IV SITE ON CHI PICC WITH GOOD BLOOD RETURN. KEPT PT CLEAN AND DRY. OFFLOADED EXT WITH PILLOWS. TURNED AND REPOSITIONED FOR SKIN MNGMT. WILL CONTINUE TO MONITOR.
--- NOTE | 2019-09-11 19:40 | NUR ---
RN NOTES CORRECTION WITH ZERO PEEP
[2019-09-12] VITALS (37 sets, daily range): BP systolic 95–156; BP diastolic 57–113
[2019-09-12] MEDS: VANCOMYCIN 1 GM in IV D5W 250ml IV SCH ×2 (00:24→18:30)
[2019-09-12] MEDS: BLOOD SUGAR DIAGNOSTIC 1 EACH STRIP IN SCH ×4 (00:34→17:04)
[2019-09-12] MEDS: IV NS 0.9% 250 ML IV PRN (00:36)
[2019-09-12] MEDS: IPRATROPIUM NEB FS 0.5 MG/2.5 ML AMPUL.NEB NEB SCH ×5 (03:27→19:47)
[2019-09-12] MEDS: ALBUTEROL FS 2.5 MG/0.5 ML VIAL.NEB NEB SCH ×5 (03:28→19:47)
--- NOTE | 2019-09-12 05:00 | NUR ---
RN NOTES TRANSFERRED PATIENT TO [address] [place] [address] [id number] . PATIENT IS IN STABLE CONDITION , CONTINUE WITH IVF ORDERED. REPORT GIVEN TO CHARLEEN FOR CONTINUITY OF CARE . Addendum: 09/12/19 at 0541 by JAMES SÁNCHEZ RN ERROR ... NOTE FOR OTHER PATIENT..
[2019-09-12 05:13] LABS: BASOPHILS % (AUTO) 0.2 % (0.0-2.0); EOSINOPHILS % (AUTO) 0.1 % (0.0-6.0); HEMATOCRIT 23 % (39-51); HEMOGLOBIN 7.8 g/dL (13.5-17.5); LYMPHOCYTES # (AUTO) 1.1 /CMM (0.8-4.8); LYMPHOCYTES % (AUTO) 10.9 % (20.0-44.0); MEAN CORPUSCULAR HGB CONC 34 g/dl (31.0-36.0); MEAN CORPUSCULAR VOLUME 91 fL (80-96); MONOCYTES # (AUTO) 0.6 /CMM (0.1-1.30); MONOCYTES % (AUTO) 5.9 % (2.0-12.0); NEUTROPHILS # (AUTO) 8.6 /CMM (1.8-8.9); NEUTROPHILS % (AUTO) 82.9 % (43.0-81.0); PLATELET COUNT (AUTO) 317 /CMM (150-450); RED BLOOD CELL COUNT(AUTO) 2.55 MIL/uL (4.5-6.0); WHITE BLOOD COUNT (AUTO) 10.4 K/uL (4.3-11.0)
[2019-09-12 05:28] LABS: CALCIUM, SERUM 7.7 mg/dL (8.5-10.1); CREATININE 0.9 mg/dL (0.6-1.3); PHOSPHORUS 2.8 mg/dL (2.5-4.9); POTASSIUM 3.4 mmol/L (3.5-5.1)
--- NOTE | 2019-09-12 07:10 | NUR ---
RN NOTES PATIENT REMAINED STABLE NO SIGNIFICANT CHANGES ETT AND VENT SETTING TOLERATED WELL. SATURATION >92%. AFEBRILE. REMAINED V- PACING 100% ON TELE MONITOR. NGT INTACT AND PATENT F/C KEPT OFF FROM THE FLOOR. CHI PICC LINE INTACT AND PATENT. KEPT PT CLEAN AND DRY. WILL ENDORSED CONTINUITY OF CARE TO AM NURSE.
--- NOTE | 2019-09-12 07:30 | NUR ---
RN NOTE RECEIVED PT ON BED, AWAKE, OPENS EYES BUT NO TRACKING, NO FOLLOWING COMMAND, ABLE TO MOVE EXTREMITIES, INTUBATED ON MECH VENT, NO DISTRESS, NO SOB, NO FEVER. V-PACING 70 ON MONITOR. BP STABLE. PICC LINE INTACT, NO IVF RUNNING, PATEL CATHETER IN PLACE DRAINING YELLOW URINE. RIGHT WRIST RESTRAINED, SAFETY MEASURES IN PLACE, CALL LIGHT WITHIN REACH. WILL MONITOR.
[2019-09-12] MEDS: ACETYLCYSTEINE 10% SOLN 400 MG/4 ML VIAL NEB SCH ×2 (07:43→15:09)
[2019-09-12] MEDS: ENOXAPARIN SODIUM 40 MG/0.4 ML DISP.SYRIN SQ SCH (09:00)
[2019-09-12] MEDS: PANTOPRAZOLE 40 MG/PACK PACK NG SCH (09:00)
[2019-09-12] MEDS: CYANOCOBALAMIN 500 MCG TABLET NG SCH (09:00)
[2019-09-12] MEDS: SERTRALINE HCL 25 MG TABLET NG SCH (09:00)
[2019-09-12] MEDS: PROSOURCE / PROSTAT (PYXIS) 30 ML UDC GT SCH (09:00)
[2019-09-12] MEDS: FINASTERIDE (5 MG) 5 MG TABLET NG SCH (09:00)
[2019-09-12] MEDS: CHOLECALCIFEROL 1,000 UNIT TABLET (VIT D3) NG SCH (09:00)
[2019-09-12] MEDS: DONEPEZIL 5 MG TABLET NG SCH (09:00)
[2019-09-12] MEDS: POTASSIUM CL. PREMIX PERIPHER. 50 ML IV SCH ×2 (09:28→10:20)
[2019-09-12] MEDS: CEFEPIME 1 GM in IV D5W 50 ML IV SCH ×2 (09:28→22:04)
[2019-09-12] MEDS: HYDROCORTISONE SOD SUCCINATE 100 MG/2 ML VIAL IV SCH ×3 (09:29→16:52)
[2019-09-12] MEDS ORDERED: ANESTHESIA TRAY IN PYXIS 1 EA TRAY MC ONE (11:15)
[2019-09-12] MEDS ORDERED: MIDAZOLAM HCL 2 MG/2ML VIAL ONE (12:09)
[2019-09-12] MEDS ORDERED: ROCURONIUM BROMIDE 50 MG/5 ML ONE (12:09)
--- NOTE | 2019-09-12 12:15 | NUR ---
RN NOTE PT TAKE TO OPERATING ROOM FOR TRAH PLACEMENT.
[2019-09-12] MEDS ORDERED: CELLULOSE,OXIDIZED 1 EACH EACH MC ONE (12:43)
--- NOTE | 2019-09-12 12:50 | NUR ---
RN NOTE PT CAME BACK FROM OR WITH NEW TRACHEOSTOMY IN PLACE, SATURATION DROPPED TO 60%, OXYGEN ADJUSTED TO 100% FOR NOW, WILL MONITOR FURTHER. MINIMAL BLOOD NOTED AROUND TRACH.
--- NOTE | 2019-09-12 13:11 | NUR ---
PT RECEIVED ORALLY INTUBATED ON MECHANICAL VENT W/ SETTINGS PER MD. VENT IN RED OUTLET, VENT ALARMS CHECKED AND AUDIBLE, AMBUBAG AT BEDSIDE. PT SX'ED AND LAVAGED PRN. BS EQUAL AND DIMINISHED. ETT TUBE SECURED, PATENT, CLEAN AND DRY. ABG HELD PER DR. JAY. PT TAKEN TO SURGERY FOR TRACH PLACEMENT (SHILEY 6). RETURNED AND PLACED BACK ON VENT W/ PRIOR SETTINGS. PLAN IS TO CONTINUE CARE UNDER CURRENT MD ORDERS AND MONITOR FOR CHANGES. Addendum: 09/12/19 at 1312 by ASHLEE SANTOS RT Amended: Links added.
[2019-09-12] MEDS: JEVITY 1.2 CAL 1,000 ML BOTTLE GT PRN (14:48)
[2019-09-12] MEDS ORDERED: LORAZEPAM INJ 2 MG/ML VIAL IV PRN (15:30)
[2019-09-12] MEDS: INSULIN REGULAR, HUMAN 100 UNIT/ML 3 ML VIAL SQ PRN (17:05)
[2019-09-12] MEDS: MORPHINE SULFATE INJ 2 MG/ML DISP.SYRIN IV PRN (17:56)
--- NOTE | 2019-09-12 19:20 | NUR ---
RN NOTES RECEIVED PATIENT ASLEEP. WTIH TRACH SHILEY 6 VENT SETTING OF AC 16 TV 450 FIO2 40% NO PEEP TOLERATED WELL. NO RESPIRATORY DISTRESS. V PACING COMPLETELY SENSING ON TELE MONITOR. WITH NGTF JEVITY 1.2 @ 70 ML/HR INTACT AND PATENT AND TOLERATED WELL W/ZERO RESIDUAL. IV SITE ON CHI PICC WITH GOOD BLOOD RETURN. RIGHT HAND SOFT RESTRAINT KEPT PT CLEAN AND DRY. OFFLOADED EXT WITH PILLOWS. TURNED AND REPOSITIONED FOR SKIN MNGMT. WILL CONTINUE TO MONITOR.
[2019-09-13] VITALS (13 sets, daily range): BP systolic 115–153; BP diastolic 60–80
[2019-09-13] MEDS: ACETYLCYSTEINE 10% SOLN 400 MG/4 ML VIAL NEB SCH ×4 (00:09→23:24)
[2019-09-13] MEDS: ALBUTEROL FS 2.5 MG/0.5 ML VIAL.NEB NEB SCH ×7 (00:09→23:25)
[2019-09-13] MEDS: IPRATROPIUM NEB FS 0.5 MG/2.5 ML AMPUL.NEB NEB SCH ×7 (00:09→23:25)
[2019-09-13] MEDS: BLOOD SUGAR DIAGNOSTIC 1 EACH STRIP IN SCH ×4 (00:35→17:54)
[2019-09-13] MEDS: INSULIN REGULAR, HUMAN 100 UNIT/ML 3 ML VIAL SQ PRN ×3 (00:37→17:55)
--- NOTE | 2019-09-13 04:59 | NUR ---
PT RECEIVED TRACHED ON [facility] VENT WITH NOTED SETTING. TRACH PATENT AND SECURE VIA TRACH TIES. MARKETING SUPPORT COORDINATOR NOTED. PT TOLERATING SETTING WELL. BILATERAL BS NOTED. NO SOB OR DISTRESS NOTED ON SHIFT. VENT TO RED OUTLET AND ALARMS SET AND AUDIBLE. Addendum: 09/13/19 at 0500 by TEVIN CARR RT Amended: Links added.
[2019-09-13 05:04] LABS: BASOPHILS % (AUTO) 0.1 % (0.0-2.0); HEMATOCRIT 25 % (39-51); HEMOGLOBIN 8.4 g/dL (13.5-17.5); LYMPHOCYTES # (AUTO) 0.9 /CMM (0.8-4.8); MEAN CORPUSCULAR HGB CONC 34 g/dl (31.0-36.0); MEAN CORPUSCULAR VOLUME 91 fL (80-96); MONOCYTES # (AUTO) 0.5 /CMM (0.1-1.30); MONOCYTES % (AUTO) 4.5 % (2.0-12.0); NEUTROPHILS # (AUTO) 8.8 /CMM (1.8-8.9); NEUTROPHILS % (AUTO) 86.4 % (43.0-81.0); PLATELET COUNT (AUTO) 307 /CMM (150-450); RED BLOOD CELL COUNT(AUTO) 2.74 MIL/uL (4.5-6.0); WHITE BLOOD COUNT (AUTO) 10.2 K/uL (4.3-11.0)
[2019-09-13 05:21] LABS: CALCIUM, SERUM 7.6 mg/dL (8.5-10.1); MAGNESIUM 1.9 mg/dL (1.8-2.4); PHOSPHORUS 2.7 mg/dL (2.5-4.9); POTASSIUM 3.7 mmol/L (3.5-5.1)
--- NOTE | 2019-09-13 06:49 | NUR ---
RN NOTES PATIENT REMAINED STABLE NO SIGNIFICANT CHANGES THROUGHOUT THE SHIFT. TOLERATED TRACH AND VENT SETTING. AFEBRILE. VSS. V-PACING COMPLETELY. NGTF TOLERATED WELL WITH HOB KEPT ELEVATED. ALL DUE MEDICINE TOLERATED WELL. F/C DRAINED ADEQ. KEPT OFF FROM THE FLOOR. TURNED AND REPOSITIONED Q2H AND PRN. WILL ENDORSED CONTINUITY OF CARE TO AM NURSE.
--- NOTE | 2019-09-13 07:50 | NUR ---
WOUND CARE CONSULT: PT SEEN FOR RE-EVALUATION OF SACRAL DEEP TISSUE INJURY WHICH IS NOW IN EVOLUTION WELL LEFT EAR STAGE 2 WHICH IS NOW HEALED. RECOMMENDATIONS MADE FOR WOUND CARE AND SKIN PROTECTION. DISCUSSED WITH NURSING STAFF. IN AGREEMENT WITH PLAN OF CARE. Addendum: 09/13/19 at 0752 by HARDEEP OROZCO WNDNU Amended: Links added.
--- NOTE | 2019-09-13 07:50 | NUR ---
RT PATIENT REC'D TRACHED ON [facility] VENT WITH ORDERED SETTINGS KRYSTAL WELL. VENT ALARMS CHECKED + AUDIBLE. AMBU BAG AT [facility]. PATIENT BEING DOWN GRADED TO [facility]. AMBU BAG AT [facility] Addendum: 09/13/19 at 1101 by ANEL CROOKS RT Amended: Links added.
--- NOTE | 2019-09-13 08:00 | NUR ---
RN NOTE: Called and spoke with JORDAN Layne for continuity of care. Patient was seen by the wound care nurse Mary and she was informed that the patient has been wiggling and moving on the bed adn he was currently on the KCI mattress. KCI mattress was deflated and was reported to the wound nurse Mary that the patient is at risk for fall. She recommended a change of mattress to an isoflex mattress. All pertinent information was relayed to JORDAN Layne for continuiation of care.
--- NOTE | 2019-09-13 08:20 | NUR ---
JOSE MARIA RN NOTES RECEIVED PATIENT FROM ICU, OPENS EYES, OBTUNDED. WITH SHILEY 6, TO MECHANICAL VENT WITH SETTINGS ORDERED, AC 16 TV 450 FI02 40% PEEP 0, TOLERATING WELL. NO SOB,NO ACUTE DISTRESS NOTED. SATURATING 100%. V PACING HR 81. NO SIGNS OF PAIN OR DISCOMFORT, WITH GUSTAVO MIDLINE AT TKO, SITE CLEAR, PATEL CATH IN P LACE WITH YELLOW TO SANTO COLORED URINE, ADEQUATE AMOUNT. TUBE FEEDING JEVITY AT 70 ML/HR RUNNING ORDERED, TO NGT, CHECKED FOR PLACEMENT, MINIMAL RESIDUAL NOTED, FLUSHING AND PATENT. SEE NURSING FLOWSHEET FOR SKIN ISSUES, SOFT RIGHT WRIST RESTRAINT IN PACE,RELEASED AND CHECKED FOR CIRCULATION THEN Q 2HOURS. KCI MATTRESS IN PLACE. SAFETY MEASURES IN PLACE; BED IS IN LOCKED AND LOW POSITION, CALL LIGHT WITHIN REACH, SIDE RAILS UP X2 AND PADDED. WILL TURN AND REPOSITION Q 2 HOURS. WILL CONT TO MONITOR PT.
[2019-09-13] MEDS: SERTRALINE HCL 25 MG TABLET NG SCH (09:30)
--- NOTE | 2019-09-13 09:30 | NUR ---
RN NOTES DUE MEDS GIVEN DR. MOSER AND DR. VANEGAS AT BEDSIDE EARLIER. PATIENT FOR TRANSESOPHAGEAL ECHO TOMORROW. CONSENT IN CHART
[2019-09-13] MEDS: PANTOPRAZOLE 40 MG/PACK PACK NG SCH (09:31)
[2019-09-13] MEDS: DONEPEZIL 5 MG TABLET NG SCH (09:31)
[2019-09-13] MEDS: CYANOCOBALAMIN 500 MCG TABLET NG SCH (09:31)
[2019-09-13] MEDS: FINASTERIDE (5 MG) 5 MG TABLET NG SCH (09:31)
[2019-09-13] MEDS: HYDROCORTISONE SOD SUCCINATE 100 MG/2 ML VIAL IV SCH ×3 (09:31→17:45)
[2019-09-13] MEDS: CHOLECALCIFEROL 1,000 UNIT TABLET (VIT D3) NG SCH (09:31)
[2019-09-13] MEDS: PROSOURCE / PROSTAT (PYXIS) 30 ML UDC GT SCH (09:32)
[2019-09-13] MEDS: ENOXAPARIN SODIUM 40 MG/0.4 ML DISP.SYRIN SQ SCH (09:40)
[2019-09-13] MEDS: CEFEPIME 1 GM in IV D5W 50 ML IV SCH ×2 (10:22→21:38)
[2019-09-13] MEDS: JEVITY 1.2 CAL 1,000 ML BOTTLE GT PRN (10:26)
--- NOTE | 2019-09-13 12:34 | NUR ---
RN NOTES ACCUCHECK DONE. BS 143 MG/DL. 2 UNITS HUM R GIVEN SUBCUTANEOUS PER SS.
--- NOTE | 2019-09-13 14:30 | NUR ---
RN NOTES RECEIVED CALL FROM OPERATING ROOM NURSE THAT THE PEG PLACEMENT WILL BE DONE KEYA AT 1900, FEEDING VIA NGTUBE ON HOLD SPOKE WITH JUAN TODAY, CONSENT ON FILE.
[2019-09-13] MEDS: SCOPOLAMINE HBR 1 EA PATCH.TD72 TD SCH (17:46)
[2019-09-13] MEDS: VANCOMYCIN 1 GM in IV D5W 250ml IV SCH (18:12)
--- NOTE | 2019-09-13 18:25 | NUR ---
JOSE MARIA RN CLOSING NOTES PATIENT RESTING IN BED, OPENS EYES, OBTUNDED. WITH SHILEY 6, TO MECHANICAL VENT WITH SETTINGS ORDERED, AC 16 TV 450 FI02 40% PEEP 0, TOLERATING WELL. NO SOB,NO ACUTE DISTRESS NOTED. SATURATING 100%. V PACING HR 8Os. NO SIGNS OF PAIN OR DISCOMFORT, WITH GUSTAVO MIDLINE AT TKO, SITE CLEAR, PATEL CATH IN PLACE WITH YELLOW TO SANTO COLORED URINE, 1255 ML OUTPUT. TUBE FEEDING ON HOLD FOR SCHEDULED PEG PLACEMENT. SOFT RIGHT WRIST RESTRAINT IN PACE,RELEASED AND CHECKED FOR CIRCULATION 2HOURS. KCI MATTRESS IN PLACE. SAFETY MEASURES IN PLACE; BED IS IN LOCKED AND LOW POSITION, HOB ELEVATAED AT ALL TIMES. PM CARE AND PRESCRIBED WOUND TREATMENT DONE EARLIER. CALL LIGHT WITHIN REACH, SIDE RAILS UP X2 AND PADDED. TURNED AND REPOSITIONED Q 2 HOURS. ALL NEEDS MET AT THIS TIME. NO OTHER SIGNIFICANT CHANGE IN CONDITION. WILL ENDORSE TO NEXT SHIFT FOR DODIE. PATIENT FOR SCHEDULED TRANSESOPHAGEAL ECHOCARDIOGRAPHY TAISHA C/O DR. MOSER. CONSENT SIGNED. NPO POST MIDNIGHT. TRANSFER PATIENT TO ROOM 256 ICU TAISHA AT 0730
--- NOTE | 2019-09-13 19:51 | NUR ---
TD RN OPENING NOTE RECEIVED PATIENT NON VERBAL ON VENT. AC 16, TV 450, FIO2 40%, NO PEEP AND SHILEY # 6. PATIENT TOLERATING VENT SETTING WITH NO SIGN OF ANY DISTRESS. ON THE MONITOR SHOWING V-PACING WITH HR IN THE 80'S. PATIENT IS CURRENTLY NPO AWAITING PEG PLACEMENT BUT WITH NGT ATTACHED. HAS A GUSTAVO MIDLINE ON TKO. PATIENT HAS PATEL PATENT NO LEAKAGE AND SOFT RESTRAINT ON THE RIGHT WRIST WILL ASSESS FOR CIRCULATION. ALL SAFETY PRECAUTIONS APPLIED. VENT PLUGGED INTO RED OUTLET. WILL CONTINUE TO MONITOR THROUGHOUT NIGHT.
[2019-09-13] MEDS: RIFAMPIN 600 MG in IV NS 0.9% 100 ML IV SCH (20:08)
--- NOTE | 2019-09-13 21:23 | NUR ---
RN NOTE PEG PLACEMENT PROCEDURE COMPLETED. PATIENT SHOWS NO SIGNS OF DISTRESS. VITAL TAKEN POST-OP ALL WNL. WILL CONTINUE TO MONITOR PATIENT.
[2019-09-14] VITALS (14 sets, daily range): BP systolic 54–157; BP diastolic 27–95
[2019-09-14] MEDS: BLOOD SUGAR DIAGNOSTIC 1 EACH STRIP IN SCH ×4 (00:19→17:36)
[2019-09-14] MEDS: IPRATROPIUM NEB FS 0.5 MG/2.5 ML AMPUL.NEB NEB SCH ×6 (03:57→23:06)
[2019-09-14] MEDS: ALBUTEROL FS 2.5 MG/0.5 ML VIAL.NEB NEB SCH ×6 (03:57→23:06)
[2019-09-14 06:28] LABS: BASOPHILS % (AUTO) 0.2 % (0.0-2.0); HEMATOCRIT 28 % (39-51); HEMOGLOBIN 9.1 g/dL (13.5-17.5); LYMPHOCYTES # (AUTO) 1.4 /CMM (0.8-4.8); LYMPHOCYTES % (AUTO) 11.7 % (20.0-44.0); MEAN CORPUSCULAR HGB CONC 33 g/dl (31.0-36.0); MEAN CORPUSCULAR VOLUME 90 fL (80-96); MONOCYTES # (AUTO) 0.6 /CMM (0.1-1.30); MONOCYTES % (AUTO) 4.8 % (2.0-12.0); NEUTROPHILS % (AUTO) 83.3 % (43.0-81.0); PLATELET COUNT (AUTO) 327 /CMM (150-450); RED BLOOD CELL COUNT(AUTO) 3.05 MIL/uL (4.5-6.0)
[2019-09-14 06:44] LABS: CALCIUM, SERUM 8.7 mg/dL (8.5-10.1); PHOSPHORUS 2.7 mg/dL (2.5-4.9); POTASSIUM 3.1 mmol/L (3.5-5.1)
[2019-09-14] MEDS: ACETYLCYSTEINE 10% SOLN 400 MG/4 ML VIAL NEB SCH ×3 (07:26→23:07)
--- NOTE | 2019-09-14 07:35 | NUR ---
TD RN CLOSING PATIENT IN BED SHOWING NO SIGNS OF ANY DISTRESS. PATIENT TOLERATING VENT SETTING WITH NO SIGNS OF DESATURATION. ALL SAFETY PRECAUTIONS HAVE BEEN MET. ENDORSED PATIENT TO MORNING SHIFT NURSE FOR DODIE.
--- NOTE | 2019-09-14 07:42 | NUR ---
JOSE MARIA RN OPENING NOTES RECEIVED PT ON BED ASLEEP EYES, OBTUNDED. WITH SHILEY 6, TO MECHANICAL VENT WITH SETTINGS ORDERED, AC 16 TV 450 FI02 40% PEEP 0, TOLERATING WELL. NO SOB,NO ACUTE DISTRESS NOTED. SATURATING 100%. V PACING HR 81. NO SIGNS OF PAIN OR DISCOMFORT, WITH GUSTAVO MIDLINE AT TKO, SITE CLEAR, PATEL CATH IN P LACE WITH YELLOW TO SANTO COLORED URINE, ADEQUATE AMOUNT. NEW PEG ON PLACE NO BLEEDING NOTED, . SEE NURSING FLOWSHEET FOR SKIN ISSUES, SOFT RIGHT WRIST RESTRAINT IN PACE,RELEASED AND CHECKED FOR CIRCULATION THEN Q 2HOURS. KCI MATTRESS IN PLACE. SAFETY MEASURES IN PLACE; BED IS IN LOCKED AND LOW POSITION, CALL LIGHT WITHIN REACH, SIDE RAILS UP X2 AND PADDED. WILL TURN AND REPOSITION Q 2 HOURS. WILL CONT TO MONITOR PT.
--- NOTE | 2019-09-14 08:00 | NUR ---
INDUSTRIAL MAINTENANCE MECHANIC NOTES TRANSFER PT TO ICU FOR MONICA PROCEDURE, PT STILL ON VENT SETTING PER MD ORDER, NO SIGN AND SYMPTOMS OF RESPIRATORY DISTRESS, STILL ON SOFT RESTRAINTS ON RIGHT ARM, VITALS SIGNS WNL, GIVE BEDSIDE REPORT TO MS COMBS MEAL TEMPERER, PRE OP CHECKLIST COMPLETED CONSENT WITH SIGNATURE ALSO ENDORSE, HAND OVER PATIENT TO MS COMBS MEAL TEMPERER FOR CONTINUITY OF CARE
--- NOTE | 2019-09-14 08:30 | NUR ---
LICENSED NUCLEAR OPERATOR NOTES (MONICA PROCEDURE) Rec'd pt from [facility]IA, report from Farida/Raad RN. Pt transferred via bed accompanied by RTs. Pt on rm 257, placed on contact isolation. Pt awake but does not follow commands. On MV via trach w/ no SOB, sating 98%. Placed on telemonitor, Vpacing HR 70s. BP WNL. GUSTAVO midline flushing well but no blood return noted. GT in place, clamped - NPO since yesterday per report. FC draining to BSB w/ yellowish UOP. R wrist restraints on d/t episode of pulling out tubes. Consent for MONICA in the chart. Safety precaution in place w/ bed in lowest & locked pos. Call light placed w/in reach. Will cont to monitor & attend pt needs.
[2019-09-14] MEDS: POTASSIUM CL. PREMIX PERIPHER. 50 ML IV SCH ×5 (08:42→14:34)
--- NOTE | 2019-09-14 08:45 | NUR ---
Pt seen & examined by Dr. Prieto.
[2019-09-14] MEDS: HYDROCORTISONE SOD SUCCINATE 100 MG/2 ML VIAL IV SCH ×3 (08:47→16:32)
[2019-09-14] MEDS: SERTRALINE HCL 25 MG TABLET NG SCH (09:00)
[2019-09-14] MEDS ORDERED: FENTANYL PF 100MCG/2ML AMPUL ONE (09:10)
--- NOTE | 2019-09-14 09:30 | NUR ---
0930 Pt set up for MONICA procedure, positioned on left side lying, HOB elevated. Dr. Santacruz & Dr. Dong at bedside. VS monitored closely. FiO2 increased to 100%. 939 MONICA procedure started c/o Dr. Santacruz. Pt sedated, not in any distress. VS monitored closely 954 MONICA procedure done. Pt remains sedated. Will keep monitoring.
[2019-09-14] MEDS: CHOLECALCIFEROL 1,000 UNIT TABLET (VIT D3) NG SCH (10:07)
[2019-09-14] MEDS: CYANOCOBALAMIN 500 MCG TABLET NG SCH (10:07)
[2019-09-14] MEDS: FINASTERIDE (5 MG) 5 MG TABLET NG SCH (10:07)
[2019-09-14] MEDS: DONEPEZIL 5 MG TABLET NG SCH (10:07)
[2019-09-14] MEDS: PANTOPRAZOLE 40 MG/PACK PACK NG SCH (10:08)
[2019-09-14] MEDS: ENOXAPARIN SODIUM 40 MG/0.4 ML DISP.SYRIN SQ SCH (10:09)
[2019-09-14] MEDS: PROSOURCE / PROSTAT (PYXIS) 30 ML UDC GT SCH (10:09)
[2019-09-14] MEDS: CEFEPIME 1 GM in IV D5W 50 ML IV SCH ×2 (11:27→22:25)
[2019-09-14] MEDS: Potassium Chloride 40 MEQ in IV D5W 1,000 ML IV PRN (11:27)
[2019-09-14] MEDS: INSULIN REGULAR, HUMAN 100 UNIT/ML 3 ML VIAL SQ PRN ×2 (11:48→17:42)
--- NOTE | 2019-09-14 12:00 | NUR ---
ICU TRANSFER NOTES (POST MONICA) Pt transferred back to 106 s/p MONICA procedure. Pt not in any distress, awake. No SOB while on MV via trach, sating at 98%. Remains Vpacing on telemonitor. IV access on GUSTAVO midline kept patent & intact w/ no s/sx of infection/infiltration noted. FC kept draining to BSB. GT kept patent & intact, flushing well. Report given to Raad RN for DODIE. Endorsed remaining bags (x2) of KCL for K replacement. No issues identified during transfer.
--- NOTE | 2019-09-14 12:02 | NUR ---
WHIPPER BEATER NOTES RECEIVED PT FROM ICU POST MONICA, MS COMBS TAPE RECORDER REPAIRER GIVE REPORT, PT STILL ON VENT SETTING PER DOCTORS ORDER, PT IS ALREADY AWAKE, NO SIGN AND SYMPTOMS OF RESPIRATORY DISTRESS, HR -74BPM O2 SAT @ 98%, PT STILL ON RESTRAINTS, GTUBE FEEDING RESTARTED WITH JEVITY 40ML/HR THIS MOMENT WITH GOAL OF 70ML/ HR, PEG PATENT, SAFETY MEASURE OBSERVED AT ALL TIMES WILL CONTINUE TO MONITOR THE PATIENT
[2019-09-14] MEDS: JEVITY 1.2 CAL 1,000 ML BOTTLE GT PRN (12:22)
[2019-09-14] MEDS: VANCOMYCIN 1 GM in IV D5W 250ml IV SCH (17:36)
--- NOTE | 2019-09-14 18:59 | NUR ---
OLIVE KNOCKER CLOSING NOTES PT ON STABLE CONDITION NO SIGN AND SYMPTOMS OF RESPIRATORY DISTRESS NO SIGN OF ANY PAIN, STILL ON VENT SETTING PER MD ORDER, WOUND TREATMENT WAS DONE, SAFETY MEASURE ALWAYS OBSERVED STILL ON RIGHT ARM RESTRAINTS, SIDERAILS UP X4, CALL LIGHT WITHIN REACH ALL NEEDS ATTENDED NO SIGNIFICANT CHANGES ON CONDITION NOTED WILL ENDORSE TO MESSAGE BROKER DEVELOPER NURSE
--- NOTE | 2019-09-14 20:00 | NUR ---
TD RN OPENING NOTE RECEIVED PATIENT IN BED WITH NO SIGN OF ANY DISTRESS. PATIENT IS NON VERBAL ON VENT SHOWING NO SIGNS OF ANY SOB. VENT SETTINGS ON A SHILEY #6, TV 500, AC16, FIO2 40% WITH NO PEEP. PATIENT ON THE MONITOR SHOWING V-PACING WITH HR OF 88. PATIENT HAS A GUSTAVO PICC LINE WITH TKO. HAS PATEL ATTACHED PATENT AND NO LEAKAGE. ALL SAFETY PRECAUTIONS APPLIED. VENT PLUGGED INTO RED OUTLET. WILL CONTINUE TO MONITOR THROUGHOUT THE NIGHT
[2019-09-14] MEDS: IV NS 0.9% 250 ML IV PRN (20:37)
[2019-09-14] MEDS: RIFAMPIN 600 MG in IV NS 0.9% 100 ML IV SCH (20:42)
[2019-09-14] MEDS: MUPIROCIN OINT 2% 22 GM TUBE SCH (21:58)
--- NOTE | 2019-09-14 23:24 | NUR ---
RT NOTE Pt Rec'd trached on [facility] vent on AC mode. No resp distress or sob noted. Pt sx'd for thick mod amt of pale yellow secretions. Alarms are set and audible. Vent plugged into red outlet. ambu bag bedside. Will continue to monitor closely. Addendum: 09/14/19 at 1304 by ASHLY COLBY RT Amended: Links added.
[2019-09-15] VITALS: BP 133/61
[2019-09-15] MEDS: BLOOD SUGAR DIAGNOSTIC 1 EACH STRIP IN SCH ×5 (00:51→23:35)
[2019-09-15] MEDS: INSULIN REGULAR, HUMAN 100 UNIT/ML 3 ML VIAL SQ PRN ×4 (00:56→23:36)
[2019-09-15 04:00] VITALS: BP 126/68
[2019-09-15] MEDS: IPRATROPIUM NEB FS 0.5 MG/2.5 ML AMPUL.NEB NEB SCH ×6 (04:21→23:30)
[2019-09-15] MEDS: ALBUTEROL FS 2.5 MG/0.5 ML VIAL.NEB NEB SCH ×6 (04:21→23:30)
[2019-09-15 07:06] LABS: CALCIUM, SERUM 7.9 mg/dL (8.5-10.1); POTASSIUM 3.7 mmol/L (3.5-5.1)
--- NOTE | 2019-09-15 07:41 | NUR ---
TD RN CLOSING NOTE PATIENT IN BED WITH NO SIGN OF ANY DISTRESS. TOLERATING VENT WITH NO DESATURATION OR SOB. PATIENT TOLERATING FEEDING WITH NEW PEG OF JEVITY AT 50CC/HR WITH NO RESIDUAL. PATIENT ON THE MONITOR SHOWING V-PACING HR IN THE 80'S. PATEL CATH IN PLACE CHANGED TUBING. ALL SAFETY PRECAUTIONS APPLIED. VENT PLUGGED INTO RED OUTLET. ENDORSED PATIENT TO MORNING SHIFT NURSE FOR DODIE.
--- NOTE | 2019-09-15 07:42 | NUR ---
RT PATIENT REC'D TRACHED ON [facility] VENT WITH ORDERED SETTINGS KRYSTAL WELL. VENT ALARMS CHECKED + AUDIBLE. PATIENT APPEARS COMFORTABLE AND IN NO DISTRESS. MOHINI GOMEZ AT HOB. CONT CURRENT PLAN OF RESP CARE. Addendum: 09/15/19 at 1039 by ANEL CROOKS RT Amended: Links added.
[2019-09-15] MEDS: ACETYLCYSTEINE 10% SOLN 400 MG/4 ML VIAL NEB SCH ×3 (07:59→23:30)
[2019-09-15 08:00] VITALS: BP 135/75
[2019-09-15] MEDS: PROSOURCE / PROSTAT (PYXIS) 30 ML UDC GT SCH (09:00)
[2019-09-15] MEDS: HYDROCORTISONE SOD SUCCINATE 100 MG/2 ML VIAL IV SCH ×3 (10:04→16:58)
[2019-09-15] MEDS: FINASTERIDE (5 MG) 5 MG TABLET NG SCH (10:04)
[2019-09-15] MEDS: CYANOCOBALAMIN 500 MCG TABLET NG SCH (10:04)
[2019-09-15] MEDS: PANTOPRAZOLE 40 MG/PACK PACK NG SCH (10:04)
[2019-09-15] MEDS: SERTRALINE HCL 25 MG TABLET NG SCH (10:04)
[2019-09-15] MEDS: CHOLECALCIFEROL 1,000 UNIT TABLET (VIT D3) NG SCH (10:05)
[2019-09-15] MEDS: DONEPEZIL 5 MG TABLET NG SCH (10:05)
[2019-09-15] MEDS: CEFEPIME 1 GM in IV D5W 50 ML IV SCH ×2 (10:06→23:15)
[2019-09-15] MEDS: MUPIROCIN OINT 2% 22 GM TUBE SCH ×2 (10:07→21:01)
[2019-09-15 12:00] VITALS: BP 129/69
[2019-09-15] MEDS: Potassium Chloride 40 MEQ in IV D5W 1,000 ML IV PRN ×2 (13:31→17:56)
[2019-09-15] MEDS ORDERED: DAPT500V2 IV (15:00)
[2019-09-15] MEDS ORDERED: PRED20TA PO (15:02)
[2019-09-15 16:00] VITALS: BP 126/84
[2019-09-15] MEDS: JEVITY 1.2 CAL 1,000 ML BOTTLE GT PRN (16:58)
[2019-09-15] MEDS: MORPHINE SULFATE INJ 2 MG/ML DISP.SYRIN IV PRN (17:54)
[2019-09-15] MEDS: VANCOMYCIN 1 GM in IV D5W 250ml IV SCH (18:08)
--- NOTE | 2019-09-15 19:34 | NUR ---
MS RN RECEIVED PATIENT IN BED TOLERATING VENT SETTINGS ORDERED. STABLE AND NOT IN DISTRESS. WILL CONTINUE TO MONITOR. FOR DISCHARGE
[2019-09-15 20:00] VITALS: BP 112/63
[2019-09-15] MEDS: RIFAMPIN 600 MG in IV NS 0.9% 100 ML IV SCH (21:01)
--- NOTE | 2019-09-15 22:01 | NUR ---
[facility] RT CAME BUT EMT SAID "HE NEEDS TO GO HOME AND HE'S OFF FOR THE NIGHT". CALLING [employer] TO FF UP. CHARGE NURSE AWARE
--- NOTE | 2019-09-15 22:13 | NUR ---
SPOKE TO EMT [facility] ([facility]) ANOTHER 1 HOUR FOR MARINE SERVICE OPERATOR TRANSPORTATION HE SAID HE REPORTED TO HIS EELER WHAT HIS CREW SAID THAT THE PATIENT IS BARIATRIC. I TOLD HIM PT IS 166LBS AND HE'S CREW IS MAKING UP STORIES. CHARGE NURSE IS AWARE
--- NOTE | 2019-09-15 23:40 | NUR ---
[employer]QU[employer]IND[employer] MILL OPERATOR CALLED SPOKE TO [facility] ACCORDING TO HER THEY CANNOT ACCEPT THE PATIENT ANYMORE AND WANTED TO SEND THE PATIENT IN AM. CHARGE NURSE AWARE.
--- NOTE | 2019-09-15 23:45 | NUR ---
[facility] EMT CAME AND RT CALLED [facility] TO COORDINATE ADMISSION OF THE PT PER [facility] RN THEY WILL ACCEPT THE PT.
[2019-09-16] VITALS: BP 112/64
--- NOTE | 2019-09-16 01:36 | NUR ---
PATIENT DISCHARGE PT SHEEP BONER VIA [employer] WITH VENT EMT'S & RT [facility] PATIENT LEFT AT 0024 TO [facility] PATIENT ON STABLE CONDITION NO S/S OF DISTRESS NOTED, PT HAS NO BELONGINGS. VS STABLE. DISCHARGE INSTRUCTIONS HOME MED PRESCRIPTION WAS GIVEN TO EMT. CONTINUE VENT SETTINGS ORDERED. HERB 6. NO S/S OF HYPO/HYPERGLYCEMIA. GUSTAVO MIDLINE INTACT CLEAN, DRESSING AND INTACT. PT BEING D/C FOR ATB. PATEL CATH IN PLACE. PT NEEDS ATTENDED AND COMFORTABLE AT ALL TIMES.
== END 2019-09-16 00:25 | DRG 4 ==
LOC: ER 08:52 → ICU 10:38 → TELE-TD 08-22 10:09 → TELE1 08-22 17:33 → MEDSG1 08-25 19:25 → ICU 09-01 00:43 → MEDSG1 09-01 00:55 → ICU 09-01 00:56 → TELE-TD 09-13 08:18 → ICU 09-14 08:06 → TELE-TD 09-14 11:54 → TELE1 09-15 16:46
PROVIDERS: ADMIT Registered Nurse; ATTEND Internal Medicine
PROC: 5A1945Z Respiratory Ventilation, 24-96 Consecutive Hours (ICD-10-PCS; principal; 2019-08-12)
PROC: 0BH18EZ Insertion of Endotracheal Airway into Trachea, Via Natural or Artificial Opening Endoscopic (ICD-10-PCS; 2019-08-12)
PROC: 05HY33Z Insertion of Infusion Device into Upper Vein, Percutaneous Approach (ICD-10-PCS; 2019-08-12)
PROC: 5A09357 Assistance with Respiratory Ventilation, Less than 24 Consecutive Hours, Continuous Positive Airway Pressure (ICD-10-PCS; 2019-08-12)
PROC: 0DH63UZ Insertion of Feeding Device into Stomach, Percutaneous Approach (ICD-10-PCS; 2019-08-13)
PROC: 0DJ08ZZ Inspection of Upper Intestinal Tract, Via Natural or Artificial Opening Endoscopic (ICD-10-PCS; 2019-08-13)
PROC: 5A1955Z Respiratory Ventilation, Greater than 96 Consecutive Hours (ICD-10-PCS; 2019-09-01)
PROC: 0BH17EZ Insertion of Endotracheal Airway into Trachea, Via Natural or Artificial Opening (ICD-10-PCS; 2019-09-01)
PROC: 02HV33Z Insertion of Infusion Device into Superior Vena Cava, Percutaneous Approach (ICD-10-PCS; 2019-09-01)
PROC: B548ZZA Ultrasonography of Superior Vena Cava, Guidance (ICD-10-PCS; 2019-09-01)
PROC: 0B110F4 Bypass Trachea to Cutaneous with Tracheostomy Device, Open Approach (ICD-10-PCS; 2019-09-12)
PROC: 30233N1 Transfusion of Nonautologous Red Blood Cells into Peripheral Vein, Percutaneous Approach (ICD-10-PCS; 2019-09-12)
PROC: 05H633Z Insertion of Infusion Device into Left Subclavian Vein, Percutaneous Approach (ICD-10-PCS; 2019-09-12)
DX: A41.9 Sepsis, unspecified organism (principal); G92 Toxic encephalopathy; J96.01 Acute respiratory failure with hypoxia; J96.02 Acute respiratory failure with hypercapnia; R65.21 Severe sepsis with septic shock; E43 Unspecified severe protein-calorie malnutrition; N17.0 Acute kidney failure with tubular necrosis; J15.212 Pneumonia due to Methicillin resistant Staphylococcus aureus; I48.20 Chronic atrial fibrillation, unspecified; I13.0 Hypertensive heart and chronic kidney disease with heart failure and stage 1 through stage 4 chronic kidney disease, or unspecified chronic kidney disease; E87.0 Hyperosmolality and hypernatremia; I69.351 Hemiplegia and hemiparesis following cerebral infarction affecting right dominant side; E87.2 Acidosis; I50.30 Unspecified diastolic (congestive) heart failure; Z95.0 Presence of cardiac pacemaker; N18.9 Chronic kidney disease, unspecified; I25.10 Atherosclerotic heart disease of native coronary artery without angina pectoris; E86.1 Hypovolemia; E83.42 Hypomagnesemia; I48.0 Paroxysmal atrial fibrillation; R47.02 Dysphasia; R13.10 Dysphagia, unspecified; N40.0 Benign prostatic hyperplasia without lower urinary tract symptoms; Z68.23 Body mass index [BMI] 23.0-23.9, adult; E88.09 Other disorders of plasma-protein metabolism, not elsewhere classified; M62.50 Muscle wasting and atrophy, not elsewhere classified, unspecified site; E87.6 Hypokalemia; F03.90 Unspecified dementia, unspecified severity, without behavioral disturbance, psychotic disturbance, mood disturbance, and anxiety; F20.9 Schizophrenia, unspecified; A41.02 Sepsis due to Methicillin resistant Staphylococcus aureus; K29.70 Gastritis, unspecified, without bleeding; F09 Unspecified mental disorder due to known physiological condition
CPT/HCPCS: 31720; 36410; 36415; 36569; 36600; 43246; 71045-TC; 71250-TC; 80048-TC; 80053-TC; 80061-TC; 80076-TC; 80202-TC; 81000-TC; 82533; 82803-TC; 82962-TC; 83605-TC; 83735-TC; 83880; 84100-TC; 84132-TC; 84443-TC; 84478-TC; 84484-TC; 85025-TC; 85610-TC; 85730-TC; 86850-TC; 86921-TC; 87040-TC; 87070-TC; 87081-TC; 87086-TC; 87186-TC; 92521; 92526; 93307-TC; 93312-TC; 94002-TC; 94003-TC; 94640-TC; 94760-TC; 94762-TC; 94799-TC; 99082-TC; A4216; A6253; A7526; C1751; C9113; G0378; J0330; J0690; J0692; J1160; J1650; J1720; J1815; J1940; J2060; J2250; J2270; J2543; J2704; J2930; J3010; J3370; J3475; J3480; J3490; J7030; J7040; J7050; J7060; J7070; P9016-BL; P9047

== ENCOUNTER 2019-09-24 00:40 | Emergency (ER) | payer MEDICARE, OTHER ==
[~2019-09-24] VITALS: Ht 177.8 cm; Wt 64.9 kg
[~2019-09-24 00:40] MED LIST changes: +ACET325T53 PO; -ATOR20TA PO; -BISA10SU11 RC; +BISA10SU61 RC; +CRAN3875 PO; +CRAN425C6 PO; +CYAN-51 PO; +D-MA1POW MC; +DAPT500V2 IV; -ESCI5TAB PO; -FLUD0.1T PO; -LUBI8CAP PO; +MAGN400O6 PO; -MIRT15TA PO; -MYRBETRIQ 50 MG PO; +NA P133E RC; +POLY17PO4 PO; +PRED20TA PO; -RAME8TAB15 PO; -SULF1TAB48 PO; -TRAZ-182 PO
--- NOTE | 2019-09-24 01:01 | NUR ---
FOREIGN FROM [facility]. TO ER BED 4. AAOX0, NOT IN RESP DISTRESS, ON VENTILATOR -AC16, VT500, 40%, +5 PEEP. SHILEY 6 CUFFED. BED BOUND. PT BROUGHT IN FOR HEAD INJURY. PT WAS NOTED WITH A BUMP AT THE FACILTY @ 2145. ACCORDING TO REPORT BY AMBULANCE STAFF. INJURY WAS RELATED TO UNWITNESSED FALL. NOTED A BUMP ON RIGHT FOREHEAD. MD AT BEDSIDE FOR EVAL. AWAITING ORDERS
--- NOTE | 2019-09-24 02:15 | NUR ---
RT NOTE PT RECEIVED TRACHED ON MECHANICAL VENTILATION BY TRANSPORT. PLACED PT ON VENT WITH AC 16, 500, 40%, +5. SHILEY [address]. SX DONE, THICK YELLOW SECRETIONS NOTED. TRACH SECURED AND PATENT. ALARMS ON AND AUDIBLE. VENT PLUGGED TO RED OUTLET. AWAITING NEW ORDERS. Addendum: 09/24/19 at 0216 by TONY WORLEY RT Amended: Links added.
--- NOTE | 2019-09-24 02:28 | NUR ---
[facility] CALLED FOR TRANSPORT. TRIP#[id number]
--- NOTE | 2019-09-24 02:41 | NUR ---
[facility] ETA [phone]
--- NOTE | 2019-09-24 04:50 | NUR ---
REPORT GIVEN TO [facility] HILTON AT [facility]. REPORT GIVEN TO [place] Fuller AT BEDSIDE FOR TRANSPORT
--- NOTE | 2019-09-24 05:08 | NUR ---
PT LEFT ON [facility] W/ 2 [facility] STAFF AND RN FOR TRANSPORT. JAMEEL FAULKNER
[2019-09-24 05:12] VITALS: BP 116/78
== END 2019-09-24 05:13 | disposition home or self-care (01) ==
LOC: ER 00:44
DX: S00.83XA Contusion of other part of head, initial encounter (principal); M89.9 Disorder of bone, unspecified; F03.90 Unspecified dementia, unspecified severity, without behavioral disturbance, psychotic disturbance, mood disturbance, and anxiety; I48.91 Unspecified atrial fibrillation; I10 Essential (primary) hypertension; F20.9 Schizophrenia, unspecified; E78.00 Pure hypercholesterolemia, unspecified; N40.0 Benign prostatic hyperplasia without lower urinary tract symptoms; Z93.0 Tracheostomy status; Z98.890 Other specified postprocedural states; Z86.73 Personal history of transient ischemic attack (TIA), and cerebral infarction without residual deficits; Z95.0 Presence of cardiac pacemaker; Z79.899 Other long term (current) drug therapy; X58.XXXA Exposure to other specified factors, initial encounter; Y93.89 Activity, other specified; Y92.89 Other specified places as the place of occurrence of the external cause; Y99.8 Other external cause status
CPT/HCPCS: 70450-TC; 72125-TC

== ENCOUNTER 2020-11-21 07:46 | Inpatient (IN) | payer MEDICARE, OTHER ==
[~2020-11-21] VITALS: Ht 167.6 cm; Wt 83.9 kg
[2020-11-21] VITALS (49 sets, daily range): BP systolic 73–145; BP diastolic 22–89
[~2020-11-21 07:46] MED LIST changes: +ALBU6.7H9 IH; +CHLO473M3 MM; -CRAN425C6 PO; -D-MA1POW MC; -DAPT500V2 IV; +GLYC1.5T4 PO; +PANT40TA2 PO; +PIPE3.379 IV; -PRED20TA PO; +RXVAN XX; -SERT25TA PO; +TRAM50TA2 PO
--- NOTE | 2020-11-21 07:52 | NUR ---
JAVED FROM SNF TO ER BED 5. RESPONSIVE TO PAIN STIMULI BY OPENING EYES. NON VERBAL. BEDBOUND. VENT DEPENDENT WITH TRACH. BROUGHT IN FOR DESATURATION AND HYPOTENSION. PER EMS REPORT, PT WAS REPORTED TO HAVE O2 SAT OF 80%s ON SCENE. PT WAS ALSO REPORTED TO HAVE BP WITH SBP IN THE 60. UPON ARRIVAL PT IS BEING BAGGGED. PT WAS NOTED WITH LOW BP. PLACED ON VENT. PT PRESENTED WITH JORGE. WAS AT THE BEDSIDE FOR EVAL. ORDERS RECEIVED.
[2020-11-21] MEDS ORDERED: IV NS 0.9% 1,000 ML BAG IV ONE ×2 (08:00→08:30)
[2020-11-21] MEDS ORDERED: ACETAMINOPHEN 650 MG/SUPP.RECT RC ONE ×2 (08:04→08:30)
[2020-11-21 08:12] LABS: BASOPHILS % (AUTO) 0.2 % (0.0-2.0); HEMATOCRIT 40 % (39-51); HEMOGLOBIN 12.7 g/dL (13.5-17.5); LYMPHOCYTES # (AUTO) 0.3 /CMM (0.8-4.8); LYMPHOCYTES % (AUTO) 1.7 % (20.0-44.0); MEAN CORPUSCULAR HGB CONC 32 g/dl (31.0-36.0); MEAN CORPUSCULAR VOLUME 90 fL (80-96); MONOCYTES # (AUTO) 0.3 /CMM (0.1-1.30); MONOCYTES % (AUTO) 2.1 % (2.0-12.0); NEUTROPHILS # (AUTO) 15.7 /CMM (1.8-8.9); PLATELET COUNT (AUTO) 238 /CMM (150-450); RED BLOOD CELL COUNT(AUTO) 4.49 MIL/uL (4.5-6.0); WHITE BLOOD COUNT (AUTO) 16.4 K/uL (4.3-11.0)
[2020-11-21 08:29] LABS: ABG BASE EXCESS 2.9 mmol/L; ABG PCO2 46.1 mmHg (35.0-45.0); ABG PH 7.405 (7.350-7.450); ABG PO2 65.3 mmHg (75.0-100.0); AaDO2 239.3 mmHg; COHb 0.1 % (0.5-1.5); MetHb 0.5 % (0.0-1.5); O2Hb 92.4 % (94.0-97.0); SITE, ABG Right Radial; VENT MODE, BG AC 12 500 50% +5
--- NOTE | 2020-11-21 08:29 | NUR ---
1l ns order cancelled d/t md also ordered 32ml/kg pt 83kg = 2656ml. verified w/ md. rounded off to 3l per md. noted and carried out.
[2020-11-21] MEDS ORDERED: MEROPENEM 1 G in IV NS 0.9% 100 ML IV ONE (08:30)
[2020-11-21] MEDS ORDERED: DEXAMETHASONE SOD PHOSPHATE 10 MG/ML VIAL IV ONE (08:30)
[2020-11-21] MEDS ORDERED: DEXAMETHASONE SOD PHOSPHATE 10 MG/ML VIAL ONE (08:39)
[2020-11-21 08:47] LABS: ALANINE AMINOTRANSFERASE 22 U/L (12-78); ALBUMIN 2.6 g/dL (3.4-5.0); ALKALINE PHOSPHATASE 96 U/L (46-116); ASPARTATE AMINOTRANSFERASE 30 U/L (15-37); BILIRUBIN,DIRECT 0.2 mg/dL (0.0-0.2); BILIRUBIN,TOTAL 0.8 mg/dL (0.2-1.0); CALCIUM, SERUM 9.4 mg/dL (8.5-10.1); CARBON DIOXIDE 30 mmol/L (21-32); CHLORIDE 103 mmol/L (98-107); CREATININE 2.2 mg/dL (0.6-1.3); GLUCOSE 122 mg/dL (74-106); POTASSIUM 4.8 mmol/L (3.5-5.1); SODIUM SERUM 142 mmol/L (136-145); TOTAL PROTEIN, SERUM 7.9 g/dL (6.4-8.2); UREA NITROGEN, BLOOD 52 mg/dL (7-18)
[2020-11-21] MEDS ORDERED: AMIN887L GT (08:49)
[2020-11-21] MEDS ORDERED: NYST5ORA MM (08:49)
[2020-11-21] MEDS ORDERED: ASCO500C17 GT (08:49)
--- NOTE | 2020-11-21 08:49 | NUR ---
rt note patient received trached with portex 7. vent settings per facility. trach tube secured and in place. vent plugged in red outlet. ambu bag at [facility]. alarms on and audible. pt. suctioned. will continue to monitor.
--- NOTE | 2020-11-21 09:00 | NUR ---
PT'S PATEL WAS CHANGED D/T NOTED NOT DRAINING. UPON INSERTION, DARK RED PURULENT URINE CAME OUT. MADE AWARE AND SAMPLE SENT TO LAB. STRICT STERILE TECHNIQUE OBSERVED DURING PROCEDURE
[2020-11-21] MEDS ORDERED: ALBUMIN 25% 12.5 GM/50 ML BOTTLE IV ONE (09:30)
--- NOTE | 2020-11-21 09:31 | NUR ---
MD MADE AWARE THAT B/P IS 78/49 AFTER FLUID CHALLENGE. 3L NS COMPLETED. MD ORDERED ALBUMIN 25MG X 1. NOTED AND CARRIED OUT
[2020-11-21] MEDS ORDERED: ALBUMIN 25% 100 ML IV ONE (09:33)
--- NOTE | 2020-11-21 09:46 | NUR ---
CALLED FOR IC BED.
--- NOTE | 2020-11-21 09:47 | NUR ---
ICU* ALSO EPIC CALLED ACCOUNTING TECHNICIAN PAGED.
[2020-11-21] MEDS ORDERED: NOREPINEPHRINE 8 MG in IV NS 0.9% 250 ML IV ONE (10:00)
--- NOTE | 2020-11-21 10:10 | NUR ---
VENT SETTING AC12, VT500, 02 75%, +5 PEEP
--- NOTE | 2020-11-21 10:14 | NUR ---
levophen increased to 0.5mcg/kg/min. bp: 77/63 hr: 105
--- NOTE | 2020-11-21 10:27 | NUR ---
levophed titrated down to 0.4mcg/kg/min bp: 868005 hr: 101
[2020-11-21 10:34] LABS: COLOR,URINE AMBER (YELLOW)
[2020-11-21 10:35] LABS: PROTEIN,URINE 3+ mg/dl (NEGATIVE); UGLUCOSE NEGATIVE (NEGATIVE)
[2020-11-21 10:36] LABS: BILIRUBIN,URINE NEGATIVE (NEGATIVE)
[2020-11-21 10:37] LABS: LEUKOCYTE ESTERASE ,URINE LARGE (NEGATIVE); UROBILINOGEN,URINE 0.2 EU/dL (0.2)
[2020-11-21 10:39] LABS: NITRITE, URINE POSITIVE (NEGATIVE)
[2020-11-21 10:40] LABS: RBC,URINE TOO NUMEROUS TO COUN /HPF (0-2)
[2020-11-21 10:41] LABS: BACTERIA,URINE Many /HPF (None Seen); SQUAMOUS EPITHELIAL CELL,UR Rare /HPF (None Seen); TRIPLE PHOSPHATE CRYSTAL,UR Few /HPF (None Seen)
--- NOTE | 2020-11-21 11:09 | NUR ---
FOLLOWED UP WITH RN JANELLE FOR ROOM ASSINGMENT.
--- NOTE | 2020-11-21 11:31 | NUR ---
GOT ICU BED 251
--- NOTE | 2020-11-21 11:53 | NUR ---
REPORT GIVEN TO JORDAN EMERSON FOR DODIE
--- NOTE | 2020-11-21 11:54 | NUR ---
RECEIVED REPORT FROM JORDAN DOMINGUEZ FOR DODIE.
--- NOTE | 2020-11-21 12:42 | NUR ---
pt transported to unit on [place] with emt, rt and rn at bedside w/ acls protocol. nad noted during transport.
--- NOTE | 2020-11-21 12:45 | NUR ---
ICU ADMIT NOTE PATIENT RECEIVED VIA GURNEY FROM ER. PATIENT CURRENTLY OBTUNDED. PATIENT HAS A TRACH. VENT SETTINGS: AC 12 TV 500 FI02 75% PEEP 5; SETTINGS TOLERATED WELL. 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 PATIENT HAS CHRONIC A-FIB, PACEMAKER NOTED ON LEFT UPPER CHEST WALL. PATIENT CURRENTLY HAS A G-TUBE, CLAMPED AT THIS TIME. PATEL CURRENTLY DRAINING WELL. PATIENT HAS A R FOREARM 20G IV & L FOREARM 20G IV; BOTH INTACT AND PATENT. PATIENT ARRIVED ONTO UNIT WITH LEVOPHED RUNNING AT 0.4MCG/KG/MIN. BLOOD PRESSURE CURRENTLY WNL; WILL CONTINUE TO MONITOR AND TITRATE NEEDED TO MAINTAIN SBC >90 mmHg. ALL SAFETY MEASURES IN PLACE PER HOSPITAL. BED LOCKED IN LOWEST POSITION. CALL LIGHT WITHIN REACH. WILL CONTINUE TO MONITOR AND PROVIDE TREATMENT.
[2020-11-21] MEDS ORDERED: NOREPINEPHRINE 8 MG in IV NS 0.9% 242 ML IV PRN (13:00)
[2020-11-21] MEDS ORDERED: ACETAMINOPHEN 325 MG TABLET PO PRN (13:00)
[2020-11-21] MEDS ORDERED: Z GUARD REMEDY 2 OZ OINT TP PRN (13:00)
[2020-11-21] MEDS ORDERED: ONDANSETRON HCL/PF 4 MG/2 ML VIAL IVP PRN (13:00)
[2020-11-21] MEDS ORDERED: ZOLPIDEM TARTRATE 5 MG TABLET PO PRN (13:00)
[2020-11-21] MEDS: IV NS 0.9% 1,000 ML IV PRN (13:32)
[2020-11-21] MEDS ORDERED: PIPERACILLIN /TAZOBACTAM 3.375 G in IV D5W 50 ML IV SCH (14:00)
[2020-11-21] MEDS: NOREPINEPHRINE 8 MG in IV NS 0.9% 242 ML IV PRN ×2 (14:19→17:20)
[2020-11-21] MEDS ORDERED: VANCOMYCIN 1 GM in IV D5W 250 ML IV SCH (15:00)
[2020-11-21] MEDS ORDERED: ZOLPIDEM TARTRATE 5 MG TABLET GT PRN (16:04)
--- NOTE | 2020-11-21 19:00 | NUR ---
RN NOTE RECEIVED PATIENT IN BED, LETHARGIC, IN NO S/SX OF ACUTE DISTRESS AT THIS TIME. ON TRACH CONNECTED TO MECHANICAL VENT WITH SETTINGS PRESCRIBED, SATURATION AT 98%, AFIB ON THE MONITOR, HR AT 80. NOTED IV SITE AT RFA 20G, AND LFE 20G, PATENT AND FLUSHING WELL, NO S/S OF INFECTION OR INFILTRATION. WITH IV FLUID OF NS INFUSING AT 75 ML/HR, AND LEVOPHED AT 0.2 MCG/KG/MIN. GTUBE INTACT, CLAMPED WITH ORDERS TO CONTINUE [facility] GUAJARDO, ONCE VERIFIED. AWAITING CALL BACK FROM FACILITY. PATEL CATHETER CONNECTED TO URINE IN PLACE, DRAINING TO A CLEAR, YELLOW OUTPUT. SAFETY MEASURES IMPLEMENTED. PATIENT BED ALARM IS ON. HEAD OF BED ELEVATED. BED IS LOCKED, IN LOWEST POSITION AND SIDE RAILS UP. CALL LIGHT WITHIN REACH OF THE PATIENT. WILL CONTINUE TO MONITOR AND REASSESS FOR ANY CHANGES.
--- NOTE | 2020-11-21 19:30 | NUR ---
RN NOTE PER IDANIA ORTEGA, DR GUAJARDO WILL BE ON NPO FOR NOW AND CONTINUE TUBE FEEDING FROM [facility]. TELEPHONE CALL RECEIVED FROM [facility], STATED PATIENT WAS ON ISOSOURCE 1.5 SUSANA AT 80 ML/HR X 20 HOURS, AND H20 FLUSHES OF 55 ML/HR. INTERVENTION NURSE MADE AWARE. Addendum: 11/21/20 at 2111 by ANNE ROWELL RN DR GUAJARDO ORDERED PATIENT ON NPO FOR NOW AND CONTINUE TUBE FEEDING FROM [facility]. TELEPHONE CALL RECEIVED FROM [facility], STATED PATIENT WAS ON ISOSOURCE 1.5 SUSANA AT 80 ML/HR X 20 HOURS, AND H20 FLUSHES OF 55 ML/HR. INTERVENTION NURSE MADE AWARE.
[2020-11-21] MEDS: HEPARIN SODIUM, PORCINE 5000 UNITS/1 ML VIAL SQ SCH (20:50)
--- NOTE | 2020-11-21 21:30 | NUR ---
RN NOTE PICC LINE PROCEDURE PERFORMED BY JANEL MCBRIDE NP, INSERTED AT [facility] TRIMMED 34 CM. ASEPTIC TECHNIQUE OBSERVED.
[2020-11-21] MEDS: NOREPINEPHRINE 32 MG in IV NS 0.9% 218 ML IV PRN (21:33)
--- NOTE | 2020-11-21 23:00 | NUR ---
RN NOTE FIO2 DECREASED FROM 60% TO 50% BY TONY RT. SATURATION AT 96%. WILL CONTINUE TO MONITOR OXYGENATION.
[2020-11-21] MEDS: PIPERACILLIN /TAZOBACTAM 3.375 G in IV D5W 50 ML IV SCH (23:22)
[2020-11-21] MEDS: JEVITY 1.2 CAL 1,000 ML BOTTLE GT PRN (23:22)
[2020-11-22] VITALS (95 sets, daily range): BP systolic 82–179; BP diastolic 41–103
[2020-11-22] MEDS: IV NS 0.9% 1,000 ML IV PRN ×2 (03:12→17:32)
[2020-11-22 04:35] LABS: BASOPHILS % (AUTO) 0.1 % (0.0-2.0); HEMATOCRIT 34 % (39-51); HEMOGLOBIN 10.9 g/dL (13.5-17.5); LYMPHOCYTES # (AUTO) 0.4 /CMM (0.8-4.8); LYMPHOCYTES % (AUTO) 1.7 % (20.0-44.0); MEAN CORPUSCULAR HGB CONC 33 g/dl (31.0-36.0); MEAN CORPUSCULAR VOLUME 89 fL (80-96); MONOCYTES # (AUTO) 1.6 /CMM (0.1-1.30); NEUTROPHILS # (AUTO) 20.6 /CMM (1.8-8.9); NEUTROPHILS % (AUTO) 91.2 % (43.0-81.0); PLATELET COUNT (AUTO) 174 /CMM (150-450); RED BLOOD CELL COUNT(AUTO) 3.76 MIL/uL (4.5-6.0); WHITE BLOOD COUNT (AUTO) 22.6 K/uL (4.3-11.0)
[2020-11-22 04:57] LABS: ALBUMIN 2.3 g/dL (3.4-5.0); BILIRUBIN,TOTAL 0.7 mg/dL (0.2-1.0); CALCIUM, SERUM 8.6 mg/dL (8.5-10.1); CREATININE 1.3 mg/dL (0.6-1.3); MAGNESIUM 2.2 mg/dL (1.8-2.4); PHOSPHORUS 2.7 mg/dL (2.5-4.9); TOTAL PROTEIN, SERUM 6.9 g/dL (6.4-8.2)
[2020-11-22] MEDS: PIPERACILLIN /TAZOBACTAM 3.375 G in IV D5W 50 ML IV SCH ×3 (05:50→17:16)
--- NOTE | 2020-11-22 06:30 | NUR ---
RN NOTE CRITICAL VALUE OF POSITIVE BLOOD CULTURE FOR GRAM NEGATIVE RODS RECEIVED FROM LAB, DR JACKMAN WAS NOTIFIED, ACKNOWLEDGED WITH NO NEW ORDERS. SAW FILER MADE AWARE.
--- NOTE | 2020-11-22 07:36 | NUR ---
RECEIVED PATIENT IN BED. NO ACUTE DISTRESS NOTED. PATIENT LETHARGIC, UNABLE TO COMMUNICATE, OPENS EYES. PATIENT TRACH'D, ON MECHANICAL VENTILATOR TOLERATING SETTINGS WELL. PATIENT ON SHOP MECHANIC HELPER, A. FIB NOTED. PATIENT FC INTACT, DRAINING TO GRAVITY. PATIENT G-TUBE INTACT, PATENT. PATIENT CHI PICC INTACT, PATENT. PATIENT SAFETY MEASURES MAINTAINED. CALL LIGHT WITHIN REACH. WILL CONTINUE TO MONITOR.
[2020-11-22] MEDS: FINASTERIDE (5 MG) 5 MG TABLET GT SCH (08:56)
[2020-11-22] MEDS: CYANOCOBALAMIN 500 MCG TABLET GT SCH (08:56)
[2020-11-22] MEDS: ASCORBIC ACID 500 MG TABLET GT SCH (08:56)
[2020-11-22] MEDS: CHOLECALCIFEROL 1,000 UNIT TABLET (VIT D3) GT SCH (08:56)
[2020-11-22] MEDS: POLYETHYLENE GLYCOL 3350 17 GM POWD.PACK GT SCH (08:56)
[2020-11-22] MEDS: PROSTAT (PYXIS) 30 ML UDC GT SCH (08:57)
[2020-11-22] MEDS: CLOPIDOGREL BISULFATE 75 MG TABLET GT SCH (08:59)
[2020-11-22] MEDS: HEPARIN SODIUM, PORCINE 5000 UNITS/1 ML VIAL SQ SCH ×2 (09:03→20:06)
[2020-11-22] MEDS: HYDROCORTISONE SOD SUCCINATE 100 MG/2 ML VIAL IV SCH ×3 (09:41→20:03)
--- NOTE | 2020-11-22 10:15 | NUR ---
RN NOTES RECEIVED PATIENT LETHARGIC, OPENS EYES BUT NO TRACKING AND UNABLE TO COMMUNICATE. TRACHED AND TOLERATING MECHVENT SETTINGS OF AC 12 TV 500 FIO2 50% PEEP 5. AFIB ON FINANCIAL AID DIRECTOR WITH PACING NOTED. PATEL DRAINING TO GRAVITY. G-TUBE INTACT WITH JEVITY 1.2 AT 40ML/HR, CHI PICC INTACT WITH N/S 75 AND LEVO AT 0.2. SAFETY MEASURES CHECKED AND IN PLACE. WILL CONTINUE TO MONITOR.
[2020-11-22] MEDS: NOREPINEPHRINE 32 MG in IV NS 0.9% 218 ML IV PRN (10:29)
[2020-11-22] MEDS: VANCOMYCIN 1 GM in IV D5W 250 ML IV SCH (16:09)
--- NOTE | 2020-11-22 18:38 | NUR ---
RN NOTES NO ACUTE CHANGES THROUGHOUT SHIFT. PATIENT REMAINS AWAKE BUT UNABLE TO COMMUNICATE. TRACHED AND TOLERATING MECHVENT SETTINGS. LEVO RUNS AT 0.1, AND N/S AT 50. AFIB IN THE HIGHER 90S ON COLOR PASTE MIXER. JEVITY FEED TO BE STOPPED AT 7PM. SAFETY CHECKS IN PLACE. WILL ENDORSE TO NIGHT RN.
--- NOTE | 2020-11-22 19:30 | NUR ---
RN NOTES RECEIVED PATIENT IN BED, VENT SETTING TOLERATING WELL ORDERED. NO S//S OF ACUTE DISTRESS NOTED. OPEN EYES TO VERBAL AND TACTILE STIMULI NON VERBAL. TELE MONITOR READING A-FIB HR 102. CHI PICC LINE INTACT FLUID RUNNING WELL. GTF INTACT ORDER TO RESUME AT 2300. F/C INTACT URINE RUNNING VIA GRAVITY. SAFETY MEASURES IN PLACE, CALL LIGHT WITHIN REACH. WILL CONT TO MONITOR FOR DODIE.
[2020-11-22] MEDS: JEVITY 1.2 CAL 1,000 ML BOTTLE GT PRN (23:06)
[2020-11-23] VITALS (90 sets, daily range): BP systolic 57–142; BP diastolic 27–103
[2020-11-23] MEDS: PIPERACILLIN /TAZOBACTAM 3.375 G in IV D5W 50 ML IV SCH ×5 (00:05→23:36)
[2020-11-23 04:23] LABS: EOSINOPHILS % (AUTO) 0.4 % (0.0-6.0); HEMATOCRIT 33 % (39-51); HEMOGLOBIN 10.5 g/dL (13.5-17.5); LYMPHOCYTES # (AUTO) 0.7 /CMM (0.8-4.8); MEAN CORPUSCULAR HGB CONC 32 g/dl (31.0-36.0); MEAN CORPUSCULAR VOLUME 91 fL (80-96); MONOCYTES # (AUTO) 0.8 /CMM (0.1-1.30); MONOCYTES % (AUTO) 3.6 % (2.0-12.0); NEUTROPHILS # (AUTO) 21.6 /CMM (1.8-8.9); PLATELET COUNT (AUTO) 161 /CMM (150-450); RED BLOOD CELL COUNT(AUTO) 3.65 MIL/uL (4.5-6.0); WHITE BLOOD COUNT (AUTO) 23.3 K/uL (4.3-11.0)
[2020-11-23 04:37] LABS: CALCIUM, SERUM 8.3 mg/dL (8.5-10.1); MAGNESIUM 2.2 mg/dL (1.8-2.4); PHOSPHORUS 2.5 mg/dL (2.5-4.9); POTASSIUM 4.5 mmol/L (3.5-5.1)
[2020-11-23] MEDS: HYDROCORTISONE SOD SUCCINATE 100 MG/2 ML VIAL IV SCH (05:14)
[2020-11-23] MEDS: IV NS 0.9% 1,000 ML IV PRN (07:06)
--- NOTE | 2020-11-23 07:06 | NUR ---
RN NOTES NO CHANGES NOTED DURING SHIFT. NO S/S OF ACUTE DISTRESS NOTED, CONTINUES ON SAME VENT SETTING TOLERATING WELL. AM CARE GIVEN, MOUTH CARE PROVIDED. IV SITES INTACT FLUIDS RUNNING WELL. TURNING REPOSITIONING TOLERATED. SAFETY MEASURES IN PLACE, CALL LIGHT WITHIN REACH. ENDORSE TO AM NURSE FOR DODIE.
--- NOTE | 2020-11-23 07:30 | NUR ---
ICU/RN PT IS ON THE VENT HAS TRACH ,AC MODE,FIO2-50 %.SAT O2-99%.ON LEVOPHED DRIP.IV FLUIDS.G-TUBE INFUSING WITH JEVITY AT 60 ML/HR.RIGHT UPPER ARM PICC LINE.F/C IN PLACE DRAINING WITH YELLOW URINE.LOWER BACK WOUND DRESSING WITH DRESSING.PT IS OPEN HIS EYES NOT FOLLOWS COMMAND.SUCTION PROVIDED.REPOSITION FOR COMFORT.
[2020-11-23] MEDS: NOREPINEPHRINE 32 MG in IV NS 0.9% 218 ML IV PRN (08:23)
[2020-11-23] MEDS: POLYETHYLENE GLYCOL 3350 17 GM POWD.PACK GT SCH (08:24)
[2020-11-23] MEDS: CHOLECALCIFEROL 1,000 UNIT TABLET (VIT D3) GT SCH (08:24)
[2020-11-23] MEDS: FINASTERIDE (5 MG) 5 MG TABLET GT SCH (08:24)
[2020-11-23] MEDS: CLOPIDOGREL BISULFATE 75 MG TABLET GT SCH (08:24)
[2020-11-23] MEDS: HEPARIN SODIUM, PORCINE 5000 UNITS/1 ML VIAL SQ SCH ×2 (08:24→21:10)
[2020-11-23] MEDS: CYANOCOBALAMIN 500 MCG TABLET GT SCH (08:24)
[2020-11-23] MEDS: ASCORBIC ACID 500 MG TABLET GT SCH (08:24)
[2020-11-23] MEDS: PROSTAT (PYXIS) 30 ML UDC GT SCH (08:25)
[2020-11-23] MEDS: VANCOMYCIN 1 GM in IV D5W 250 ML IV SCH (08:39)
--- NOTE | 2020-11-23 09:00 | NUR ---
ICU/RN DUE MEDS ARE GIVEN ORDERED.
[2020-11-23] MEDS ORDERED: NOREPINEPHRINE 8 MG in IV NS 0.9% 242 ML IV PRN (10:00)
[2020-11-23] MEDS: JEVITY 1.2 CAL 1,000 ML BOTTLE GT PRN (13:43)
--- NOTE | 2020-11-23 17:00 | NUR ---
ICU/RN PM CARE PROVIDED.PT STILL ON LOW DOSE OF LEVOPHED.AFEBRILE.NO PAIN REPORTED AT THIS TIME.BLOOD CULTURE DONE.SUCTION PROVIDED.REPOSITION FOR COMFORT.
[2020-11-23] MEDS ORDERED: NOREPINEPHRINE 8 MG in IV NS 0.9% 250ML IV PRN (19:30)
--- NOTE | 2020-11-23 20:00 | NUR ---
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 Settings well tolerated.SPO2 mid to high 90's.No acute distress noted.VSS.V-paced 90's. Levophed gtt low dose infusing for BP and will titrate accordingly.GT feeding infusing no residual noted.Maintained HOB elevated.FC to gravity drainage.Turned and repositioned. Continue monitoring.
[2020-11-24] VITALS (62 sets, daily range): BP systolic 87–147; BP diastolic 44–83
[2020-11-24] MEDS: IV NS 0.9% 1,000 ML IV PRN (02:00)
[2020-11-24] MEDS: VANCOMYCIN 1 GM in IV D5W 250 ML IV SCH ×2 (02:55→20:43)
[2020-11-24] MEDS: JEVITY 1.2 CAL 1,000 ML BOTTLE GT PRN (04:21)
[2020-11-24 05:09] LABS: HEMATOCRIT 30 % (39-51); HEMOGLOBIN 9.6 g/dL (13.5-17.5); LYMPHOCYTES # (AUTO) 0.8 /CMM (0.8-4.8); LYMPHOCYTES % (AUTO) 5.3 % (20.0-44.0); MEAN CORPUSCULAR HGB CONC 32 g/dl (31.0-36.0); MEAN CORPUSCULAR VOLUME 92 fL (80-96); MONOCYTES # (AUTO) 0.7 /CMM (0.1-1.30); MONOCYTES % (AUTO) 5.1 % (2.0-12.0); NEUTROPHILS # (AUTO) 13.1 /CMM (1.8-8.9); NEUTROPHILS % (AUTO) 89.6 % (43.0-81.0); PLATELET COUNT (AUTO) 142 /CMM (150-450); WHITE BLOOD COUNT (AUTO) 14.6 K/uL (4.3-11.0)
[2020-11-24 05:25] LABS: CALCIUM, SERUM 8.6 mg/dL (8.5-10.1); CREATININE 0.9 mg/dL (0.6-1.3); PHOSPHORUS 2.9 mg/dL (2.5-4.9); POTASSIUM 3.9 mmol/L (3.5-5.1)
[2020-11-24] MEDS: PIPERACILLIN /TAZOBACTAM 3.375 G in IV D5W 50 ML IV SCH ×4 (05:26→23:10)
--- NOTE | 2020-11-24 06:30 | NUR ---
Patient resting in no acute distress.Continued with Levophed gtt,IVF and GT feeding.Afebrile. V-paced.AM care done.BM once kept clean and dry.Turned and repositioned Q 2 hrs offloading pressure points.No significant changes noted during the shift.
--- NOTE | 2020-11-24 07:15 | NUR ---
CAFETERIA SERVER NOTES LEVOPHED HELD @ 0715 BP IS 147/69 , WILL CONTINUE TO MONITOR .
--- NOTE | 2020-11-24 07:15 | NUR ---
BIOFUELS PLANT SUPERINTENDENT NOTES RECEIVED PATIENT AWAKE , NON VERBAL , TOLERATING CURRENT VENT SETTINGS WITH SPO2 OF 97% , TRACH OF PORTEX # [address] , V PACING 94 ON BEDSIDE MONITOR , GT PATENT AND INTACT WITH JEVITY @ 80ML/HR X20 HOURS WITH NO RESIDUALS NOTED , FC DRAINING VIA GRAVITY , CHI PICC LINE WITH NS @ TKO , LEVOPHED @ 0.02MCG/KG/MIN HELD , RFA AND LFA # 20 PATENT AND INTACT SL , ALL NEEDS ATTENDED , HOB @ 40-45 , ALARMS MADE AUDIBLE , WILL CONTINUE TO MONITOR.
--- NOTE | 2020-11-24 08:16 | NUR ---
fio2 tiration from 50% to 40% Addendum: 11/24/20 at 0818 by MAGDIEL KIM RT Amended: Links added.
[2020-11-24] MEDS: ASCORBIC ACID 500 MG TABLET GT SCH (09:10)
[2020-11-24] MEDS: FINASTERIDE (5 MG) 5 MG TABLET GT SCH (09:10)
[2020-11-24] MEDS: POLYETHYLENE GLYCOL 3350 17 GM POWD.PACK GT SCH (09:10)
[2020-11-24] MEDS: CYANOCOBALAMIN 500 MCG TABLET GT SCH (09:10)
[2020-11-24] MEDS: CHOLECALCIFEROL 1,000 UNIT TABLET (VIT D3) GT SCH (09:10)
[2020-11-24] MEDS: CLOPIDOGREL BISULFATE 75 MG TABLET GT SCH (09:12)
[2020-11-24] MEDS: HEPARIN SODIUM, PORCINE 5000 UNITS/1 ML VIAL SQ SCH ×2 (09:12→20:54)
[2020-11-24] MEDS ORDERED: NOREPINEPHRINE 8 MG in IV NS 0.9% 242 ML IV PRN (09:30)
[2020-11-24] MEDS: PROSTAT (PYXIS) 30 ML UDC GT SCH (09:33)
--- NOTE | 2020-11-24 09:46 | NUR ---
CONSTRUCTION PERSON NOTES PER DR TOURE KEEP SBP ABOVE 85MMHG FOR PRN LEVOPHED .
--- NOTE | 2020-11-24 15:19 | NUR ---
TOY ASSEMBLY SUPERVISOR NOTES REPORT GIVEN TO CHRISTIN FOR CONTINUITY OF CARE PER DR MORTON START PT ON H2O FLUSHED Q4H 200ML , ORDER CARRIED OUT
--- NOTE | 2020-11-24 15:35 | NUR ---
pt. transferred from 251 to 324 bed 1. pt used same mechanical ventilator, vent plugged into red outlet with alarms on and functioning. Addendum: 11/24/20 at 1536 by MAGDIEL KIM RT Amended: Links added.
--- NOTE | 2020-11-24 15:50 | NUR ---
ESCAPEMENT MAKER NOTES TRANSFERRED PT TO TELE FLOOR VIA ACLS PROTOCOL IN STABLE CONDITION , NO ACUTE EVENTS NOTED , VSS , TELE BOX PLACED , ATTACHED PT TO VENT SETTINGS ORDERED , AFEBRILE ,
--- NOTE | 2020-11-24 15:57 | NUR ---
MS TRANSFER NOTES PATIENT RECEIVED IN MEDICALLY STABLE CONDITION. SAFETY PRECAUTIONS IN PLACE. BREAKS LOCKED, BED RAILS UP, ASPIRATION PRECAUTION IN PLACE. WILL CONTINUE TO MONITOR. Addendum: 11/24/20 at 1603 by SACHI TERRY RN DISREGARD THE ABOVE NOTE TELE TRANSFER NOTES PATIENT RECEIVED IN MEDICALLY STABLE CONDITION. VITALS FOLLOW: BP 99/55, HR- 87, O2 SAT- 89%, RR- 18. SAFETY PRECAUTIONS IN PLACE. BREAKS LOCKED, BED RAILS UP, ASPIRATION PRECAUTION IN PLACE. WILL CONTINUE TO MONITOR.
--- NOTE | 2020-11-24 18:05 | NUR ---
PAINTING INSTRUCTOR NOTES G-TUBE FLUSHED WITH 200 MLS WATER
--- NOTE | 2020-11-24 18:55 | NUR ---
STRAIGHT CUTTER MACHINE CLOSING NOTES PATIENT REMAINS IN BED; AWAKE, NON VERBAL, TOLERATING VENT SETTINGS WITH SPO2 OF 97% , TRACH OF PORTEX # [address] G-TUBE PATENT AND INTACT WITH JEVITY @ 80ML/HR X20 HOURS WITH NO RESIDUALS NOTED. PATEL CATH DRAINING VIA GRAVITY CLEAR YELLOW URINE. CHI PICC LINE, HL. AND RFA AND LFA # 20 PATENT AND INTACT. HOB @ 40-45. SAFETY PRECAUTIONS IN PLACE; BED IN LOW POSITION AND LOCKED, RAILS UP X2, CALL LIGHT WITHIN REACH. WILL ENDORSE TO OFFICE SERVICES SPECIALIST NURSE.
--- NOTE | 2020-11-24 19:38 | NUR ---
RN NOTES PATIENT REMAINS IN BED; AWAKE, NON VERBAL, TOLERATING VENT SETTINGS WITH SPO2 OF 97% , TRACH OF PORTEX # [address] G-TUBE PATENT AND INTACT WITH JEVITY @ 80ML/HR X20 HOURS WITH NO RESIDUALS NOTED. PATEL CATH DRAINING VIA GRAVITY CLEAR YELLOW URINE. CHI PICC LINE, HL. AND RFA AND LFA # 20 PATENT AND INTACT. HOB @ 40-45. SAFETY PRECAUTIONS IN PLACE; BED IN LOW POSITION AND LOCKED, RAILS UP X2, CALL LIGHT WITHIN REACH. WILL CONTINUE TO MONITOR.
[2020-11-25] VITALS: BP 115/66
--- NOTE | 2020-11-25 03:18 | NUR ---
RN NOTES RECEIVED CRITICAL LAB RESULTS PT BLOOD CULTURE WAS POSITIVE FOR - GRAM RODS. MD AWARE NO NEW ORDERS AT THIS TIME.
[2020-11-25 04:00] VITALS: BP 118/46
[2020-11-25] MEDS: PIPERACILLIN /TAZOBACTAM 3.375 G in IV D5W 50 ML IV SCH ×2 (05:04→12:48)
[2020-11-25] MEDS: JEVITY 1.2 CAL 1,000 ML BOTTLE GT PRN (05:11)
[2020-11-25] MEDS ORDERED: DIATR MEGLU/DIATRIZOATE SODIUM 30 ML BOTTLE (GASTROGRAPHIN) ONE (07:06)
--- NOTE | 2020-11-25 07:28 | NUR ---
RN NOTES PATIENT REMAINS IN BED; AWAKE, NON VERBAL, TOLERATING VENT SETTINGS WITH SPO2 OF 97% , TRACH OF PORTEX # [address] PATEL CATH DRAINING VIA GRAVITY CLEAR YELLOW URINE. CHI PICC LINE, HL. AND RFA AND LFA # 20 PATENT AND INTACT. HOB @ 40-45. SAFETY PRECAUTIONS IN PLACE; BED IN LOW POSITION AND LOCKED, RAILS UP X2, CALL LIGHT WITHIN REACH. WILL ENDORSE CARE.
[2020-11-25 07:42] LABS: BASOPHILS % (AUTO) 0.3 % (0.0-2.0); EOSINOPHILS % (AUTO) 0.6 % (0.0-6.0); HEMATOCRIT 32 % (39-51); HEMOGLOBIN 10.2 g/dL (13.5-17.5); LYMPHOCYTES # (AUTO) 0.9 /CMM (0.8-4.8); LYMPHOCYTES % (AUTO) 13.7 % (20.0-44.0); MEAN CORPUSCULAR HGB CONC 32 g/dl (31.0-36.0); MEAN CORPUSCULAR VOLUME 92 fL (80-96); MONOCYTES # (AUTO) 0.6 /CMM (0.1-1.30); MONOCYTES % (AUTO) 9.4 % (2.0-12.0); NEUTROPHILS # (AUTO) 5.1 /CMM (1.8-8.9); PLATELET COUNT (AUTO) 128 /CMM (150-450); RED BLOOD CELL COUNT(AUTO) 3.47 MIL/uL (4.5-6.0); WHITE BLOOD COUNT (AUTO) 6.6 K/uL (4.3-11.0)
--- NOTE | 2020-11-25 07:55 | NUR ---
PRESS OPERATOR CARBON PRODUCTS OPENING NOTE PT RECEIVED IN BED, RESTING, BUT AROUSABLE AND RESPONSIVE. PT IS A/O X 0, OBTUNDED, BUT HAS SPONTANEOUS OPENING OF THE EYES AND RESPONSIVE TO TOUCH AND SOUND. PT IS ON [facility] VENT, SETTINGS: RATE 12, TIDAL VOLUME 500, PEEP 0, FIO2 45, PEAK FLOW 60 WITH NO S/SX OF RESPIRATORY DISTRESS OR SOB. PT IS ON TELE MONITOR WITH V PACING AT 89 BPM, WITH NO S/SX OF CARDIAC DISTRESS. PT HAS IV ACCESS ON LEFT FOREARM AND RIGHT FOREARM G#20 BOTH PATENT, INTACT AND FLUSHING WELL WITH NO S/SX OF INFECTION OR IRRITATION. PT ALSO HAS A RIGHT UPPER ARM PICC LINE, PATENT, INTACT AND FLUSHING WELL WITH NO S/SX OF INFECTION OR IRRITATION. PT ALSO HAS A G-TUBE IN PLACE, DRESSING IS CLEAN, DRY AND INTACT, PATENT, INTACT AND FLUSHING WELL RUNNING JEVITY 1.2 AT 80 ML/HR. PT'S PATEL CATHETER IN PLACE, PATENT, INTACT AND DRAINING CLEAR, YELLOW URINE. SAFETY MEASURES IN PLACE: BED IN LOWEST, LOCKED POSITION WITH BOTH UPPER SIDE RAILS UP X 2. CALL LIGHT WITHIN REACH. WILL CONTINUE TO MONITOR.
[2020-11-25 08:00] LABS: CALCIUM, SERUM 8.8 mg/dL (8.5-10.1); CARBON DIOXIDE 30 mmol/L (21-32); CHLORIDE 108 mmol/L (98-107); CREATININE 0.9 mg/dL (0.6-1.3); GLUCOSE 101 mg/dL (74-106); MAGNESIUM 2.1 mg/dL (1.8-2.4); PHOSPHORUS 3.2 mg/dL (2.5-4.9); SODIUM SERUM 144 mmol/L (136-145); UREA NITROGEN, BLOOD 30 mg/dL (7-18)
[2020-11-25 08:32] VITALS: BP 123/80
[2020-11-25] MEDS: POLYETHYLENE GLYCOL 3350 17 GM POWD.PACK GT SCH (09:01)
[2020-11-25] MEDS: CLOPIDOGREL BISULFATE 75 MG TABLET GT SCH (09:04)
[2020-11-25] MEDS: FINASTERIDE (5 MG) 5 MG TABLET GT SCH (09:04)
[2020-11-25] MEDS: ASCORBIC ACID 500 MG TABLET GT SCH (09:05)
[2020-11-25] MEDS: CYANOCOBALAMIN 500 MCG TABLET GT SCH (09:05)
[2020-11-25] MEDS: CHOLECALCIFEROL 1,000 UNIT TABLET (VIT D3) GT SCH (09:05)
[2020-11-25] MEDS: HEPARIN SODIUM, PORCINE 5000 UNITS/1 ML VIAL SQ SCH (09:12)
[2020-11-25] MEDS ORDERED: PROSOURCE / PROSTAT (PYXIS) 30 ML UDC GT SCH (09:30)
[2020-11-25] MEDS ORDERED: LEVOFLOXACIN 750 MG /D5W 150ML 750 MG in PREMIX 1 EA IV SCH (15:00)
[2020-11-25 16:00] VITALS: BP 118/68
[2020-11-25] MEDS ORDERED: LEVO750P5 IV (16:38)
--- NOTE | 2020-11-25 18:53 | NUR ---
AUDIO VIDEO REPAIRER CLOSING NOTE PT REMAINS IN BED, AWAKE AND RESPONSIVE. PT IS A/O X 0, OBTUNDED, BUT HAS SPONTANEOUS OPENING OF THE EYES AND RESPONSIVE TO TOUCH AND SOUND. PT IS ON [facility] VENT, SETTINGS: RATE 12, TIDAL VOLUME 500, PEEP 0, FIO2 45, PEAK FLOW 60 WITH NO S/SX OF RESPIRATORY DISTRESS OR SOB. PT IS ON TELE MONITOR WITH V PACING AT 90 BPM, WITH NO S/SX OF CARDIAC DISTRESS. PT HAS IV ACCESS ON LEFT FOREARM AND RIGHT FOREARM G#20 BOTH PATENT, INTACT AND FLUSHING WELL WITH NO S/SX OF INFECTION OR IRRITATION. PT ALSO HAS A RIGHT UPPER ARM PICC LINE, PATENT, INTACT AND FLUSHING WELL WITH NO S/SX OF INFECTION OR IRRITATION. PT ALSO HAS A G-TUBE IN PLACE, DRESSING IS CLEAN, DRY AND INTACT, PATENT, INTACT AND FLUSHING WELL RUNNING JEVITY 1.2 AT 80 ML/HR. PT'S PATEL CATHETER IN PLACE, PATENT, INTACT AND DRAINING CLEAR, YELLOW URINE. ALL CARE, NEEDS, MEDICATIONS AND TREATMENTS GIVEN ORDERED. SAFETY MEASURES MAINTAINED: BED IN LOWEST POSITION AND LOCKED WITH BOTH UPPER SIDE RAILS UP X 2. CALL LIGHT WITHIN REACH. WILL ENDORSE TO BRIMMER BLOCKER NURSE.
--- NOTE | 2020-11-25 19:08 | NUR ---
"[facility]" called and stated that they are not available to fiber picker pt till tomorrow, called cm and instruction received to call [facility] for transfer. [facility]" called and they will come with RT to transfer pt to snf.
--- NOTE | 2020-11-25 19:12 | NUR ---
[facility] to transport pt to snf is 9 pm today
--- NOTE | 2020-11-25 19:46 | NUR ---
RN NOTES PT REMAINS IN BED, AWAKE AND RESPONSIVE. PT IS A/O X 0, OBTUNDED, BUT HAS SPONTANEOUS OPENING OF THE EYES AND RESPONSIVE TO TOUCH AND SOUND. PT IS ON [facility] VENT, SETTINGS: RATE 12, TIDAL VOLUME 500, PEEP 0, FIO2 45, PEAK FLOW 60 WITH NO S/SX OF RESPIRATORY DISTRESS OR SOB. PT IS ON TELE MONITOR WITH V PACING AT 90 BPM, WITH NO S/SX OF CARDIAC DISTRESS. PT HAS IV ACCESS ON LEFT FOREARM AND RIGHT FOREARM G#20 BOTH PATENT, INTACT AND FLUSHING WELL WITH NO S/SX OF INFECTION OR IRRITATION. PT ALSO HAS A RIGHT UPPER ARM PICC LINE, PATENT, INTACT AND FLUSHING WELL WITH NO S/SX OF INFECTION OR IRRITATION. PT ALSO HAS A G-TUBE IN PLACE, DRESSING IS CLEAN, DRY AND INTACT, PATENT, INTACT AND FLUSHING WELL RUNNING JEVITY 1.2 AT 80 ML/HR. PT'S PATEL CATHETER IN PLACE, PATENT, INTACT AND DRAINING CLEAR, YELLOW URINE. SAFETY MEASURES MAINTAINED: BED IN LOWEST POSITION AND LOCKED WITH BOTH UPPER SIDE RAILS UP X 2. CALL LIGHT WITHIN REACH. [facility]IA AMBULANCE ACCOMPANIED BY TWO NON DESTRUCTIVE EVALUATION TECHNICIAN AND A RESPIRATORY THERAPIST PT IN STABLE CONDITION.
== END 2020-11-25 20:30 | DRG 871 ==
LOC: ER 08:23 → ICU 11:53 → TELE 11-24 15:34
PROVIDERS: ADMIT Nurse Practitioner Acute Care; ATTEND Nurse Practitioner Acute Care
PROC: 5A1945Z Respiratory Ventilation, 24-96 Consecutive Hours (ICD-10-PCS; principal; 2020-11-21)
PROC: 02HV33Z Insertion of Infusion Device into Superior Vena Cava, Percutaneous Approach (ICD-10-PCS; 2020-11-21)
PROC: B548ZZA Ultrasonography of Superior Vena Cava, Guidance (ICD-10-PCS; 2020-11-21)
DX: A41.89 Other specified sepsis (principal); I21.A1 Myocardial infarction type 2; G92 Toxic encephalopathy; N17.0 Acute kidney failure with tubular necrosis; R65.21 Severe sepsis with septic shock; R53.2 Functional quadriplegia; J96.21 Acute and chronic respiratory failure with hypoxia; J18.9 Pneumonia, unspecified organism; E87.2 Acidosis; I50.32 Chronic diastolic (congestive) heart failure; N39.0 Urinary tract infection, site not specified; Z99.11 Dependence on respirator [ventilator] status; I13.0 Hypertensive heart and chronic kidney disease with heart failure and stage 1 through stage 4 chronic kidney disease, or unspecified chronic kidney disease; I48.20 Chronic atrial fibrillation, unspecified; D68.59 Other primary thrombophilia; I69.351 Hemiplegia and hemiparesis following cerebral infarction affecting right dominant side; E87.0 Hyperosmolality and hypernatremia; E78.5 Hyperlipidemia, unspecified; Z20.822 Contact with and (suspected) exposure to COVID-19; F03.90 Unspecified dementia, unspecified severity, without behavioral disturbance, psychotic disturbance, mood disturbance, and anxiety; F09 Unspecified mental disorder due to known physiological condition; Z93.1 Gastrostomy status; N18.9 Chronic kidney disease, unspecified; I25.10 Atherosclerotic heart disease of native coronary artery without angina pectoris; I25.2 Old myocardial infarction; D63.8 Anemia in other chronic diseases classified elsewhere; E78.00 Pure hypercholesterolemia, unspecified; F20.9 Schizophrenia, unspecified; N40.0 Benign prostatic hyperplasia without lower urinary tract symptoms; R13.10 Dysphagia, unspecified; Y95 Nosocomial condition; M89.9 Disorder of bone, unspecified; Z79.51 Long term (current) use of inhaled steroids; Z79.01 Long term (current) use of anticoagulants; Z79.899 Other long term (current) drug therapy; B96.89 Other specified bacterial agents as the cause of diseases classified elsewhere; I49.9 Cardiac arrhythmia, unspecified; I48.91 Unspecified atrial fibrillation; F43.10 Post-traumatic stress disorder, unspecified; Z79.02 Long term (current) use of antithrombotics/antiplatelets
CPT/HCPCS: 31720; 36415; 36600; 71045-TC; 74018; 80048-TC; 80053-TC; 80061-TC; 80076-TC; 80202-TC; 81001; 82533; 82803-TC; 83605-TC; 83735-TC; 84100-TC; 84484-TC; 85025-TC; 85730-TC; 87040-TC; 87070-TC; 87081-TC; 87086-TC; 87186-TC; 94002-TC; 94003-TC; 94760-TC; 94762-TC; 94799-TC; 99082-TC; A4216; C1751; C9803; G0378; J1100; J1644; J1720; J1956; J2185; J2543; J3370; J7030; J7040; J7050; J7060; P9047; Q9963; U0003

== ENCOUNTER 2021-03-03 10:53 | Emergency (ER) | payer MEDICARE, OTHER ==
[~2021-03-03] VITALS: Ht 182.9 cm; Wt 72.6 kg
[~2021-03-03 10:53] MED LIST changes: +AMIN887L GT; +ASCO500C17 GT; -CRAN3875 PO; -GLYC1.5T4 PO; +LEVO750P5 IV; +NYST5ORA MM; -PANT40TA2 PO; -PIPE3.379 IV; -RXVAN XX
[2021-03-03 11:56] LABS: BASOPHILS % (AUTO) 0.6 % (0.0-2.0); EOSINOPHILS % (AUTO) 6.2 % (0.0-6.0); HEMATOCRIT 35 % (39-51); HEMOGLOBIN 11.3 g/dL (13.5-17.5); LYMPHOCYTES # (AUTO) 1.5 K/uL (0.8-4.8); LYMPHOCYTES % (AUTO) 25.2 % (20.0-44.0); MEAN CORPUSCULAR HGB CONC 32 g/dl (31.0-36.0); MEAN CORPUSCULAR VOLUME 90 fL (80-96); MONOCYTES # (AUTO) 0.4 K/uL (0.1-1.30); MONOCYTES % (AUTO) 6.8 % (2.0-12.0); NEUTROPHILS # (AUTO) 3.8 K/uL (1.8-8.9); NEUTROPHILS % (AUTO) 61.2 % (43.0-81.0); PLATELET COUNT (AUTO) 240 K/uL (150-450); RED BLOOD CELL COUNT(AUTO) 3.87 MIL/uL (4.5-6.0); WHITE BLOOD COUNT (AUTO) 6.1 K/uL (4.3-11.0)
--- NOTE | 2021-03-03 11:57 | NUR ---
FOREIGN FROM SNF TO ER EBD 2. NON VERBAL. AWAKE AND ALERT. NOT IN RESP DISTRESS, TRACH DEPENDENT, ON COOL AEROSOL. BED BOUND BROUGHT IN FOR L ARM REDNESS AND AND SWELLING SINCE THU. MD WAS AT THE BEDSIDE FOR EVAL. ORDERS RECEIVED, NOTED AND CARRIED OUT.
[2021-03-03] MEDS ORDERED: VANCOMYCIN 1 GM in IV D5W 250 ML IV ONE (12:00)
[2021-03-03 12:06] LABS: CREATININE 0.9 mg/dL (0.6-1.3); POTASSIUM 4.5 mmol/L (3.5-5.1)
--- NOTE | 2021-03-03 14:14 | NUR ---
[facility], , CALLED.
--- NOTE | 2021-03-03 15:08 | NUR ---
SET UP ALS TRANSPORT AT 1830. SPOKE WITH
--- NOTE | 2021-03-03 15:14 | NUR ---
SET UP TRANSPORT WITH GUILLERMINA
[2021-03-03] MEDS ORDERED: IV NS 0.9% 1,000 ML BAG IV ONE (15:30)
--- NOTE | 2021-03-03 18:03 | NUR ---
JORDAN JOHNSON FROM [facility] INFORMED THAT PT IS RETURNING BACK TO FACILITY. REPORT GIVEN
--- NOTE | 2021-03-03 18:15 | NUR ---
NURSE ALEX FROM [facility] CALLED BACK TO LEAVE IV INSERTED D/T MD MIGHT CONTINUE IV ORDER AT THE SNF
--- NOTE | 2021-03-03 19:17 | NUR ---
[facility] AT BEDSIDE FOR PT TRANSPORT TO [facility] ON STABLE CONDITION. NAD NOTED. REPORT GIVEN TO EMT. PT LEFT ON GURNEY WITH 2 EMT.
[2021-03-03 19:18] VITALS: BP 117/63
== END 2021-03-03 19:20 | disposition home or self-care (01) ==
LOC: ER 10:58
DX: L03.114 Cellulitis of left upper limb (principal); Z93.0 Tracheostomy status; I10 Essential (primary) hypertension; I48.91 Unspecified atrial fibrillation; F03.90 Unspecified dementia, unspecified severity, without behavioral disturbance, psychotic disturbance, mood disturbance, and anxiety; E78.00 Pure hypercholesterolemia, unspecified; Z86.73 Personal history of transient ischemic attack (TIA), and cerebral infarction without residual deficits; Z98.890 Other specified postprocedural states; Z95.0 Presence of cardiac pacemaker; Z79.899 Other long term (current) drug therapy
CPT/HCPCS: 36415; 80048; 83605; 85025; 87040 ×2; 93971; 96361; 96365; 99285; J3370; J7040; J7060

== ENCOUNTER 2023-01-19 18:48 | Inpatient (IN) | payer MEDICARE, OTHER ==
[~2023-01-19] VITALS: Ht 177.8 cm; Wt 108.0 kg
[~2023-01-19 18:48] MED LIST changes: +CHOL10002 GT; -CHOL10002 PO; +CLOP75TA15 GT; -CLOP75TA15 PO; +CYAN-51 GT; -CYAN-51 PO; +FINA5TAB11 GT; -FINA5TAB11 PO; +MAGN400O6 GT; -MAGN400O6 PO; +POLY17PO4 GT; -POLY17PO4 PO
--- NOTE | 2023-01-19 19:58 | NUR ---
COVID AND MRSA SWAB COLLECTED AND SENT TO LAB.
[2023-01-19] MEDS ORDERED: IV NS 0.9% 1,000 ML BAG IV ONE (20:30)
[2023-01-19 20:53] LABS: BASOPHILS % (AUTO) 0.3 % (0.0-2.0); EOSINOPHILS % (AUTO) 12.6 % (0.0-6.0); HEMATOCRIT 28 % (39-51); HEMOGLOBIN 8.8 g/dL (13.5-17.5); LYMPHOCYTES % (AUTO) 12.3 % (20.0-44.0); MEAN CORPUSCULAR HGB CONC 32 g/dl (31.0-36.0); MEAN CORPUSCULAR VOLUME 81 fL (80-96); MONOCYTES # (AUTO) 0.6 K/uL (0.1-1.30); MONOCYTES % (AUTO) 7.9 % (2.0-12.0); NEUTROPHILS # (AUTO) 5.2 K/uL (1.8-8.9); NEUTROPHILS % (AUTO) 66.9 % (43.0-81.0); PLATELET COUNT (AUTO) 308 K/uL (150-450); RED BLOOD CELL COUNT(AUTO) 3.45 MIL/uL (4.5-6.0); WHITE BLOOD COUNT (AUTO) 7.8 K/uL (4.3-11.0)
[2023-01-19 21:23] LABS: CALCIUM, SERUM 8.8 mg/dL (8.5-10.1); CARBON DIOXIDE 35 mmol/L (21-32); CHLORIDE 101 mmol/L (98-107); CREATININE 0.7 mg/dL (0.6-1.3); GLUCOSE 141 mg/dL (74-106); SODIUM SERUM 141 mmol/L (136-145); UREA NITROGEN, BLOOD 18 mg/dL (7-18)
[2023-01-19 21:24] LABS: POTASSIUM 2.8 mmol/L (3.5-5.1)
[2023-01-19 21:38] LABS: ALANINE AMINOTRANSFERASE 23 U/L (12-78); ALBUMIN 2.1 g/dL (3.4-5.0); ALKALINE PHOSPHATASE 259 U/L (46-116); ASPARTATE AMINOTRANSFERASE 29 U/L (15-37); BILIRUBIN,DIRECT 0.2 mg/dL (0.0-0.2); BILIRUBIN,TOTAL 0.6 mg/dL (0.2-1.0); LIPASE 42 U/L (73-393); TOTAL PROTEIN, SERUM 7.1 g/dL (6.4-8.2)
--- NOTE | 2023-01-19 21:55 | NUR ---
PT ASSIGNED TO 112-2
--- NOTE | 2023-01-19 22:01 | NUR ---
BED 101
--- NOTE | 2023-01-19 22:13 | NUR ---
HANDOFF REPORT GIVEN TO BECKY ORTEGA FOR INPATIENT SERVICES.
[2023-01-19] MEDS ORDERED: BISACODYL SUPP (10 MG) 10 MG/SUPP.RECT SUPP.RECT RC PRN (22:30)
[2023-01-19] MEDS ORDERED: ALBUTEROL SULFATE 8 GM HFA.AER.AD IH PRN ×3 (22:30→23:00)
[2023-01-19] MEDS ORDERED: POTASSIUM CHLORIDE 10 MEQ/50 ML PREMIXED IVPB FOR PERIPHERAL LINE IV ONE (22:30)
[2023-01-19] MEDS ORDERED: TRAMADOL HCL 50 MG TABLET PO PRN (22:30)
[2023-01-19] MEDS ORDERED: ALBUTEROL FS 2.5 MG/3 ML VIAL.NEB NEB PRN (22:30)
[2023-01-19] MEDS ORDERED: NA PHOS,M-B/NA PHOS,DI-BA 1 EA ENEMA RC PRN (22:30)
[2023-01-19] MEDS ORDERED: MINERAL OIL 133 ML (PYXIS) 1 EA ENEMA RC ONE (22:30)
[2023-01-19] MEDS ORDERED: MAGNESIUM HYDROXIDE 30 ML UDC PO PRN (22:30)
[2023-01-19] MEDS ORDERED: CEFTRIAXONE 1GM BAG (ER ONLY) 50 ML IV ONE (22:57)
[2023-01-19 23:00] VITALS: BP 140/64; TEMP 100.2
[2023-01-19] MEDS: IV NS 0.9% 1,000 ML IV PRN (23:12)
[2023-01-19] MEDS: CEFTRIAXONE 1 G in IV D5W 50 ML IV SCH (23:13)
[2023-01-20] MEDS ORDERED: AZITHROMYCIN 500 MG VIAL ONE (00:31)
[2023-01-20] MEDS: AZITHROMYCIN 500 MG in IV D5W 250 ML IV SCH ×2 (00:40→22:06)
[2023-01-20] MEDS: ACETAMINOPHEN 650 MG/20.3 ML UDC GT PRN (01:18)
[2023-01-20 04:00] VITALS: BP 96/49; TEMP 98.7
[2023-01-20 05:58] LABS: BASOPHILS % (AUTO) 0.1 % (0.0-2.0); EOSINOPHILS % (AUTO) 0.3 % (0.0-6.0); HEMATOCRIT 27 % (39-51); HEMOGLOBIN 8.5 g/dL (13.5-17.5); LYMPHOCYTES # (AUTO) 0.6 K/uL (0.8-4.8); LYMPHOCYTES % (AUTO) 4.6 % (20.0-44.0); MEAN CORPUSCULAR HGB CONC 32 g/dl (31.0-36.0); MEAN CORPUSCULAR VOLUME 81 fL (80-96); MONOCYTES # (AUTO) 0.8 K/uL (0.1-1.30); MONOCYTES % (AUTO) 6.5 % (2.0-12.0); NEUTROPHILS # (AUTO) 11.1 K/uL (1.8-8.9); NEUTROPHILS % (AUTO) 88.5 % (43.0-81.0); PLATELET COUNT (AUTO) 318 K/uL (150-450); WHITE BLOOD COUNT (AUTO) 12.6 K/uL (4.3-11.0)
[2023-01-20 06:15] LABS: ALANINE AMINOTRANSFERASE 21 U/L (12-78); ALKALINE PHOSPHATASE 228 U/L (46-116); ASPARTATE AMINOTRANSFERASE 24 U/L (15-37); BILIRUBIN,TOTAL 0.6 mg/dL (0.2-1.0); CALCIUM, SERUM 8.7 mg/dL (8.5-10.1); CARBON DIOXIDE 35 mmol/L (21-32); CHLORIDE 102 mmol/L (98-107); CREATININE 0.9 mg/dL (0.6-1.3); GLUCOSE 144 mg/dL (74-106); POTASSIUM 3.4 mmol/L (3.5-5.1); SODIUM SERUM 141 mmol/L (136-145); TOTAL PROTEIN, SERUM 6.8 g/dL (6.4-8.2); UREA NITROGEN, BLOOD 18 mg/dL (7-18)
--- NOTE | 2023-01-20 06:26 | NUR ---
RN NOTE PATIENT OBTUNDED. ON MECHANICAL VENT. SINUS RHYTHM/ SINUS TACH ON THE MONITOR. PATEL CATHETER MAINTAINED. BM X1, GREEN/BROWN MUCOID. KEH, INFORMATION TECHNOLOGY CONSULTANT AWARE NON-ADMIN ENEMA. WOUND CARE CONSULT PENDING. GT IS CLAMPED. NO RESIDUAL, WILL F/U TUBE FEEDING. TMAX 100.2, TYLENOL GIVEN. REPLACED K 40MEQ IV THIS SHIFT. PATIENT ON ISOLATION FOR COVID.
[2023-01-20 06:33] LABS: FERRITIN 188 ng/mL (8-388)
--- NOTE | 2023-01-20 08:10 | NUR ---
WOUND CARE CONSULT: REVIEWED CHART, NURSING DOCUMENTATION AND PHOTOS WHICH INDICATE MULTIPLE SKIN ISSUES AND WOUNDS INCLUDING SACRAL AND BILATERAL HEEL DEEP TISSUE INJURIES, RASH/LESIONS TO CHEST AND BACK, UNKNOWN ETIOLOGY, RT FOOT WOUND, PEG SITE REDNESS/HYPERGRANULATION AND LESION TO FACE, ALL PRESENT ON ADMISSION. DR HUTCHINS AND DR GONZALEZ CALLED FOR SURGICAL AND DPM CONSULTS. DISCUSSED SKIN PROTECTION WITH NURSING STAFF. MD IN AGREEMENT WITH PLAN OF CARE.
[2023-01-20] MEDS ORDERED: Z GUARD REMEDY 4 OZ OINT TP PRN (08:30)
[2023-01-20] MEDS ORDERED: POLYETHYLENE GLYCOL 3350 17 GM POWD.PACK PO SCH (09:00)
[2023-01-20] MEDS ORDERED: CYANOCOBALAMIN 500 MCG TABLET PO SCH (09:00)
[2023-01-20] MEDS ORDERED: PROSOURCE / PROSTAT (PYXIS) 30 ML UDC GT SCH (09:00)
[2023-01-20] MEDS: Z GUARD REMEDY 4 OZ OINT TP SCH (09:00)
[2023-01-20] MEDS ORDERED: CLOPIDOGREL BISULFATE 75 MG TABLET PO SCH (09:00)
[2023-01-20] MEDS ORDERED: FINASTERIDE (5 MG) 5 MG TABLET PO SCH (09:00)
[2023-01-20] MEDS ORDERED: CHOLECALCIFEROL 1,000 UNIT TABLET (VIT D3) PO SCH (09:00)
[2023-01-20] MEDS ORDERED: POTASSIUM CHLORIDE 20 MEQ POWDER PACKET PO ONE (10:00)
--- NOTE | 2023-01-20 12:36 | NUR ---
RN NOTE PATIENT'S G-TUBE IS NOW CONNECTED TO LOW INTERMITTENT SUCTION, AND PORTABLE SUCTION MACHINE IS CONNECTED TO PATIENTS SUCTION CATHETER. CHARGE NURSE IS AWARE
--- NOTE | 2023-01-20 12:40 | NUR ---
RN NOTE PATIENT'S COVID RESULTS [facility]. COPY OF FAX PLACED IN CHART.
[2023-01-20] MEDS ORDERED: AMIN30LI2 GT (13:05)
[2023-01-20] MEDS ORDERED: FAMO20TA8 GT (13:05)
[2023-01-20] MEDS ORDERED: ATOR10TA GT (13:05)
[2023-01-20] MEDS ORDERED: GLYC2TAB21 GT (13:05)
[2023-01-20] MEDS ORDERED: CRAN425C6 GT (13:05)
[2023-01-20] MEDS ORDERED: ASCO500T10 GT (13:05)
[2023-01-20] MEDS ORDERED: NUT.237L30 GT (13:05)
[2023-01-20] MEDS ORDERED: ACET160S2 GT (13:05)
[2023-01-20] MEDS ORDERED: BACL10TA GT (13:05)
[2023-01-20] MEDS ORDERED: ACET650S26 GT (13:05)
[2023-01-20] MEDS ORDERED: ARGI1POW13 GT (13:05)
[2023-01-20] MEDS ORDERED: ACET-2605 GT (13:05)
[2023-01-20] MEDS ORDERED: FERR300L GT (13:05)
[2023-01-20] MEDS: IV NS 0.9% 1,000 ML IV PRN (15:16)
[2023-01-20] MEDS: PROSOURCE / PROSTAT (PYXIS) 30 ML UDC GT SCH ×3 (15:17→17:00)
[2023-01-20] MEDS: CHLORHEXIDINE GLUCONATE 15 ML UDC MM SCH ×2 (15:18→17:00)
[2023-01-20] MEDS: ASCORBIC ACID 500 MG TABLET GT SCH (15:18)
[2023-01-20] MEDS: dexaMETHasone SOD PHOSPHATE 4 MG/ML VIAL IV SCH (15:19)
[2023-01-20] MEDS: ENOXAPARIN SODIUM 40 MG/0.4 ML DISP.SYRIN SQ SCH (15:24)
[2023-01-20] MEDS ORDERED: MAGNESIUM HYDROXIDE 30 ML UDC GT PRN (15:46)
[2023-01-20] MEDS ORDERED: TRAMADOL HCL 50 MG TABLET GT PRN (15:47)
[2023-01-20] MEDS ORDERED: PHARMACY TO CHANGE PO MEDS TO GT/NG XX PRN (16:00)
[2023-01-20] MEDS ORDERED: POTASSIUM CHLORIDE 20 MEQ POWDER PACKET GT ONE (19:30)
--- NOTE | 2023-01-20 19:30 | NUR ---
DIGITAL LIBRARIAN OPENING NOTE RECEIVED PATIENT IN BED, A/O X0, OBTUNDED, PATIENT IS COVID 19 POSITIVE, PATIENT IS ON VENT AC 12, TV 475, FIO2 40, PEEP 5, TOLERATING WELL, NO SOB OR DISTRESS NOTED, NO S/S OF PAIN AT THIS TIME, PATIENT IS ON LOW GT INT SUCTION, IVF GUSTAVO MIDLINE, FLUSHING WELL, PATIENT IS ON PATEL CATHETER FLOWING YELLOW URINE, ALL SAFETY MEASURES RENDERED, SIDE RAILS UP X2, CALL LIGHT WITHIN REACH WILL CONT PLAN OF CARE
[2023-01-20] MEDS: CEFTRIAXONE 1 G in IV D5W 50 ML IV SCH (21:42)
[2023-01-21 01:02] VITALS: BP 103/60; TEMP 98.6
[2023-01-21 04:00] VITALS: BP 104/61; TEMP 97.4
[2023-01-21] MEDS: IV NS 0.9% 1,000 ML IV PRN ×2 (05:37→20:17)
[2023-01-21 06:10] LABS: ABG BASE EXCESS 8.8 mmol/L; ABG OXYGEN SATURATION 96.5 % (92.0-98.5); ABG PCO2 41.5 mmHg (35.0-45.0); ABG PH 7.513 (7.350-7.450); ABG PO2 88.9 mmHg (75.0-100.0); AaDO2 148.6 mmHg; COHb 0.4 % (0.5-1.5); MetHb 0.2 % (0.0-1.5); O2Hb 95.9 % (94.0-97.0); SITE, ABG Right Radial
--- NOTE | 2023-01-21 06:53 | NUR ---
RN NOTE Pt in bed, asleep, easily arousable. On mech vent via trach, current settings well rohit, no sob, nad. No s/sx of apparent distress noted. NS at 90ml/hr infusing to GUSTAVO ML, well rohit. Low intermittent suctioning to PEG, removed 100ml output, clear yellow mucousy output. HOB elevated, aspiration precaution implemented. Hutchinson cath in placed, patent, draining dark isaiah urine by gravity. All due meds given as ordered. Suction q2h/prn. Kept clean and dry. Will endorse to AM shift nurse for DODIE.
--- NOTE | 2023-01-21 07:00 | NUR ---
OPENING NOTE RECEIVED PATIENT IN BED, CONFUSED, NON VERBAL, OBTUNDED, AIRBORNE PRECAUTIONS D/T COVID POSITIVE, PATIENT IS ON VENT AC 12, TV 475, FIO2 40, PEEP 5, TOLERATING WELL, NO SOB OR DISTRESS NOTED, NO S/S OF PAIN AT THIS TIME, PATIENT IS ON LOW GT INT SUCTION, IVF GUSTAVO MIDLINE, FLUSHING WELL, PATIENT IS ON PATEL CATHETER FLOWING YELLOW URINE, ALL SAFETY MEASURES RENDERED, SIDE RAILS UP X2, CALL LIGHT WITHIN REACH WILL CONT PLAN OF CARE
[2023-01-21 08:00] VITALS: BP 105/71; TEMP 98.5
[2023-01-21] MEDS: Z GUARD REMEDY 4 OZ OINT TP SCH (08:03)
[2023-01-21] MEDS: PROSOURCE / PROSTAT (PYXIS) 30 ML UDC GT SCH ×2 (08:04→17:00)
[2023-01-21] MEDS: CLOPIDOGREL BISULFATE 75 MG TABLET GT SCH (08:17)
[2023-01-21] MEDS: CHOLECALCIFEROL 1,000 UNIT TABLET (VIT D3) GT SCH (08:17)
[2023-01-21] MEDS: POLYETHYLENE GLYCOL 3350 17 GM POWD.PACK GT SCH (08:17)
[2023-01-21] MEDS: FINASTERIDE (5 MG) 5 MG TABLET GT SCH (08:17)
[2023-01-21] MEDS: CHLORHEXIDINE GLUCONATE 15 ML UDC MM SCH ×2 (08:17→17:28)
[2023-01-21] MEDS: dexaMETHasone SOD PHOSPHATE 4 MG/ML VIAL IV SCH (08:18)
[2023-01-21] MEDS: CYANOCOBALAMIN 500 MCG TABLET GT SCH (08:18)
[2023-01-21] MEDS: ASCORBIC ACID 500 MG TABLET GT SCH (08:19)
[2023-01-21] MEDS: ENOXAPARIN SODIUM 40 MG/0.4 ML DISP.SYRIN SQ SCH (08:20)
[2023-01-21 12:00] VITALS: BP 98/59; TEMP 98.1
[2023-01-21] MEDS: GLUCERNA 1.2 1,000 ML BOTTLE NG PRN (13:25)
--- NOTE | 2023-01-21 13:44 | NUR ---
followup with radiology still pending [email or web address] reentered.
[2023-01-21 16:00] VITALS: BP 108/77; TEMP 98
--- NOTE | 2023-01-21 17:00 | NUR ---
DR SILVA NOTIFIED RE UNREMARKABLE RESULT OF KUB. RESUME GLUCERNA G-TUBE FEEDING STARTING FROM 20ML, CHECK RESIDUAL AFTER 2 HOURS, THAN INCREASE TO 30, CONTINUE UP UNTIL 70ML/HR.
--- NOTE | 2023-01-21 19:00 | NUR ---
RN CLOSING NOTE PATIENT IN BED, CONFUSED, NON VERBAL, OBTUNDED, AIRBORNE PRECAUTIONS D/T COVID POSITIVE, PATIENT IS ON VENT AC 12, TV 475, FIO2 40, PEEP 5, TOLERATING WELL, NO SOB OR DISTRESS NOTED, G-TUBE FEEDING RESUMED AT 20ML/HR, IV ACCESS LEFT UA MIDLINE, FLUSHING WELL, PATIENT IS ON PATEL CATHETER FLOWING YELLOW URINE, ALL SAFETY MEASURES RENDERED, SIDE RAILS UP X2, CALL LIGHT WITHIN REACH WILL ENDORSE TO THE UPCOMING SHIFT FOR DODIE.
--- NOTE | 2023-01-21 19:53 | NUR ---
DESKTOP SUPPORT TECHNICIAN OPENING NOTES: RECEIVED PATIENT AWAKE IN BED, AROUSABLE TO TACTILE STIMULI, BED IN LOW POSITION CALL LIGHTS WITHIN REACH, NO COMPLAIN OF PAIN AND DISCOMFORT AT THIS TIME, NO FACIAL GRIMACING WAS OBSERVED, PATIENT IS NONE VERBAL, OBTUNDED, HOB TO REMAIN AT 45 DEGREE ON G TUBE FEEDING OF GLUCERNA @25ML/HR INFUSING WELL, NO RESIDUAL, WAS OBSERVED,IV LINE AT GUSTAVO ML WITH ONGOING 0.9NS@90ML/HR INFUSING WELL, ON TELE MONITOR- ST-105, PATIENT ON MECHANICAL VENT SATURATING WELL, P PATIENT KEPT CLEAN AND DRY ALL NEEDS MET WILL CONTINUE TO MONITOR ;
[2023-01-21 20:00] VITALS: BP 96/62; TEMP 98.6
[2023-01-21] MEDS: CEFTRIAXONE 1 G in IV D5W 50 ML IV SCH (21:48)
[2023-01-21] MEDS: AZITHROMYCIN 500 MG in IV D5W 250 ML IV SCH (23:07)
[2023-01-22] VITALS: BP 122/75; TEMP 98
--- NOTE | 2023-01-22 03:39 | NUR ---
RT pt received on mechanical vent with current settings. trached. small thick yellow secretions suctioned via trach. no sob, no resp distress. vent plugged in to red outlet
[2023-01-22 04:00] VITALS: BP 129/70; TEMP 98
--- NOTE | 2023-01-22 06:20 | NUR ---
KITCHEN CLEANER CLOSING NOTES: PATIENT AWAKE IN BED, BED IN LOW POSITION CALL LIGHTS WITHIN REACH, NO COMPLAIN OF PAIN AND DISCOMFORT AT THIS TIME, NO FACIAL GRIMACING WAS OBSERVED, ON MECHANICAL VENT SATURATING AT WELL, IV LINE AT GUSTAVO ML WITH ONGOING 0.9NSS@90ML.HR INFUSING WELL, ON NPO ON G TUBE FEEDING OF GLUCERNA 1.2@ 45ML/HR INFUSING WELL TO INCREASE 10ML Q6H TO MAXIMUM OF 70ML/HR, PATIENT ON TELE MONITOR- V PACING-63,NO SYMPTOMS WAS OBSERVE, ON PATEL CATHETER-700CC URINE OUT, PATIENT KEPT CLEAN AND DRY ALL NEEDS MET ENDORSE TO INCOMING SHIFT,
--- NOTE | 2023-01-22 07:12 | NUR ---
CUT OUT AND MARKING MACHINE OPERATOR OPENING NOTES: RECEIVED PATIENT SLEEPING IN BED, BED IN LOW POSITION CALL LIGHTS WITHIN REACH, NO SIGHS OF PAIN AND DISCOMFORT AT THIS TIME, NO FACIAL GRIMACING WAS OBSERVED, PATIENT IS NONE VERBAL, OBTUNDED, HOB TO REMAIN AT 45 DEGREE ON G TUBE FEEDING OF GLUCERNA @45ML/HR INFUSING WELL, NO RESIDUAL, WAS OBSERVED,IV LINE AT GUSTAVO ML WITH ONGOING 0.9NS@90ML/HR INFUSING WELL, ON TELE MONITOR- ST-107, PATIENT ON MECHANICAL VENT SATURATING WELL, WILL CONTINUE TO MONITOR ;
[2023-01-22 08:00] VITALS: BP 120/57; TEMP 98.1
[2023-01-22] MEDS: CHOLECALCIFEROL 1,000 UNIT TABLET (VIT D3) GT SCH (08:07)
[2023-01-22] MEDS: ASCORBIC ACID 500 MG TABLET GT SCH (08:07)
[2023-01-22] MEDS: dexaMETHasone SOD PHOSPHATE 4 MG/ML VIAL IV SCH (08:07)
[2023-01-22] MEDS: CYANOCOBALAMIN 500 MCG TABLET GT SCH (08:07)
[2023-01-22] MEDS: CHLORHEXIDINE GLUCONATE 15 ML UDC MM SCH ×2 (08:07→16:54)
[2023-01-22] MEDS: POLYETHYLENE GLYCOL 3350 17 GM POWD.PACK GT SCH (08:07)
[2023-01-22] MEDS: FINASTERIDE (5 MG) 5 MG TABLET GT SCH (08:07)
[2023-01-22] MEDS: CLOPIDOGREL BISULFATE 75 MG TABLET GT SCH (08:08)
[2023-01-22] MEDS: PROSOURCE / PROSTAT (PYXIS) 30 ML UDC GT SCH ×2 (08:08→16:54)
[2023-01-22] MEDS: ENOXAPARIN SODIUM 40 MG/0.4 ML DISP.SYRIN SQ SCH (08:09)
[2023-01-22] MEDS: Z GUARD REMEDY 4 OZ OINT TP SCH (08:12)
[2023-01-22] MEDS: IV NS 0.9% 1,000 ML IV PRN (11:08)
[2023-01-22 12:00] VITALS: BP 135/57; TEMP 98.1
[2023-01-22 16:00] VITALS: BP 145/57; TEMP 98.1
--- NOTE | 2023-01-22 18:36 | NUR ---
BILLBOARD ERECTOR HELPER CLOSING NOTES: PATIENT AWAKE IN BED, BED IN LOW POSITION CALL LIGHTS WITHIN REACH, NO COMPLAIN OF PAIN AND DISCOMFORT AT THIS TIME, NO FACIAL GRIMACING WAS OBSERVED, ON MECHANICAL VENT SATURATING AT WELL, IV LINE AT GUSTAVO ML WITH ONGOING 0.9NSS@90ML.HR INFUSING WELL, ON NPO ON G TUBE FEEDING OF GLUCERNA 1.2@ 45ML/HR INFUSING WELL TO INCREASE 10ML Q6H TO MAXIMUM OF 70ML/HR, PATIENT ON TELE MONITOR- V PACING-63,NO SYMPTOMS WAS OBSERVE, ON PATEL CATHETER-700CC URINE OUT, PATIENT KEPT CLEAN AND DRY ALL NEEDS MET ENDORSE TO FIBER WORKER NURSE TO FALLOW POC
[2023-01-22 20:00] VITALS: BP 123/69; TEMP 98.3
[2023-01-22] MEDS ORDERED: SILVER NITRATE APPLICATOR 1 EA BOX TP SCH (20:30)
[2023-01-22] MEDS: CEFTRIAXONE 1 G in IV D5W 50 ML IV SCH (21:30)
[2023-01-22] MEDS: AZITHROMYCIN 500 MG in IV D5W 250 ML IV SCH (22:16)
[2023-01-23] VITALS: BP 128/75; TEMP 97.7
[2023-01-23 04:00] VITALS: BP 128/75; TEMP 97.7
--- NOTE | 2023-01-23 06:31 | NUR ---
SCHOOL COUNSELOR closing note PT is resting in bed, asleep, easily arousable, trach intact at nidline, breathing even and unlabored, vent settings noted, pt in stable condition, NAD noted this shift will continue to monitor.
--- NOTE | 2023-01-23 07:33 | NUR ---
DRIVER MANAGER OPENING NOTE (JOSE MARIA DAY SHIFT) RECEIVED PATIENT SLEEPING IN BED, BED IN LOW POSITION CALL LIGHTS WITHIN REACH, NO SIGNS OF PAIN AND DISCOMFORT AT THIS TIME, NO FACIAL GRIMACING WAS OBSERVED, PATIENT IS NON- VERBAL, OBTUNDED, HOB KEPT AT 45 DEGREE ON G TUBE FEEDING OF GLUCERNA @ 70 ML/HR INFUSING WELL. NO RESIDUAL, WAS OBSERVED, IV LINE AT GUSTAVO ML WITH ONGOING 0.9NS@ 90ML/HR INFUSING WELL. ON TELE MONITOR- ST-100s, PATIENT ON MECHANICAL VENT SATURATING WELL, WILL CONTINUE TO MONITOR AND CARE FOR PATIENT PER MD'S POC.
[2023-01-23 08:00] VITALS: BP 124/63; TEMP 98.3
[2023-01-23] MEDS: IV NS 0.9% 1,000 ML IV PRN (08:00)
[2023-01-23] MEDS: GLUCERNA 1.2 1,000 ML BOTTLE NG PRN (08:08)
[2023-01-23] MEDS: POLYETHYLENE GLYCOL 3350 17 GM POWD.PACK GT SCH (09:00)
[2023-01-23] MEDS: CHLORHEXIDINE GLUCONATE 15 ML UDC MM SCH ×2 (09:15→17:12)
[2023-01-23] MEDS: PROSOURCE / PROSTAT (PYXIS) 30 ML UDC GT SCH ×2 (09:15→17:12)
[2023-01-23] MEDS: ENOXAPARIN SODIUM 40 MG/0.4 ML DISP.SYRIN SQ SCH (09:26)
[2023-01-23] MEDS: dexaMETHasone SOD PHOSPHATE 4 MG/ML VIAL IV SCH (09:27)
[2023-01-23] MEDS: ASCORBIC ACID 500 MG TABLET GT SCH (09:27)
[2023-01-23] MEDS: FINASTERIDE (5 MG) 5 MG TABLET GT SCH (09:28)
[2023-01-23] MEDS: CLOPIDOGREL BISULFATE 75 MG TABLET GT SCH (09:28)
[2023-01-23] MEDS: CHOLECALCIFEROL 1,000 UNIT TABLET (VIT D3) GT SCH (09:28)
[2023-01-23] MEDS: CYANOCOBALAMIN 500 MCG TABLET GT SCH (09:30)
[2023-01-23] MEDS: Z GUARD REMEDY 4 OZ OINT TP SCH (09:30)
[2023-01-23 12:00] VITALS: BP 123/60; TEMP 98.7
[2023-01-23 16:00] VITALS: BP 130/60; TEMP 98.9
--- NOTE | 2023-01-23 19:30 | NUR ---
BRICK POINTER OPENING NOTES - RECEIVED PATIENT RESTING, HOB IN SEMI-[place]ILLO'S. OPENS EYES AND NON-VERBAL. BREATHING EVEN AND NON-LABORED. ON MECHANICAL VENT TOLERATING CURRENT SETTINGS WELL. NO S/S OF PAIN OR DISCOMFORT NOTED. ON TELE MONITOR READING V-PACE WITH BBB AT 65 BPM. HAS LEFT UPPER ARM MIDLINE WITH NS RUNNING AT 90 ML/HR. NO S/S OF INFILTRATION NOTED. HAS PEG TUBE CONNECTED TO LOW INTERMITTENT SUCTION. HAS INDWELLING PATEL CATHETER DRAINING URINE TO BAG BY GRAVITY. SAFETY PRECAUTIONS IN PLACE: BED LOCKED AND IN LOW POSITION, SIDE RAILS UP X3, CALL LIGHT WITHIN REACH. WILL CONTINUE PLAN OF CARE.
[2023-01-23 20:00] VITALS: BP 125/60; TEMP 98.6
[2023-01-24] VITALS: BP 105/75; TEMP 98.5
[2023-01-24] MEDS: IV NS 0.9% 1,000 ML IV PRN ×2 (02:28→14:46)
[2023-01-24 04:00] VITALS: BP 130/90; TEMP 98.2
--- NOTE | 2023-01-24 06:48 | NUR ---
SALES OPERATIONS CONSULTANT CLOSING NOTES - PATIENT AWAKE, KEPT HOB ELEVATED. NO SOB OR NOTED. TRACHEAL AND ORAL SUCTION DONE. INNER CANULA CHANGED. MECHANICAL VENT MANAGEMENT PER MD ORDER. AFEBRILE. TELE MONITOR SHOWS V-PACE WITH BBB AT 60-65 BPM. LEFT UPPER ARM MIDLINE INTACT, PATENT AND FLUSHING. PEG TUBE SUCTIONING MINIMAL LIGHT BROWN FLUID. CLEAR YELLOW URINE OUTPUT NOTED. LIQUID GREEN STOOL NOTED. STRICT ASPIRATION PRECAUTIONS OBSERVED. OFFLOADED BILATERAL HEELS AND BUTTOCKS. TURNED AND REPOSITIONED EVERY 2 HOURS. WOUND CARE RENDERED. ALL DUE MEDS GIVEN AND NEEDS ATTENDED. SAFETY PRECAUTIONS MAINTAINED. WILL ENDORSE TO AM RN FOR DODIE.
--- NOTE | 2023-01-24 07:00 | NUR ---
HIGH SCHOOL ASSISTANT PRINCIPAL OPENING NOTES: RECEIVED PATIENT IN BED AWAKE, OBTUNDED. NO SOB OR CARDIAC DISTRESS NOTED. ON TELE/SPECIALTY PLANT SUPERVISOR WITH CURRENT READING V PACING @66BPM. ON MECHANICAL VENT WITH CURRENT READING P#7,AC 12,TV 475, FI02 40%, PEEP 5, O2 SAT 100%. EDEMA ON LEFT HAND +3 NOTED, ELEVATED THE EXTREMITY. NOTED WITH FLEXI SEAL NOTED WITH GRAYISH OUTPUT, PATEL CATHETER INTACT DRAINING CLEAR YELLOW COLORED URINE VIA GRAVITY. PT NOTED WITH G TUBE AND ATTACHED TO LOW INTERMITTENT SUCTION NO OUTPUT NOTED. IV ACCESS ON GUSTAVO MIDLINE GAUGE 18, PATENT,INTACT AND INFUSING NS 1L @90ML/HR. SAFETY MEASURES MAINTAINED, BED LOCKED AND IN LOWEST POSITION SIDE RAILS UP X 3. CALL LIGHT IN EASY REACH FOR HELP AND WILL MONITOR PT ACCORDINGLY.
--- NOTE | 2023-01-24 07:26 | NUR ---
RN NOTES: MS HARPER CHARGE NURSE RECEIEVED A CALL FROM DR JAY WITH NEW ORDERS MADE: STAT KUB XRAY, IN UNCHANGED START GLUCERNA FEEDING @30ML/HR. ORDERS NOTED AND CARRIED OUT.
[2023-01-24 08:00] VITALS: BP 122/62; TEMP 97.7
[2023-01-24] MEDS: POLYETHYLENE GLYCOL 3350 17 GM POWD.PACK GT SCH (09:00)
[2023-01-24] MEDS: CHLORHEXIDINE GLUCONATE 15 ML UDC MM SCH ×2 (09:08→16:29)
[2023-01-24] MEDS: dexaMETHasone SOD PHOSPHATE 4 MG/ML VIAL IV SCH (09:09)
[2023-01-24] MEDS: ENOXAPARIN SODIUM 40 MG/0.4 ML DISP.SYRIN SQ SCH (09:09)
[2023-01-24] MEDS: Z GUARD REMEDY 4 OZ OINT TP SCH (09:10)
--- NOTE | 2023-01-24 09:10 | NUR ---
RN NOTES: KUB XRAY RESULT RESULT : UNCHANGED FROM PREVIOUS XRAY, MEDS GIVEN.
[2023-01-24] MEDS: CLOPIDOGREL BISULFATE 75 MG TABLET GT SCH (09:21)
[2023-01-24] MEDS: CHOLECALCIFEROL 1,000 UNIT TABLET (VIT D3) GT SCH (09:21)
[2023-01-24] MEDS: CYANOCOBALAMIN 500 MCG TABLET GT SCH (09:21)
[2023-01-24] MEDS: FINASTERIDE (5 MG) 5 MG TABLET GT SCH (09:21)
[2023-01-24] MEDS: ASCORBIC ACID 500 MG TABLET GT SCH (09:21)
[2023-01-24] MEDS: PROSOURCE / PROSTAT (PYXIS) 30 ML UDC GT SCH ×2 (09:22→16:29)
[2023-01-24] MEDS: GLUCERNA 1.2 1,000 ML BOTTLE NG PRN (10:05)
--- NOTE | 2023-01-24 10:08 | NUR ---
RN NOTES: GLUCERNA 1.2 @30 ML G TUBE FEEDING STARTED. NOTED THE G TUBE IS PATENT AND NO RESIDUAL NOTED UPON ASSESSMENT. PLACED PT ON HIGH FOWLERS POSITION TO PREVENT ASPIRATION.
[2023-01-24 12:00] VITALS: BP 110/60; TEMP 97.9
[2023-01-24 16:00] VITALS: BP 125/80; TEMP 98.5
--- NOTE | 2023-01-24 18:43 | NUR ---
MEDICARE NURSE CLOSING NOTES: PATIENT IN BED AWAKE, OBTUNDED. NO SOB OR CARDIAC DISTRESS NOTED. ON TELE/SALESPERSON WOMEN'S HATS WITH CURRENT READING V PACING @774BPM. ON MECHANICAL VENT WITH CURRENT READING P#7,AC 12,TV 475, FI02 40%, PEEP 5, O2 SAT 100%. EDEMA ON LEFT HAND +3 NOTED, ELEVATED THE EXTREMITY. NOTED WITH FLEXI SEAL NOTED WITH GREENISH GRAYISH OUTPUT, PATEL CATHETER INTACT DRAINING CLEAR YELLOW COLORED URINE VIA GRAVITY. PT NOTED WITH G TUBE AND WITH ONGOING FORMULA: GLUCERNA 1.2 @ 30ML/HR, CHECKED THE PATENCY AND PLACEMENT, NO RESIDUAL NOTED. IV ACCESS ON GUSTAVO MIDLINE GAUGE 18, PATENT,INTACT AND INFUSING NS 1L @90ML/HR. SAFETY MEASURES MAINTAINED, BED LOCKED AND IN LOWEST POSITION SIDE RAILS UP X 3. CALL LIGHT IN EASY REACH FOR HELP. DUE AND AVAILABLE MEDS GIVEN ORDERED. TURNING SIDE TO SIDE, WOUND CARE TREATMENT DONE. SUCTIONING NEEDED- MOUTH CARE DONE AND TOLERATED WELL. WILL ENDORSE TO ER REGISTRAR NURSE FOR CONTINUITY OF CARE.
--- NOTE | 2023-01-24 19:30 | NUR ---
FINAL APPLICATION REVIEWER OPENING NOTES: RECEIVED PATIENT SLEEPING IN BED, BED IN LOW POSITION CALL LIGHTS WITHIN REACH, NO SIGHS OF PAIN AND DISCOMFORT AT THIS TIME, NO FACIAL GRIMACING WAS OBSERVED, PATIENT IS NONE VERBAL, OBTUNDED, HOB TO REMAIN AT 45 DEGREE ON G TUBE FEEDING OF GLUCERNA @45ML/HR INFUSING WELL, NO RESIDUAL, WAS OBSERVED,IV LINE AT GUSTAVO ML WITH ONGOING 0.9NS@90ML/HR INFUSING WELL, PATIENT ON MECHANICAL VENT SATURATING WELL, WILL CONTINUE TO MONITOR ;
[2023-01-24 20:00] VITALS: BP 114/62; TEMP 99.1
[2023-01-25] VITALS: BP 106/54; TEMP 102.7
[2023-01-25] MEDS: ACETAMINOPHEN 650 MG/20.3 ML UDC GT PRN (00:40)
--- NOTE | 2023-01-25 00:50 | NUR ---
CONTRACTOR FIELD HAULING NOTE PATIENT NOTED WITH 102.3 TEMPERATURE, TYLENOL GIVEN VIA G-TUBE PLUS COOLING MEASURES INITIATED
--- NOTE | 2023-01-25 01:48 | NUR ---
noc rn note- temp. re-assessment Temperature 99.9. continuing with cooling measures. will continue to monitor.
[2023-01-25] MEDS: IV NS 0.9% 1,000 ML IV PRN ×2 (03:52→17:39)
[2023-01-25 04:00] VITALS: BP 111/54; TEMP 98.7
--- NOTE | 2023-01-25 06:30 | NUR ---
RN CLOSING NOTE PATIENT IN BED, a/o x0, OBTUNDED, NON VERBAL, [place] PRECAUTIONS D/T COVID POSITIVE, PATIENT IS ON VENT AC 12, TV 475, FIO2 40, PEEP 5, TOLERATING WELL, NO SOB OR DISTRESS NOTED, G-TUBE FEEDING RESUMED AT 30ML/HR, IV ACCESS LEFT UA MIDLINE, FLUSHING WELL, PATIENT IS ON PATEL CATHETER FLOWING YELLOW URINE, ALL SAFETY MEASURES RENDERED, SIDE RAILS UP X2, CALL LIGHT WITHIN REACH WILL ENDORSE TO CONTINUITY OF CARE TO AM SHIFT
--- NOTE | 2023-01-25 07:07 | NUR ---
RN OPENING NOTES: RECEIVED PATIENT SLEEPING IN BED, BED IN LOW POSITION CALL LIGHTS WITHIN REACH, NO SIGHS OF PAIN AND DISCOMFORT AT THIS TIME, NO FACIAL GRIMACING WAS OBSERVED, PATIENT IS NONE VERBAL, OBTUNDED, HOB TO REMAIN AT 45 DEGREE ON G TUBE FEEDING OF GLUCERNA @30 ML/HR TOLERATING WELL NO RESIDULE, IV LINE AT GUSTAVO ML WITH ONGOING NS@90ML/HR INFUSING WELL, PATIENT ON MECHANICAL VENT SATURATING WELL, WILL CONTINUE TO MONITOR ;
[2023-01-25 08:00] VITALS: BP 115/60; TEMP 98.8
[2023-01-25] MEDS: CYANOCOBALAMIN 500 MCG TABLET GT SCH (08:07)
[2023-01-25] MEDS: POLYETHYLENE GLYCOL 3350 17 GM POWD.PACK GT SCH (08:07)
[2023-01-25] MEDS: CLOPIDOGREL BISULFATE 75 MG TABLET GT SCH (08:07)
[2023-01-25] MEDS: CHOLECALCIFEROL 1,000 UNIT TABLET (VIT D3) GT SCH (08:07)
[2023-01-25] MEDS: dexaMETHasone SOD PHOSPHATE 4 MG/ML VIAL IV SCH (08:08)
[2023-01-25] MEDS: ASCORBIC ACID 500 MG TABLET GT SCH (08:08)
[2023-01-25] MEDS: CHLORHEXIDINE GLUCONATE 15 ML UDC MM SCH ×2 (08:08→16:12)
[2023-01-25] MEDS: PROSOURCE / PROSTAT (PYXIS) 30 ML UDC GT SCH ×2 (08:10→16:12)
[2023-01-25] MEDS: ENOXAPARIN SODIUM 40 MG/0.4 ML DISP.SYRIN SQ SCH (08:10)
[2023-01-25] MEDS: FINASTERIDE (5 MG) 5 MG TABLET GT SCH (08:11)
[2023-01-25] MEDS: Z GUARD REMEDY 4 OZ OINT TP SCH (08:14)
[2023-01-25 12:00] VITALS: BP 114/62; TEMP 98.6
[2023-01-25 16:00] VITALS: BP 128/60; TEMP 98.9
--- NOTE | 2023-01-25 18:33 | NUR ---
RN CLOSING NOTE PATIENT IN BED, OBTUNDED, NON VERBAL, TODAY WAS CHECKED FOR COVID -NEGATIVE WILL BE TRANSFRED TO THE SUBACUTE UNIT IN AM , PATIENT IS ON VENT AC 12, TV 475, FIO2 40, PEEP 5, TOLERATING WELL, NO SOB OR DISTRESS NOTED, G-TUBE FEEDING RESUMED AT 30ML/HR, IV ACCESS LEFT UA MIDLINE, FLUSHING WELL, PATIENT IS ON PATEL CATHETER FLOWING YELLOW URINE, ALL SAFETY MEASURES RENDERED, SIDE RAILS UP X2, CALL LIGHT WITHIN REACH WILL ENDORSE TO CONTINUITY OF CARE TO SYSTEMS SUPPORT SPECIALIST NURSE
--- NOTE | 2023-01-25 19:47 | NUR ---
RN OPENING NOTES RECEIVED PATIENT IN BED, OBTUNDED, NON VERBAL. ON TRACH TO VENT SETTING: P#7, AC-12, TV 475, FIO2 40, PEEP 5. PT TOLERATING WELL. BREATHING EVEN AND UNLABORED. IV ACCESS GUSTAVO MIDLINE INTACT AND PATENT. RUNNING NS AT 90CC/HR. G-TUBE FEEDING RUNNING AT 30ML/HR PER DR. LAZARO. PATEL CATHETER IN PLACE. DRAINING BY GRAVITY. PT IS NOW COVID NEGATIVE. ALL SAFETY MEASURES IN PLACE. SIDE RAILS UP X3, BED IN LOWEST POSITION AND LOCKED. PLACE CALL LIGHT WITHIN REACH. WILL CONTINUE TO MONITOR
[2023-01-25 20:00] VITALS: BP 158/72; TEMP 97.8
[2023-01-26] VITALS: BP 107/50; TEMP 98.5
[2023-01-26] MEDS: GLUCERNA 1.2 1,000 ML BOTTLE NG PRN (02:36)
[2023-01-26 04:00] VITALS: BP 148/73; TEMP 98.1
[2023-01-26] MEDS: IV NS 0.9% 1,000 ML IV PRN (05:53)
--- NOTE | 2023-01-26 06:30 | NUR ---
RN CLOSING NOTES PATIENT IN BED, OBTUNDED, NON VERBAL. ON TRACH TO VENT SETTING: P#7, AC-12, TV 475, FIO2 40, PEEP 5. PT TOLERATING WELL. O2 SAT 99%. IV ACCESS GUSTAVO MIDLINE INTACT AND PATENT. RUNNING NS AT 90CC/HR. G-TUBE FEEDING RUNNING AT 30ML/HR. NO FACIAL GRIMACING NOTED. NO ACUTE DISTRESS. PATEL CATHETER IN PLACE. DRAINING BY GRAVITY. FLEXI-SEAL IN PLACE. NO SIGNIFICANT CHANGES DURING THIS SHIFT. ALL SAFETY MEASURES IN PLACE. SIDE RAILS UP X3, BED IN LOWEST POSITION AND LOCKED. PLACE CALL LIGHT WITHIN REACH. WILL ENDORSE TO MORNING SHIFT NURSE.
--- NOTE | 2023-01-26 07:00 | NUR ---
RN OPENING NOTE RECEIVED PATIENT IN BED, OBTUNDED, NON VERBAL. ON TRACH TO Vent, BREATHING EVEN AND UNLABORED. IV ACCESS GUSTAVO MIDLINE INTACT AND PATENT. RUNNING NS AT 90CC/HR. G-TUBE FEEDING RUNNING AT 30ML/HR PER DR. LAZARO. PATEL CATHETER IN PLACE. DRAINING BY GRAVITY. PT IS NOW COVID NEGATIVE. ALL SAFETY MEASURES IN PLACE. SIDE RAILS UP X3, BED IN LOWEST POSITION AND LOCKED. PLACE CALL LIGHT WITHIN REACH. WILL CONTINUE TO MONITOR
[2023-01-26 08:00] VITALS: BP 120/71; TEMP 98.3
[2023-01-26] MEDS: Z GUARD REMEDY 4 OZ OINT TP SCH (08:35)
[2023-01-26] MEDS: POLYETHYLENE GLYCOL 3350 17 GM POWD.PACK GT SCH (08:39)
[2023-01-26] MEDS: FINASTERIDE (5 MG) 5 MG TABLET GT SCH (08:39)
[2023-01-26] MEDS: dexaMETHasone SOD PHOSPHATE 4 MG/ML VIAL IV SCH (08:39)
[2023-01-26] MEDS: CHOLECALCIFEROL 1,000 UNIT TABLET (VIT D3) GT SCH (08:39)
[2023-01-26] MEDS: CHLORHEXIDINE GLUCONATE 15 ML UDC MM SCH ×2 (08:39→17:10)
[2023-01-26] MEDS: CYANOCOBALAMIN 500 MCG TABLET GT SCH (08:40)
[2023-01-26] MEDS: ASCORBIC ACID 500 MG TABLET GT SCH (08:40)
[2023-01-26] MEDS: CLOPIDOGREL BISULFATE 75 MG TABLET GT SCH (08:40)
[2023-01-26] MEDS: ENOXAPARIN SODIUM 40 MG/0.4 ML DISP.SYRIN SQ SCH (08:42)
[2023-01-26] MEDS: PROSOURCE / PROSTAT (PYXIS) 30 ML UDC GT SCH ×2 (08:43→17:08)
[2023-01-26 12:00] VITALS: BP 128/70; TEMP 98.2
[2023-01-26 16:00] VITALS: BP 131/75; TEMP 98.2
--- NOTE | 2023-01-26 19:13 | NUR ---
RN CLOSING NOTE PATIENT IN BED, OBTUNDED, NON VERBAL. ON TRACH TO VENT SETTING: P#7, AC-12, TV 475, FIO2 40, PEEP 5. PT TOLERATING WELL. O2 SAT 99%. IV ACCESS GUSTAVO MIDLINE INTACT AND PATENT. RUNNING NS AT 90CC/HR. G-TUBE FEEDING RUNNING AT 55ML/HR. NO FACIAL GRIMACING NOTED. NO ACUTE DISTRESS. PATEL CATHETER IN PLACE. DRAINING BY GRAVITY. FLEXI-SEAL IN PLACE. NO SIGNIFICANT CHANGES DURING THIS SHIFT. ALL SAFETY MEASURES IN PLACE. SIDE RAILS UP X3, BED IN LOWEST POSITION AND LOCKED. PLACE CALL LIGHT WITHIN REACH. WILL ENDORSE TO NEXT SHIFT NURSE.
--- NOTE | 2023-01-26 19:30 | NUR ---
INSTALLATION AND REPAIR TECHNICIAN OPENING NOTE RECEIVED PATIENT IN BED, OBTUNDED AND NON VERBAL. [facility], TOLERATING SETTINGS WELL. SATING @ 100%. CAP MACHINE OPERATOR READS V-PACING, HR IN 60s. NO S/SX OF ACUTE RESPI DISTRESS NOTED AT THIS TIME. NO SOB. BREATHING IS EVEN AND UNLABORED. IV ACCESS ON GUSTAVO MIDLINE, INTACT AND PATENT, FLUSHING WELL, RUNNING NS AT 90 CC/HR. G-TUBE NOTED INFUSING GLUCERNA 1.2 @ 55 ML/HR, TOLERATING WELL. TO BE INCREASED BY 10 CC/HR Q6H UNTIL GOAL IS REACHED - 70 CC/HR X 24H. NO RESIDUAL NOTED. PATEL CATHETER IN PLACE DRAINING YELLOW URINE BY GRAVITY. FLEXISEAL ALSO NOTED, WITH MINIMAL OUTPUT. ALL SAFETY MEASURES IN PLACE: BED IN LOWEST POSITION AND LOCKED.SIDE RAILS UP X2, HOB ELEVATED. CALL LIGHT WITHIN REACH. WILL CONTINUE TO MONITOR
[2023-01-26 20:00] VITALS: BP 124/63; TEMP 99.1
[2023-01-27] VITALS: BP 133/67; TEMP 99.1
--- NOTE | 2023-01-27 01:30 | NUR ---
RN NOTE GTF INCREASED TO 65 CC/HR, PER DOCTOR'S ORDER. GOAL IS 70 CC/HR X 24 HRS.
[2023-01-27 04:00] VITALS: BP 135/70; TEMP 99.3
[2023-01-27] MEDS: GLUCERNA 1.2 1,000 ML BOTTLE NG PRN (05:47)
[2023-01-27] MEDS: IV NS 0.9% 1,000 ML IV PRN ×2 (05:48→17:23)
--- NOTE | 2023-01-27 06:41 | NUR ---
RESHIPPING CLERK CLOSING NOTE NO SIGNIFICANT CHANGE T/O THE NIGHT. PT REMAINED STABLE. ALL NEEDS MET. TURNED AND REPOSITIONED. WILL ENDORSE TO AM SHIFT NURSE FOR DODIE.
--- NOTE | 2023-01-27 07:48 | NUR ---
TELEVISION HOST OPENING NOTE RECEIVED PATIENT IN BED, OBTUNDED AND NON VERBAL. ON [facility] VENT SETTING ORDERED, TOLERATING SETTINGS WELL. SUPERVISOR GRAPHITE READS V-PACING, HR I76 . NO S/SX OF ACUTE RESPI DISTRESS NOTED AT THIS TIME. NO SOB. BREATHING IS EVEN AND UNLABORED. IV ACCESS ON GUSTAVO MIDLINE, INTACT AND PATENT, FLUSHING WELL, RUNNING NS AT 90 CC/HR. G-TUBE NOTED INFUSING GLUCERNA 1.2 @ 70 ML/HR, TOLERATING WELL. . PATEL CATHETER IN PLACE, FLEXISEAL RECTAL TUBE IN PLACE, KEEP HOB ELEVATED WILL CONT TO MONITOR
[2023-01-27 08:00] VITALS: BP 131/72; TEMP 98.5
[2023-01-27] MEDS: ASCORBIC ACID 500 MG TABLET GT SCH (08:18)
[2023-01-27] MEDS: CHOLECALCIFEROL 1,000 UNIT TABLET (VIT D3) GT SCH (08:18)
[2023-01-27] MEDS: dexaMETHasone SOD PHOSPHATE 4 MG/ML VIAL IV SCH (08:18)
[2023-01-27] MEDS: CLOPIDOGREL BISULFATE 75 MG TABLET GT SCH (08:18)
[2023-01-27] MEDS: CYANOCOBALAMIN 500 MCG TABLET GT SCH (08:18)
[2023-01-27] MEDS: POLYETHYLENE GLYCOL 3350 17 GM POWD.PACK GT SCH (08:18)
[2023-01-27] MEDS: CHLORHEXIDINE GLUCONATE 15 ML UDC MM SCH ×2 (08:19→16:30)
[2023-01-27] MEDS: ENOXAPARIN SODIUM 40 MG/0.4 ML DISP.SYRIN SQ SCH (08:19)
[2023-01-27] MEDS: Z GUARD REMEDY 4 OZ OINT TP SCH (08:21)
[2023-01-27] MEDS: PROSOURCE / PROSTAT (PYXIS) 30 ML UDC GT SCH ×2 (08:22→16:30)
[2023-01-27] MEDS: FINASTERIDE (5 MG) 5 MG TABLET GT SCH (08:22)
--- NOTE | 2023-01-27 11:49 | NUR ---
telegraph installer note per d rpelg notes ok to cont Decadron for 10 days will f\u
[2023-01-27 12:00] VITALS: BP 104/60; TEMP 98.1
--- NOTE | 2023-01-27 12:24 | NUR ---
telegrapher agent note trach care done as ordered
[2023-01-27 16:00] VITALS: BP 110/59; TEMP 98.1
--- NOTE | 2023-01-27 16:45 | NUR ---
CIVIL PREPAREDNESS TRAINING OFFICER NOTE ROUNDS MADE. KEEP CLEAN DRY TURN REPOSITION , TRACH AND MOUTH CARE DONE , ALL NEEDS ATTENDED WILL CONT TO MONITOR
--- NOTE | 2023-01-27 18:16 | NUR ---
SECOND FACING BASTER NOTE PATIENT IN THE BED WITH TRACH TO VENT SETTING ORDER TOLERATED WELL NO SOB NOTED STILL OBTUNDED ON TELE MONITOR V-PACED HR 76 WITH FEXICIL RECTAL TUBE IN PLACE AND PATEL CATH TO GRAVITY W/ G-TUBE ORDER KEEP HOB ELEVATED GUSTAVO ML ON IN PLACE AND FLUSH WELL ON NS AT 90 CC PER HOUR CALL LIGHT IN REACH AND BED IN LOW POSITION.
--- NOTE | 2023-01-27 19:30 | NUR ---
CROP RANCH HAND OPENING NOTE RECEIVED PATIENT IN BED, OBTUNDED AND NON VERBAL. ON [facility] VENT, TOLERATING SETTINGS WELL. SATING @ 100%. FISH SMOKER READS V-PACING, HR IN 60s. NO S/SX OF ACUTE RESPI DISTRESS NOTED AT THIS TIME. NO SOB. BREATHING IS EVEN AND UNLABORED. IV ACCESS ON GUSTAVO MIDLINE, INTACT AND PATENT, FLUSHING WELL, RUNNING NS AT 90 CC/HR. G-TUBE NOTED INFUSING GLUCERNA 1.2 @ 70 ML/HR, TOLERATING WELL. NO RESIDUAL NOTED. PATEL CATHETER IN PLACE DRAINING YELLOW URINE BY GRAVITY. FLEXISEAL ALSO NOTED, WITH MINIMAL OUTPUT. ALL SAFETY MEASURES IN PLACE: BED IN LOWEST POSITION AND LOCKED.SIDE RAILS UP X2, HOB ELEVATED. CALL LIGHT WITHIN REACH. WILL CONTINUE TO MONITOR
[2023-01-27 20:00] VITALS: BP 144/76; TEMP 100.5
[2023-01-27] MEDS: ACETAMINOPHEN 650 MG/20.3 ML UDC GT PRN (20:52)
--- NOTE | 2023-01-27 21:05 | NUR ---
RN NOTE PT NOTED TO HAVE ELEVATED TEMP AT 100.5; PT IN NO APPARENT DISTRESS UPON ASSESSMENT. TYLENOL GIVEN ORDERED. WILL REASSESS IN AN HOUR.
--- NOTE | 2023-01-27 22:30 | NUR ---
RN NOTE PT'S TEMP WENT DOWN TO 99.4
[2023-01-28] VITALS: BP 115/67; TEMP 99.5
[2023-01-28] MEDS: GLUCERNA 1.2 1,000 ML BOTTLE NG PRN ×2 (02:15→21:26)
[2023-01-28 04:00] VITALS: BP 105/69; TEMP 100.3
[2023-01-28] MEDS: IV NS 0.9% 1,000 ML IV PRN ×2 (04:12→18:44)
[2023-01-28] MEDS: ACETAMINOPHEN 650 MG/20.3 ML UDC GT PRN ×2 (04:15→23:39)
--- NOTE | 2023-01-28 04:28 | NUR ---
RN NOTE PT RUNNING A FEVER @ 101.2 OTHER VS REMAIN WL. TYLENOL GIVEN, COLD PACKS APPLIED. WILL REASSESS IN AN HOUR.
--- NOTE | 2023-01-28 07:30 | NUR ---
CAR FERRY CAPTAIN OPENING NOTE RECEIVED PATIENT IN BED, OBTUNDED AND NON VERBAL. ON [facility] VENT, TOLERATING SETTINGS WELL. TIMBER TRIMMER READS V-PACING, HR 88. NO S/SX OF ACUTE RESPI DISTRESS NOTED AT THIS TIME. NO SOB. BREATHING IS EVEN AND UNLABORED. IV ACCESS ON GUSTAVO MIDLINE, INTACT AND PATENT, FLUSHING WELL, G-TUBE w/GLUCERNA 1.2 @ 70 ML/HR, TOLERATING WELL. NO RESIDUAL NOTED. PATEL CATHETER IN PLACE DRAINING YELLOW URINE BY GRAVITY. FLEXISEAL ALSO NOTED,. ALL SAFETY MEASURES IN PLACE: BED IN LOWEST POSITION AND LOCKED.SIDE RAILS UP X2, HOB ELEVATED. CALL LIGHT WITHIN REACH. BED ALARM ON
[2023-01-28 08:00] VITALS: BP 138/65; TEMP 100.7
[2023-01-28] MEDS: PROSOURCE / PROSTAT (PYXIS) 30 ML UDC GT SCH ×2 (09:00→16:30)
[2023-01-28] MEDS: POLYETHYLENE GLYCOL 3350 17 GM POWD.PACK GT SCH (09:30)
[2023-01-28] MEDS: CLOPIDOGREL BISULFATE 75 MG TABLET GT SCH (09:30)
[2023-01-28] MEDS: FINASTERIDE (5 MG) 5 MG TABLET GT SCH (09:30)
[2023-01-28] MEDS: CYANOCOBALAMIN 500 MCG TABLET GT SCH (09:31)
[2023-01-28] MEDS: CHLORHEXIDINE GLUCONATE 15 ML UDC MM SCH ×2 (09:31→16:31)
[2023-01-28] MEDS: CHOLECALCIFEROL 1,000 UNIT TABLET (VIT D3) GT SCH (09:31)
[2023-01-28] MEDS: ASCORBIC ACID 500 MG TABLET GT SCH (09:31)
[2023-01-28] MEDS: dexaMETHasone SOD PHOSPHATE 4 MG/ML VIAL IV SCH (09:32)
[2023-01-28] MEDS: ENOXAPARIN SODIUM 40 MG/0.4 ML DISP.SYRIN SQ SCH (09:33)
[2023-01-28] MEDS: Z GUARD REMEDY 4 OZ OINT TP SCH (09:51)
[2023-01-28 12:00] VITALS: BP 108/59; TEMP 99.8
[2023-01-28 16:00] VITALS: BP 117/44; TEMP 98.9
--- NOTE | 2023-01-28 19:29 | NUR ---
BUSH HOG OPERATOR closing NOTE PATIENT IN BED, OBTUNDED AND NON VERBAL. ON [facility] VENT, TOLERATING SETTINGS WELL.02 at 99% on cardiac READS V-PACING, HR 88. NO S/SX OF ACUTE RESPI DISTRESS NOTED AT THIS TIME. NO SOB. BREATHING IS EVEN AND UNLABORED. IV ACCESS ON GUSTAVO MIDLINE, INTACT AND PATENT, FLUSHING WELL, G-TUBE w/GLUCERNA 1.2 @ 70 ML/HR, TOLERATING WELL. NO RESIDUAL NOTED. PATEL CATHETER IN PLACE DRAINING YELLOW URINE BY GRAVITY. FLEXISEAL ALSO NOTED,.minimial output. ALL SAFETY MEASURES IN PLACE: BED IN LOWEST POSITION AND LOCKED.SIDE RAILS UP X2, HOB ELEVATED. CALL LIGHT WITHIN REACH. BED ALARM ON.endorsed to warehouse worker 2nd shift rn for contuity of care
--- NOTE | 2023-01-28 19:30 | NUR ---
PATIENT OBTUNDED AND NON VERBAL. ON [facility] VENT, TOLERATING SETTINGS WELL.02 at 99%. ON NON FOOD RECEIVING CLERK SHOWING V-PACING. BREATHING IS EVEN AND UNLABORED. IV ACCESS ON GUSTAVO MIDLINE INFUSING 0.9 NS AT 70 ML/HR. G-TUBE INFUSING GLUCERNA 1.2 @ 70 ML/HR. PATEL CATHETER IN PLACE. FLEXISEAL ALSO NOTED. SAFETY MEASURES IN PLACE, HOB ELEVATED, SIDE RAILS UP X2, CALL LIGHT WITHIN REACH. BED ALARM ON. WILL CONTINUE PLAN OF CARE.
--- NOTE | 2023-01-28 19:31 | NUR ---
IV ACCESS ON GUSTAVO MIDLINE INFUSING 0.9 NS AT 90 ML/HR.
[2023-01-28 20:00] VITALS: BP 109/76; TEMP 98.3
[2023-01-29] VITALS: BP 92/42; TEMP 100.7
[2023-01-29 04:00] VITALS: BP 99/52; TEMP 99
[2023-01-29] MEDS: ACETAMINOPHEN 650 MG/20.3 ML UDC GT PRN ×3 (05:52→22:48)
[2023-01-29] MEDS: IV NS 0.9% 1,000 ML IV PRN (05:53)
[2023-01-29 06:46] LABS: ALBUMIN 1.7 g/dL (3.4-5.0); BILIRUBIN,TOTAL 0.5 mg/dL (0.2-1.0); CALCIUM, SERUM 8.4 mg/dL (8.5-10.1); CREATININE 0.8 mg/dL (0.6-1.3); TOTAL PROTEIN, SERUM 5.6 g/dL (6.4-8.2)
[2023-01-29 06:54] LABS: BASOPHILS % (AUTO) 0.2 % (0.0-2.0); EOSINOPHILS % (AUTO) 0.2 % (0.0-6.0); HEMATOCRIT 26 % (39-51); LYMPHOCYTES # (AUTO) 0.7 K/uL (0.8-4.8); LYMPHOCYTES % (AUTO) 7.9 % (20.0-44.0); MEAN CORPUSCULAR HGB CONC 32 g/dl (31.0-36.0); MEAN CORPUSCULAR VOLUME 82 fL (80-96); MONOCYTES # (AUTO) 0.6 K/uL (0.1-1.30); MONOCYTES % (AUTO) 6.5 % (2.0-12.0); NEUTROPHILS # (AUTO) 7.7 K/uL (1.8-8.9); NEUTROPHILS % (AUTO) 85.2 % (43.0-81.0); PLATELET COUNT (AUTO) 92 K/uL (150-450)
--- NOTE | 2023-01-29 07:05 | NUR ---
HAND OVER REPORT GIVEN TO DAVID ORTEGA FOR CONTINUITY OF CARE.
--- NOTE | 2023-01-29 07:29 | NUR ---
RECORD CENTER SPECIALIST NOTE PATIENT IN BED WITH TRACH TO VENT SETTING ORDERED TOLERATED WELL ,SATURATION 95%AT THIS TIME, PATIENT IS OBTUNDED . ON TELE MONITOR V PACING WITH FLEXISEAL RECTAL TUBE IN PLACE WITH DARK LIQUID STOOL NOTED, WITH PATEL CATH TO GRAVITY WITH YELLOW COLOR URINE, WITH GTUBE FEEDING ORDERED KEEP HOB ELEVATED AT ALL TIME, LT UPPER ARM ON IVF ORDERED BED IN LOWEST AND LOCKED POSITION , CALL LIGHT WITHIHN REACH WILL MONITOR
[2023-01-29 07:33] LABS: POTASSIUM 2.5 mmol/L (3.5-5.1)
[2023-01-29 08:00] VITALS: BP 110/53; TEMP 98.9
[2023-01-29] MEDS: POLYETHYLENE GLYCOL 3350 17 GM POWD.PACK GT SCH (08:06)
[2023-01-29] MEDS: CYANOCOBALAMIN 500 MCG TABLET GT SCH (08:07)
[2023-01-29] MEDS: FINASTERIDE (5 MG) 5 MG TABLET GT SCH (08:07)
[2023-01-29] MEDS: CHOLECALCIFEROL 1,000 UNIT TABLET (VIT D3) GT SCH (08:07)
[2023-01-29] MEDS: ASCORBIC ACID 500 MG TABLET GT SCH (08:07)
[2023-01-29] MEDS: dexaMETHasone SOD PHOSPHATE 4 MG/ML VIAL IV SCH (08:08)
[2023-01-29] MEDS: CHLORHEXIDINE GLUCONATE 15 ML UDC MM SCH ×2 (08:08→16:07)
[2023-01-29] MEDS: PROSOURCE / PROSTAT (PYXIS) 30 ML UDC GT SCH ×2 (08:09→16:07)
[2023-01-29] MEDS: CLOPIDOGREL BISULFATE 75 MG TABLET GT SCH (08:09)
[2023-01-29] MEDS: ENOXAPARIN SODIUM 40 MG/0.4 ML DISP.SYRIN SQ SCH (08:10)
[2023-01-29] MEDS: Z GUARD REMEDY 4 OZ OINT TP SCH (08:12)
--- NOTE | 2023-01-29 09:00 | NUR ---
GRAPHIC COORDINATOR NOTE REPORTED TO DR PERES ABOUT NA 152 AND K 2.5 WITH ORDER GIVEN 1/2 NS AT 75 ML PER HOUR AND KCL 40MEQ IVPB 4 BAGS, WILL MONITOR
[2023-01-29] MEDS ORDERED: POTASSIUM CHLORIDE 20 MEQ TAB.PRT.SR PO SCH (10:00)
[2023-01-29] MEDS ORDERED: POTASSIUM CL. PREMIX PERIPHER. 50 ML IV SCH (10:00)
[2023-01-29] MEDS: IV 1/2NS 1000 ML 1,000 ML IV SCH ×2 (10:06→22:53)
[2023-01-29] MEDS: POTASSIUM CL. PREMIX PERIPHER. 50 ML IV SCH ×6 (10:07→23:43)
[2023-01-29 12:02] VITALS: BP 115/60; TEMP 98.7
--- NOTE | 2023-01-29 12:08 | NUR ---
telephone quotation clerk note reported to dr irwin that abdomen is distended ok to order kub
[2023-01-29] MEDS: GLUCERNA 1.2 1,000 ML BOTTLE NG PRN (12:41)
[2023-01-29] MEDS ORDERED: CEFEPIME 1 GM VIAL IV SCH (13:00)
[2023-01-29] MEDS ORDERED: CEFEPIME 1 GM VIAL IM SCH (13:00)
--- NOTE | 2023-01-29 13:00 | NUR ---
911 telecommunicator note reported to Ineza BOILER OPERATOR HELPER ID gram neg rods and blood culture ordered change dupont and start cefepime 1gm iv Q8H and for dr. Canas ordered collect UA done and sent to laboratory.
[2023-01-29 13:27] LABS: NEUTROPHILS % (MANUAL) 84 (42-76)
[2023-01-29 13:28] LABS: BAND % (MANUAL) 3 % (0.0-5.0); BASOPHILS % (MANUAL) 0 % (0.0-2.0); EOSINOPHILS % (MANUAL) 0 % (0-4); LYMPHOCYTES % (MANUAL) 7 % (16-48); MONOCYTES % (MANUAL) 6 % (0-11.0)
--- NOTE | 2023-01-29 13:52 | NUR ---
television program director note new Hutchinson cath size 16 inserted as ordered with good urine out put noted, keep clean dry , all needs attended
[2023-01-29] MEDS: CEFEPIME 2 GM in IV D5W 100 ML IV SCH ×2 (14:48→21:53)
[2023-01-29 15:14] LABS: BILIRUBIN,URINE NEGATIVE (NEGATIVE); COLOR,URINE YELLOW (YELLOW); LEUKOCYTE ESTERASE ,URINE 2+ (NEGATIVE); NITRITE, URINE NEGATIVE (NEGATIVE); PROTEIN,URINE 2+ mg/dl (NEGATIVE); UGLUCOSE NEGATIVE (NEGATIVE)
--- NOTE | 2023-01-29 15:31 | NUR ---
METEOROLOGICAL EQUIPMENT REPAIRER NOTE REPORT TO DR SOSA PLATELET IS 92. AND YESTERDAY WAS 318. PER DR LAZARO, CBC AT 1800. ORDER CARRIED OUT.
[2023-01-29 16:00] VITALS: BP 117/70; TEMP 98.9
--- NOTE | 2023-01-29 16:42 | NUR ---
CODING ASSISTANT NOTE T 101.5 TYLENOL VIA G TUBE GIVEN WILL DO COOLING MEASURE
[2023-01-29 17:00] LABS: BACTERIA,URINE 3+ /HPF (None Seen); RBC,URINE 51-80 /HPF (0-2); WBC,URINE 21-50 /HPF (0-3)
[2023-01-29 17:01] LABS: COARSE GRANULAR CASTS,URINE RARE /LPF (None Seen)
[2023-01-29] MEDS ORDERED: ONDANSETRON HCL/PF 4 MG/2 ML VIAL IV PRN (17:30)
--- NOTE | 2023-01-29 17:30 | NUR ---
EXHIBIT PREPARATOR NOTE NOTED PATIENT WAS VOMITING YELLOW COLOR. DR PERES NOTIFIED ABOUT THIS AND TEMP 101.6. TYLENOL WAS GIVEN. STOPPED G TUBE FEEDING AT THIS TIME. KEEP HOB ELEVATED. COOLING MEASURE PROVIDED. KUB DONE NO RESULT YET IS AWARE OF THIS. ALSO ORDERED ZOFRAN 4 MG Q4H PRN. WILL F/U
--- NOTE | 2023-01-29 18:11 | NUR ---
PHOTO ENGRAVER NOTE CALLED MATTHEW TREJO RN ENVIRONMENTAL SERVICES PROJECT MANAGER NOTIFIED THAT T NOW 102 NOW COOLING MEASURE PROVIDED TYLENOL GIVEN . PATEL CHANGED, MAXIPINE STARTED ,AWARE OF ABOVE, ORDERED BLOOD CULTURE STAT AND VANCO PER PHARMACY DOSE
[2023-01-29 18:15] LABS: BASOPHILS % (AUTO) 0.2 % (0.0-2.0); EOSINOPHILS % (AUTO) 0.1 % (0.0-6.0); HEMATOCRIT 24 % (39-51); HEMOGLOBIN 7.4 g/dL (13.5-17.5); LYMPHOCYTES # (AUTO) 0.1 K/uL (0.8-4.8); LYMPHOCYTES % (AUTO) 0.9 % (20.0-44.0); MEAN CORPUSCULAR HGB CONC 31 g/dl (31.0-36.0); MEAN CORPUSCULAR VOLUME 83 fL (80-96); MONOCYTES # (AUTO) 0.2 K/uL (0.1-1.30); MONOCYTES % (AUTO) 3.2 % (2.0-12.0); NEUTROPHILS # (AUTO) 6.1 K/uL (1.8-8.9); NEUTROPHILS % (AUTO) 95.6 % (43.0-81.0); PLATELET COUNT (AUTO) 79 K/uL (150-450); RED BLOOD CELL COUNT(AUTO) 2.93 MIL/uL (4.5-6.0); WHITE BLOOD COUNT (AUTO) 6.4 K/uL (4.3-11.0)
--- NOTE | 2023-01-29 18:24 | NUR ---
CADD OPERATOR NOTE PT IS IN BEF STILL OBTUNDED WITH TRACH VENT SETTING. TRACH CARE, FREQUENT SUCTION AND MOUTHCARE DONE. GT TUBE STOPPED. PT WAS VOMITING EARLIER. ON COOLING MEASURE. KEPT HOB ELEVATED. IV FLUID ON 75 ML/ HR. PT IS CLEANED AND REPOSITION DONE WITH FLEXISEAL RECTAL TUBE IN PLACE WITH DARK BROWN LIQUID STOOL NOTED. CALL LIGHT WITH IN REACH. BED LOCKED AND LOWEST POSITION. WILL MONITOR AND ENDORSE TO PARA MACHINE OPERATOR RN.
--- NOTE | 2023-01-29 18:52 | NUR ---
SUPERVISOR MICROFILM DUPLICATING UNIT NOTE REPORTED TO DR SOSA THAT CBC RESULT PLATELET S 79 AND HGB IS 7.4 AND KUB RESULT SHOWS MODERATE TO SEVERE GASEOUS DISTENTION IF THE COLON MORE PROMINENT AT THE SIGMOID COLON. DR ORDERED CBC AND CMP FOR TOMORROW AM AND COLACE BID DAILY SCHEDULED WITH [facility] DAILY. WILL FOLLOW UP.
[2023-01-29 19:01] LABS: BAND % (MANUAL) 7 % (0.0-5.0); LYMPHOCYTES % (MANUAL) 2 % (16-48); MONOCYTES % (MANUAL) 3 % (0-11.0); NEUTROPHILS % (MANUAL) 88 (42-76)
--- NOTE | 2023-01-29 19:30 | NUR ---
PROFESSIONAL PROGRAMMER ANALYST OPENING NOTE PT IS IN BED, OBTUNDED WITH TRACH, VENT SETTINGS AC 12, TV 475, FIO2 40%, PEEP 5. NO SIGNS OF RESPIRATORY DISTRESS. GT TUBE STOPPED. PT WAS VOMITING EARLIER. HOB ELEVATED. IV ACCESS VIA GUSTAVO MIDLINE, 1/2 NS AT 75 ML/ HR. FC IN PLACE, DRAINING YELLOW OUTPUT. FLEXISEAL RECTAL TUBE IN PLACE WITH DARK BROWN LIQUID STOOL NOTED. CALL LIGHT WITH IN REACH. BED LOCKED AND LOWEST POSITION, SR X2, BED ALARM ON. WILL CONTINUE TO MONITOR.
[2023-01-29 20:00] VITALS: BP 98/51; TEMP 101.9
[2023-01-29] MEDS ORDERED: VANCOMYCIN 1.5 GM in IV D5W 500ml IV ONE (20:00)
[2023-01-30] VITALS: BP 90/48; TEMP 98.7
[2023-01-30] MEDS: POTASSIUM CL. PREMIX PERIPHER. 50 ML IV SCH ×7 (00:49→22:25)
[2023-01-30 04:00] VITALS: BP 94/52; TEMP 98.5
[2023-01-30] MEDS: CEFEPIME 2 GM in IV D5W 100 ML IV SCH ×3 (05:38→20:33)
[2023-01-30 06:26] LABS: BASOPHILS % (AUTO) 0.1 % (0.0-2.0); HEMATOCRIT 25 % (39-51); HEMOGLOBIN 7.6 g/dL (13.5-17.5); LYMPHOCYTES # (AUTO) 0.6 K/uL (0.8-4.8); LYMPHOCYTES % (AUTO) 5.4 % (20.0-44.0); MEAN CORPUSCULAR HGB CONC 31 g/dl (31.0-36.0); MEAN CORPUSCULAR VOLUME 81 fL (80-96); MONOCYTES # (AUTO) 0.7 K/uL (0.1-1.30); MONOCYTES % (AUTO) 6.3 % (2.0-12.0); NEUTROPHILS # (AUTO) 9.2 K/uL (1.8-8.9); NEUTROPHILS % (AUTO) 88.2 % (43.0-81.0); PLATELET COUNT (AUTO) 71 K/uL (150-450); RED BLOOD CELL COUNT(AUTO) 3.02 MIL/uL (4.5-6.0); WHITE BLOOD COUNT (AUTO) 10.4 K/uL (4.3-11.0)
--- NOTE | 2023-01-30 06:40 | NUR ---
WRAPPER REWINDER NOTE RESUMED G TUBE FEEDING AT 40 ML/HR. WILL ENDORSE TO THE NEXT SHIFT THAT THE GOAL IS 70 ML/HR AND CHECKING THE RESIDUAL PRIOR TO PROCEEDING WITH RATE INCREASE.
--- NOTE | 2023-01-30 06:50 | NUR ---
RECONNAISSANCE MAN CLOSING NOTE PT IS IN BED, OBTUNDED WITH TRACH, VENT SETTINGS AC 12, TV 475, FIO2 40%, PEEP 5. NO SIGNS OF RESPIRATORY DISTRESS. VS WNL, NO FEVER, TEMP 98.5 DEG FGT TUBE RUNNING AT 40 ML/HR. HOB ELEVATED. IV ACCESS VIA GUSTAVO MIDLINE, 1/2 NS AT 75 ML/ HR. FC IN PLACE, DRAINING YELLOW OUTPUT. FLEXISEAL RECTAL TUBE IN PLACE WITH DARK BROWN LIQUID STOOL NOTED. CALL LIGHT WITH IN REACH. BED LOCKED AND LOWEST POSITION, SR X2, BED ALARM ON. WILL ENDORSE TO THE NEXT SHIFT.
[2023-01-30 06:53] LABS: ALANINE AMINOTRANSFERASE 16 U/L (12-78); ALBUMIN 1.6 g/dL (3.4-5.0); ALKALINE PHOSPHATASE 118 U/L (46-116); ASPARTATE AMINOTRANSFERASE 20 U/L (15-37); BILIRUBIN,TOTAL 0.7 mg/dL (0.2-1.0); CALCIUM, SERUM 8.4 mg/dL (8.5-10.1); CARBON DIOXIDE 31 mmol/L (21-32); CHLORIDE 114 mmol/L (98-107); CREATININE 0.9 mg/dL (0.6-1.3); GLUCOSE 159 mg/dL (74-106); SODIUM SERUM 149 mmol/L (136-145); TOTAL PROTEIN, SERUM 5.6 g/dL (6.4-8.2); UREA NITROGEN, BLOOD 27 mg/dL (7-18)
[2023-01-30 06:59] LABS: POTASSIUM 2.8 mmol/L (3.5-5.1)
[2023-01-30 07:50] LABS: BAND % (MANUAL) 3 % (0.0-5.0); BASOPHILS % (MANUAL) 0 % (0.0-2.0); EOSINOPHILS % (MANUAL) 0 % (0-4); LYMPHOCYTES % (MANUAL) 7 % (16-48); MONOCYTES % (MANUAL) 8 % (0-11.0); NEUTROPHILS % (MANUAL) 82 (42-76)
--- NOTE | 2023-01-30 07:54 | NUR ---
DATA ANALYTICS ARCHITECT opening nOTE PATIENT IN BED, OBTUNDED AND NON VERBAL. [facility], TOLERATING SETTINGS WELL.on cardiac READS V-PACING, hr 64. NO S/SX OF ACUTE RESPI DISTRESS NOTED AT THIS TIME. NO SOB. BREATHING IS EVEN AND UNLABORED. IV ACCESS ON GUSTAVO MIDLINE, INTACT AND PATENT, FLUSHING WELL, G-TUBE w/GLUCERNA 1.2 @ 40 ML/HR, TOLERATING WELL. NO RESIDUAL NOTED. PATEL CATHETER IN PLACE DRAINING YELLOW URINE BY GRAVITY. FLEXISEAL ALSO NOTED,.minimial output. ALL SAFETY MEASURES IN PLACE: BED IN LOWEST POSITION AND LOCKED.SIDE RAILS UP X2, HOB ELEVATED. CALL LIGHT WITHIN REACH. BED ALARM ON.
[2023-01-30 08:00] VITALS: BP 85/47; TEMP 98
[2023-01-30] MEDS: POLYETHYLENE GLYCOL 3350 17 GM POWD.PACK GT SCH (08:49)
[2023-01-30] MEDS: VANCOMYCIN 1.25 GM in IV D5W 250 ML IV SCH ×2 (08:49→20:24)
[2023-01-30] MEDS: FINASTERIDE (5 MG) 5 MG TABLET GT SCH (08:49)
[2023-01-30] MEDS: DOCUSATE SODIUM LIQ 100 MG/10 ML UDC GT SCH ×2 (08:49→16:36)
[2023-01-30] MEDS: CHOLECALCIFEROL 1,000 UNIT TABLET (VIT D3) GT SCH (08:50)
[2023-01-30] MEDS: ASCORBIC ACID 500 MG TABLET GT SCH (08:50)
[2023-01-30] MEDS: CYANOCOBALAMIN 500 MCG TABLET GT SCH (08:50)
[2023-01-30] MEDS: CHLORHEXIDINE GLUCONATE 15 ML UDC MM SCH ×2 (08:50→16:37)
[2023-01-30] MEDS: dexaMETHasone SOD PHOSPHATE 4 MG/ML VIAL IV SCH (08:53)
[2023-01-30] MEDS: LACTULOSE 10 G/15 ML UDC (PYXIS) PO SCH ×2 (09:52→16:37)
[2023-01-30] MEDS: CLOPIDOGREL BISULFATE 75 MG TABLET GT SCH (09:52)
[2023-01-30] MEDS: Z GUARD REMEDY 4 OZ OINT TP SCH (09:52)
[2023-01-30] MEDS: ENOXAPARIN SODIUM 40 MG/0.4 ML DISP.SYRIN SQ SCH (09:53)
[2023-01-30] MEDS: PROSOURCE / PROSTAT (PYXIS) 30 ML UDC GT SCH ×2 (11:23→16:59)
[2023-01-30 12:00] VITALS: BP 107/55; TEMP 98.1
[2023-01-30] MEDS: IV 1/2NS 1000 ML 1,000 ML IV SCH (12:23)
[2023-01-30 16:00] VITALS: BP 115/43; TEMP 98.5
--- NOTE | 2023-01-30 19:00 | NUR ---
RN NOTE Report received from Debbie ORTEGA, patient in bed, obtunded, in no acute distress, saturation at 100% on portex#7 connected to mechanical ventilator with settings as follows: AC mode at rate of 12, TV 475, fio2 40%, peep 5, V paced on the monitor, HR is 68. GUSTAVO midline patent and flushing well, with 1/2 NS infusing at 75 ml/hr. Gtube in place, positive placement noted, no residual, with Glucerna at 70 ml/hr. Hutchinson catheter draining to a clear, yellow output. Flexiseal draining to gravity with unobstructed flow. Safety measures in place, bed is locked and at lowest position, HOB elevated,will monitor and reassess.
--- NOTE | 2023-01-30 19:43 | NUR ---
EDITOR SCHOOL PHOTOGRAPH closing nOTE PATIENT IN BED, OBTUNDED AND NON VERBAL. [facility], TOLERATING SETTINGS WELL.on staff analyst V-PACING, . NO S/SX OF ACUTE RESPI DISTRESS NOTED AT THIS TIME. NO SOB. BREATHING IS EVEN AND UNLABORED. IV ACCESS ON GUSTAVO MIDLINE, INTACT AND PATENT, FLUSHING WELL, G-TUBE w/GLUCERNA 1.2 @ 70 ML/HR, TOLERATING WELL. NO RESIDUAL NOTED. PATEL CATHETER IN PLACE DRAINING YELLOW color URINE BY GRAVITY. FLEXISEAL ALSO NOTED,.minimial output. ALL SAFETY MEASURES IN PLACE: BED IN LOWEST POSITION AND LOCKED.SIDE RAILS UP X2, HOB ELEVATED. CALL LIGHT WITHIN REACH. BED ALARM ON.endorsed to pump press operator rn for contuity of care
[2023-01-30 20:00] VITALS: BP 113/54; TEMP 99
[2023-01-31] VITALS: BP 115/54; TEMP 98.3
[2023-01-31] MEDS: POTASSIUM CL. PREMIX PERIPHER. 50 ML IV SCH ×10 (00:07→23:45)
[2023-01-31] MEDS: IV 1/2NS 1000 ML 1,000 ML IV SCH ×2 (03:49→16:18)
[2023-01-31 04:00] VITALS: BP 108/54; TEMP 98.3
[2023-01-31] MEDS: CEFEPIME 2 GM in IV D5W 100 ML IV SCH ×3 (05:40→20:41)
--- NOTE | 2023-01-31 07:00 | NUR ---
CALL PERSON opening notes: PATIENT IN BED, OBTUNDED AND NON VERBAL. ON [facility] VENT, TOLERATING SETTINGS WELL. HEART RATE V-PACING ON TELE MONITOR, HR71. NO S/SX OF ACUTE RESPI DISTRESS NOTED AT THIS TIME. NO SOB. BREATHING IS EVEN AND UNLABORED. IV ACCESS ON GUSTAVO MIDLINE, INTACT AND PATENT, FLUSHING WELL, G-TUBE w/GLUCERNA 1.2 @ 40 ML/HR, TOLERATING WELL. NO RESIDUAL NOTED. PATEL CATHETER IN PLACE DRAINING YELLOW URINE BY GRAVITY. FLEXISEAL ALSO NOTED. ALL SAFETY MEASURES IN PLACE: BED IN LOWEST POSITION AND LOCKED.SIDE RAILS UP X2, HOB ELEVATED. CALL LIGHT WITHIN REACH. BED ALARM ON. WILL MONITOR
[2023-01-31 07:15] LABS: CALCIUM, SERUM 8.4 mg/dL (8.5-10.1); CARBON DIOXIDE 33 mmol/L (21-32); CHLORIDE 108 mmol/L (98-107); CREATININE 0.7 mg/dL (0.6-1.3); GLUCOSE 144 mg/dL (74-106); POTASSIUM 3.2 mmol/L (3.5-5.1); SODIUM SERUM 145 mmol/L (136-145); UREA NITROGEN, BLOOD 26 mg/dL (7-18)
[2023-01-31 08:00] VITALS: BP 100/53; TEMP 98.2
[2023-01-31] MEDS: DOCUSATE SODIUM LIQ 100 MG/10 ML UDC GT SCH ×2 (08:14→17:27)
[2023-01-31] MEDS: CYANOCOBALAMIN 500 MCG TABLET GT SCH (08:14)
[2023-01-31] MEDS: POLYETHYLENE GLYCOL 3350 17 GM POWD.PACK GT SCH (08:14)
[2023-01-31] MEDS: CHOLECALCIFEROL 1,000 UNIT TABLET (VIT D3) GT SCH (08:14)
[2023-01-31] MEDS: CHLORHEXIDINE GLUCONATE 15 ML UDC MM SCH ×2 (08:15→17:27)
[2023-01-31] MEDS: FINASTERIDE (5 MG) 5 MG TABLET GT SCH (08:15)
[2023-01-31] MEDS: ASCORBIC ACID 500 MG TABLET GT SCH (08:15)
[2023-01-31] MEDS: CLOPIDOGREL BISULFATE 75 MG TABLET GT SCH (08:15)
[2023-01-31] MEDS: Z GUARD REMEDY 4 OZ OINT TP SCH (08:16)
[2023-01-31] MEDS: PROSOURCE / PROSTAT (PYXIS) 30 ML UDC GT SCH ×2 (09:17→17:28)
[2023-01-31] MEDS: ENOXAPARIN SODIUM 40 MG/0.4 ML DISP.SYRIN SQ SCH (09:18)
--- NOTE | 2023-01-31 09:19 | NUR ---
rn notes: spoke to dr Emir Alatorre hemoglobin 7.6,platelets 71 om 01/30 if ok to give lovenox, ok by DR Field to give it
[2023-01-31 09:56] LABS: BASOPHILS % (AUTO) 0.3 % (0.0-2.0); EOSINOPHILS % (AUTO) 0.2 % (0.0-6.0); HEMATOCRIT 26 % (39-51); HEMOGLOBIN 8.2 g/dL (13.5-17.5); LYMPHOCYTES # (AUTO) 0.8 K/uL (0.8-4.8); LYMPHOCYTES % (AUTO) 11.9 % (20.0-44.0); MEAN CORPUSCULAR HGB CONC 31 g/dl (31.0-36.0); MEAN CORPUSCULAR VOLUME 81 fL (80-96); MONOCYTES # (AUTO) 0.4 K/uL (0.1-1.30); MONOCYTES % (AUTO) 5.9 % (2.0-12.0); NEUTROPHILS # (AUTO) 5.7 K/uL (1.8-8.9); NEUTROPHILS % (AUTO) 81.7 % (43.0-81.0); PLATELET COUNT (AUTO) 69 K/uL (150-450); RED BLOOD CELL COUNT(AUTO) 3.24 MIL/uL (4.5-6.0); WHITE BLOOD COUNT (AUTO) 6.9 K/uL (4.3-11.0)
[2023-01-31] MEDS: GLUCERNA 1.2 1,000 ML BOTTLE NG PRN (10:42)
[2023-01-31 11:46] LABS: BAND % (MANUAL) 2 % (0.0-5.0); BASOPHILS % (MANUAL) 0 % (0.0-2.0); EOSINOPHILS % (MANUAL) 0 % (0-4); LYMPHOCYTES % (MANUAL) 12 % (16-48); MONOCYTES % (MANUAL) 3 % (0-11.0); NEUTROPHILS % (MANUAL) 82 (42-76)
[2023-01-31 12:00] VITALS: BP 99/55; TEMP 98.6
[2023-01-31 16:00] VITALS: BP 117/63; TEMP 98.2
--- NOTE | 2023-01-31 19:00 | NUR ---
RN NOTE Report received from Dorinda ORTEGA, patient in bed, obtunded, in no acute distress, saturation at 98% on portex#7 connected to mechanical ventilator with settings as follows: AC mode at rate of 12, TV 475, fio2 40%, peep 5, V paced on the monitor, HR is 67. GUSTAVO midline patent and flushing well, with 1/2 NS infusing at 75 ml/hr. Gtube in place, positive placement noted, no residual, with Glucerna at 70 ml/hr. Hutchinson catheter draining to a clear, yellow output. Flexiseal draining to gravity with unobstructed flow. Safety measures in place, bed is locked and at lowest position, HOB elevated,will monitor and reassess.
--- NOTE | 2023-01-31 19:00 | NUR ---
CONTOUR SANDER CLOSING NOTES: PATIENT IN BED, OBTUNDED AND NON VERBAL. ON [facility] VENT, TOLERATING SETTINGS WELL. V-PACING ON TELE MONITOR . NO S/SX OF ACUTE RESPI DISTRESS NOTED AT THIS TIME. NO SOB. BREATHING IS EVEN AND UNLABORED. IV ACCESS ON GUSTAVO MIDLINE, INTACT AND PATENT, FLUSHING WELL, G-TUBE w/GLUCERNA 1.2 @ 70 ML/HR, TOLERATING WELL. NO RESIDUAL NOTED. PATEL CATHETER IN PLACE DRAINING YELLOW color URINE BY GRAVITY. FLEXISEAL ALSO NOTED WITH 900 ML DURING AM SHIFT. ALL SAFETY MEASURES IN PLACE: BED IN LOWEST POSITION AND LOCKED.SIDE RAILS UP X2, HOB ELEVATED. CALL LIGHT WITHIN REACH. BED ALARM ON.ENDORSED TO DIGITAL ASSET COORDINATOR FOR DODIE
[2023-01-31 20:00] VITALS: BP 95/49; TEMP 99
[2023-01-31] MEDS ORDERED: VANCOMYCIN 1 GM in IV D5W 250ml IV SCH (20:00)
[2023-02-01] VITALS: BP 117/67; TEMP 98.5
[2023-02-01] MEDS: POTASSIUM CL. PREMIX PERIPHER. 50 ML IV SCH ×5 (01:12→16:53)
[2023-02-01 04:02] VITALS: BP 113/69; TEMP 98.4
[2023-02-01] MEDS: GLUCERNA 1.2 1,000 ML BOTTLE NG PRN (05:23)
[2023-02-01] MEDS: CEFEPIME 2 GM in IV D5W 100 ML IV SCH ×2 (05:24→12:51)
[2023-02-01] MEDS: IV 1/2NS 1000 ML 1,000 ML IV SCH ×2 (05:24→18:52)
[2023-02-01 07:16] LABS: BASOPHILS % (AUTO) 0.2 % (0.0-2.0); EOSINOPHILS % (AUTO) 4.6 % (0.0-6.0); HEMATOCRIT 26 % (39-51); HEMOGLOBIN 8.5 g/dL (13.5-17.5); LYMPHOCYTES # (AUTO) 1.3 K/uL (0.8-4.8); LYMPHOCYTES % (AUTO) 17.2 % (20.0-44.0); MEAN CORPUSCULAR HGB CONC 32 g/dl (31.0-36.0); MEAN CORPUSCULAR VOLUME 81 fL (80-96); MONOCYTES # (AUTO) 0.7 K/uL (0.1-1.30); MONOCYTES % (AUTO) 8.9 % (2.0-12.0); NEUTROPHILS # (AUTO) 5.2 K/uL (1.8-8.9); NEUTROPHILS % (AUTO) 69.1 % (43.0-81.0); PLATELET COUNT (AUTO) 96 K/uL (150-450); RED BLOOD CELL COUNT(AUTO) 3.27 MIL/uL (4.5-6.0); WHITE BLOOD COUNT (AUTO) 7.5 K/uL (4.3-11.0)
[2023-02-01 07:54] LABS: CALCIUM, SERUM 8.3 mg/dL (8.5-10.1); CREATININE 0.6 mg/dL (0.6-1.3); POTASSIUM 3.1 mmol/L (3.5-5.1)
--- NOTE | 2023-02-01 07:58 | NUR ---
rn notes: found gt outside the stoma with inflated baloon, placed dupont to keep stoma open held gtf and notified dr go with order of gi consult
[2023-02-01] MEDS: DOCUSATE SODIUM LIQ 100 MG/10 ML UDC GT SCH ×2 (09:00→17:00)
[2023-02-01] MEDS: CLOPIDOGREL BISULFATE 75 MG TABLET GT SCH (09:00)
[2023-02-01] MEDS: ASCORBIC ACID 500 MG TABLET GT SCH (09:00)
[2023-02-01] MEDS: CYANOCOBALAMIN 500 MCG TABLET GT SCH (09:00)
[2023-02-01] MEDS: PROSOURCE / PROSTAT (PYXIS) 30 ML UDC GT SCH ×2 (09:00→17:00)
[2023-02-01] MEDS: CHOLECALCIFEROL 1,000 UNIT TABLET (VIT D3) GT SCH (09:00)
[2023-02-01] MEDS: FINASTERIDE (5 MG) 5 MG TABLET GT SCH (09:00)
[2023-02-01] MEDS: POLYETHYLENE GLYCOL 3350 17 GM POWD.PACK GT SCH (09:00)
--- NOTE | 2023-02-01 09:00 | NUR ---
RN NOTES: GTUBE ON HOLD ,ALL MEDICATION VIA GT NOT GIVEN,MD DR SOSA AWARE
[2023-02-01] MEDS: ENOXAPARIN SODIUM 40 MG/0.4 ML DISP.SYRIN SQ SCH (09:02)
[2023-02-01] MEDS: Z GUARD REMEDY 4 OZ OINT TP SCH (09:02)
[2023-02-01] MEDS: CHLORHEXIDINE GLUCONATE 15 ML UDC MM SCH ×2 (09:02→17:53)
[2023-02-01 09:09] VITALS: BP 107/57; TEMP 98.5
[2023-02-01 10:59] LABS: BASOPHILS % (MANUAL) 0 % (0.0-2.0); EOSINOPHILS % (MANUAL) 3 % (0-4); LYMPHOCYTES % (MANUAL) 16 % (16-48); MONOCYTES % (MANUAL) 10 % (0-11.0); NEUTROPHILS % (MANUAL) 71 (42-76)
[2023-02-01 12:00] VITALS: BP 93/54; TEMP 98.7
--- NOTE | 2023-02-01 12:43 | NUR ---
RN NOTES: NOTIFIED DR SOSA POTASSIUM 3.1 WITH ORDER OF KCL 40 MEQ IV X 1 ORDER NOTED AND CARRIED OUT
--- NOTE | 2023-02-01 12:44 | NUR ---
RN NOTES: NOTIFIED DR SOSA OF CT SCAN OF ABDOMEN SHOWS GT IN THE STOMACH IF OK TO USE GTUBE HE SAID NO WAIT FIR GI DOCTOR TO SEE THE PT
[2023-02-01] MEDS ORDERED: POTASSIUM CL. PREMIX PERIPHER. 50 ML IV SCH (13:00)
[2023-02-01 16:35] VITALS: BP 109/67; TEMP 98.6
--- NOTE | 2023-02-01 17:51 | NUR ---
rn notes: spoke to dr go if ok to use gtf, no feeding since this morning and pt did not receive anymedicine via gtube today with order to continue to hold GTF and GT meds until cleared by GI doctor
[2023-02-01] MEDS: MEROPENEM 500 MG in IV NS 0.9% 50 ML IV SCH ×2 (18:07→21:09)
--- NOTE | 2023-02-01 19:30 | NUR ---
FIRE WATCHER CLOSING NOTES: PATIENT IN BED, OBTUNDED AND NON VERBAL. ON [facility] VENT, TOLERATING SETTINGS WELL. V-PACING ON TELE MONITOR . NO S/SX OF ACUTE RESPI DISTRESS NOTED AT THIS TIME. NO SOB. BREATHING IS EVEN AND UNLABORED. IV ACCESS ON GUSTAVO MIDLINE, INTACT AND PATENT, FLUSHING WELL. NO RESIDUAL NOTED. PATEL CATHETER IN PLACE DRAINING YELLOW COLOR URINE BY GRAVITY. FLEXISEAL ALSO NOTED WITH 400 ML DURING AM SHIFT. ALL SAFETY MEASURES IN PLACE: BED IN LOWEST POSITION AND LOCKED.SIDE RAILS UP X2, HOB ELEVATED. CALL LIGHT WITHIN REACH. BED ALARM ON.ENDORSED TO BANK RECONCILIATOR FOR DODIE
--- NOTE | 2023-02-01 19:45 | NUR ---
PLASTICS FABRICATOR AND ASSEMBLER OPENING NOTES: RECEIVED PATIENT IN BED, OBTUNDED. ON TRACH TO [facility] VENT SETTINGS AND PT TOLERATED WELL. ON CARDIAC MONITORING PT V-PACING. BREATHING IS EVEN AND UNLABORED. IV ACCESS ON GUSTAVO MIDLINE INTACT AND PATENT. GTUBE ON HOLD DUE TO DISLODGED. PATEL CATHETER IN PLACE. DRAINING YELLOW/CLEAR URINE. FLEXISEAL IN PLACE. NO FACIAL GRIMACING NOTED. ALL SAFETY MEASURES IN PLACE. BED IN LOWEST POSITION AND LOCKED. SIDE RAILS UP X3, HOB ELEVATED. PLACE CALL LIGHT WITHIN REACH. WILL CONTINUE TO MONITOR
[2023-02-01 20:00] VITALS: BP 105/59; TEMP 98.1
[2023-02-02] VITALS (7 sets, daily range): BP systolic 100–122; BP diastolic 53–71; TEMP 97.6–98.8
[2023-02-02] MEDS: MEROPENEM 500 MG in IV NS 0.9% 50 ML IV SCH (05:03)
[2023-02-02 06:19] LABS: BASOPHILS % (AUTO) 0.3 % (0.0-2.0); EOSINOPHILS % (AUTO) 6.3 % (0.0-6.0); HEMATOCRIT 29 % (39-51); LYMPHOCYTES # (AUTO) 0.9 K/uL (0.8-4.8); LYMPHOCYTES % (AUTO) 13.2 % (20.0-44.0); MEAN CORPUSCULAR HGB CONC 32 g/dl (31.0-36.0); MEAN CORPUSCULAR VOLUME 81 fL (80-96); MONOCYTES # (AUTO) 0.6 K/uL (0.1-1.30); MONOCYTES % (AUTO) 7.8 % (2.0-12.0); NEUTROPHILS # (AUTO) 5.1 K/uL (1.8-8.9); NEUTROPHILS % (AUTO) 72.4 % (43.0-81.0); PLATELET COUNT (AUTO) 124 K/uL (150-450); RED BLOOD CELL COUNT(AUTO) 3.54 MIL/uL (4.5-6.0); WHITE BLOOD COUNT (AUTO) 7.1 K/uL (4.3-11.0)
[2023-02-02 06:24] LABS: CALCIUM, SERUM 8.5 mg/dL (8.5-10.1); CREATININE 0.6 mg/dL (0.6-1.3)
--- NOTE | 2023-02-02 06:39 | NUR ---
STEEL ANALYST CLOSING NOTES: PATIENT IN BED, OBTUNDED. ON TRACH TO [facility] VENT SETTINGS AND PT TOLERATED WELL. ON CARDIAC MONITORING PT V-PACING. BREATHING IS EVEN AND UNLABORED. IV ACCESS ON GUSTAVO MIDLINE INTACT AND PATENT. GTUBE ON HOLD DUE TO DISLODGED. PATEL CATHETER IN PLACE. DRAINING YELLOW/CLEAR URINE. FLEXISEAL IN PLACE. NO FACIAL GRIMACING NOTED. ALL DUE MEDS GIVEN ORDERED. NO SIGNIFICANT CHANGES. ALL SAFETY MEASURES IN PLACE. BED IN LOWEST POSITION AND LOCKED. SIDE RAILS UP X3, HOB ELEVATED. PLACE CALL LIGHT WITHIN REACH. WILL ENDORSE TO MORNING SHIFT NURSE.
[2023-02-02] MEDS: IV 1/2NS 1000 ML 1,000 ML IV SCH (06:40)
[2023-02-02 07:10] LABS: POTASSIUM 2.7 mmol/L (3.5-5.1)
--- NOTE | 2023-02-02 07:21 | NUR ---
CLINICAL NURSE EDUCATOR OPEN NOTES: PATIENT IN BED, OBTUNDED. ON TRACH TO [facility] VENT SETTINGS AND PT TOLERATED WELL. ON CARDIAC MONITORING PT V-PACING HR 67 BREATHING IS EVEN AND UNLABORED. IV ACCESS ON GUSTAVO MIDLINE INTACT AND PATENT 1/2 NS RUNNING AT 75 ML/HR. GTUBE ON HOLD DUE TO DISLODGED. PATEL CATHETER IN PLACE. DRAINING YELLOW/CLEAR URINE. FLEXISEAL IN PLACE. NO FACIAL GRIMACING NOTED. ALL DUE MEDS GIVEN ORDERED. NO SIGNIFICANT CHANGES. ALL SAFETY MEASURES IN PLACE. BED IN LOWEST POSITION AND LOCKED. SIDE RAILS UP X3, HOB ELEVATED. PLACE CALL LIGHT WITHIN REACH. WILL CONTINUE TO MONITOR
[2023-02-02] MEDS ORDERED: IV 1/2NS 1000 ML 1,000 ML IV PRN (07:45)
[2023-02-02] MEDS: CHLORHEXIDINE GLUCONATE 15 ML UDC MM SCH ×2 (08:29→16:22)
[2023-02-02] MEDS: FINASTERIDE (5 MG) 5 MG TABLET GT SCH (08:29)
[2023-02-02] MEDS: ASCORBIC ACID 500 MG TABLET GT SCH (08:29)
[2023-02-02] MEDS: DOCUSATE SODIUM LIQ 100 MG/10 ML UDC GT SCH ×2 (08:29→16:22)
[2023-02-02] MEDS: CYANOCOBALAMIN 500 MCG TABLET GT SCH (08:29)
[2023-02-02] MEDS: CLOPIDOGREL BISULFATE 75 MG TABLET GT SCH (08:29)
[2023-02-02] MEDS: CHOLECALCIFEROL 1,000 UNIT TABLET (VIT D3) GT SCH (08:29)
[2023-02-02] MEDS: POTASSIUM CL. PREMIX PERIPHER. 50 ML IV SCH ×8 (08:33→21:46)
[2023-02-02] MEDS ORDERED: DIATR MEGLU/DIATRIZOATE SODIUM 30 ML BOTTLE (GASTROGRAPHIN) ONE (08:33)
[2023-02-02] MEDS: PROSOURCE / PROSTAT (PYXIS) 30 ML UDC GT SCH ×2 (08:34→16:23)
[2023-02-02] MEDS: Z GUARD REMEDY 4 OZ OINT TP SCH (08:34)
[2023-02-02] MEDS: ENOXAPARIN SODIUM 40 MG/0.4 ML DISP.SYRIN SQ SCH (08:37)
[2023-02-02] MEDS: POLYETHYLENE GLYCOL 3350 17 GM POWD.PACK GT SCH (09:10)
--- NOTE | 2023-02-02 09:44 | NUR ---
RN NOTE KUB X RAY WAS DONE , G TUBE PLACEMENT CONFIRMED , DR SOSA WAS NOTIFIED , ORDER TO RESUME G TUBE FEEDING RECEIVED , STARTED AT 10 ML /HR WILL SLOWLY INCREASE TO 60 AND MONITOR FOR LEAKING AND RESIDUAL
[2023-02-02] MEDS: MEROPENEM 1 G in IV NS 0.9% 100 ML IV SCH ×2 (12:14→20:42)
--- NOTE | 2023-02-02 18:53 | NUR ---
CONDUIT MECHANIC CLOSING NOTES: PATIENT IN BED, OBTUNDED. ON TRACH TO [facility] VENT SETTINGS AND PT TOLERATED WELL. ON CARDIAC MONITORING PT V-PACING. BREATHING IS EVEN AND UNLABORED. IV ACCESS ON GUSTAVO MIDLINE INTACT AND PATENT POTASSIUM IS RUNNING WITH 1/2 NS AT 75 ML/HR . GTUBE RUNNING GLUCERNA AT 39 ML/HR , GOAL 70 ML/HR PATEL CATHETER IN PLACE. DRAINING YELLOW/CLEAR URINE. FLEXISEAL IN PLACE. NO FACIAL GRIMACING NOTED. ALL DUE MEDS GIVEN ORDERED. NO SIGNIFICANT CHANGES. ALL SAFETY MEASURES IN PLACE. BED IN LOWEST POSITION AND LOCKED. SIDE RAILS UP X3, HOB ELEVATED. PLACE CALL LIGHT WITHIN REACH. WILL ENDORSE TO RF MICROWAVE ENGINEER NURSE.
--- NOTE | 2023-02-02 19:30 | NUR ---
CONTINUOUS CHURN BUTTERMAKER OPENING NOTES: RECEIVED PATIENT IN BED, OBTUNDED. ON TRACH TO [facility] VENT SETTINGS AND PT TOLERATED WELL. ON CARDIAC MONITORING PT V-PACING. BREATHING IS EVEN AND UNLABORED. IV ACCESS ON GUSTAVO MIDLINE INTACT AND PATENT. GTUBE FEEDING WELL TOLERATED RUNNING GLUCERNA 1.2 @30CC/HR GOAL 70CC. PATEL CATHETER IN PLACE. DRAINING YELLOW/CLEAR URINE. FLEXISEAL IN PLACE. NO FACIAL GRIMACING NOTED. ALL SAFETY MEASURES IN PLACE. BED IN LOWEST POSITION AND LOCKED. SIDE RAILS UP X3, HOB ELEVATED. PLACE CALL LIGHT WITHIN REACH. WILL CONTINUE TO MONITOR
[2023-02-03] VITALS: BP 101/63; TEMP 98.8
[2023-02-03 04:00] VITALS: BP 109/57; TEMP 98.6
[2023-02-03] MEDS: MEROPENEM 1 G in IV NS 0.9% 100 ML IV SCH ×2 (04:29→12:40)
[2023-02-03 06:30] LABS: BASOPHILS % (AUTO) 0.3 % (0.0-2.0); HEMATOCRIT 25 % (39-51); LYMPHOCYTES % (AUTO) 10.5 % (20.0-44.0); MEAN CORPUSCULAR HGB CONC 31 g/dl (31.0-36.0); MEAN CORPUSCULAR VOLUME 82 fL (80-96); MONOCYTES # (AUTO) 0.6 K/uL (0.1-1.30); MONOCYTES % (AUTO) 6.7 % (2.0-12.0); NEUTROPHILS # (AUTO) 7.1 K/uL (1.8-8.9); NEUTROPHILS % (AUTO) 76.5 % (43.0-81.0); PLATELET COUNT (AUTO) 136 K/uL (150-450); RED BLOOD CELL COUNT(AUTO) 3.12 MIL/uL (4.5-6.0); WHITE BLOOD COUNT (AUTO) 9.2 K/uL (4.3-11.0)
--- NOTE | 2023-02-03 06:41 | NUR ---
SPACE AND MISSILE OPERATIONS SPACELIFT CLOSING NOTES: PATIENT IN BED, OBTUNDED. ON TRACH TO [facility] VENT SETTINGS AND PT TOLERATED WELL. ON CARDIAC MONITORING PT V-PACING HR 71. BREATHING IS EVEN AND UNLABORED. IV ACCESS ON GUSTAVO MIDLINE INTACT AND PATENT. GTUBE FEEDING WELL TOLERATED RUNNING GLUCERNA 1.2 45CC/HR GOAL 70CC. PATEL CATHETER IN PLACE. DRAINING YELLOW/CLEAR URINE. FLEXI-SEAL IN PLACE. NO FACIAL GRIMACING NOTED. ALL SAFETY MEASURES IN PLACE. BED IN LOWEST POSITION AND LOCKED. SIDE RAILS UP X3, HOB ELEVATED. PLACE CALL LIGHT WITHIN REACH. WILL ENDORSE CONTINUITY OF CARE TO AM SHIFT RN
[2023-02-03 07:18] LABS: CALCIUM, SERUM 8.3 mg/dL (8.5-10.1); CREATININE 0.6 mg/dL (0.6-1.3); POTASSIUM 2.9 mmol/L (3.5-5.1)
[2023-02-03 08:00] VITALS: BP 103/43; TEMP 98.7
[2023-02-03] MEDS: CYANOCOBALAMIN 500 MCG TABLET GT SCH (08:21)
[2023-02-03] MEDS: ASCORBIC ACID 500 MG TABLET GT SCH (08:22)
[2023-02-03] MEDS: CHOLECALCIFEROL 1,000 UNIT TABLET (VIT D3) GT SCH (08:22)
[2023-02-03] MEDS: CHLORHEXIDINE GLUCONATE 15 ML UDC MM SCH ×2 (08:22→17:08)
[2023-02-03] MEDS: POLYETHYLENE GLYCOL 3350 17 GM POWD.PACK GT SCH (08:22)
[2023-02-03] MEDS: FINASTERIDE (5 MG) 5 MG TABLET GT SCH (08:22)
[2023-02-03] MEDS: CLOPIDOGREL BISULFATE 75 MG TABLET GT SCH (08:22)
[2023-02-03] MEDS: DOCUSATE SODIUM LIQ 100 MG/10 ML UDC GT SCH ×2 (08:22→17:08)
[2023-02-03] MEDS: ENOXAPARIN SODIUM 40 MG/0.4 ML DISP.SYRIN SQ SCH (08:23)
[2023-02-03] MEDS: PROSOURCE / PROSTAT (PYXIS) 30 ML UDC GT SCH ×2 (08:25→17:08)
[2023-02-03] MEDS: Z GUARD REMEDY 4 OZ OINT TP SCH (08:25)
[2023-02-03] MEDS ORDERED: Magnesium 1GM/D5W 100ML PREMIX PIGGYBACK IV ONE (09:00)
[2023-02-03] MEDS: POTASSIUM CHLORIDE 20 MEQ POWDER PACKET GT SCH ×3 (09:36→17:08)
[2023-02-03 12:00] VITALS: BP 110/50; TEMP 98.9
[2023-02-03] MEDS ORDERED: Potassium Chloride 20 MEQ in IV NS 0.9% 1,000 ML IV SCH (14:00)
[2023-02-03 16:00] VITALS: BP 105/65; TEMP 98.9
--- NOTE | 2023-02-03 19:00 | NUR ---
BUSINESS SUPPORT ADMINISTRATOR NOTE PATIENT DISCHARGED TO [facility] BY DR. SILVA'S ORDER AFTER PATIENT'S POTASSIUM LEVEL REPLACED 3.9. REPORT GIVEN TO BRITTON ORTEGA PATIENT WILL BE ON ABX MERREM 1 G FOR 8 DAYS. I INDORSED THE PICTURE FRAME MAKER NURSE TO REMOVE THE FLEXICEL BEFORE PATIENT LEAVED, BUT LEAVE THE PATEL CATHETER ON SINCE PATIENT IS GOING TO THE SNF, ALSO DO NOT REMOVE THE IV SITE.
--- NOTE | 2023-02-03 20:41 | NUR ---
GAVE REPORT TO EMT WITH PT'S HISTORY, RECENT COVID RESULTS, AND MOST RECENT VITALS. PT DISCONNECTED FROM GTF AND IV. KEPT PATEL, GUSTAVO MIDLINE, AND FLEXISEAL IN PLACE. PT LEFT UNIT VIA GURNEY IN STABLE CONDITION.
== END 2023-02-03 21:04 | DRG 207 ==
LOC: ER 18:54 → TELE1 22:03
PROVIDERS: ADMIT Nurse Practitioner Acute Care; ATTEND Internal Medicine
PROC: 5A1955Z Respiratory Ventilation, Greater than 96 Consecutive Hours (ICD-10-PCS; principal; 2023-01-19)
PROC: 05HC33Z Insertion of Infusion Device into Left Basilic Vein, Percutaneous Approach (ICD-10-PCS; 2023-01-20)
DX: U07.1 COVID-19 (principal); E43 Unspecified severe protein-calorie malnutrition; G93.41 Metabolic encephalopathy; J15.9 Unspecified bacterial pneumonia; K56.7 Ileus, unspecified; I50.32 Chronic diastolic (congestive) heart failure; I13.0 Hypertensive heart and chronic kidney disease with heart failure and stage 1 through stage 4 chronic kidney disease, or unspecified chronic kidney disease; Z99.11 Dependence on respirator [ventilator] status; I69.951 Hemiplegia and hemiparesis following unspecified cerebrovascular disease affecting right dominant side; D68.59 Other primary thrombophilia; I48.92 Unspecified atrial flutter; E87.0 Hyperosmolality and hypernatremia; J96.10 Chronic respiratory failure, unspecified whether with hypoxia or hypercapnia; J98.11 Atelectasis; C79.51 Secondary malignant neoplasm of bone; Z43.1 Encounter for attention to gastrostomy; N18.9 Chronic kidney disease, unspecified; Z20.822 Contact with and (suspected) exposure to COVID-19; F09 Unspecified mental disorder due to known physiological condition; E78.00 Pure hypercholesterolemia, unspecified; D63.8 Anemia in other chronic diseases classified elsewhere; Z74.09 Other reduced mobility; Z28.310 Unvaccinated for COVID-19; R13.10 Dysphagia, unspecified; Z79.51 Long term (current) use of inhaled steroids; Z79.899 Other long term (current) drug therapy; Z79.02 Long term (current) use of antithrombotics/antiplatelets; E87.6 Hypokalemia; L92.9 Granulomatous disorder of the skin and subcutaneous tissue, unspecified; N40.0 Benign prostatic hyperplasia without lower urinary tract symptoms; I48.91 Unspecified atrial fibrillation; E88.09 Other disorders of plasma-protein metabolism, not elsewhere classified; C61 Malignant neoplasm of prostate; F03.90 Unspecified dementia, unspecified severity, without behavioral disturbance, psychotic disturbance, mood disturbance, and anxiety; F43.10 Post-traumatic stress disorder, unspecified; F20.9 Schizophrenia, unspecified; I25.10 Atherosclerotic heart disease of native coronary artery without angina pectoris; K21.9 Gastro-esophageal reflux disease without esophagitis; K40.90 Unilateral inguinal hernia, without obstruction or gangrene, not specified as recurrent; L89.619 Pressure ulcer of right heel, unspecified stage; L89.629 Pressure ulcer of left heel, unspecified stage; M24.571 Contracture, right ankle; M24.572 Contracture, left ankle; N20.0 Calculus of kidney; N28.1 Cyst of kidney, acquired; Y95 Nosocomial condition; Z68.30 Body mass index [BMI] 30.0-30.9, adult; E66.9 Obesity, unspecified; Z74.01 Bed confinement status; S90.811A Abrasion, right foot, initial encounter; X58.XXXA Exposure to other specified factors, initial encounter; Y92.9 Unspecified place or not applicable; L98.9 Disorder of the skin and subcutaneous tissue, unspecified; I95.9 Hypotension, unspecified; G62.9 Polyneuropathy, unspecified; H26.9 Unspecified cataract; J32.9 Chronic sinusitis, unspecified; M19.90 Unspecified osteoarthritis, unspecified site; G47.9 Sleep disorder, unspecified
CPT/HCPCS: 31720; 36410; 36415; 36600; 71045-TC; 74018; 80048-TC; 80053-TC; 80076-TC; 80202-TC; 81001; 82728-TC; 83605-TC; 83690-TC; 84132-TC; 84153-TC; 84154-TC; 84484-TC; 85025-TC; 85378-TC; 86140-TC; 87040-TC; 87081-TC; 87086-TC; 94002-TC; 94003-TC; 94760-TC; 94762-TC; 94799-TC; A4223; A4623; A6253; A6403; A7526; C9803; G0378; J0456; J0692; J0696; J1100; J1650; J2185; J2405; J3370; J3475; J3480; J3490; J7030; J7042; J7050; J7060; Q9963

== ENCOUNTER 2023-07-22 16:01 | Inpatient (IN) | payer MEDICARE, OTHER ==
[~2023-07-22] VITALS: Ht 177.8 cm; Wt 81.6 kg
[~2023-07-22 16:01] MED LIST changes: +ACET-2605 GT; +ACET160S2 GT; -ACET325T53 PO; +ACET650S26 GT; +AMIN30LI2 GT; -AMIN887L GT; +ARGI1POW13 GT; -ASCO500C17 GT; +ASCO500T10 GT; +ATOR10TA GT; +BACL10TA GT; +CRAN425C6 GT; +FAMO20TA8 GT; +FERR300L GT; +GLYC2TAB21 GT; -LEVO750P5 IV; +NUT.237L30 GT; -NYST5ORA MM; -TRAM50TA2 PO
[2023-07-22] MEDS ORDERED: VANCOMYCIN 1 GM in IV D5W 250 ML IV ONE (16:30)
[2023-07-22] MEDS ORDERED: PIPERACILLIN /TAZOBACTAM 3.375 G in IV D5W 50 ML IV ONE (16:30)
[2023-07-22] MEDS ORDERED: IV NS 0.9% 1,000 ML BAG IV ONE (16:30)
[2023-07-22] MEDS ORDERED: VANCOMYCIN 1 GM /D5W 250 ML PB IV ONE (17:00)
[2023-07-22] MEDS ORDERED: PIPERACI/TAZO 3.375GM/D5W 50ML PB IV ONE (17:01)
[2023-07-22] MEDS ORDERED: ALBU2.5V38 IH (17:15)
[2023-07-22] MEDS ORDERED: ACET-868 GT (17:15)
[2023-07-22] MEDS ORDERED: POTA20PA3 GT (17:15)
[2023-07-22] MEDS ORDERED: DOCU50LI GT (17:15)
[2023-07-22] MEDS ORDERED: NUT.250L18 GT (17:15)
[2023-07-22] MEDS ORDERED: MULT-447 GT (17:15)
[2023-07-22] MEDS ORDERED: ALBU2.5V13 IH (17:15)
[2023-07-22] MEDS ORDERED: ALLA266C2 TP (17:15)
[2023-07-22] MEDS ORDERED: EPOE1VIA12 SQ (17:15)
[2023-07-22] MEDS ORDERED: TRAM50TA2 GT (17:15)
[2023-07-22] MEDS ORDERED: SODI473S9 TP (17:15)
[2023-07-22 17:22] LABS: BASOPHILS % (AUTO) 0.2 % (0.0-2.0); EOSINOPHILS # (AUTO) 0.9 K/uL (0.0-0.7); EOSINOPHILS % (AUTO) 6.1 % (0.0-6.0); HEMATOCRIT 29 % (39-51); HEMOGLOBIN 8.7 g/dL (13.5-17.5); LYMPHOCYTES # (AUTO) 1.5 K/uL (0.8-4.8); MEAN CORPUSCULAR HEMOGLOBIN 23 PG (26.0-33.0); MEAN CORPUSCULAR HGB CONC 30 g/dl (31.0-36.0); MEAN CORPUSCULAR VOLUME 78 fL (80-96); MONOCYTES % (AUTO) 6.8 % (2.0-12.0); NEUTROPHILS # (AUTO) 11.2 K/uL (1.8-8.9); NEUTROPHILS % (AUTO) 76.9 % (43.0-81.0); PLATELET COUNT (AUTO) 298 K/uL (150-450); RED BLOOD CELL COUNT(AUTO) 3.77 MIL/uL (4.5-6.0); RED CELL DISTRIBUTION WIDTH 19.3 % (11.5-15.0); WHITE BLOOD COUNT (AUTO) 14.6 K/uL (4.3-11.0)
[2023-07-22 17:30] LABS: ERYTHROCYTE SEDIMENTATION RATE 93 MM/HR (0-20)
[2023-07-22 17:49] LABS: ALBUMIN 1.5 g/dL (3.4-5.0); BILIRUBIN,TOTAL 0.5 mg/dL (0.2-1.0); CREATININE 0.8 mg/dL (0.6-1.3); POTASSIUM 4.8 mmol/L (3.5-5.1); TOTAL PROTEIN, SERUM 7.9 g/dL (6.4-8.2)
[2023-07-22 17:54] LABS: C-REACTIVE PROTEIN 18.03 mg/dL (0.0-0.30)
[2023-07-22 17:56] LABS: LACTIC ACID 2.5 mmol/L (0.4-2.0)
[2023-07-22 18:09] LABS: INR 1.21 (0.91-1.10); PARTIAL THROMBOPLASTIN TIME 26.4 SEC (24.3-34.3); PROTHROMBIN TIME 12.7 SECS (9.2-11.1)
[2023-07-22 18:40] LABS: APPEARANCE,URINE CLOUDY (CLEAR); BILIRUBIN,URINE NEGATIVE (NEGATIVE); BLOOD, URINE 2+ Ery/uL (NEGATIVE); COLOR,URINE YELLOW (YELLOW); KETONES,URINE NEGATIVE (NEGATIVE); LEUKOCYTE ESTERASE ,URINE 3+ (NEGATIVE); NITRITE, URINE NEGATIVE (NEGATIVE); PH,URINE 8.5 (5.0-8.0); PROTEIN,URINE 2+ mg/dl (NEGATIVE); UGLUCOSE NEGATIVE (NEGATIVE)
[2023-07-22 19:35] LABS: ADD URINE CULTURE YES; BACTERIA,URINE 4+ /HPF (None Seen); MUCUS,URINE Many /LPF (None Seen); SQUAMOUS EPITHELIAL CELL,UR None Seen /HPF (None Seen); TRIPLE PHOSPHATE CRYSTAL,UR Rare /HPF (None Seen); WBC,URINE 21-50 /HPF (0-3)
[2023-07-22 20:48] LABS: BILIRUBIN,DIRECT 0.2 mg/dL (0.0-0.2)
[2023-07-22 21:00] LABS: LACTIC ACID REFLEX 1.2 mmol/L (0.4-1.9)
[2023-07-22] MEDS ORDERED: EPOETIN ALFA (10,000 UNIT) 10,000 UNIT/ML VIAL SQ SCH (21:00)
[2023-07-22] MEDS ORDERED: ACETAMINOPHEN 325 MG TABLET PO PRN (21:00)
[2023-07-22] MEDS ORDERED: ONDANSETRON HCL/PF 4 MG/2 ML VIAL IVP PRN (21:00)
[2023-07-22] MEDS: MEROPENEM 500 MG in IV NS 0.9% 50 ML IV SCH (21:00)
[2023-07-22] MEDS ORDERED: ALBUTEROL FS 2.5 MG/3 ML VIAL.NEB IH PRN (21:00)
[2023-07-22 21:35] VITALS: BP 103/55; TEMP 98.2; O2SAT 100
[2023-07-22] MEDS: IV NS 0.9% 1,000 ML IV PRN (22:39)
[2023-07-22] MEDS: ATORVASTATIN 10 MG TABLET GT SCH (22:39)
[2023-07-22] MEDS: CHLORHEXIDINE GLUCONATE 15 ML UDC MM SCH (22:39)
[2023-07-22] MEDS: ENOXAPARIN SODIUM 40 MG/0.4 ML DISP.SYRIN SQ SCH (22:40)
[2023-07-22] MEDS ORDERED: MEROPENEM 500 MG VIAL IV ONE (23:14)
[2023-07-23] VITALS: BP 107/44; TEMP 97.9; O2SAT 100
[2023-07-23] MEDS: ALBUTEROL FS 2.5 MG/0.5 ML VIAL.NEB IH SCH ×5 (01:59→20:22)
[2023-07-23 04:00] VITALS: BP 92/52; TEMP 99.7; O2SAT 100
[2023-07-23] MEDS ORDERED: VANCOMYCIN 1 GM in IV D5W 250 ML IV ONE (04:00)
[2023-07-23] MEDS ORDERED: VANCOMYCIN 1 GM /D5W 250 ML PB IV ONE (05:06)
[2023-07-23] MEDS: MEROPENEM 500 MG in IV NS 0.9% 50 ML IV SCH ×3 (05:07→20:25)
[2023-07-23 06:35] LABS: BASOPHILS % (AUTO) 0.2 % (0.0-2.0); EOSINOPHILS # (AUTO) 0.9 K/uL (0.0-0.7); EOSINOPHILS % (AUTO) 8.1 % (0.0-6.0); HEMATOCRIT 28 % (39-51); HEMOGLOBIN 8.3 g/dL (13.5-17.5); LYMPHOCYTES # (AUTO) 1.2 K/uL (0.8-4.8); LYMPHOCYTES % (AUTO) 10.8 % (20.0-44.0); MEAN CORPUSCULAR HEMOGLOBIN 23 PG (26.0-33.0); MEAN CORPUSCULAR HGB CONC 30 g/dl (31.0-36.0); MEAN CORPUSCULAR VOLUME 78 fL (80-96); MONOCYTES # (AUTO) 1.2 K/uL (0.1-1.30); NEUTROPHILS # (AUTO) 7.6 K/uL (1.8-8.9); NEUTROPHILS % (AUTO) 69.9 % (43.0-81.0); PLATELET COUNT (AUTO) 271 K/uL (150-450); RED BLOOD CELL COUNT(AUTO) 3.56 MIL/uL (4.5-6.0); RED CELL DISTRIBUTION WIDTH 19.1 % (11.5-15.0); WHITE BLOOD COUNT (AUTO) 10.9 K/uL (4.3-11.0)
[2023-07-23] MEDS ORDERED: GLUCERNA 1.2 1,000 ML BOTTLE GT PRN ×2 (07:00→07:13)
[2023-07-23 07:11] LABS: CALCIUM, SERUM 8.4 mg/dL (8.5-10.1); CREATININE 0.7 mg/dL (0.6-1.3); MAGNESIUM 2.5 mg/dL (1.8-2.4); PHOSPHORUS 3.6 mg/dL (2.5-4.9)
[2023-07-23 08:00] VITALS: BP 95/66; TEMP 98.3; O2SAT 100
[2023-07-23] MEDS ORDERED: CELLULOSE,OXIDIZED 1 EACH EACH MC ONE ×2 (08:30→15:30)
[2023-07-23] MEDS: FAMOTIDINE (20 MG) 20 MG TABLET GT SCH (08:58)
[2023-07-23] MEDS: MULTIVITAMINS,THERAGRAN 1 UDTAB TABLET GT SCH (08:58)
[2023-07-23] MEDS: CHOLECALCIFEROL 1,000 UNIT TABLET (VIT D3) GT SCH (08:58)
[2023-07-23] MEDS: CYANOCOBALAMIN 500 MCG TABLET GT SCH (08:58)
[2023-07-23] MEDS: CLOPIDOGREL BISULFATE 75 MG TABLET GT SCH (08:58)
[2023-07-23] MEDS: FINASTERIDE (5 MG) 5 MG TABLET GT SCH (08:59)
[2023-07-23] MEDS: DOCUSATE SODIUM LIQ 100 MG/10 ML UDC GT SCH ×2 (08:59→16:37)
[2023-07-23] MEDS: CHLORHEXIDINE GLUCONATE 15 ML UDC MM SCH ×2 (08:59→21:03)
[2023-07-23] MEDS: PROSOURCE / PROSTAT (PYXIS) 30 ML UDC GT SCH (09:00)
[2023-07-23] MEDS: DAKINS QUARTER STRENGTH (0.125%) 480 ML BOTTLE TOP SCH (09:01)
[2023-07-23 12:00] VITALS: BP 99/63; TEMP 98.2; O2SAT 100
[2023-07-23] MEDS: IV NS 0.9% 1,000 ML IV PRN (12:23)
[2023-07-23] MEDS ORDERED: SILVER NITRATE APPLICATOR 1 EA BOX TP SCH (15:30)
[2023-07-23] MEDS ORDERED: LIDOCAINE 1% INJ 50 ML MDV IJ ONE (15:30)
[2023-07-23 16:00] VITALS: BP 107/69; TEMP 98.3; O2SAT 100
[2023-07-23] MEDS: VANCOMYCIN 0.75 GM in IV D5W 250 ML IV SCH (17:53)
[2023-07-23] MEDS: FERROUS SULFATE UDC 300 MG/5 ML UDC GT SCH (17:53)
[2023-07-23 20:00] VITALS: BP 110/64; TEMP 98; O2SAT 100
[2023-07-23] MEDS: ENOXAPARIN SODIUM 40 MG/0.4 ML DISP.SYRIN SQ SCH (21:00)
[2023-07-23] MEDS: ATORVASTATIN 10 MG TABLET GT SCH (21:04)
[2023-07-24] VITALS: BP 118/68; TEMP 98.1; O2SAT 100
[2023-07-24] MEDS: ALBUTEROL FS 2.5 MG/0.5 ML VIAL.NEB IH SCH ×4 (01:38→19:45)
[2023-07-24 04:00] VITALS: BP 116/65; TEMP 98.2; O2SAT 100
[2023-07-24] MEDS: MEROPENEM 500 MG in IV NS 0.9% 50 ML IV SCH (05:10)
[2023-07-24] MEDS: VANCOMYCIN 0.75 GM in IV D5W 250 ML IV SCH ×2 (06:37→17:43)
[2023-07-24 06:56] LABS: BASOPHILS % (AUTO) 0.2 % (0.0-2.0); EOSINOPHILS # (AUTO) 0.1 K/uL (0.0-0.7); EOSINOPHILS % (AUTO) 1.2 % (0.0-6.0); HEMATOCRIT 26 % (39-51); HEMOGLOBIN 7.7 g/dL (13.5-17.5); LYMPHOCYTES # (AUTO) 0.8 K/uL (0.8-4.8); LYMPHOCYTES % (AUTO) 6.8 % (20.0-44.0); MEAN CORPUSCULAR HEMOGLOBIN 23 PG (26.0-33.0); MEAN CORPUSCULAR HGB CONC 30 g/dl (31.0-36.0); MEAN CORPUSCULAR VOLUME 77 fL (80-96); MONOCYTES % (AUTO) 8.4 % (2.0-12.0); NEUTROPHILS # (AUTO) 9.5 K/uL (1.8-8.9); NEUTROPHILS % (AUTO) 83.4 % (43.0-81.0); PLATELET COUNT (AUTO) 340 K/uL (150-450); RED BLOOD CELL COUNT(AUTO) 3.36 MIL/uL (4.5-6.0); RED CELL DISTRIBUTION WIDTH 18.7 % (11.5-15.0); WHITE BLOOD COUNT (AUTO) 11.4 K/uL (4.3-11.0)
[2023-07-24 07:13] LABS: CALCIUM, SERUM 8.2 mg/dL (8.5-10.1); CREATININE 0.7 mg/dL (0.6-1.3); MAGNESIUM 2.4 mg/dL (1.8-2.4); PHOSPHORUS 4.1 mg/dL (2.5-4.9); POTASSIUM 3.9 mmol/L (3.5-5.1)
[2023-07-24 08:00] VITALS: BP 108/66; TEMP 99.6; O2SAT 100
[2023-07-24] MEDS: CHOLECALCIFEROL 1,000 UNIT TABLET (VIT D3) GT SCH (08:46)
[2023-07-24] MEDS: FAMOTIDINE (20 MG) 20 MG TABLET GT SCH (08:46)
[2023-07-24] MEDS: CLOPIDOGREL BISULFATE 75 MG TABLET GT SCH (08:46)
[2023-07-24] MEDS: CHLORHEXIDINE GLUCONATE 15 ML UDC MM SCH ×2 (08:46→21:03)
[2023-07-24] MEDS: MULTIVITAMINS,THERAGRAN 1 UDTAB TABLET GT SCH (08:46)
[2023-07-24] MEDS: CYANOCOBALAMIN 500 MCG TABLET GT SCH (08:46)
[2023-07-24] MEDS: DOCUSATE SODIUM LIQ 100 MG/10 ML UDC GT SCH ×2 (08:46→16:18)
[2023-07-24] MEDS: FINASTERIDE (5 MG) 5 MG TABLET GT SCH (08:46)
[2023-07-24] MEDS: PROSOURCE / PROSTAT (PYXIS) 30 ML UDC GT SCH (08:46)
[2023-07-24] MEDS: DAKINS QUARTER STRENGTH (0.125%) 480 ML BOTTLE TOP SCH (08:47)
[2023-07-24] MEDS: CADEXOMER IODINE 40 GM TUBE TP SCH (08:47)
[2023-07-24] MEDS ORDERED: LIDOCAINE 1%-EPI 1:100,000 50 ML VIAL IJ ONE (11:30)
[2023-07-24 12:00] VITALS: BP 91/57; TEMP 99.2; O2SAT 99
[2023-07-24] MEDS: MEROPENEM 1 G in IV NS 0.9% 100 ML IV SCH (12:51)
[2023-07-24] MEDS: EPOETIN ALFA-EPBX 4,000 UNIT/ML VIAL SQ SCH (14:12)
[2023-07-24 16:00] VITALS: BP 102/61; TEMP 99.2; O2SAT 100
[2023-07-24] MEDS: ARGININE/GLUTAMINE/CALCIUM BMB 1 EACH POWD.PACK GT SCH (16:19)
[2023-07-24] MEDS: GLUCERNA 1.2 1,000 ML BOTTLE GT PRN (16:27)
[2023-07-24] MEDS: FERROUS SULFATE UDC 300 MG/5 ML UDC GT SCH (17:43)
[2023-07-24 20:00] VITALS: BP 103/64; TEMP 99.3; O2SAT 99
[2023-07-24] MEDS: ATORVASTATIN 10 MG TABLET GT SCH (21:04)
[2023-07-24] MEDS: ENOXAPARIN SODIUM 40 MG/0.4 ML DISP.SYRIN SQ SCH (21:08)
[2023-07-24] MEDS: IV NS 0.9% 1,000 ML IV PRN (22:04)
[2023-07-24] MEDS: ACETAMINOPHEN 650 MG/20.3 ML UDC GT PRN (23:23)
[2023-07-25] VITALS: BP 100/60; TEMP 99; O2SAT 99
[2023-07-25] MEDS: MEROPENEM 1 G in IV NS 0.9% 100 ML IV SCH ×2 (01:24→13:06)
[2023-07-25] MEDS: ALBUTEROL FS 2.5 MG/0.5 ML VIAL.NEB IH SCH ×4 (01:36→20:17)
[2023-07-25 04:00] VITALS: BP 93/56; TEMP 99.3; O2SAT 100
[2023-07-25] MEDS: VANCOMYCIN 0.75 GM in IV D5W 250 ML IV SCH ×2 (05:16→17:28)
[2023-07-25 06:32] LABS: CREATININE 0.7 mg/dL (0.6-1.3); POTASSIUM 3.9 mmol/L (3.5-5.1)
[2023-07-25 08:00] VITALS: BP 148/70; TEMP 98.8; O2SAT 100
[2023-07-25] MEDS: CHLORHEXIDINE GLUCONATE 15 ML UDC MM SCH ×2 (08:54→21:16)
[2023-07-25] MEDS: DOCUSATE SODIUM LIQ 100 MG/10 ML UDC GT SCH ×2 (08:55→17:27)
[2023-07-25] MEDS: CYANOCOBALAMIN 500 MCG TABLET GT SCH (08:55)
[2023-07-25] MEDS: MULTIVITAMINS,THERAGRAN 1 UDTAB TABLET GT SCH (08:55)
[2023-07-25] MEDS: FAMOTIDINE (20 MG) 20 MG TABLET GT SCH (08:55)
[2023-07-25] MEDS: CHOLECALCIFEROL 1,000 UNIT TABLET (VIT D3) GT SCH (08:55)
[2023-07-25] MEDS: CLOPIDOGREL BISULFATE 75 MG TABLET GT SCH (08:56)
[2023-07-25] MEDS: FINASTERIDE (5 MG) 5 MG TABLET GT SCH (08:56)
[2023-07-25] MEDS: PROSOURCE / PROSTAT (PYXIS) 30 ML UDC GT SCH (08:56)
[2023-07-25] MEDS: DAKINS QUARTER STRENGTH (0.125%) 480 ML BOTTLE TOP SCH (08:58)
[2023-07-25] MEDS: CADEXOMER IODINE 40 GM TUBE TP SCH (08:58)
[2023-07-25] MEDS: ARGININE/GLUTAMINE/CALCIUM BMB 1 EACH POWD.PACK GT SCH ×2 (08:59→17:28)
[2023-07-25 12:00] VITALS: BP 156/60; TEMP 98.6; O2SAT 100
[2023-07-25 16:00] VITALS: BP 145/64; TEMP 99.1; O2SAT 100
[2023-07-25] MEDS: FERROUS SULFATE UDC 300 MG/5 ML UDC GT SCH (17:28)
[2023-07-25 20:00] VITALS: BP 122/42; TEMP 98; O2SAT 100
[2023-07-25] MEDS: ENOXAPARIN SODIUM 40 MG/0.4 ML DISP.SYRIN SQ SCH (21:19)
[2023-07-25] MEDS: ATORVASTATIN 10 MG TABLET GT SCH (21:24)
[2023-07-26] VITALS (7 sets, daily range): BP systolic 78–135; BP diastolic 48–68; TEMP 98.1–100.6; O2SAT 100
[2023-07-26] MEDS: ALBUTEROL FS 2.5 MG/0.5 ML VIAL.NEB IH SCH ×4 (01:30→20:58)
[2023-07-26] MEDS: MEROPENEM 1 G in IV NS 0.9% 100 ML IV SCH ×2 (01:31→12:24)
[2023-07-26] MEDS: VANCOMYCIN 0.75 GM in IV D5W 250 ML IV SCH ×2 (05:34→17:41)
[2023-07-26 07:40] LABS: BASOPHILS % (AUTO) 0.2 % (0.0-2.0); EOSINOPHILS # (AUTO) 0.5 K/uL (0.0-0.7); HEMATOCRIT 24 % (39-51); HEMOGLOBIN 7.4 g/dL (13.5-17.5); LYMPHOCYTES # (AUTO) 1.1 K/uL (0.8-4.8); LYMPHOCYTES % (AUTO) 14.1 % (20.0-44.0); MEAN CORPUSCULAR HEMOGLOBIN 24 PG (26.0-33.0); MEAN CORPUSCULAR HGB CONC 30 g/dl (31.0-36.0); MEAN CORPUSCULAR VOLUME 77 fL (80-96); MONOCYTES # (AUTO) 0.7 K/uL (0.1-1.30); MONOCYTES % (AUTO) 8.5 % (2.0-12.0); NEUTROPHILS # (AUTO) 5.7 K/uL (1.8-8.9); NEUTROPHILS % (AUTO) 71.2 % (43.0-81.0); PLATELET COUNT (AUTO) 346 K/uL (150-450); RED BLOOD CELL COUNT(AUTO) 3.14 MIL/uL (4.5-6.0); RED CELL DISTRIBUTION WIDTH 18.9 % (11.5-15.0)
[2023-07-26 07:55] LABS: CALCIUM, SERUM 8.3 mg/dL (8.5-10.1); CREATININE 0.7 mg/dL (0.6-1.3); POTASSIUM 3.9 mmol/L (3.5-5.1)
[2023-07-26 08:38] LABS: FREE PSA 34.23 ng/mL (0.00-45); THYROID STIMULATING HORMONE 1.236 uIU/mL (0.358-3.74)
[2023-07-26 08:41] LABS: C-REACTIVE PROTEIN 4.4 mg/dL (0.0-0.30)
[2023-07-26] MEDS: CHLORHEXIDINE GLUCONATE 15 ML UDC MM SCH ×2 (09:21→20:44)
[2023-07-26] MEDS: CYANOCOBALAMIN 500 MCG TABLET GT SCH (09:21)
[2023-07-26] MEDS: MULTIVITAMINS,THERAGRAN 1 UDTAB TABLET GT SCH (09:21)
[2023-07-26] MEDS: CHOLECALCIFEROL 1,000 UNIT TABLET (VIT D3) GT SCH (09:22)
[2023-07-26] MEDS: FAMOTIDINE (20 MG) 20 MG TABLET GT SCH (09:22)
[2023-07-26] MEDS: CLOPIDOGREL BISULFATE 75 MG TABLET GT SCH (09:22)
[2023-07-26] MEDS: FINASTERIDE (5 MG) 5 MG TABLET GT SCH (09:22)
[2023-07-26] MEDS: DOCUSATE SODIUM LIQ 100 MG/10 ML UDC GT SCH ×2 (09:22→17:40)
[2023-07-26] MEDS: DAKINS QUARTER STRENGTH (0.125%) 480 ML BOTTLE TOP SCH (09:24)
[2023-07-26] MEDS: ARGININE/GLUTAMINE/CALCIUM BMB 1 EACH POWD.PACK GT SCH ×2 (09:24→16:58)
[2023-07-26] MEDS: PROSOURCE / PROSTAT (PYXIS) 30 ML UDC GT SCH (09:24)
[2023-07-26] MEDS: CADEXOMER IODINE 40 GM TUBE TP SCH (09:25)
[2023-07-26 09:30] LABS: RHEUMATOID FACTOR SCREEN NEGATIVE (NEGATIVE)
[2023-07-26] MEDS: SOD FERRIC GLUC 125 MG in IV NS 0.9% 100 ML IV SCH (16:07)
[2023-07-26] MEDS: GLUCERNA 1.2 1,000 ML BOTTLE GT PRN (16:57)
[2023-07-26] MEDS: FERROUS SULFATE UDC 300 MG/5 ML UDC GT SCH (17:40)
[2023-07-26] MEDS: ENOXAPARIN SODIUM 40 MG/0.4 ML DISP.SYRIN SQ SCH (20:44)
[2023-07-26] MEDS: ATORVASTATIN 10 MG TABLET GT SCH (22:07)
[2023-07-26] MEDS: ACETAMINOPHEN 650 MG/20.3 ML UDC GT PRN (22:13)
[2023-07-27] MEDS: MEROPENEM 1 G in IV NS 0.9% 100 ML IV SCH ×2 (00:13→12:05)
[2023-07-27 01:16] VITALS: BP 91/56; TEMP 99.3; O2SAT 100
[2023-07-27] MEDS: GLUCERNA 1.2 1,000 ML BOTTLE GT PRN (01:55)
[2023-07-27] MEDS: ALBUTEROL FS 2.5 MG/0.5 ML VIAL.NEB IH SCH ×3 (02:04→13:26)
[2023-07-27 04:45] VITALS: BP 99/48; TEMP 98.2; O2SAT 100
[2023-07-27 07:05] LABS: BASOPHILS % (AUTO) 0.2 % (0.0-2.0); EOSINOPHILS # (AUTO) 0.8 K/uL (0.0-0.7); EOSINOPHILS % (AUTO) 7.8 % (0.0-6.0); HEMATOCRIT 24 % (39-51); HEMOGLOBIN 7.3 g/dL (13.5-17.5); LYMPHOCYTES # (AUTO) 1.6 K/uL (0.8-4.8); LYMPHOCYTES % (AUTO) 14.9 % (20.0-44.0); MEAN CORPUSCULAR HEMOGLOBIN 24 PG (26.0-33.0); MEAN CORPUSCULAR HGB CONC 30 g/dl (31.0-36.0); MEAN CORPUSCULAR VOLUME 78 fL (80-96); MONOCYTES # (AUTO) 0.9 K/uL (0.1-1.30); MONOCYTES % (AUTO) 8.2 % (2.0-12.0); NEUTROPHILS # (AUTO) 7.3 K/uL (1.8-8.9); NEUTROPHILS % (AUTO) 68.9 % (43.0-81.0); PLATELET COUNT (AUTO) 327 K/uL (150-450); RED BLOOD CELL COUNT(AUTO) 3.08 MIL/uL (4.5-6.0); RED CELL DISTRIBUTION WIDTH 18.9 % (11.5-15.0); WHITE BLOOD COUNT (AUTO) 10.6 K/uL (4.3-11.0)
[2023-07-27 07:30] LABS: CALCIUM, SERUM 8.1 mg/dL (8.5-10.1); CREATININE 0.6 mg/dL (0.6-1.3); MAGNESIUM 2.1 mg/dL (1.8-2.4); PHOSPHORUS 2.2 mg/dL (2.5-4.9); POTASSIUM 3.5 mmol/L (3.5-5.1)
[2023-07-27 08:00] VITALS: BP 90/66; TEMP 98.8; O2SAT 100
[2023-07-27] MEDS: FAMOTIDINE (20 MG) 20 MG TABLET GT SCH (09:03)
[2023-07-27] MEDS: FINASTERIDE (5 MG) 5 MG TABLET GT SCH (09:03)
[2023-07-27] MEDS: CHOLECALCIFEROL 1,000 UNIT TABLET (VIT D3) GT SCH (09:03)
[2023-07-27] MEDS: DOCUSATE SODIUM LIQ 100 MG/10 ML UDC GT SCH ×2 (09:03→16:17)
[2023-07-27] MEDS: CLOPIDOGREL BISULFATE 75 MG TABLET GT SCH (09:03)
[2023-07-27] MEDS: CYANOCOBALAMIN 500 MCG TABLET GT SCH (09:03)
[2023-07-27] MEDS: CHLORHEXIDINE GLUCONATE 15 ML UDC MM SCH (09:03)
[2023-07-27] MEDS: MULTIVITAMINS,THERAGRAN 1 UDTAB TABLET GT SCH (09:03)
[2023-07-27] MEDS: ARGININE/GLUTAMINE/CALCIUM BMB 1 EACH POWD.PACK GT SCH ×2 (09:04→16:55)
[2023-07-27] MEDS: PROSOURCE / PROSTAT (PYXIS) 30 ML UDC GT SCH (09:04)
[2023-07-27] MEDS: DAKINS QUARTER STRENGTH (0.125%) 480 ML BOTTLE TOP SCH (09:36)
[2023-07-27] MEDS: CADEXOMER IODINE 40 GM TUBE TP SCH (09:36)
[2023-07-27] MEDS ORDERED: MERO1PIG IV (12:27)
[2023-07-27] MEDS ORDERED: VANC1VIA34 XX (12:27)
[2023-07-27] MEDS ORDERED: GLUCERNA 1.2 1,000 ML BOTTLE GT PRN (13:00)
[2023-07-27] MEDS ORDERED: IV NS 0.9% 250 ML IV ONE (15:42)
[2023-07-27] MEDS ORDERED: IOHEXOL-300 100 ML VIAL IV ONE (15:42)
[2023-07-27] MEDS ORDERED: NEUTRA PHOS 1 POWD.PACKET NG ONE (16:00)
[2023-07-27] MEDS: EPOETIN ALFA-EPBX 4,000 UNIT/ML VIAL SQ SCH (16:17)
[2023-07-27] MEDS: SOD FERRIC GLUC 125 MG in IV NS 0.9% 100 ML IV SCH (16:55)
[2023-07-27] MEDS ORDERED: VANCOMYCIN 1.25 GM in IV D5W 250 ML IV SCH (18:00)
[2023-07-28 01:06] LABS: FOLIC ACID 17.3 ng/mL (>3.0)
[2023-07-28 02:08] LABS: IMMUNOGLOBULIN A, SERUM 597 mg/dL (61-437); IMMUNOGLOBULIN G, SERUM 2210 mg/dL (603-1613); IMMUNOGLOBULIN M, SERUM 85 mg/dL (15-143)
[2023-07-28 13:09] LABS: *ANA ANTI-CENTROMERE B AB <0.2 AI (0.0-0.9); *ANA ANTI-DNA(DS) AB, QN 1 IU/mL (0-9); *ANA ANTI-JO-1 <0.2 AI (0.0-0.9); *ANA ANTICHROMATIN ANTIBODY <0.2 AI (0.0-0.9); *ANA SJOGREN'S ANTI-SS-A <0.2 AI (0.0-0.9); *ANA SJOGREN'S ANTI-SS-B <0.2 AI (0.0-0.9); *ANAANTI-SCLERODERMA-70 AB <0.2 AI (0.0-0.9); *ANASMITH AB <0.2 AI (0.0-0.9)
[2023-07-28 16:08] LABS: *SPE A/G RATIO 0.4 (0.7-1.7); *SPE ALBUMIN 1.7 g/dL (2.9-4.4); *SPE ALPHA-1-GLOBULIN 0.3 g/dL (0.0-0.4); *SPE ALPHA-2-GLOBULIN 0.9 g/dL (0.4-1.0); *SPE BETA GLOBULIN 0.9 g/dL (0.7-1.3); *SPE GLOBULIN, TOTAL 4.3 g/dL (2.2-3.9); *SPE M-SPIKE Not Observed g/dL (Not Observed); *SPEGAMMA GLOBULIN 2.3 g/dL (0.4-1.8)
[2023-07-29 07:07] LABS: FREE KAPPA LT CHAINS SERUM 120.8 mg/L (3.3-19.4); FREE LAMBDA LT CHAIN SERUM 126.2 mg/L (5.7-26.3); KAPPA/LAMBDA RATIO SERUM 0.96 (0.26-1.65)
== END 2023-07-27 17:16 | DRG 853 ==
LOC: ER 16:14 → TELE1 20:22
PROVIDERS: ADMIT Nurse Practitioner Acute Care; ATTEND Nurse Practitioner Acute Care
PROC: 5A1955Z Respiratory Ventilation, Greater than 96 Consecutive Hours (ICD-10-PCS; principal; 2023-07-22)
PROC: 0KBN0ZZ Excision of Right Hip Muscle, Open Approach (ICD-10-PCS; 2023-07-24)
PROC: 0KBP0ZZ Excision of Left Hip Muscle, Open Approach (ICD-10-PCS; 2023-07-24)
PROC: 05HA33Z Insertion of Infusion Device into Left Brachial Vein, Percutaneous Approach (ICD-10-PCS; 2023-07-26)
DX: A41.9 Sepsis, unspecified organism (principal); E43 Unspecified severe protein-calorie malnutrition; L89.154 Pressure ulcer of sacral region, stage 4; L89.523 Pressure ulcer of left ankle, stage 3; G93.41 Metabolic encephalopathy; R53.2 Functional quadriplegia; D68.59 Other primary thrombophilia; J96.10 Chronic respiratory failure, unspecified whether with hypoxia or hypercapnia; C79.51 Secondary malignant neoplasm of bone; I13.0 Hypertensive heart and chronic kidney disease with heart failure and stage 1 through stage 4 chronic kidney disease, or unspecified chronic kidney disease; I50.32 Chronic diastolic (congestive) heart failure; I69.351 Hemiplegia and hemiparesis following cerebral infarction affecting right dominant side; Z99.11 Dependence on respirator [ventilator] status; I48.20 Chronic atrial fibrillation, unspecified; J98.11 Atelectasis; N39.0 Urinary tract infection, site not specified; M46.28 Osteomyelitis of vertebra, sacral and sacrococcygeal region; Z16.24 Resistance to multiple antibiotics; J90 Pleural effusion, not elsewhere classified; R65.20 Severe sepsis without septic shock; Z20.822 Contact with and (suspected) exposure to COVID-19; C61 Malignant neoplasm of prostate; C44.320 Squamous cell carcinoma of skin of unspecified parts of face; E78.5 Hyperlipidemia, unspecified; N18.9 Chronic kidney disease, unspecified; I48.91 Unspecified atrial fibrillation; Z95.0 Presence of cardiac pacemaker; F03.90 Unspecified dementia, unspecified severity, without behavioral disturbance, psychotic disturbance, mood disturbance, and anxiety; F20.9 Schizophrenia, unspecified; F09 Unspecified mental disorder due to known physiological condition; E88.09 Other disorders of plasma-protein metabolism, not elsewhere classified; R42 Dizziness and giddiness; R13.10 Dysphagia, unspecified; Z93.0 Tracheostomy status; Z93.1 Gastrostomy status; N40.0 Benign prostatic hyperplasia without lower urinary tract symptoms; K40.90 Unilateral inguinal hernia, without obstruction or gangrene, not specified as recurrent; R26.9 Unspecified abnormalities of gait and mobility; K21.9 Gastro-esophageal reflux disease without esophagitis; Z79.899 Other long term (current) drug therapy; Z79.51 Long term (current) use of inhaled steroids; Z79.02 Long term (current) use of antithrombotics/antiplatelets; D50.9 Iron deficiency anemia, unspecified; Z68.30 Body mass index [BMI] 30.0-30.9, adult; I70.0 Atherosclerosis of aorta; M24.561 Contracture, right knee; M24.562 Contracture, left knee; N32.0 Bladder-neck obstruction; E66.9 Obesity, unspecified; F43.10 Post-traumatic stress disorder, unspecified; I25.10 Atherosclerotic heart disease of native coronary artery without angina pectoris; Z87.440 Personal history of urinary (tract) infections; R91.8 Other nonspecific abnormal finding of lung field
CPT/HCPCS: 31720; 36410; 36415; 71045-TC; 71250-TC; 71260-TC; 72192-TC; 78306-TC; 80048-TC; 80053-TC; 80202-TC; 81001; 82248-TC; 82378; 82607-TC; 82728-TC; 82784; 83540-TC; 83605-TC; 83615-TC; 83735-TC; 84100-TC; 84153-TC; 84154-TC; 84155; 84165; 84443-TC; 84484-TC; 85025-TC; 85652-TC; 85730-TC; 86140-TC; 86225; 86235; 86334; 86431-TC; 87040-TC; 87081-TC; 87086-TC; 93971-TC; 94002-TC; 94003-TC; 94760-TC; 94762-TC; 94799-TC; 99082-TC; A4223; A4623; A6253; A6403; A7526; A9503; G0378; J0885; J1650; J2185; J2543; J2916; J3370; J3490; J7030; J7050; J7060; Q9967

== ENCOUNTER 2023-09-13 17:31 | Inpatient (IN) | payer MEDICARE, OTHER ==
[~2023-09-13] VITALS: Ht 175.3 cm; Wt 86.6 kg
[~2023-09-13 17:31] MED LIST changes: +ACET-868 GT; -ACET650S26 GT; +ALBU2.5V13 IH; +ALBU2.5V38 IH; -ALBU6.7H9 IH; +ALLA266C2 TP; -ASCO500T10 GT; +DOCU50LI GT; +EPOE1VIA12 SQ; +MERO1PIG IV; +MULT-447 GT; -NUT.237L30 GT; +NUT.250L18 GT; +POTA20PA3 GT; +SODI473S9 TP; +TRAM50TA2 GT; +VANC1VIA34 XX
[2023-09-13] MEDS ORDERED: ASCO-352 GT (18:35)
[2023-09-13] MEDS ORDERED: COLL30OI TP (18:35)
[2023-09-13] MEDS ORDERED: ALLA266C2 TP (18:35)
[2023-09-13] MEDS ORDERED: POVI3780 TP (18:35)
[2023-09-13] MEDS ORDERED: SOD62.5V IV (18:37)
[2023-09-13 18:55] LABS: APPEARANCE,URINE SLIGHTLY CLOUDY (CLEAR); BILIRUBIN,URINE NEGATIVE (NEGATIVE); BLOOD, URINE 2+ Ery/uL (NEGATIVE); COLOR,URINE YELLOW (YELLOW); KETONES,URINE NEGATIVE (NEGATIVE); LEUKOCYTE ESTERASE ,URINE 3+ (NEGATIVE); NITRITE, URINE NEGATIVE (NEGATIVE); PROTEIN,URINE TRACE mg/dl (NEGATIVE); UGLUCOSE NEGATIVE (NEGATIVE); UROBILINOGEN,URINE 0.2 EU/dL (0.2)
[2023-09-13 19:17] LABS: ADD URINE CULTURE YES; BACTERIA,URINE 2+ /HPF (None Seen); RBC,URINE 21-50 /HPF (0-2); SQUAMOUS EPITHELIAL CELL,UR 0-2 /HPF (None Seen); WBC,URINE 5 /HPF (0-3)
[2023-09-13] MEDS ORDERED: ONDANSETRON HCL/PF 4 MG/2 ML VIAL IVP PRN (19:30)
[2023-09-13] MEDS ORDERED: MAG HYDROX/AL HYDROX/SIMETH 30 ML UDC PO PRN (19:30)
[2023-09-13] MEDS ORDERED: ACETAMINOPHEN 325 MG TABLET PO PRN (19:30)
[2023-09-13] MEDS ORDERED: MAGNESIUM HYDROXIDE 30 ML UDC PO PRN (19:30)
[2023-09-13 19:42] LABS: BASOPHILS % (AUTO) 0.1 % (0.0-2.0); EOSINOPHILS % (AUTO) 0.1 % (0.0-6.0); LYMPHOCYTES # (AUTO) 1.7 K/uL (0.8-4.8); LYMPHOCYTES % (AUTO) 7.2 % (20.0-44.0); MEAN CORPUSCULAR HEMOGLOBIN 23 PG (26.0-33.0); MEAN CORPUSCULAR HGB CONC 29 g/dl (31.0-36.0); MEAN CORPUSCULAR VOLUME 80 fL (80-96); MONOCYTES # (AUTO) 1.7 K/uL (0.1-1.30); MONOCYTES % (AUTO) 7.3 % (2.0-12.0); NEUTROPHILS # (AUTO) 20.2 K/uL (1.8-8.9); NEUTROPHILS % (AUTO) 85.3 % (43.0-81.0); PLATELET COUNT (AUTO) 466 K/uL (150-450); RED BLOOD CELL COUNT(AUTO) 2.43 MIL/uL (4.5-6.0); RED CELL DISTRIBUTION WIDTH 19.3 % (11.5-15.0); WHITE BLOOD COUNT (AUTO) 23.7 K/uL (4.3-11.0)
[2023-09-13 19:56] LABS: CALCIUM, SERUM 8.4 mg/dL (8.5-10.1); CARBON DIOXIDE 27 mmol/L (21-32); CHLORIDE 101 mmol/L (98-107); CREATININE 1.4 mg/dL (0.6-1.3); GLUCOSE 146 mg/dL (74-106); POTASSIUM 5.2 mmol/L (3.5-5.1); SODIUM SERUM 136 mmol/L (136-145); UREA NITROGEN, BLOOD 47 mg/dL (7-18)
[2023-09-13 19:57] LABS: SERUM AMMONIA 22 umol/L (11-32)
[2023-09-13 19:59] LABS: LACTIC ACID 4.7 mmol/L (0.4-2.0)
[2023-09-13 20:02] LABS: ALANINE AMINOTRANSFERASE 17 U/L (12-78); ALKALINE PHOSPHATASE 126 U/L (46-116); ASPARTATE AMINOTRANSFERASE 21 U/L (15-37); BILIRUBIN,DIRECT 0.2 mg/dL (0.0-0.2); BILIRUBIN,TOTAL 0.4 mg/dL (0.2-1.0); TOTAL PROTEIN, SERUM 6.9 g/dL (6.4-8.2)
[2023-09-13 20:08] LABS: HEMOGLOBIN 5.7 g/dL (13.5-17.5)
[2023-09-13 20:09] LABS: HEMATOCRIT 19 % (39-51); INR 1.37 (0.91-1.10); PARTIAL THROMBOPLASTIN TIME 30.8 SEC (24.3-34.3); PROTHROMBIN TIME 14.2 SECS (9.2-11.1)
[2023-09-13 20:10] LABS: THYROID STIMULATING HORMONE 2.879 uIU/mL (0.358-3.74)
[2023-09-13] MEDS ORDERED: ALBUMIN 25% 50 ML IV ONE ×2 (20:11→20:24)
[2023-09-13] MEDS ORDERED: CEFTRIAXONE 1GM BAG (ER ONLY) 50 ML IV ONE (20:12)
[2023-09-13 20:21] LABS: BAND % (MANUAL) 4 % (0.0-5.0); EOSINOPHILS % (MANUAL) 1 % (0-4); LYMPHOCYTES % (MANUAL) 6 % (16-48); METAMYELOCYTES % 1 % (0-0); MONOCYTES % (MANUAL) 4 % (0-11.0); NEUTROPHILS % (MANUAL) 84 (42-76)
[2023-09-13 20:22] LABS: ANISOCYTOSIS 1+; PLATELET ESTIMATE INCREASED; ROULEAUX 1+
[2023-09-13] MEDS: CEFTRIAXONE 1GM BAG (ER ONLY) 1 GM/50 ML PIGGYBACK IV ONE (20:47)
[2023-09-13] MEDS: IV NS 0.9% 1,000 ML BAG IV ONE ×2 (20:48)
[2023-09-13] MEDS: ALBUMIN 25% 12.5 GM/50 ML BOTTLE IV ONE (20:48)
[2023-09-13 22:30] VITALS: BP 95/62; TEMP 97.3; O2SAT 100
[2023-09-13] MEDS ORDERED: CEFEPIME 1 GM VIAL ONE (22:45)
[2023-09-13] MEDS: IV NS 0.9% 1,000 ML IV SCH (23:13)
[2023-09-13] MEDS: CEFEPIME 2 GM in IV D5W 100 ML IV SCH (23:23)
[2023-09-14] VITALS (57 sets, daily range): BP systolic 77–163; BP diastolic 40–77; TEMP 97.3–99.2; O2SAT 96–100
[2023-09-14] MEDS: IV NS 0.9% 500 ML IV ONE (00:40)
[2023-09-14] MEDS ORDERED: MAG HYDROX/AL HYDROX/SIMETH 30 ML UDC GT PRN (05:00)
[2023-09-14] MEDS ORDERED: MAGNESIUM HYDROXIDE 30 ML UDC GT PRN (05:00)
[2023-09-14 07:29] LABS: BASOPHILS % (AUTO) 0.1 % (0.0-2.0); EOSINOPHILS # (AUTO) 0.1 K/uL (0.0-0.7); EOSINOPHILS % (AUTO) 0.7 % (0.0-6.0); LYMPHOCYTES # (AUTO) 0.9 K/uL (0.8-4.8); LYMPHOCYTES % (AUTO) 6.7 % (20.0-44.0); MEAN CORPUSCULAR HEMOGLOBIN 24 PG (26.0-33.0); MEAN CORPUSCULAR HGB CONC 31 g/dl (31.0-36.0); MEAN CORPUSCULAR VOLUME 80 fL (80-96); MONOCYTES # (AUTO) 0.9 K/uL (0.1-1.30); MONOCYTES % (AUTO) 6.5 % (2.0-12.0); NEUTROPHILS # (AUTO) 11.4 K/uL (1.8-8.9); PLATELET COUNT (AUTO) 338 K/uL (150-450); RED CELL DISTRIBUTION WIDTH 19.5 % (11.5-15.0); WHITE BLOOD COUNT (AUTO) 13.2 K/uL (4.3-11.0)
[2023-09-14 07:31] LABS: RED BLOOD CELL COUNT(AUTO) 1.84 MIL/uL (4.5-6.0)
[2023-09-14 07:33] LABS: HEMATOCRIT 15 % (39-51); HEMOGLOBIN 4.5 g/dL (13.5-17.5)
[2023-09-14 08:41] LABS: CALCIUM, SERUM 7.9 mg/dL (8.5-10.1); CREATININE 0.9 mg/dL (0.6-1.3); MAGNESIUM 2.2 mg/dL (1.8-2.4); PHOSPHORUS 4.3 mg/dL (2.5-4.9); POTASSIUM 3.8 mmol/L (3.5-5.1)
[2023-09-14 08:47] LABS: ANISOCYTOSIS 1+; BAND % (MANUAL) 3 % (0.0-5.0); BASOPHILS % (MANUAL) 0 % (0.0-2.0); EOSINOPHILS % (MANUAL) 1 % (0-4); HYPOCHROMASIA 2+; LYMPHOCYTES % (MANUAL) 5 % (16-48); MONOCYTES % (MANUAL) 5 % (0-11.0); NEUTROPHILS % (MANUAL) 86 (42-76); PLATELET ESTIMATE ADEQUATE
[2023-09-14] MEDS: DOCUSATE SODIUM LIQ 100 MG/10 ML UDC GT SCH (08:51)
[2023-09-14] MEDS: HYDROCORTISONE SOD SUCCINATE 100 MG/2 ML VIAL IV SCH (09:00)
[2023-09-14 10:27] LABS: THYROID STIMULATING HORMONE 2.181 uIU/mL (0.358-3.74)
[2023-09-14] MEDS: NOREPINEPHRINE 8 MG in IV D5W 242 ML IV PRN (11:25)
[2023-09-14 12:07] LABS: OCCULT BLOOD STOOL NEGATIVE (NEGATIVE)
[2023-09-14] MEDS: DAKINS QUARTER STRENGTH (0.125%) 480 ML BOTTLE TOP SCH (12:58)
[2023-09-14] MEDS: CEFEPIME 1 GM in IV D5W 50 ML IV SCH (13:35)
[2023-09-14] MEDS: IV NS 0.9% 1,000 ML IV PRN (16:01)
[2023-09-14 17:19] LABS: APPEARANCE,URINE CLOUDY (CLEAR); BILIRUBIN,URINE NEGATIVE (NEGATIVE); BLOOD, URINE 2+ Ery/uL (NEGATIVE); COLOR,URINE YELLOW (YELLOW); KETONES,URINE TRACE mg/dL (NEGATIVE); LEUKOCYTE ESTERASE ,URINE 3+ (NEGATIVE); NITRITE, URINE POSITIVE (NEGATIVE); PH,URINE 5.5 (5.0-8.0); PROTEIN,URINE TRACE mg/dl (NEGATIVE); UGLUCOSE NEGATIVE (NEGATIVE); UROBILINOGEN,URINE 0.2 EU/dL (0.2)
[2023-09-14 17:28] LABS: CREATININE, URINE 61.5 MG/DL (30.0-125.0); URINE TOTAL PROTEIN 36.6 mg/dL (0-11.9)
[2023-09-14 18:14] LABS: HEMOGLOBIN 6.5 g/dL (13.5-17.5)
[2023-09-14 18:15] LABS: RBC,URINE 21-50 /HPF (0-2); WBC,URINE 51-80 /HPF (0-3)
[2023-09-14 18:16] LABS: ADD URINE CULTURE YES; BACTERIA,URINE 3+ /HPF (None Seen); SQUAMOUS EPITHELIAL CELL,UR 0-2 /HPF (None Seen)
[2023-09-14 18:17] LABS: EOSINOPHIL,URINE None Seen
[2023-09-15] VITALS (76 sets, daily range): BP systolic 75–128; BP diastolic 44–97; TEMP 98–99.4; O2SAT 89–100
[2023-09-15 04:20] LABS: HEMATOCRIT 23 % (39-51); HEMOGLOBIN 7.5 g/dL (13.5-17.5); LYMPHOCYTES # (AUTO) 0.6 K/uL (0.8-4.8); LYMPHOCYTES % (AUTO) 5.8 % (20.0-44.0); MEAN CORPUSCULAR HEMOGLOBIN 27 PG (26.0-33.0); MEAN CORPUSCULAR HGB CONC 33 g/dl (31.0-36.0); MEAN CORPUSCULAR VOLUME 83 fL (80-96); MONOCYTES # (AUTO) 0.4 K/uL (0.1-1.30); MONOCYTES % (AUTO) 3.7 % (2.0-12.0); NEUTROPHILS # (AUTO) 9.1 K/uL (1.8-8.9); NEUTROPHILS % (AUTO) 90.5 % (43.0-81.0); PLATELET COUNT (AUTO) 299 K/uL (150-450); RED BLOOD CELL COUNT(AUTO) 2.78 MIL/uL (4.5-6.0); RED CELL DISTRIBUTION WIDTH 18.5 % (11.5-15.0); WHITE BLOOD COUNT (AUTO) 10.1 K/uL (4.3-11.0)
[2023-09-15 04:42] LABS: BILIRUBIN,TOTAL 0.4 mg/dL (0.2-1.0); CREATININE 0.6 mg/dL (0.6-1.3); MAGNESIUM 2.4 mg/dL (1.8-2.4); PHOSPHORUS 4.3 mg/dL (2.5-4.9); TOTAL PROTEIN, SERUM 5.9 g/dL (6.4-8.2)
[2023-09-15 05:14] LABS: ALBUMIN 1.1 g/dL (3.4-5.0)
[2023-09-15] MEDS: POTASSIUM CL. PREMIX PERIPHER. 50 ML IV SCH (08:51)
[2023-09-15] MEDS: SOD FERRIC GLUC 125 MG in IV NS 0.9% 100 ML IV SCH (14:32)
[2023-09-15] MEDS: Z GUARD REMEDY 4 OZ OINT TP PRN (14:33)
[2023-09-15] MEDS: ACETYLCYSTEINE 10% SOLN 400 MG/4 ML VIAL NEB SCH (15:34)
[2023-09-15] MEDS: GLUCERNA 1.2 1,000 ML BOTTLE NG PRN (17:39)
[2023-09-15] MEDS: PROSOURCE / PROSTAT (PYXIS) 30 ML UDC GT SCH (17:40)
[2023-09-15] MEDS ORDERED: DEXTROSE 50%-WATER 50 ML DISP.SYRIN IV PRN (18:30)
[2023-09-15] MEDS: IPRATROPIUM NEB FS 0.5 MG/2.5 ML AMPUL.NEB NEB SCH (20:00)
[2023-09-15] MEDS: IVERMECTIN 3 MG TABLET PO ONE (21:05)
[2023-09-15] MEDS: PERMETHRIN 5% CRM 60 GM TUBE TP ONE (21:05)
[2023-09-15] MEDS: ACETAMINOPHEN 650 MG/20.3 ML UDC GT PRN (21:47)
[2023-09-16] VITALS (81 sets, daily range): BP systolic 94–131; BP diastolic 51–82; TEMP 97.6–100.2; O2SAT 97–100
[2023-09-16] MEDS: BLOOD SUGAR DIAGNOSTIC 1 EACH STRIP IN SCH (01:27)
[2023-09-16] MEDS: INSULIN REGULAR, HUMAN 100 UNIT/ML 3 ML VIAL SQ PRN (01:27)
[2023-09-16 04:07] LABS: PTH, INTACT 18 pg/mL (15-65)
[2023-09-16 04:34] LABS: HEMATOCRIT 27 % (39-51); HEMOGLOBIN 8.3 g/dL (13.5-17.5); LYMPHOCYTES # (AUTO) 0.9 K/uL (0.8-4.8); LYMPHOCYTES % (AUTO) 6.2 % (20.0-44.0); MEAN CORPUSCULAR HEMOGLOBIN 27 PG (26.0-33.0); MEAN CORPUSCULAR HGB CONC 31 g/dl (31.0-36.0); MEAN CORPUSCULAR VOLUME 85 fL (80-96); MONOCYTES # (AUTO) 0.7 K/uL (0.1-1.30); MONOCYTES % (AUTO) 4.7 % (2.0-12.0); NEUTROPHILS # (AUTO) 13.1 K/uL (1.8-8.9); NEUTROPHILS % (AUTO) 89.1 % (43.0-81.0); PLATELET COUNT (AUTO) 406 K/uL (150-450); RED BLOOD CELL COUNT(AUTO) 3.12 MIL/uL (4.5-6.0); RED CELL DISTRIBUTION WIDTH 19.5 % (11.5-15.0); WHITE BLOOD COUNT (AUTO) 14.7 K/uL (4.3-11.0)
[2023-09-16 04:39] LABS: CALCIUM, SERUM 7.9 mg/dL (8.5-10.1); CREATININE 0.9 mg/dL (0.6-1.3); MAGNESIUM 2.3 mg/dL (1.8-2.4); PHOSPHORUS 3.5 mg/dL (2.5-4.9); POTASSIUM 3.3 mmol/L (3.5-5.1)
[2023-09-16] MEDS: IV NS 0.9% 1,000 ML IV SCH (08:52)
[2023-09-16] MEDS: POTASSIUM CL. PREMIX PERIPHER. 50 ML IV SCH (10:49)
[2023-09-17] VITALS (26 sets, daily range): BP systolic 96–131; BP diastolic 53–80; TEMP 97.8–98.6; O2SAT 95–100
[2023-09-17 03:11] LABS: *SPE A/G RATIO 0.4 (0.7-1.7); *SPE ALBUMIN 1.4 g/dL (2.9-4.4); *SPE ALPHA-1-GLOBULIN 0.4 g/dL (0.0-0.4); *SPE ALPHA-2-GLOBULIN 0.7 g/dL (0.4-1.0); *SPE BETA GLOBULIN 0.8 g/dL (0.7-1.3); *SPE M-SPIKE Not Observed g/dL (Not Observed); *SPE PROTEIN TOTAL 5.4 g/dL (6.0-8.5); *SPEGAMMA GLOBULIN 2.1 g/dL (0.4-1.8)
[2023-09-17] MEDS ORDERED: SILVER NITRATE APPLICATOR 1 EA BOX TP SCH (07:00)
[2023-09-17] MEDS: LIDOCAINE 1%-EPI 1:100,000 50 ML VIAL IJ ONE (07:00)
[2023-09-17] MEDS: THERAHONEY GEL 1.5 OZ TUBE TP SCH (09:04)
[2023-09-17 09:13] LABS: BASOPHILS % (AUTO) 0.4 % (0.0-2.0); HEMATOCRIT 24 % (39-51); HEMOGLOBIN 7.4 g/dL (13.5-17.5); LYMPHOCYTES # (AUTO) 0.5 K/uL (0.8-4.8); LYMPHOCYTES % (AUTO) 5.8 % (20.0-44.0); MEAN CORPUSCULAR HEMOGLOBIN 27 PG (26.0-33.0); MEAN CORPUSCULAR HGB CONC 31 g/dl (31.0-36.0); MEAN CORPUSCULAR VOLUME 86 fL (80-96); MONOCYTES # (AUTO) 0.4 K/uL (0.1-1.30); MONOCYTES % (AUTO) 4.7 % (2.0-12.0); NEUTROPHILS # (AUTO) 7.9 K/uL (1.8-8.9); NEUTROPHILS % (AUTO) 89.1 % (43.0-81.0); PLATELET COUNT (AUTO) 276 K/uL (150-450); RED BLOOD CELL COUNT(AUTO) 2.77 MIL/uL (4.5-6.0); WHITE BLOOD COUNT (AUTO) 8.9 K/uL (4.3-11.0)
[2023-09-17 09:27] LABS: CALCIUM, SERUM 7.9 mg/dL (8.5-10.1); CARBON DIOXIDE 27 mmol/L (21-32); CHLORIDE 118 mmol/L (98-107); CREATININE 0.5 mg/dL (0.6-1.3); GLUCOSE 137 mg/dL (74-106); POTASSIUM 3.3 mmol/L (3.5-5.1); SODIUM SERUM 150 mmol/L (136-145); UREA NITROGEN, BLOOD 34 mg/dL (7-18)
[2023-09-17] MEDS: IV D5W 1,000 ML IV SCH (10:56)
[2023-09-17] MEDS ORDERED: MEROPENEM 1 G in IV NS 0.9% 100 ML IV SCH (21:30)
[2023-09-17] MEDS: HYDROCORTISONE SOD SUCCINATE 100 MG/2 ML VIAL IV SCH (21:47)
[2023-09-17] MEDS: PANTOPRAZOLE 40 MG VIAL IV SCH (21:47)
[2023-09-17] MEDS: MEROPENEM 1 G in IV NS 0.9% 100 ML IV ONE (22:27)
[2023-09-17] MEDS: MEROPENEM 500MG/NS 50 ML PB IV ONE (22:30)
[2023-09-18] VITALS (9 sets, daily range): BP systolic 93–112; BP diastolic 55–67; TEMP 97.6–98.2; O2SAT 95–100
[2023-09-18 03:04] LABS: HEMATOCRIT 23 % (39-51); HEMOGLOBIN 7.2 g/dL (13.5-17.5); LYMPHOCYTES # (AUTO) 0.6 K/uL (0.8-4.8); MEAN CORPUSCULAR HEMOGLOBIN 27 PG (26.0-33.0); MEAN CORPUSCULAR HGB CONC 32 g/dl (31.0-36.0); MEAN CORPUSCULAR VOLUME 87 fL (80-96); MONOCYTES # (AUTO) 0.5 K/uL (0.1-1.30); MONOCYTES % (AUTO) 4.2 % (2.0-12.0); NEUTROPHILS % (AUTO) 90.8 % (43.0-81.0); PLATELET COUNT (AUTO) 246 K/uL (150-450); RED BLOOD CELL COUNT(AUTO) 2.63 MIL/uL (4.5-6.0); RED CELL DISTRIBUTION WIDTH 19.1 % (11.5-15.0)
[2023-09-18 03:11] LABS: CALCIUM, SERUM 7.8 mg/dL (8.5-10.1); CREATININE 0.6 mg/dL (0.6-1.3); POTASSIUM 2.9 mmol/L (3.5-5.1)
[2023-09-18] MEDS: MEROPENEM 1 G in IV NS 0.9% 100 ML IV SCH (08:57)
[2023-09-18] MEDS: POTASSIUM CL. PREMIX PERIPHER. 50 ML IV SCH (11:01)
[2023-09-19] VITALS (8 sets, daily range): BP systolic 106–144; BP diastolic 55–72; TEMP 98.2–98.4; O2SAT 96–100
[2023-09-19 07:49] LABS: BASOPHILS % (AUTO) 0.1 % (0.0-2.0); HEMATOCRIT 27 % (39-51); HEMOGLOBIN 8.6 g/dL (13.5-17.5); LYMPHOCYTES % (AUTO) 10.7 % (20.0-44.0); MEAN CORPUSCULAR HEMOGLOBIN 28 PG (26.0-33.0); MEAN CORPUSCULAR HGB CONC 32 g/dl (31.0-36.0); MEAN CORPUSCULAR VOLUME 87 fL (80-96); MONOCYTES # (AUTO) 0.4 K/uL (0.1-1.30); MONOCYTES % (AUTO) 3.9 % (2.0-12.0); NEUTROPHILS # (AUTO) 8.2 K/uL (1.8-8.9); NEUTROPHILS % (AUTO) 85.3 % (43.0-81.0); PLATELET COUNT (AUTO) 262 K/uL (150-450); RED BLOOD CELL COUNT(AUTO) 3.11 MIL/uL (4.5-6.0); RED CELL DISTRIBUTION WIDTH 20.1 % (11.5-15.0); WHITE BLOOD COUNT (AUTO) 9.7 K/uL (4.3-11.0)
[2023-09-19 08:11] LABS: INR 1.38 (0.91-1.10); PROTHROMBIN TIME 14.3 SECS (9.2-11.1)
[2023-09-19 08:52] LABS: CALCIUM, SERUM 7.1 mg/dL (8.5-10.1); CARBON DIOXIDE 29 mmol/L (21-32); CHLORIDE 112 mmol/L (98-107); CREATININE 0.5 mg/dL (0.6-1.3); GLUCOSE 150 mg/dL (74-106); POTASSIUM 3.5 mmol/L (3.5-5.1); SODIUM SERUM 143 mmol/L (136-145); UREA NITROGEN, BLOOD 19 mg/dL (7-18)
[2023-09-19] MEDS: IV D5W 1,000 ML IV PRN (17:06)
[2023-09-20] VITALS: BP 116/60; TEMP 97.3; O2SAT 100
[2023-09-20 04:00] VITALS: BP 120/71; TEMP 98.2; O2SAT 100
[2023-09-20 08:00] VITALS: BP 114/63; TEMP 98.2; O2SAT 99
[2023-09-20 08:12] LABS: HEMATOCRIT 26 % (39-51); HEMOGLOBIN 8.2 g/dL (13.5-17.5); LYMPHOCYTES # (AUTO) 0.8 K/uL (0.8-4.8); LYMPHOCYTES % (AUTO) 7.8 % (20.0-44.0); MEAN CORPUSCULAR HEMOGLOBIN 27 PG (26.0-33.0); MEAN CORPUSCULAR HGB CONC 32 g/dl (31.0-36.0); MEAN CORPUSCULAR VOLUME 87 fL (80-96); MONOCYTES # (AUTO) 0.3 K/uL (0.1-1.30); NEUTROPHILS # (AUTO) 9.5 K/uL (1.8-8.9); NEUTROPHILS % (AUTO) 89.2 % (43.0-81.0); PLATELET COUNT (AUTO) 280 K/uL (150-450); RED CELL DISTRIBUTION WIDTH 20.6 % (11.5-15.0); WHITE BLOOD COUNT (AUTO) 10.6 K/uL (4.3-11.0)
[2023-09-20 08:32] LABS: CALCIUM, SERUM 7.4 mg/dL (8.5-10.1); CARBON DIOXIDE 26 mmol/L (21-32); CHLORIDE 109 mmol/L (98-107); CREATININE 0.4 mg/dL (0.6-1.3); GLUCOSE 151 mg/dL (74-106); POTASSIUM 3.1 mmol/L (3.5-5.1); SODIUM SERUM 139 mmol/L (136-145); UREA NITROGEN, BLOOD 14 mg/dL (7-18)
[2023-09-20] MEDS: POTASSIUM CL. PREMIX PERIPHER. 50 ML IV SCH (11:18)
[2023-09-20 12:00] VITALS: BP 112/68; TEMP 98.1; O2SAT 100
[2023-09-20] MEDS ORDERED: MERO1PIG IV (12:14)
[2023-09-20] MEDS ORDERED: ANESTHESIA TRAY IN PYXIS 1 EA TRAY MC ONE (14:47)
[2023-09-20] MEDS ORDERED: SILVER NITRATE APPLICATOR 1 EA BOX ONE (14:48)
[2023-09-20] MEDS ORDERED: LIDOCAINE 1% INJ 50 ML MDV IJ ONE (14:48)
[2023-09-20] MEDS ORDERED: NOREPINEPHRINE 4 MG/4 ML AMPUL IV ONE (15:13)
[2023-09-20] MEDS ORDERED: FENTANYL PF 100MCG/2ML AMPUL ONE (15:13)
[2023-09-20] MEDS ORDERED: VASOPRESSIN INJ 20 UNIT/ML VIAL ONE (15:14)
[2023-09-20 15:32] LABS: INR 1.33 (0.91-1.10); PARTIAL THROMBOPLASTIN TIME 30.5 SEC (24.3-34.3); PROTHROMBIN TIME 13.8 SECS (9.2-11.1)
[2023-09-20 16:00] VITALS: BP 118/79; TEMP 97.4; O2SAT 97
[2023-09-20 20:00] VITALS: BP 114/74; TEMP 97.9; O2SAT 100
[2023-09-21] VITALS: BP 109/68; TEMP 97.5; O2SAT 99
[2023-09-21 04:00] VITALS: BP 94/56; TEMP 97.5; O2SAT 99
[2023-09-21 07:17] LABS: EOSINOPHILS % (AUTO) 0.1 % (0.0-6.0); HEMATOCRIT 28 % (39-51); HEMOGLOBIN 8.8 g/dL (13.5-17.5); LYMPHOCYTES # (AUTO) 0.9 K/uL (0.8-4.8); LYMPHOCYTES % (AUTO) 7.4 % (20.0-44.0); MEAN CORPUSCULAR HEMOGLOBIN 27 PG (26.0-33.0); MEAN CORPUSCULAR HGB CONC 31 g/dl (31.0-36.0); MEAN CORPUSCULAR VOLUME 87 fL (80-96); MONOCYTES # (AUTO) 0.5 K/uL (0.1-1.30); MONOCYTES % (AUTO) 4.2 % (2.0-12.0); NEUTROPHILS % (AUTO) 88.3 % (43.0-81.0); PLATELET COUNT (AUTO) 342 K/uL (150-450); RED BLOOD CELL COUNT(AUTO) 3.28 MIL/uL (4.5-6.0); RED CELL DISTRIBUTION WIDTH 20.9 % (11.5-15.0); WHITE BLOOD COUNT (AUTO) 12.4 K/uL (4.3-11.0)
[2023-09-21 07:27] LABS: CALCIUM, SERUM 7.5 mg/dL (8.5-10.1); CARBON DIOXIDE 22 mmol/L (21-32); CHLORIDE 108 mmol/L (98-107); CREATININE 0.4 mg/dL (0.6-1.3); GLUCOSE 122 mg/dL (74-106); MAGNESIUM 1.9 mg/dL (1.8-2.4); PHOSPHORUS 1.9 mg/dL (2.5-4.9); POTASSIUM 3.6 mmol/L (3.5-5.1); SODIUM SERUM 137 mmol/L (136-145); UREA NITROGEN, BLOOD 11 mg/dL (7-18)
[2023-09-21 08:05] VITALS: BP 107/73; TEMP 98.2; O2SAT 97
[2023-09-21] MEDS: PANTOPRAZOLE 40 MG/PACK PACK GT SCH (09:51)
[2023-09-21 12:00] VITALS: BP 102/72; TEMP 98.4; O2SAT 99
[2023-09-21] MEDS: VANCOMYCIN HCL 1.25 GM in IV D5W 250 ML IV ONE (12:26)
[2023-09-21 16:00] VITALS: BP 92/53; TEMP 98.6; O2SAT 99
[2023-09-21] MEDS: NEUTRA PHOS 1 POWD.PACKET GT ONE (17:26)
[2023-09-21 20:00] VITALS: BP 118/72; TEMP 98.6; O2SAT 100
[2023-09-21] MEDS: PROSOURCE / PROSTAT (PYXIS) 30 ML UDC GT SCH (20:56)
[2023-09-22] VITALS: BP 99/75; TEMP 98.6; O2SAT 100
[2023-09-22] MEDS: VANCOMYCIN HCL 0.75 GM in IV D5W 250 ML IV SCH (00:28)
[2023-09-22 04:00] VITALS: BP 98/64; TEMP 98.4; O2SAT 100
[2023-09-22 08:00] VITALS: BP 92/52; TEMP 98.7; O2SAT 100
[2023-09-22] MEDS: HYDROCORTISONE SOD SUCCINATE 100 MG/2 ML VIAL IV SCH (08:47)
[2023-09-22 09:41] LABS: EOSINOPHILS # (AUTO) 0.2 K/uL (0.0-0.7); EOSINOPHILS % (AUTO) 1.2 % (0.0-6.0); HEMATOCRIT 27 % (39-51); HEMOGLOBIN 8.3 g/dL (13.5-17.5); LYMPHOCYTES # (AUTO) 0.9 K/uL (0.8-4.8); LYMPHOCYTES % (AUTO) 5.5 % (20.0-44.0); MEAN CORPUSCULAR HEMOGLOBIN 27 PG (26.0-33.0); MEAN CORPUSCULAR HGB CONC 31 g/dl (31.0-36.0); MEAN CORPUSCULAR VOLUME 87 fL (80-96); MONOCYTES # (AUTO) 0.9 K/uL (0.1-1.30); MONOCYTES % (AUTO) 5.7 % (2.0-12.0); NEUTROPHILS # (AUTO) 13.6 K/uL (1.8-8.9); NEUTROPHILS % (AUTO) 87.6 % (43.0-81.0); PLATELET COUNT (AUTO) 297 K/uL (150-450); RED BLOOD CELL COUNT(AUTO) 3.08 MIL/uL (4.5-6.0); RED CELL DISTRIBUTION WIDTH 22.3 % (11.5-15.0); WHITE BLOOD COUNT (AUTO) 15.5 K/uL (4.3-11.0)
[2023-09-22 09:49] LABS: CALCIUM, SERUM 7.4 mg/dL (8.5-10.1); CARBON DIOXIDE 28 mmol/L (21-32); CHLORIDE 107 mmol/L (98-107); CREATININE 0.5 mg/dL (0.6-1.3); GLUCOSE 111 mg/dL (74-106); PHOSPHORUS 2.1 mg/dL (2.5-4.9); POTASSIUM 3.3 mmol/L (3.5-5.1); SODIUM SERUM 138 mmol/L (136-145); UREA NITROGEN, BLOOD 12 mg/dL (7-18)
[2023-09-22] MEDS: IV NS 0.9% 250 ML IV PRN (10:10)
[2023-09-22] MEDS: IVERMECTIN 3 MG TABLET PO ONE (11:17)
[2023-09-22 12:00] VITALS: BP 94/63; TEMP 98.6; O2SAT 100
[2023-09-22] MEDS ORDERED: PERMETHRIN 5% CRM 60 GM TUBE TP ONE (14:30)
[2023-09-22 15:53] LABS: FREE PSA 37.85 ng/mL (0.00-45); PROSTATE SPECIFIC ANTIGEN SCR 2959.25 ng/mL (0.00-4.00)
[2023-09-22] MEDS: PERMETHRIN 5% CRM 60 GM TUBE TP ONE (15:56)
[2023-09-22 16:00] VITALS: BP 91/65; TEMP 98.1; O2SAT 100
[2023-09-22] MEDS: NEUTRA PHOS 1 POWD.PACKET GT ONE (16:04)
[2023-09-22] MEDS: POTASSIUM PHOSPHATE MM 15 MMOL in IV NS 0.9% 250 ML IV SCH (17:03)
[2023-09-22 20:00] VITALS: BP 93/64; TEMP 98; O2SAT 100
[2023-09-23] VITALS: BP 132/64; TEMP 98; O2SAT 98
[2023-09-23 04:00] VITALS: BP 101/64; TEMP 98; O2SAT 98
[2023-09-23 08:00] VITALS: BP 109/66; TEMP 97.9; O2SAT 99
[2023-09-23] MEDS ORDERED: CT SWABBABLE VALVE TRANS SET 1 EA INFUS.SET MC ONE (10:30)
[2023-09-23] MEDS ORDERED: IV NS 0.9% 250 ML IV ONE (10:30)
[2023-09-23] MEDS ORDERED: IOHEXOL-300 100 ML VIAL IV ONE (10:30)
[2023-09-23 12:00] VITALS: BP 85/58; TEMP 98; O2SAT 100
[2023-09-23] MEDS: EPOETIN ALFA (4000 UNIT) 4,000 UNIT/ML VIAL SQ SCH (14:52)
== END 2023-09-23 17:14 | DRG 853 ==
LOC: ER 17:37 → TELE1 20:09 → ICU 09-14 10:14 → TELE1 09-18 06:26 → TELE-TD 09-18 06:57 → TELE1 09-18 17:22
PROVIDERS: ADMIT Internal Medicine; ATTEND Internal Medicine
PROC: 5A1955Z Respiratory Ventilation, Greater than 96 Consecutive Hours (ICD-10-PCS; principal; 2023-09-13)
PROC: 30233N1 Transfusion of Nonautologous Red Blood Cells into Peripheral Vein, Percutaneous Approach (ICD-10-PCS; 2023-09-13)
PROC: 05HY33Z Insertion of Infusion Device into Upper Vein, Percutaneous Approach (ICD-10-PCS; 2023-09-14)
PROC: 02HV33Z Insertion of Infusion Device into Superior Vena Cava, Percutaneous Approach (ICD-10-PCS; 2023-09-14)
PROC: B548ZZA Ultrasonography of Superior Vena Cava, Guidance (ICD-10-PCS; 2023-09-14)
PROC: 0D20XUZ Change Feeding Device in Upper Intestinal Tract, External Approach (ICD-10-PCS; 2023-09-20)
PROC: 0DB60ZZ Excision of Stomach, Open Approach (ICD-10-PCS; 2023-09-20)
PROC: 0WQF0ZZ Repair Abdominal Wall, Open Approach (ICD-10-PCS; 2023-09-20)
PROC: 0QB10ZZ Excision of Sacrum, Open Approach (ICD-10-PCS; 2023-09-21)
DX: A41.9 Sepsis, unspecified organism (principal); E43 Unspecified severe protein-calorie malnutrition; L89.524 Pressure ulcer of left ankle, stage 4; G93.41 Metabolic encephalopathy; L89.154 Pressure ulcer of sacral region, stage 4; N17.0 Acute kidney failure with tubular necrosis; R53.2 Functional quadriplegia; R65.21 Severe sepsis with septic shock; K94.23 Gastrostomy malfunction; J96.10 Chronic respiratory failure, unspecified whether with hypoxia or hypercapnia; K31.6 Fistula of stomach and duodenum; I13.0 Hypertensive heart and chronic kidney disease with heart failure and stage 1 through stage 4 chronic kidney disease, or unspecified chronic kidney disease; D68.59 Other primary thrombophilia; I50.32 Chronic diastolic (congestive) heart failure; I69.351 Hemiplegia and hemiparesis following cerebral infarction affecting right dominant side; F03.918 Unspecified dementia, unspecified severity, with other behavioral disturbance; Z99.11 Dependence on respirator [ventilator] status; Z16.24 Resistance to multiple antibiotics; F03.93 Unspecified dementia, unspecified severity, with mood disturbance; M46.28 Osteomyelitis of vertebra, sacral and sacrococcygeal region; I48.20 Chronic atrial fibrillation, unspecified; N13.6 Pyonephrosis; E87.20 Acidosis, unspecified; C78.00 Secondary malignant neoplasm of unspecified lung; C79.51 Secondary malignant neoplasm of bone; J98.11 Atelectasis; J90 Pleural effusion, not elsewhere classified; M19.90 Unspecified osteoarthritis, unspecified site; Z20.822 Contact with and (suspected) exposure to COVID-19; Y83.3 Surgical operation with formation of external stoma as the cause of abnormal reaction of the patient, or of later complication, without mention of misadventure at the time of the procedure; Y92.129 Unspecified place in nursing home as the place of occurrence of the external cause; I25.10 Atherosclerotic heart disease of native coronary artery without angina pectoris; K21.9 Gastro-esophageal reflux disease without esophagitis; R13.10 Dysphagia, unspecified; K46.9 Unspecified abdominal hernia without obstruction or gangrene; Z95.0 Presence of cardiac pacemaker; E78.5 Hyperlipidemia, unspecified; R26.9 Unspecified abnormalities of gait and mobility; F20.9 Schizophrenia, unspecified; N40.0 Benign prostatic hyperplasia without lower urinary tract symptoms; E78.00 Pure hypercholesterolemia, unspecified; Z79.51 Long term (current) use of inhaled steroids; Z79.02 Long term (current) use of antithrombotics/antiplatelets; Z79.899 Other long term (current) drug therapy; N18.9 Chronic kidney disease, unspecified; F09 Unspecified mental disorder due to known physiological condition; F43.10 Post-traumatic stress disorder, unspecified; X58.XXXA Exposure to other specified factors, initial encounter; Z87.440 Personal history of urinary (tract) infections; K59.00 Constipation, unspecified; J32.9 Chronic sinusitis, unspecified; H26.9 Unspecified cataract; F32.A Depression, unspecified; M24.561 Contracture, right knee; M24.562 Contracture, left knee; Z98.890 Other specified postprocedural states; G47.9 Sleep disorder, unspecified; B96.89 Other specified bacterial agents as the cause of diseases classified elsewhere; E87.6 Hypokalemia; D50.9 Iron deficiency anemia, unspecified; B86 Scabies; B96.20 Unspecified Escherichia coli [E. coli] as the cause of diseases classified elsewhere; C44.320 Squamous cell carcinoma of skin of unspecified parts of face; C61 Malignant neoplasm of prostate; E86.0 Dehydration; Z68.30 Body mass index [BMI] 30.0-30.9, adult; E88.09 Other disorders of plasma-protein metabolism, not elsewhere classified; E66.9 Obesity, unspecified; D50.0 Iron deficiency anemia secondary to blood loss (chronic); L89.890 Pressure ulcer of other site, unstageable
CPT/HCPCS: 31720; 36410; 36415; 36569; 71045-TC; 71260-TC; 74018; 76770-TC; 80048-TC; 80053-TC; 80076-TC; 80202-TC; 81001; 82140-TC; 82272-TC; 82378; 82533; 82550-TC; 82570-TC; 82728-TC; 82962-TC; 83540-TC; 83605-TC; 83735-TC; 83970; 84100-TC; 84153-TC; 84154-TC; 84155; 84165; 84300-TC; 84439-TC; 84443-TC; 84484-TC; 85025-TC; 85027-TC; 85610-TC; 85730-TC; 86850-TC; 87040-TC; 87081-TC; 87086-TC; 88305-TC; 93307-TC; 94003-TC; 94760-TC; 94762-TC; 94799-TC; 99082-TC; A4223; A4623; A6253; A6403; A7526; C9113; G0378; J0692; J0696; J0885; J1720; J1815; J2185; J2916; J3010; J3370; J3480; J3490; J7030; J7050; J7060; J7070; P9016; P9047; Q9967